=== PATIENT | male | born 1940 | race Caucasian/White ===

== ENCOUNTER 2023-08-21 13:00 | Outpatient (RCR) | payer MEDICARE, OTHER, SELFPAY ==
--- NOTE | 2023-08-07 14:07 | PT.OPEX ---
PT [facility] Outpatient Eval PT [facility] Outpatient Eval Start: 08/06/23 12:28 Freq: Status: Active Protocol: Document 08/07/23 11:32 MLS (Rec: 08/07/23 14:04 MLS [id number]) E-signed By Miryam Collins DPT Physical Therapy Outpatient Evaluation Insurance Information Recert Due Date 11/04/23 Insurance Name Medicare B,[employer] Medical Diagnosis M54.9 severe back pain Treating Diagnosis M54.50 LBP (right sided) Referring MD Luisito Wood MD Subjective Subjective Patient is a 82 year old male who presents to physical therapy with signs and symptoms of right sided low back pain that has been going on for 2-3 months. He states that he was doing yard work 2- 3 months ago and pulling weeds out and his back has been sore since. He states that he had this problem years ago from chopping wood, but it had improved. He reports that he has a hard time sleeping, so usually sleeps in his chair. He states that he has severe pain lying on either side and can't get comfortable in bed. Aggravating factors include: standing over a few minutes, lying flat in bed, mowing the lawn, lying on either side in bed, doing yard work, lifting and some of his ADLs. Alleviating factors include: Tylenol. Significant past medical history includes penial cancer, leukemia, pacemaker and left TKA. Patient would like to achieve living pain free through physical therapy sessions. Pain Comments Today: 5/10 on a 0-10 pain scale with 10 = extreme pain At its worst: 9/10 At its best: 2/10 Current Work Status Retired Preferred Name Sergey Jorge Precautions Weight Bearing Status Full Weight Bearing Objective Other/Pertinent Objective Posture Assessment: Foward flexed posture LUMBAR ROM Flexion: 100% repeated flexion: did not increase symptoms Extension: 25% repeated extension: did not increase symptoms Right Sidebend: 25% Left Sidebend: 25% with increased pain Right Rotation: 50% Left Rotation: 50% LE MMT Hip flexion: R 4-/5 L 4-/5 Hip Extension: R 4-/5 L 4-/5 Hip abduction: R 4-/5 L 4-/5 Knee extension: R 4-/5 L 4-/5 Knee Flexion: R 4/5 L 4/5 Dorsiflexion/heel walk: unable to do secondary to balance Plantarflexion/toe walk: unable to do secondary to balance Great Toe Extension: R 4/5 L 4 /5 JOINT MOBILITY/PALPATION Severe tenderness to palpation of right QL SPECIAL TESTS -Quadrant test: negative -Single leg stance: negative -Slump test: negative -Straight leg raise: negative TX: Instructed on performing exercises in recliner Access Code: [email or web address] URL: [email or web address] Date: 08/07/2023 Prepared by: Miryam Collins Exercises - Supine Posterior Pelvic Tilt - 1 x daily - 7 x weekly - 3 sets - 10 reps - Supine Posterior Pelvic Tilt with Knee Rocks - 1 x daily - 7 x weekly - 3 sets - 10 reps Functional Test Performed & Score 30/50 Modified Oswestry Low Back Pain Questionnaire Assessment Assessment/Impression Pt is a 82 year old male who presents with concerns of right sided low back pain. Patient has notable objective findings including tenderness to palpation, limited ROM, impaired balance, and decreased strength which are also likely contributing to the problem. Patient is a good candidate for skilled therapy to target deficits described above. Skilled PT intervention is necessary for use of therapeutic exercise manual therapy, neuromuscular re- education, gait training, and therapeutic activity. Functional impairments include difficulty with mowing the lawn, bending, lifting, sleeping, walking and standing for long periods of time. See appropriate sections of PT eval for complete list of goals and POC. D/C plan and criteria is for pt to achieve the goals as listed below or until max rehab potential is met. Pt was agreeable with plan of care and goals established. Primary Functional Limitations bending standing lifting walking sleeping Plan of Care Rehabilitation Potential Good Physical Therapy Goals ST.Pt will demonstrate independence in performance of home exercise program with the use of video and/or handouts in order to optimize functional mobility and reduce risk for re-injury. 2.Pt will demonstrate consistent HEP compliance to ensure progress in reaching established goals during course of care. 3.Patient will be able to stand for 10 minutes without pain. 4.Patient will report pain levels <2/10 with all activities in order to improve functional mobility at home, work and during functional leisure activities. LT.Patient is able to sleep without waking more than one time due to pain in a 6-8 hour time frame. 6.Patient will be able to walk up to 3 blocks without pain. 7.Patient will be able to bend and lift household items from the floor to shoulder height to perform ADLs without pain. 8.Pt will be able to mow his lawn pain free. 9.Pt will exhibit 5 pt improvement on the Modified Oswestry Low Back Pain Disability Questionnaire to demonstrate functional improvement and progress towards goals. Coordination/Communication With Referral Source Treatment Plan/Direct Interventions Manual Therapy,Therapeutic Activities,Therapeutic Exercises Patient Will Be Discharged From Therapy Independently Progressing Evaluation Billing Untimed Code Treatment Minutes 30 Complexity Low Certification Information Physician Comment/Change : Physician NPI Number #
== END 2023-11-18 15:11 | disposition home or self-care (01) ==
PROVIDERS: PCP Family Medicine; Visit Provider Family Medicine
DX: I89.0 Lymphedema, not elsewhere classified (principal); M54.50 Low back pain, unspecified; Z51.89 Encounter for other specified aftercare
CPT/HCPCS: 97110; 97140; 97161; 97166; 97530; 97535; X5282

== ENCOUNTER 2023-09-02 14:47 | Emergency (ER) | payer MEDICARE, OTHER, SELFPAY ==
[2023-09-02 14:56] VITALS: BP 137/45; PULSE 76; RESP 20; TEMP 36.8; BMI 31.8
--- NOTE | 2023-09-02 15:13 | CRLHL7_ITS ---
For Patients: As a result of the Century Cures Act, medical imaging exams and procedure reports are released immediately into your electronic medical record. You may view this report before your referring provider. If you have questions, please contact your health care provider. INDICATION: Injury. On blood thinners. COMPARISON: February 16, 2018 TECHNIQUE: CT examination of the head was performed as axial sections without intravenous contrast. Images were obtained from the vertex of the skull through the skull base. Please note that all CT scans at this facility use dose modulation, iterative reconstruction, and/or weight-based dosing when appropriate to reduce radiation dose to as low as reasonably achievable. FINDINGS: The brain shows no sign of mass lesion, mass effect, hemorrhage, or edema. There are involutional changes. There is moderate cortical atrophy and there is moderate white matter disease. There is no hydrocephalus. The visualized portions of the orbits are normal in appearance. The osseous structures are normal in appearance with no sign of abnormality in the skull base or calvarium. Subcutaneous hematoma in the right frontal area. IMPRESSION: Involutional changes. No acute intracranial posttraumatic finding. Right frontal region subcutaneous hematoma. No calvarial fracture Please note that all CT scans at this facility use dose modulation, iterative reconstruction, and/or weight-based dosing when appropriate to reduce radiation dose to as low as reasonably achievable. Dictated by Gurmeet Wade MD @ 09/02/2023 3:42:33 PM (Electronically Signed)
--- NOTE | 2023-09-02 15:15 | ED_ITS ---
HPI - General Adult General Chief complaint: Head Injury/Pain Stated complaint: Fall Time Seen by Provider: 09/02/23 15:00 History of Present Illness HPI narrative: was on his way to pay his bill at the hospital front entrance when he fell. he did not see the incline and fell face first . has abrasions with small lacerations on his right forehead, nose, right lower lip. has a contusion on his right hand -knuckle area. no loc. is on Eliquis. has a pacer. 82-year-old man presenting to the emergency department after a fall on his face. Sounds to have caught himself somewhat on his right hand on re-evaluation. I meet him initially in the CT scanner where he has been sent for head CT for quick assessment. Maintains that is not have any neck or back pain. Dentition feels to be intact. There was no loss of consciousness. This was a trip and fall event. He is anticoagulated with Eliquis and has a pacemaker. No shortness of breath. No chest pain. No leg injury. Shoulders normal. Related Data Allergies Allergy/AdvReac Type Severity Reaction Status Date / Time No Known Drug Allergies Allergy Verified 09/02/23 14:56 Review of Systems Status of ROS: Reports: 6 or more systems reviewed and unremarkable except as noted in History and below [facility] Social History Smoking Status: Former smoker Do you use any of these nicotine containing products: None Second hand tobacco smoke exposure: No How often do you have a drink containing alcohol: 2-4 times a month How many standard drinks containing alcohol do you have on a typical day: 1 or 2 How often do you have six or more drinks on one occasion: Never AUDIT-C Alcohol total score: 2 Non-prescribed substance use: denies use service: Yes Exam Narrative: Exam Narrative: Very pleasant man. NAD. GCS 15 Skin is warm and dry. There is a half-dollar sized swollen mostly abraded area on the right forehead. Extraocular movements are full intact. Pupils are equal and brisk reactive to light and accommodation. Removing bandages from the nose there is the cm so irregular ulceration/abrasion to the bridge of the nose. The bridge appears to mean maintained. There is no crepitus and not terribly tender to palpation. There is no septal hematoma. There is blood at the nares I think is coming from the external wound though. Dentition with dentures intact. No TMJ area pain. No fluid at external ear canals. Neck is supple and nontender. Back nontender. Abdomen is soft nontender no pain to palpation of the chest. Lower extremities with compression stockings on. Large symmetrically consistent with lymphedema diagnosis. The right hand is held as if uncomfortable. There is bruising and mild swelling over the dorsum of 3rd and 4th metacarpal joints as well as some on the palmar surface oppositional to that. Const: Vital Signs, click to edit/add: Vital Signs - 24 hr 09/02/23 14:56 Temperature 98.3 F Pulse Rate [Pulse Oximeter] 76 Respiratory Rate 20 Blood Pressure [Ri ght Upper Arm] 137/45 L Oxygen Delivery Me thod Room Air Documenting provider has reviewed patient's vital signs: yes Course Vital Signs Vital signs: Initial Vital Signs Temperature 98.3 F 09/02/23 14:56 Temperature Source Temporal Artery Scan 09/02/23 14:56 Pulse Rate 76 09/02/23 14:56 Pulse Rhythm Regular 09/02/23 14:56 Respiratory Rate 20 09/02/23 14:56 Blood Pressure 137/45 L 09/02/23 14:56 Blood Pressure Mean 75 09/02/23 14:56 Blood Pressure Position Sitting 09/02/23 14:56 Oxygen Delivery Method Room Air 09/02/23 14:56 Vital Signs Temperature 98.3 F 09/02/23 14:56 Pulse Rate 76 09/02/23 14:56 Respiratory Rate 20 09/02/23 14:56 Blood Pressure 137/45 L 09/02/23 14:56 Oxygen Delivery Method Room Air 09/02/23 14:56 Temperature 98.3 F 09/02/23 14:56 Pulse Rate 76 09/02/23 14:56 Respiratory Rate 20 09/02/23 14:56 Blood Pressure 137/45 L 09/02/23 14:56 Oxygen Delivery Method Room Air 09/02/23 14:56 Medical Decision Making MDM Narrative Medical decision making narrative: He is clear that he has no neck pain. Otherwise will be CT scanning head noncontrast. And treat abrasions. This appears to have been a trip and fall event. Will also image right hand. The palmar bruising a particular would have concerns over potential fracture here. Does not feel he needs anything for pain or nausea. Ice pack. CT head imaging has been accomplished at this time. Reviewed by me, I do not see any acute intracranial abnormality. There is soft tissue swelling/hematoma on the forehead consistent with physical exam. No acute bony abnormality appreciated here either. Return to examine as above. Two view right hand reviewed by me I do not appreciate any acute bony abnormality. There appears to be an accessory ossicle on the palmar surface. Radiology over-read on head and hand consistent. Cleaned and dressed facial abrasions. Bleeding controlled. Handed improved with icing. No further events and he would like to leave. Ambulated from the ER. See patient discharge plan Medical Records Medical records reviewed: Yes I reviewed the patient's medical records Discharge Plan Discharge Clinical Impression: Hematoma, Closed head injury, Contusion, Abrasion Patient Disposition: Home w/ Parent or Adult Condition: Stable Additional Instructions: Since you have not received anything here, I would take 1000 mg of acetaminophen when you get home. Change dressing daily with antibiotic ointment for about 6 days or so. This at least helps keep the wound moist. You appear to be clotting well on your nose. You might see whitish yellow tissue growing in on the wounds. As long as there is not surrounding redness or purulent drainage, do not scrape that off as that is new tissue growing in. for scar reduction/wound healing, if desired -- after scab falls, can apply daily vitamin e oil, emu oil or silicone-containing ointments or bandages.? in particular, protect from the sun for the first 9 - 12 months. Important to stay well hydrated and get quality and regular sleep. It is possible you have sustained a concussion although you seem quite clear here at this time. These symptoms can evolve later. Signs and symptoms of a concussion can be headache and nausea on exertion which would also be an indication to back off that level of activity and reassess in 1 week.? Other signs might be a smoldering headache or nausea for an extended period of time, mood lability, sleep disturbances, difficulty with concentration, persistent light sensitivity. If you are experiencing these symptoms and they continue over the course of more than a week I would follow up to be reassessed for further recommendations Return for severe headache, repeated vomiting, new and focal weakness, visual changes, discoordination, unusual somnolence. I imagine you will be extra sore over the next couple of days. Spend some time stretching neck and upper back. Ice areas that hurt a few times daily over the next few days. Follow Up/Referrals: Luisito Wood MD [Primary Care Provider] - Stand Alone Forms: [employer] Info Instructions
--- NOTE | 2023-09-02 15:50 | CRLHL7_ITS ---
For Patients: As a result of the Cures Act, medical imaging exams and procedure reports are released immediately into your electronic medical record. You may view this report before your referring provider. If you have questions, please contact your health care provider. Indication: Bruising after fall, 3rd and 4th metacarpophalangeal joint pain. Technique: Two views of the right hand, PA, lateral. Comparison: None Findings/Impression: No acute fracture or dislocation. No significant focal soft tissue abnormality identified. Dictated by Katie Gtz MD @ 09/02/2023 5:12:11 PM (Electronically Signed)
== END 2023-09-02 17:37 | disposition home or self-care (01) ==
PROVIDERS: Emergency Provider Family Medicine; PCP Family Medicine
DX: S00.93XA Contusion of unspecified part of head, initial encounter (principal); S60.221A Contusion of right hand, initial encounter; W01.0XXA Fall on same level from slipping, tripping and stumbling without subsequent striking against object, initial encounter
CPT/HCPCS: 70450; 73120; 99284

== ENCOUNTER 2024-04-28 17:07 | Inpatient (IN) | payer MEDICARE, OTHER, SELFPAY ==
[2024-04-28] VITALS (13 sets, daily range): BP systolic 93–134; BP diastolic 48–110; PULSE 73–95; RESP 14–22; TEMP 36.3–37.7; O2SAT 92–96; BMI 25.8; BMI 31.4
--- NOTE | 2024-04-28 17:16 | ED_ITS ---
HPI - Nausea/Vomiting/Diarrhea General Time Seen by Provider: 17:16 Date Seen: 04/28/24 Chief complaint: Diarrhea Stated complaint: diarrhea 4 days Time Seen by Provider: 04/28/24 17:16 Source: patient, RN notes reviewed and old records reviewed Mode of arrival: ambulatory Limitations: no limitations History of Present Illness HPI Narrative: 83-year-old male who presents today with diarrhea. Patient reports 4 days of diarrhea, says he had 2 watery stools yesterday and 1 watery stool today, no blood in the stool. Did have some lower abdominal pain a couple days ago but that has resolved. Denies urinary symptoms. Decreased appetite. Denies fevers or chills. Related Data Home Medications ?Medication ?Instructions ?Recorded ?Confirmed allopurinol 300 mg tablet 300 mg PO DAILY 04/28/24 04/28/24 amlodipine 5 mg tablet 5 mg PO DAILY 04/28/24 04/28/24 apixaban 5 mg tablet (Eliquis) 5 mg PO BID 04/28/24 04/28/24 atorvastatin 20 mg tablet 20 mg PO DAILY 04/28/24 04/28/24 imatinib 100 mg tablet 200 mg PO BID 04/28/24 04/28/24 lisinopril 20 mg tablet 20 mg PO DAILY 04/28/24 04/28/24 potassium chloride 20 mEq 20 meq PO DAILY 04/28/24 04/28/24 tablet,extended release(part/cryst) tamsulosin 0.4 mg capsule 0.4 mg PO DAILY 04/28/24 04/28/24 Allergies Allergy/AdvReac Type Severity Reaction Status Date / Time Iodinated Contrast Media Allergy Unknown Verified 04/28/24 17:18 [facility] Social History Smoking Status: Former smoker Do you use any of these nicotine containing products: None Second hand tobacco smoke exposure: No How often do you have a drink containing alcohol: 2-4 times a month How many standard drinks containing alcohol do you have on a typical day: 1 or 2 How often do you have six or more drinks on one occasion: Never AUDIT-C Alcohol total score: 2 Non-prescribed substance use: denies use service: Yes Exam Narrative: Exam Narrative: General: Well-developed and well-nourished, no acute distress Head: Atraumatic and normocephalic Eyes: Pupils are equal reactive, extraocular motions intact, conjunctiva clear ENT: External nose and ears are normal, posterior pharynx without erythema or exudate Neck: No midline cervical tenderness, full spontaneous range of motion the neck, trachea midline, no adenopathy Heart: Tachycardic but regular Lungs: Clear to auscultation bilaterally without wheezes or crackles Abdomen: Soft, nontender, nondistended with active bowel sounds Musculoskeletal: No tenderness, deformity, bilateral lower extremity pitting edema Neurologic: Awake, alert, and oriented x3, no gross focal neurologic deficits, cranial nerves intact as tested Psych: Mood and affect are appropriate Skin: No rashes Const: Vital Signs, click to edit/add: Vital Signs - 24 hr 04/28/24 17:09 04/28/24 18:25 04/28/24 18:33 Temperature 100 F H Pulse Rate 81 Pulse Rate [Pulse Oximeter] 76 Respiratory Rate 18 Blood Pressure 99/62 130/110 H Blood Pressure [Ri ght Upper Arm] 93/48 L Pulse Oximetry 93 93 Oxygen Delivery Me thod Room Air 04/28/24 18:57 04/28/24 19:00 04/28/24 19:02 Temperature Pulse Rate 86 91 85 Pulse Rate [Pulse Oximeter] Respiratory Rate 16 Blood Pressure 116/55 L Blood Pressure [Ri ght Upper Arm] Pulse Oximetry 95 95 93 Oxygen Delivery Me thod Room Air Course Course ED Course: Patient seen examined, reviewed most recent oncology visit from March 31 when patient was seen for 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 Patient is on Eliquis. Patient presents with 4 days of diarrhea, this presents as loose stools, 2 yesterday and just 1 today. Did have some lower abdominal pain initially as well. No fevers, chills, urinary symptoms. On exam here, patient's blood pressure is little bit low, no abdominal tenderness on exam. Bilateral pitting edema which is usual for the patient. Colitis versus diverticulitis, urinary tract infection also possible. Labs are ordered along with CT abdomen and pelvis. Reevaluation(s) Time of Reevaluation #1: 18:40 Reevaluation #1: Labs ordered in pill interpreted by me with elevated white blood cell count 18.3, hemoglobin 9.2, most recent hemoglobin in clinic February 2020 for was 9.8. Potassium 3.2 and creatinine 2.9, prior creatinine in February 1.27. Lactate 1.7. Time of Reevaluation #2: 18:55 Reevaluation #2: CT scan of the abdomen and pelvis independently interpreted by me with pericholecystic fluid although there is some ascites and anasarca which may be contributing, no evidence for obstruction, ventral hernia containing fat, no free air Time of Reevaluation #3: 20:04 Reevaluation #3: Reviewed radiology interpretation which agrees with my initial interpretation with gallbladder wall thickening and small amount of adjacent fluid but may be secondary to 3rd spacing of fluids and anasarca/ascites. Right upper quadrant ultrasound is ordered. Care was discussed with Dr. Balderrama in the emergency department. Blood pressure improved after fluid bolus. Vital Signs Vital signs: Initial Vital Signs Temperature 100 F H 04/28/24 17:09 Temperature Source Temporal Artery Scan 04/28/24 17:09 Pulse Rate 76 04/28/24 17:09 Pulse Rhythm Regular 04/28/24 17:09 Pulse Strength 3+ Normal 04/28/24 17:09 Respiratory Rate 18 04/28/24 17:09 Blood Pressure 93/48 L 04/28/24 17:09 Blood Pressure Mean 63 L 04/28/24 17:09 Blood Pressure Position Sitting 04/28/24 17:09 Pulse Oximetry 93 04/28/24 17:09 Oxygen Delivery Method Room Air 04/28/24 17:09 Vital Signs Temperature 100 F H 04/28/24 17:09 Pulse Rate 76 04/28/24 17:09 Respiratory Rate 18 04/28/24 17:09 Blood Pressure 93/48 L 04/28/24 17:09 Pulse Oximetry 93 04/28/24 17:09 Oxygen Delivery Method Room Air 04/28/24 17:09 Temperature 100 F H 04/28/24 17:09 Pulse Rate 85 04/28/24 19:02 Respiratory Rate 16 04/28/24 19:02 Blood Pressure 116/55 L 04/28/24 19:02 Pulse Oximetry 93 04/28/24 19:02 Oxygen Delivery Method Room Air 04/28/24 19:02 Medications Administered Medications: Discontinued Medications Generic Name Dose Route Start Last Admin Trade Name Freq PRN Reason Stop Dose Admin Sodium Chloride 1,000 mls @ 1,000 mls/hr 04/28/24 17:30 04/28/24 19:48 0.9 % Sodium Chloride 1000 Ml IV 04/28/24 18:29 Infused .Q1H TYREL Infusion MDM - Nausea/Vomiting/Diarrhea Lab Data Labs: Lab Results 04/28/24 04/28/24 Range/Units 18:10 19:10 WBC 18.30 H (4.50-11.00) K/uL RBC 3.07 L (4.30-5.90) m/uL Hgb 9.2 L (13.5-17.5) gm/dL Hct 27.8 L (37.0-53.0) % MCV 91 (80-100) fL MCH 30 (26-34) pg MCHC 33 (32-36) gm/dL RDW Coeff of Guillermo 16.6 H (11.5-15.5) % Plt Count 177 (140-440) K/uL Neut % (Auto) 93.6 H (42.0-72.0) % Lymph % (Auto) 1.5 L (20-44) % [place] % (Auto) 4.3 (0.0-11.0) % Eos % (Auto) 0.0 (0.0-7.0) % Baso % (Auto) 0.1 (0.0-3.0) % Neut # (Auto) 17.10 H (1.7-7.0) K/uL Lymph # (Auto) 0.30 L (0.90-2.90) K/uL [place] # (Auto) 0.80 (0.00-0.90) K/UL Eos # (Auto) 0.00 (0.00-0.50) K/uL Baso # (Auto) 0.00 (0.00-0.30) K/uL Abs Immat Gran (auto) 0.10 (0.00-0.30) K/uL Imm/Tot Granulo (auto) 0.5 % Sodium 135 (135-149) mmol/L Potassium 3.2 L (3.6-5.1) mmol/L Chloride 103 (96-114) mmol/L Carbon Dioxide 22 (20-32) mmol/L Anion Gap 10 (7-15) mEq/L BUN 70 H (7-30) mg/dL Creatinine 2.9 H (0.5-1.5) mg/dL Estimated Creat Clear 20.81 Estimated GFR 21 ml/min Glucose 137 H (60-115) mg/dL Lactate 1.7 (0.5-1.9) mmol/L Calcium 8.4 (8.4-10.6) mg/dL Magnesium 1.9 (1.5-2.6) mg/dL Urine Color Yellow (Yellow) Urine Appearance Cloudy A (Clear) Urine pH 5.0 (5.0-8.5) Ur Specific [place] >= 1.030 (1.000-1.030) Urine Protein 2+ A (Negative) Urine Glucose (UA) Negative (Negative) Urine Ketones Trace A (Negative) Urine Blood Trace-intact A (Negative) Urine Nitrite Negative (Negative) Urine Bilirubin 1+ A (Negative) Urine Urobilinogen 0.2 (0.2-1.0) Ur Leukocyte Esterase Negative (Negative) Urine RBC 0-2 (0-2) Urine WBC 2-5 (0-5) Ur Squamous Epith Cells Few (None-Few) Amorphous Sediment Few A (None) Urine Bacteria Few A (None) Fine Granular Casts Moderate A (None) Discharge Plan Discharge Clinical Impression: CML (chronic myelocytic leukemia), Acute kidney injury Patient Disposition: Admitted As Observation
--- NOTE | 2024-04-28 17:28 | CRLHL7_ITS ---
For Patients: As a result of the Century Cures Act, medical imaging exams and procedure reports are released immediately into your electronic medical record. You may view this report before your referring provider. If you have questions, please contact your health care provider. Indication: Diarrhea, hypotension Technique: Noncontrast CT through the abdomen and pelvis with multiplanar reformats. Comparison: None Findings: Lower chest: Partially visualized cardiac pacer leads. Cardiomegaly. Small pericardial effusion. Hepatobiliary: Marked gallbladder wall thickening and dilation with a small volume of adjacent fluid and adjacent stranding. Periportal edema. Spleen: Unremarkable. Pancreas: No acute abnormality appreciated. Adrenal glands: Nodular thickening of left adrenal gland. Kidneys: No significant parenchymal abnormality appreciated. No visualized calculi. No hydronephrosis. Bowel: No obstruction. No focal perienteric or pericolonic stranding is appreciated. Vascular: Calcified atherosclerosis. Lymph nodes: Shotty nodes. Peritoneum: Diffuse mesenteric stranding. Small volume ascites. : No acute abnormality appreciated. Soft tissues: Fat and ascites containing umbilical hernia. Mild anasarca. Bones: No acute fracture. No lytic or blastic lesion. Multilevel degenerative changes of the spine and pelvis. Impression: 1. Marked gallbladder wall thickening and dilation with a small amount of adjacent fluid and stranding. Findings can be correlated for acute cholecystitis but could be secondary to 3rd spacing of fluids and/or heart failure. 2. Cardiomegaly with trace pericardial fluid, small volume ascites, and anasarca. 3. No other acute abnormality appreciated. Please note that all CT scans at this facility use dose modulation, iterative reconstruction, and/or weight-based dosing when appropriate to reduce radiation dose to as low as reasonably achievable. Dictated by Abdulkadir Kay MD @ 04/28/2024 8:02:52 PM (Electronically Signed)
[2024-04-28 18:20] LABS: Lactate* 1.7 mmol/L (0.5-1.9)
[2024-04-28 18:22] LABS: Basophils Percent Auto 0.1 % (0.0-3.0); Hematocrit 27.8 % (37.0-53.0); Hemoglobin* 9.2 gm/dL (13.5-17.5); Immature Granulocytes Pct Auto 0.5 %; Lymphocytes Percent Auto 1.5 % (20-44); Mean Corpuscular HGB Conc 33 gm/dL (32-36); Mean Corpuscular Hemoglobin 30 pg (26-34); Mean Corpuscular Volume 91 fL (80-100); Monocytes Percent Auto 4.3 % (0.0-11.0); Neutrophils Percent Auto 93.6 % (42.0-72.0); Platelet Count* 177 K/uL (140-440); RDW Coefficient of Variation % 16.6 % (11.5-15.5); Red Blood Count 3.07 m/uL (4.30-5.90)
[2024-04-28] MEDS: 0.9 % SODIUM CHLORIDE 1000 ml 1,000 ML IV (18:22)
[2024-04-28 18:25] LABS: Slide Review Reflex No
[2024-04-28 18:31] LABS: Chloride* 103 mmol/L (96-114); Potassium* 3.2 mmol/L (3.6-5.1); Sodium* 135 mmol/L (135-149)
[2024-04-28 18:34] LABS: Anion Gap 10 mEq/L (7-15); Carbon Dioxide* 22 mmol/L (20-32); Creatinine* 2.9 mg/dL (0.5-1.5); Est. Creatinine Clearance* 20.81; Estimated Glomerular Filt Rate 21 ml/min
[2024-04-28 18:35] LABS: Blood Urea Nitrogen* 70 mg/dL (7-30); Calcium* 8.4 mg/dL (8.4-10.6); Glucose* 137 mg/dL (60-115); Magnesium* 1.9 mg/dL (1.5-2.6)
[2024-04-28 19:56] LABS: Appearance Urine Cloudy (Clear); Bilirubin Urine 1+ (Negative); Blood Urine Trace-intact (Negative); Color Urine Yellow (Yellow); Glucose Urine Negative (Negative); Ketones Urine Trace (Negative); Leukocyte Esterase Urine Negative (Negative); Nitrite Urine Negative (Negative); Protein Urine 2+ (Negative); Specific Gravity Urine >= 1.030 (1.000-1.030); Urobilinogen Urine 0.2 (0.2-1.0)
[2024-04-28 19:59] LABS: Amorphous Sediment Urine Few; Bacteria Urine Few; RBC Urine 0-2 (0-2); Squamous Epithelial Cell Urine Few (None-Few)
[2024-04-28 20:00] LABS: Fine Granular Casts Urine Moderate
--- NOTE | 2024-04-28 20:04 | CRLHL7_ITS ---
For Patients: As a result of the Century Cures Act, medical imaging exams and procedure reports are released immediately into your electronic medical record. You may view this report before your referring provider. If you have questions, please contact your health care provider. INDICATION: diarrhea, hypotension, abnormal CT. TECHNIQUE: Ultrasound abdomen limited. COMPARISON: None. FINDINGS: Gallbladder: Small echogenic structures in the fundus, likely small stones. Increased wall thickness measuring 6 mm with probable small adjacent pericholecystic fluid. Reported negative sonographic Macias`s sign. Common bile duct: 3 mm. IMPRESSION: Cholelithiasis with wall thickening and pericholecystic fluid suspicious for cholecystitis. Negative sonographic Macias`s sign. Dictated by Donal Duffy MD @ 04/28/2024 9:32:37 PM (Electronically Signed)
[2024-04-28 20:09] LABS: PCR FLU A Negative PCR FLU A (Negative); PCR FLU B Negative PCR FLU B (Negative); PCR RSV Negative PCR RSV (Negative); SARS PCR* Negative SARS-CoV-2 (Negative)
[2024-04-28 20:30] LABS: NT Pro B Type NatriureticPept* 1610 pg/mL
--- NOTE | 2024-04-28 21:59 | PM.IMHP1 ---
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 He is not aware of any fever. He may have had some low abdominal pain. No vomiting. Stools are brown. He is not having chest pain or shortness of breath. No upper respiratory illness symptoms. He reports that his has also developed diarrhea in the last day or 2. No recent exposures or travel besides his . No recent antibiotics. 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 He has been on this for about 5 years. He had a dose reduction in 2019 for nausea, abdominal pain, fatigue and poor appetite. It was then stopped for development a rash and then restarted. Dose was increased back to 400mg in 2021 due to rising tumor markers. Stopped again in 2022 due to pneumonia and failure to thrive. Restarted 1 year ago at 300 mg daily and in November this year increased to 400 mg daily again. He was seen by Oncology on March 31. At that time still noted to have some diarrhea which is a chronic problem for him. Blood counts were stabilized. He has had weight loss on our scale he is gone from 103.4 kg in August 2023 to 86.2 kg today. In the clinic his weight was 108 kg in March 2023 and 98 kg in December 2023. He reports ongoing poor appetite. Review of Systems Narrative: Patient has no concerns for me today other than his diarrhea, poor appetite and feeling weak. Specifically denies fever, chest pain, current abdominal pain, respiratory, I urinary symptoms. Still having prominent edema. [facility] Medical History (Updated 04/28/24 @ 22:37 by Hernandez Balderrama MD) Weight loss, non-intentional ?R63.4 - Abnormal weight loss (ICD-10) Sarcopenia ?M62.84 - Sarcopenia (ICD-10) Heart failure with reduced ejection fraction ?I50.20 - Unspecified systolic (congestive) heart failure (ICD-10) Esophageal dysmotility ?K22.4 - Dyskinesia of esophagus (ICD-10) BPH (benign prostatic hyperplasia) ?N40.0 - Benign prostatic hyperplasia without lower urinary tract symptoms (ICD-10) Chronic diarrhea ?K52.9 - Noninfective gastroenteritis and colitis, unspecified (ICD-10) Hypertension ?I10 - Essential (primary) hypertension (ICD-10) Obesity ?E66.9 - Obesity, unspecified (ICD-10) Gout ?M10.9 - Gout, unspecified (ICD-10) Paroxysmal atrial fibrillation ?I48.0 - Paroxysmal atrial fibrillation (ICD-10) Diabetes mellitus ?E11.9 - Type 2 diabetes mellitus without complications (ICD-10) Chronic acquired lymphedema ?I89.0 - Lymphedema, not elsewhere classified (ICD-10) Penile cancer ?C60.9 - Malignant neoplasm of penis, unspecified (ICD-10) Coronary artery disease ?I25.10 - Atherosclerotic heart disease of [place] coronary artery without angina pectoris (ICD-10) 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 - Chronic myeloid leukemia, BCR/ABL-positive, not having achieved remission (ICD-10) Surgical History (Updated 04/28/24 @ 22:23 by Hernandez Balderrama MD) History of penectomy ?Z90.79 - Acquired absence of other genital organ(s) (ICD-10) S/P placement of cardiac pacemaker ?Z95.0 - Presence of cardiac pacemaker (ICD-10) History of arthroplasty of left knee ?Z96.652 - Presence of left artificial knee joint (ICD-10) History of coronary artery stent placement ?Z95.5 - Presence of coronary angioplasty implant and graft (ICD-10) Social History Smoking Status: Former smoker Do you use any of these nicotine containing products: None Second hand tobacco smoke exposure: No How often do you have a drink containing alcohol: 2-4 times a month How many standard drinks containing alcohol do you have on a typical day: 1 or 2 How often do you have six or more drinks on one occasion: Never AUDIT-C Alcohol total score: 2 Non-prescribed substance use: denies use service: Yes Meds Home Medications and Allergies Home Medications ?Medication ?Instructions ?Recorded ?Confirmed ?Type allopurinol 300 mg tablet 300 mg PO DAILY 04/28/24 04/28/24 History amlodipine 5 mg tablet 5 mg PO DAILY 04/28/24 04/28/24 History apixaban 5 mg tablet (Eliquis) 5 mg PO BID 04/28/24 04/28/24 History atorvastatin 20 mg tablet 20 mg PO DAILY 04/28/24 04/28/24 History imatinib 100 mg tablet 200 mg PO BID 04/28/24 04/28/24 History lisinopril 20 mg tablet 20 mg PO DAILY 04/28/24 04/28/24 History potassium chloride 20 mEq 20 meq PO DAILY 04/28/24 04/28/24 History tablet,extended release(part/cryst) tamsulosin 0.4 mg capsule 0.4 mg PO DAILY 04/28/24 04/28/24 History Allergies Allergy/AdvReac Type Severity Reaction Status Date / Time Iodinated Contrast Media Allergy Unknown Verified 04/28/24 17:18 Exam Narrative: Exam Narrative: He is alert and appears in no distress. He is hard of hearing. Eyes normal status post cataract surgery. Extraocular movements are full. Visual chapa intact. No facial asymmetry. Oropharynx with dry mucous membranes. Neck is supple without mass or adenopathy. Somewhat prominent submandibular glands. Respirations are clear to auscultation. No wheezing. Good air exchange all lung chapa. Breathing is unlabored. Cardiovascular: S1, S2, relatively regular rhythm. Abdomen: Bowel sounds are present. Abdomen is soft without tenderness or mass. External genitalia status post partial penectomy. Extremities bilaterally with compression wraps and at least 2+ edema. Moves all 4 extremities well. Overall he appears to have poor muscle mass relative to body mass Const: Vital Signs, click to edit/add: Vital Signs - 24 hr 04/28/24 17:09 04/28/24 18:25 04/28/24 18:33 Temperature 100 F H Pulse Rate 81 Pulse Rate [Pulse Oximeter] 76 Respiratory Rate 18 Blood Pressure 99/62 130/110 H Blood Pressure [Ri ght Upper Arm] 93/48 L Pulse Oximetry 93 93 Oxygen Delivery Me thod Room Air 04/28/24 18:57 04/28/24 19:00 04/28/24 19:02 Temperature Pulse Rate 86 91 85 Pulse Rate [Pulse Oximeter] Respiratory Rate 16 Blood Pressure 116/55 L Blood Pressure [Ri ght Upper Arm] Pulse Oximetry 95 95 93 Oxygen Delivery Me thod Room Air 04/28/24 19:03 04/28/24 19:32 04/28/24 20:02 Temperature Pulse Rate 95 80 79 Pulse Rate [Pulse Oximeter] Respiratory Rate 16 14 Blood Pressure 120/62 111/52 L Blood Pressure [Ri ght Upper Arm] Pulse Oximetry 93 94 96 Oxygen Delivery Me thod Room Air Room Air 04/28/24 20:30 Temperature Pulse Rate 74 Pulse Rate [Pulse Oximeter] Respiratory Rate Blood Pressure Blood Pressure [Ri ght Upper Arm] Pulse Oximetry 96 Oxygen Delivery Me thod Documenting provider has reviewed patient's vital signs: yes Hospitalist - H&P: Result Labs Labs: Short CBC 04/28/24 Range/Units 18:10 WBC 18.30 H (4.50-11.00) K/uL Hgb 9.2 L (13.5-17.5) gm/dL Hct 27.8 L (37.0-53.0) % Plt Count 177 (140-440) K/uL BMP 04/28/24 18:10 Sodium 135 Potassium 3.2 L Chloride 103 Carbon Dioxide 22 BUN 70 H Creatinine 2.9 H Glucose 137 H Calcium 8.4 Urine 04/28/24 Range/Units 19:10 Urine Color Yellow (Yellow) Urine Appearance Cloudy A (Clear) Urine pH 5.0 (5.0-8.5) Ur Specific Essie >= 1.030 (1.000-1.030) Urine Protein 2+ A (Negative) Urine Glucose (UA) Negative (Negative) Imaging CT scan - abdomen: Radiologist's impression: Indication: Diarrhea, hypotension Technique: Noncontrast CT through the abdomen and pelvis with multiplanar reformats. Comparison: None Findings: Lower chest: Partially visualized cardiac pacer leads. Cardiomegaly. Small pericardial effusion. Hepatobiliary: Marked gallbladder wall thickening and dilation with a small volume of adjacent fluid and adjacent stranding. Periportal edema. Spleen: Unremarkable. Pancreas: No acute abnormality appreciated. Adrenal glands: Nodular thickening of left adrenal gland. Kidneys: No significant parenchymal abnormality appreciated. No visualized calculi. No hydronephrosis. Bowel: No obstruction. No focal perienteric or pericolonic stranding is appreciated. Vascular: Calcified atherosclerosis. Lymph nodes: Shotty nodes. Peritoneum: Diffuse mesenteric stranding. Small volume ascites. : No acute abnormality appreciated. Soft tissues: Fat and ascites containing umbilical hernia. Mild anasarca. Bones: No acute fracture. No lytic or blastic lesion. Multilevel degenerative changes of the spine and pelvis. Impression: 1. Marked gallbladder wall thickening and dilation with a small amount of adjacent fluid and stranding. Findings can be correlated for acute cholecystitis but could be secondary to 3rd spacing of fluids and/or heart failure. 2. Cardiomegaly with trace pericardial fluid, small volume ascites, and anasarca. 3. No other acute abnormality appreciated. US - abdomen: Radiologist's impression: INDICATION: diarrhea, hypotension, abnormal CT. TECHNIQUE: Ultrasound abdomen limited. COMPARISON: None. FINDINGS: Gallbladder: Small echogenic structures in the fundus, likely small stones. Increased wall thickness measuring 6 mm with probable small adjacent pericholecystic fluid. Reported negative sonographic Macias`s sign. Common bile duct: 3 mm. IMPRESSION: Cholelithiasis with wall thickening and pericholecystic fluid suspicious for cholecystitis. Negative sonographic Macias`s sign. Assessment and Plan Assessment and plan (1) Acute kidney injury: Problem comment: Appears to be intravascular volume depleted despite his edema. Diarrhea recently is much worse than chronic diarrhea. Poor oral intake is likely contributing. Side effect of Gleevec may be also contributing. Cautiously provide IV fluids and monitor renal function. Hold Gleevec for now. Status: Acute (2) CML (chronic myelocytic leukemia): Problem comment: On Gleevec. Hold for now pending phone consult with Oncology at [facility]. Status: Acute (3) Chronic acquired lymphedema: Status: Acute (4) Diabetes mellitus: Problem comment: Appears to be well controlled Status: Acute (5) Paroxysmal atrial fibrillation: Problem comment: On anticoagulation with apixaban. Hold anticoagulation pending surgical evaluation of abnormal gallbladder Status: Acute (6) Chronic diarrhea: Status: Acute (7) Heart failure with reduced ejection fraction: Status: Acute (8) Sarcopenia: Status: Acute (9) Weight loss, non-intentional: Problem comment: Appears to be losing lean body mass yet gaining edema with overall weight loss of at least 10 kg in the past year. Status: Acute (10) Anasarca: Problem comment: Generalized edema Status: Acute (11) Leukocytosis: Problem comment: Predominantly neutrophils. Uncertain if this is due to infection or CML or both. Status: Acute (12) Abnormal CT scan, gallbladder: Problem comment: Gallbladder wall thickening and gallstones present. May be cholecystitis though he is currently not tender there. Could be due to edema. Check LFTs. Surgical consult Status: Acute Plan 83-year-old male with multiple medical problems noted above now presents with acute on chronic diarrhea, acute on chronic kidney disease, progressive weakness. Admitted to the hospital for management of these problems. Total Time Spent Total Time Spent: Total time spent is 80 minutes in evaluation management
[2024-04-28 22:18] LABS: Albumin* 2.9 g/dL (3.3-5.0)
[2024-04-28 22:21] LABS: Alanine Aminotransferase* 29 U/L (4-50); Alkaline Phosphatase* 74 U/L (40-150); Aspartate Amino Transferase* 48 U/L (12-35); Bilirubin Direct* 0.3 mg/dL (0.0-0.5); Bilirubin Total* 0.9 mg/dL (0.1-1.5); Total Protein* 5.4 g/dL (6.0-8.3)
[2024-04-28] MEDS: POTASSIUM BICARB 25 MEQ EFFERVESCENT TAB 50 MEQ PO (22:34)
[2024-04-28] MEDS: LACTATED RINGERS 1000 ML 1,000 ML 125 ML IV (22:35)
[2024-04-28 22:36] LABS: Troponin I* 0.06 ng/mL (0.01-0.04)
[2024-04-29] VITALS (8 sets, daily range): BP systolic 105–138; BP diastolic 57–88; PULSE 68–87; RESP 16–18; TEMP 36.8–37.2; O2SAT 91–94
[2024-04-29 05:39] LABS: C.Difficile Negative (Negative); CDIFFEPI 027 PRESUMPTIVE NEGATIVE (Negative)
[2024-04-29] MEDS: LACTATED RINGERS 1000 ML 1,000 ML 125 ML IV ×2 (06:14→14:31)
[2024-04-29 06:57] LABS: Basophils Percent Auto 0.1 % (0.0-3.0); Eosinophils Percent Auto 0.1 % (0.0-7.0); Hematocrit 27.9 % (37.0-53.0); Hemoglobin* 9.6 gm/dL (13.5-17.5); Immature Granulocytes Pct Auto 0.7 %; Lymphocytes Percent Auto 2.5 % (20-44); Mean Corpuscular HGB Conc 34 gm/dL (32-36); Mean Corpuscular Hemoglobin 30 pg (26-34); Mean Corpuscular Volume 88 fL (80-100); Neutrophils Percent Auto 92.6 % (42.0-72.0); Platelet Count* 200 K/uL (140-440); RDW Coefficient of Variation % 16.7 % (11.5-15.5); Red Blood Count 3.16 m/uL (4.30-5.90); White Blood Count* 17.48 K/uL (4.50-11.00)
[2024-04-29 07:08] LABS: Slide Review Reflex No
[2024-04-29 07:26] LABS: Albumin* 3.1 g/dL (3.3-5.0); Chloride* 106 mmol/L (96-114); Sodium* 138 mmol/L (135-149)
--- NOTE | 2024-04-29 07:27 | P.IMPN_ITS ---
Progress Note: A&P Assessment and plan (1) Abnormal CT scan, gallbladder: Problem details: Gallbladder wall thickening and gallstones present. May be cholecystitis, RUQ pain today and AST increasing. Could be due to edema. Check LFTs again in am. NPO, IVF. Start Zosyn. Pain medicine. Surgical consult. Status: Acute (2) Leukocytosis: Problem details: Predominantly neutrophils. Uncertain if this is due to infection or CML or both. Status: Acute (3) Weight loss, non-intentional: Problem details: Appears to be losing lean body mass yet gaining edema with overall weight loss of at least 10 kg in the past year. Status: Acute (4) Heart failure with reduced ejection fraction: Problem details: proBNP 1600. Trop 0.06 ->0.07. Follow. Anasarca, but intravascularly depleted. Monitor I/Os. Obtain ECHO. Status: Acute (5) Chronic diarrhea: Status: Acute (6) Paroxysmal atrial fibrillation: Problem details: On anticoagulation with apixaban. Hold anticoagulation pending surgical evaluation of abnormal gallbladder Metoprolol TID for tachycardia Status: Acute (7) Diabetes mellitus: Problem details: Appears to be well controlled Status: Acute (8) Anasarca: Problem details: Generalized edema Status: Acute (9) Acute kidney injury: Problem details: Appears to be intravascular volume depleted despite his edema, BUN and Cr elevated. Diarrhea recently is much worse than chronic diarrhea. Poor oral intake is likely contributing. Side effect of Gleevec may be also contributing. Cautiously provide IV fluids and monitor renal function. Hold Gleevec for now. 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 Hold for now pending phone consult with Oncology at [facility]. Status: Acute (11) Hypokalemia: Problem details: Mg 2. Replace IV since he is NPO. Recheck in am. Status: Acute Time Spent With Patient Total time spent: Today I spent 50 minutes rounding on the patient. Greater than 50% included discussing care with the patient, family, willow machine operator, surgeon, team, reviewing data, updating and managing the care plan. Subjective Time Seen by Provider: 07:11 Date Seen: 04/29/24 Interval history: I received a call from the overnight doc while I was leaving for my shift to notify me that this patient had a 45s run of VT around 6:50 a.m.. He had had several beat runs of V-tach overnight. I spoke with the patient's nurses. He has been asymptomatic overnight with no palpitations, new or worsening lightheadedness or dizziness, chest pain, or shortness of breath. He denies h/o VT. I reviewed [facility] records and found his pacer device checks. They note brief runs of NSVT, at most 5-6 beats. MYOCARDIAL PERFUSION SCAN 03/13/2023 1. There is no evidence of significant myocardial ischemia or infarction. 2. Normal left ventricular ejection fraction of approximately 63 percent. 3. There is mild left ventricular enlargement. ECHO 05/15/23 Final Impressions: 1. Normal LV size, moderately increased wall thickness, normal global systolic function with an estimated EF of 55 - 60%. 2. Right ventricular cavity size is normal, global systolic RV function is normal. 3. Mildly enlarged left atrium. 4. The mitral valve is normal, mild to moderate mitral regurgitation. 5. Tricuspid regurgitation is mild regurgitation, the estimated right ventricular systolic pressure is 23 mmHg plus right atrial pressure. 6. The inferior vena cava is dilated, respiratory size variation greater than 50%. I spoke with Dr. Brown from [facility] this morning who recommended pacer interrogation. Froilan, from [facility], came and interrogated the pacer. He reports that there were a few PVCs and a few PACs enough to make it look irregularly irregular. He saw that there was a run of AFib a few weeks ago. Also there were several short episodes of a heart rate just under 130 beats per minute with one-to-one conduction from the atria into the ventricles. There was also an event this morning that lasted about 40 seconds with that same one-to-one conduction at 129 beats per minute. There was no ventricular tachycardia seen. I went back to the room and spoke with the patient's family several times this morning to give them updates. I noted that since he had no evidence of ventricular tachycardia, Dr. Horn had recommended that I start a beta- josh, which I did this morning, and that he could get an echocardiogram tomorrow and go through surgery if needed when the Eliquis had worn off enough to do so. I spoke with Dr. Alcaraz several times today as well. Exam Narrative: Exam Narrative: General: No acute distress. Is sleepy, arousable, oriented. Cardiovascular: Regular rate and rhythm. No murmurs, gallops, or rubs. Chest: No increased work of breathing. Clear to auscultation bilaterally. No crackles or wheezes. Abdomen: Bowel sounds present. Soft, nondistended, tender in all quadrants, but pressing anywhere there than the right upper quadrant makes it hurt in the right upper quadrant. Macias sign is positive. No hepatosplenomegaly or masses. Extremities: 2+ bilateral lower extremity edema, no cyanosis or clubbing. Skin: No jaundice, no pallor, no rashes. Const: Vital Signs, click to edit/add: Vital Signs - 24 hr 04/28/24 17:09 04/28/24 18:25 04/28/24 18:33 Temperature 100 F H Pulse Rate 81 Pulse Rate [Pulse Oximeter] 76 Respiratory Rate 18 Blood Pressure 99/62 130/110 H Blood Pressure [Le ft Arm] Blood Pressure [Ri ght Upper Arm] 93/48 L Pulse Oximetry 93 93 Oxygen Delivery Me thod Room Air 04/28/24 18:57 04/28/24 19:00 04/28/24 19:02 Temperature Pulse Rate 86 91 85 Pulse Rate [Pulse Oximeter] Respiratory Rate 16 Blood Pressure 116/55 L Blood Pressure [Le ft Arm] Blood Pressure [Ri ght Upper Arm] Pulse Oximetry 95 95 93 Oxygen Delivery Me thod Room Air 04/28/24 19:03 04/28/24 19:32 04/28/24 20:02 Temperature Pulse Rate 95 80 79 Pulse Rate [Pulse Oximeter] Respiratory Rate 16 14 Blood Pressure 120/62 111/52 L Blood Pressure [Le ft Arm] Blood Pressure [Ri ght Upper Arm] Pulse Oximetry 93 94 96 [facility] Room Air 04/28/24 20:30 04/28/24 22:08 04/28/24 23:00 Temperature 97.4 F L Pulse Rate 74 73 Pulse Rate [Pulse Oximeter] 88 Respiratory Rate 22 Blood Pressure Blood Pressure [Le ft Arm] 134/55 L Blood Pressure [Ri ght Upper Arm] Pulse Oximetry 96 95 Oxygen Delivery Fl thod Room Air 04/28/24 23:58 04/28/24 23:58 04/29/24 01:45 Temperature 98.1 F 98.9 F Pulse Rate Pulse Rate [Pulse Oximeter] 83 83 80 Respiratory Rate 18 18 Blood Pressure Blood Pressure [Le ft Arm] 127/69 132/71 Blood Pressure [Ri ght Upper Arm] Pulse Oximetry 92 94 Oxygen Delivery Me thod Room Air Room Air 04/29/24 06:07 Temperature 98.3 F Pulse Rate Pulse Rate [Pulse Oximeter] 76 Respiratory Rate 16 Blood Pressure Blood Pressure [Le ft Arm] 125/58 L Blood Pressure [Ri ght Upper Arm] Pulse Oximetry 92 Oxygen Delivery Me thod Room Air Labs Labs: Laboratory Results - last 24 hr 04/28/24 04/28/24 04/28/24 17:23 17:23 18:10 WBC 18.30 H RBC 3.07 L Hgb 9.2 L Hct 27.8 L MCV 91 MCH 30 MCHC 33 RDW Coeff of Guillermo 16.6 H Plt Count 177 Neut % (Auto) 93.6 H Lymph % (Auto) 1.[address] [place] % (Auto) 4.3 Eos % (Auto) 0.0 Baso % (Auto) 0.1 Neut # (Auto) 17.10 H Lymph # (Auto) 0.[address] [place] # (Auto) 0.80 Eos # (Auto) 0.00 Baso # (Auto) 0.00 Abs Immat Gran (auto) 0.10 Imm/Tot Granulo (auto) 0.5 Sodium 135 Potassium 3.2 L Chloride 103 Carbon Dioxide 22 Anion Gap 10 BUN 70 H Creatinine 2.9 H Estimated Creat Clear 20.81 Estimated GFR 21 Glucose 137 H Lactate 1.7 Calcium 8.4 Magnesium 1.9 Total Bilirubin 0.9 Direct Bilirubin 0.3 AST 48 H ALT 29 Alkaline Phosphatase 74 Troponin I 0.06 H* NT-Pro-B Natriuret Pep 1610 Total Protein 5.4 L Albumin 2.9 L Urine Color Urine Appearance Urine pH Ur Specific [place] Urine Protein Urine Glucose (UA) Urine Ketones Urine Blood Urine Nitrite Urine Bilirubin Urine Urobilinogen Ur Leukocyte Esterase Urine RBC Urine WBC Ur Squamous Epith Cells Amorphous Sediment Urine Bacteria Fine Granular Casts Stl C. diff Tox B Gene Stl C. diff 027-NAP1-BI SARS-CoV-2 (PCR) Influenza Type A (PCR) Influenza Type B (PCR) RSV (PCR) Lab Acknowledgement Test Added Test Added 04/28/24 04/29/24 04/29/24 19:10 04:25 06:20 WBC RBC Hgb Hct MCV MCH MCHC RDW Coeff of [place]ill[place] Plt Count Neut % (Auto) Lymph % (Auto) [place] % (Auto) Eos % (Auto) Baso % (Auto) Neut # (Auto) Lymph # (Auto) [place] # (Auto) Eos # (Auto) Baso # (Auto) Abs Immat Gran (auto) Imm/Tot Granulo (auto) Sodium Potassium Chloride Carbon Dioxide Anion Gap BUN Creatinine Estimated Creat Clear Estimated GFR Glucose Lactate Calcium Magnesium Total Bilirubin Direct Bilirubin AST ALT Alkaline Phosphatase Troponin I NT-Pro-B Natriuret Pep Total Protein Albumin Urine Color Yellow Urine Appearance Cloudy A Urine pH 5.0 Ur Specific [place] >= 1.030 Urine Protein 2+ A Urine Glucose (UA) Negative Urine Ketones Trace A Urine Blood Trace-intact A Urine Nitrite Negative Urine Bilirubin 1+ A Urine Urobilinogen 0.2 Ur Leukocyte Esterase Negative Urine RBC 0-2 Urine WBC 2-5 Ur Squamous Epith Cells Few Amorphous Sediment Few A Urine Bacteria Few A Fine Granular Casts Moderate A Stl C. diff Tox B Gene Negative Stl C. diff [id number]-NAP1-BI PRESUMPTIVE NEGATIVE SARS-CoV-2 (PCR) Negative SARS-CoV-2 Influenza Type A (PCR) Negative PCR FLU A Influenza Type B (PCR) Negative PCR FLU B RSV (PCR) Negative PCR RSV Lab Acknowledgement Test Added 04/29/24 06:34 WBC 17.48 H RBC 3.16 L Hgb 9.6 L Hct 27.9 L MCV 88 MCH 30 MCHC 34 RDW Coeff of Guillermo 16.7 H Plt Count 200 Neut % (Auto) 92.6 H Lymph % (Auto) 2.[address] [place] % (Auto) 4.0 Eos % (Auto) 0.1 Baso % (Auto) 0.1 Neut # (Auto) 16.20 H Lymph # (Auto) 0.[address] [place] # (Auto) 0.70 Eos # (Auto) 0.00 Baso # (Auto) 0.00 Abs Immat Gran (auto) 0.10 Imm/Tot Granulo (auto) 0.7 Sodium Potassium Chloride Carbon Dioxide Anion Gap BUN Creatinine Estimated Creat Clear Estimated GFR Glucose Lactate Calcium Magnesium Total Bilirubin Direct Bilirubin AST ALT Alkaline Phosphatase Troponin I NT-Pro-B Natriuret Pep Total Protein Albumin Urine Color Urine Appearance Urine pH Ur Specific [place] Urine Protein Urine Glucose (UA) Urine Ketones Urine Blood Urine Nitrite Urine Bilirubin Urine Urobilinogen Ur Leukocyte Esterase Urine RBC Urine WBC Ur Squamous Epith Cells Amorphous Sediment Urine Bacteria Fine Granular Casts Stl C. diff Tox B Gene Stl C. diff [id number]-NAP1-BI SARS-CoV-2 (PCR) Influenza Type A (PCR) Influenza Type B (PCR) RSV (PCR) Lab Acknowledgement Ordering Physician: Jeferson Concepcion M.D. Date of Service: 04/28/24 Procedure(s): CT abdomen pelvis wo con Accession Number(s): [id number] cc: Luisito Wood M.D.; Jeferson Concepcion M.D.~ For Patients: As a result of the Century Cures Act, medical imaging exams and procedure reports are released immediately into your electronic medical record. You may view this report before your referring provider. If you have questions, please contact your health care provider. Indication: Diarrhea, hypotension Technique: Noncontrast CT through the abdomen and pelvis with multiplanar reformats. Comparison: None Findings: Lower chest: Partially visualized cardiac pacer leads. Cardiomegaly. Small pericardial effusion. Hepatobiliary: Marked gallbladder wall thickening and dilation with a small volume of adjacent fluid and adjacent stranding. Periportal edema. Spleen: Unremarkable. Pancreas: No acute abnormality appreciated. Adrenal glands: Nodular thickening of left adrenal gland. Kidneys: No significant parenchymal abnormality appreciated. No visualized calculi. No hydronephrosis. Bowel: No obstruction. No focal perienteric or pericolonic stranding is appreciated. Vascular: Calcified atherosclerosis. Lymph nodes: Shotty nodes. Peritoneum: Diffuse mesenteric stranding. Small volume ascites. : No acute abnormality appreciated. Soft tissues: Fat and ascites containing umbilical hernia. Mild anasarca. Bones: No acute fracture. No lytic or blastic lesion. Multilevel degenerative changes of the spine and pelvis. Impression: 1. Marked gallbladder wall thickening and dilation with a small amount of adjacent fluid and stranding. Findings can be correlated for acute cholecystitis but could be secondary to 3rd spacing of fluids and/or heart failure. 2. Cardiomegaly with trace pericardial fluid, small volume ascites, and anasarca. 3. No other acute abnormality appreciated. Please note that all CT scans at this facility use dose modulation, iterative reconstruction, and/or weight-based dosing when appropriate to reduce radiation dose to as low as reasonably achievable. Dictated by Abdulkadir Kay MD @ 04/28/2024 8:02:52 PM (Electronically Signed) Ordering Physician: Jeferson Concepcion M.D. Date of Service: 04/28/24 Procedure(s): US abdomen limited Accession Number(s): [id number] cc: Luisito Wood M.D.; Jeferson Concepcion M.D.~ For Patients: As a result of the Cures Act, medical imaging exams and procedure reports are released immediately into your electronic medical record. You may view this report before your referring provider. If you have questions, please contact your health care provider. INDICATION: diarrhea, hypotension, abnormal CT. TECHNIQUE: Ultrasound abdomen limited. COMPARISON: None. FINDINGS: Gallbladder: Small echogenic structures in the fundus, likely small stones. Increased wall thickness measuring 6 mm with probable small adjacent pericholecystic fluid. Reported negative sonographic Macias`s sign. Common bile duct: 3 mm. IMPRESSION: Cholelithiasis with wall thickening and pericholecystic fluid suspicious for cholecystitis. Negative sonographic Macias`s sign. Dictated by Donal Duffy MD @ 04/28/2024 9:32:37 PM (Electronically Signed)
[2024-04-29 07:29] LABS: Alanine Aminotransferase* 47 U/L (4-50); Alkaline Phosphatase* 81 U/L (40-150); Anion Gap 9 mEq/L (7-15); Aspartate Amino Transferase* 84 U/L (12-35); Bilirubin Direct* 0.4 mg/dL (0.0-0.5); Bilirubin Total* 1.2 mg/dL (0.1-1.5); Blood Urea Nitrogen* 69 mg/dL (7-30); Calcium* 8.6 mg/dL (8.4-10.6); Carbon Dioxide* 23 mmol/L (20-32); Creatinine* 2.6 mg/dL (0.5-1.5); Est. Creatinine Clearance* 21.84; Estimated Glomerular Filt Rate 24 ml/min; Glucose* 112 mg/dL (60-115); Total Protein* 5.7 g/dL (6.0-8.3)
[2024-04-29 07:44] LABS: Troponin I* 0.07 ng/mL (0.01-0.04)
--- NOTE | 2024-04-29 07:48 | PC.NURSE ---
Addendum entered by Elizabeth Estrada 04/29/24 08:03: When taking EKG, vital sings were taken and stable, pt denied chest pain, lightheadedness, SOB, Dizziness, headache. Original Note: Pt is alert and oriented x3. Afebrile. Pt denies pain, chest pain, SOB, and N/V. Pt is tolerating an NPO diet since 0000 02/28/24. Pt was noted to have 3-8 second runs of SVT, EKG taken, cash office worker Dawn called updated MD Massey, ordered lab magnesium draw. Pt then had a 40 second run of SVT, mid level net developer updated MD Massey again and MD Massey updated MD Waldron (on coming MD), EKG was taken again and given to MD Waldron. Pt had 1 loose/watery brown BM overnight, sample sent to lab. Pt is up SBA with walker and gait belt. ??
[2024-04-29] MEDS: ATORVASTATIN 10 MG TABLET 20 MG PO (09:25)
[2024-04-29] MEDS: METOPROLOL TARTRATE 25 MG TABLET PO ×3 (09:25→21:05)
[2024-04-29] MEDS: allopurinoL 300 MG TABLET PO (09:25)
[2024-04-29] MEDS: POTASSIUM CHLORIDE 10 MEQ CAPSULE ER 20 MEQ PO (09:26)
[2024-04-29] MEDS: PIPERACILLIN/TAZOBACTAM 3.375 GM in 0.9 % SODIUM CHLORIDE Mini-bag 100 ML IVPB ×2 (09:26→17:31)
[2024-04-29] MEDS: SODIUM CHLORIDE 0.9 % (FLUSH) 10 ML SYRINGE 5 ML IVF (09:46)
[2024-04-29] MEDS: TAMSULOSIN HCL 0.4 MG CAPSULE PO (09:46)
--- NOTE | 2024-04-29 10:23 | REH.OT ---
OT: Orders received, chart reviewed, per MD OT/PT to hold today due to medical status. Will check status tomorrow.
--- NOTE | 2024-04-29 11:39 | PM.GSCN ---
History of Present Illness Consult details Date Seen: 04/29/24 Consult date: 04/29/24 Narrative: The patient is an 83-year-old male who presented to the emergency department yesterday with diarrhea. He had several days of diarrhea and abdominal pain. In the ER CT scan was obtained which showed gallbladder wall distention and thickening as well as pericholecystic fluid. He also had a pericardial effusion and some ascites and anasarca. Ultrasound was obtained which also showed gallbladder wall thickening concerning for cholecystitis. He was admitted to the hospital. Initially on admission he did not claim abdominal pain. Today the patient states that he does have some abdominal pain, mainly on his right side. Denies having this pain before. States that he has not had diarrhea degree since 2 days ago. Has not had fevers. In the ER he is also noted to be mildly hypokalemic, creatinine was 2.9. This is up from his baseline. Lactate was normal. 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 He is on anticoagulation for AFib. He does have a pacemaker. He was having PVCs today. There is a pacemaker was interrogated. These were found to be atrial -and insert is not ventricular tachycardia. He is on metoprolol for this. [facility] Medical History (Updated 04/29/24 @ 16:49 by Vilma Waldron MD) Weight loss, non-intentional ?R63.4 - Abnormal weight loss (ICD-10) Sarcopenia ?M62.84 - Sarcopenia (ICD-10) Heart failure with reduced ejection fraction ?I50.20 - Unspecified systolic (congestive) heart failure (ICD-10) Esophageal dysmotility ?K22.4 - Dyskinesia of esophagus (ICD-10) BPH (benign prostatic hyperplasia) ?N40.0 - Benign prostatic hyperplasia without lower urinary tract symptoms (ICD-10) Chronic diarrhea ?K52.9 - Noninfective gastroenteritis and colitis, unspecified (ICD-10) Hypertension ?I10 - Essential (primary) hypertension (ICD-10) Obesity ?E66.9 - Obesity, unspecified (ICD-10) Gout ?M10.9 - Gout, unspecified (ICD-10) Paroxysmal atrial fibrillation ?I48.0 - Paroxysmal atrial fibrillation (ICD-10) Diabetes mellitus ?E11.9 - Type 2 diabetes mellitus without complications (ICD-10) Chronic acquired lymphedema ?I89.0 - Lymphedema, not elsewhere classified (ICD-10) Penile cancer ?C60.9 - Malignant neoplasm of penis, unspecified (ICD-10) Coronary artery disease ?I25.10 - Atherosclerotic heart disease of redding coronary artery without angina pectoris (ICD-10) 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 - Chronic myeloid leukemia, BCR/ABL-positive, not having achieved remission (ICD-10) Surgical History (Updated 04/28/24 @ 22:23 by Hernandez Balderrama MD) History of penectomy ?Z90.79 - Acquired absence of other genital organ(s) (ICD-10) S/P placement of cardiac pacemaker ?Z95.0 - Presence of cardiac pacemaker (ICD-10) History of arthroplasty of left knee ?Z96.652 - Presence of left artificial knee joint (ICD-10) History of coronary artery stent placement ?Z95.5 - Presence of coronary angioplasty implant and graft (ICD-10) Social History What is your current living situation?: I presently have a place to live Problems where you live: no known problems Problems where you live details: n/a In the past 12 months, utilities in danger of being shut off: no In past 12 months, lack of transportation kept you from medical appts, meetings, work, or getting things needed for daily living: no In the past 12 mos, have been you worried that your food would run out before you had money to buy more?: never true In the past 12 mos, the food you bought just didn't last and you didn't have money to buy more?: never true Highest level of school completed/degree received: high school graduate Smoking Status: Former smoker Do you use any of these nicotine containing products: None Second hand tobacco smoke exposure: No How often do you have a drink containing alcohol: monthly or less How many standard drinks containing alcohol do you have on a typical day: 1 or 2 How often do you have six or more drinks on one occasion: Never AUDIT-C Alcohol total score: 1 Non-prescribed substance use: denies use Caffeine: Yes How often does anyone, including family, friends and others, physically hurt you: never How often does anyone, including family, friends and others, insult or talk down to you: never How often does anyone, including family, friends and others, threaten you with harm: never How often does anyone, including family, friends and others, scream or curse at you: never service: Yes Meds Home Medications and Allergies Home Medications ?Medication ?Instructions ?Recorded ?Confirmed ?Type allopurinol 300 mg tablet 300 mg PO DAILY 04/28/24 04/28/24 History amlodipine 5 mg tablet 5 mg PO DAILY 04/28/24 04/28/24 History apixaban 5 mg tablet (Eliquis) 5 mg PO BID 04/28/24 04/28/24 History atorvastatin 20 mg tablet 20 mg PO DAILY 04/28/24 04/28/24 History imatinib 100 mg tablet 200 mg PO BID 04/28/24 04/28/24 History lisinopril 20 mg tablet 20 mg PO DAILY 04/28/24 04/28/24 History potassium chloride 20 mEq 20 meq PO DAILY 04/28/24 04/28/24 History tablet,extended release(part/cryst) tamsulosin 0.4 mg capsule 0.4 mg PO DAILY 04/28/24 04/28/24 History Allergies Allergy/AdvReac Type Severity Reaction Status Date / Time Iodinated Contrast Media Allergy Unknown Verified 04/28/24 17:18 Exam Narrative: Exam Narrative: General appearance: Alert, cooperative, and in no distress Eyes: PERRLA, eye lids clear, and sclera white HENT Head: Normocephalic Pulmonary: Breathing nonlabored on room air Extremities: Markedly edematous. Gastrointestinal Abdominal: No scars noted on the abdomen. He is tender in the right upper quadrant to palpation. Not tender in the epigastric region or the left abdomen. Small soft reducible umbilical hernia. Skin: Normal skin color, texture, and turgor. Psychiatric: Alert, oriented, cooperative, normal affect. Const: Vital Signs, click to edit/add: Vital Signs - 24 hr 04/28/24 17:09 04/28/24 18:25 04/28/24 18:33 Temperature 100 F H Pulse Rate 81 Pulse Rate [Pulse Oximeter] 76 Respiratory Rate 18 Blood Pressure 99/62 130/110 H Blood Pressure [Le ft Arm] Blood Pressure [Ri ght Upper Arm] 93/48 L Pulse Oximetry 93 93 Oxygen Delivery Me thod Room Air 04/28/24 18:57 07/09/24 19:00 04/28/24 19:02 Temperature Pulse Rate 86 91 85 Pulse Rate [Pulse Oximeter] Respiratory Rate 16 Blood Pressure 116/55 L Blood Pressure [Le ft Arm] Blood Pressure [Ri ght Upper Arm] Pulse Oximetry 95 95 93 Oxygen Delivery Nv thod Room Air 04/28/24 19:03 04/28/24 19:32 04/28/24 20:02 Temperature Pulse Rate 95 80 79 Pulse Rate [Pulse Oximeter] Respiratory Rate 16 14 Blood Pressure 120/62 111/52 L Blood Pressure [Le ft Arm] Blood Pressure [Ri ght Upper Arm] Pulse Oximetry 93 94 96 [facility] 04/28/24 20:30 04/28/24 22:08 04/28/24 23:00 Temperature 97.4 F L Pulse Rate 74 73 Pulse Rate [Pulse Oximeter] 88 Respiratory Rate 22 Blood Pressure Blood Pressure [Le ft Arm] 134/55 L Blood Pressure [Ri ght Upper Arm] Pulse Oximetry 96 95 Oxygen Delivery Nv thod Room Air 04/28/24 23:58 04/28/24 23:58 04/29/24 01:45 Temperature 98.1 F 98.9 F Pulse Rate Pulse Rate [Pulse Oximeter] 83 83 80 Respiratory Rate 18 18 Blood Pressure Blood Pressure [Le ft Arm] 127/69 132/71 Blood Pressure [Ri ght Upper Arm] Pulse Oximetry 92 94 Oxygen Delivery Nv thod Room Air Room Air 04/29/24 06:07 04/29/24 07:00 04/29/24 07:00 Temperature 98.3 F Pulse Rate 87 Pulse Rate [Pulse Oximeter] 76 76 Respiratory Rate 16 16 Blood Pressure Blood Pressure [Le ft Arm] 125/58 L Blood Pressure [Ri ght Upper Arm] Pulse Oximetry 92 Oxygen Delivery Nv thod Room Air Results Labs Labs: White blood cell count on admission was 18. Hemoglobin was 9.2. This morning white blood cell count was 17. Hemoglobin 9.6. Creatinine is 2.6 from 2.9 Troponin mildly elevated at 0.07 Albumin is 3.1. LFTs are normal except for AST of 84 this is up from admission when it was 48. Urine culture is pending. Imaging Abdomen CT scan report/results: report reviewed and image reviewed Abdominal ultrasound report/results: report reviewed and image reviewed Additional studies: CT scan of the abdomen on 04/28/2024: Indication: Diarrhea, hypotension Technique: Noncontrast CT through the abdomen and pelvis with multiplanar reformats. Comparison: None Findings: Lower chest: Partially visualized cardiac pacer leads. Cardiomegaly. Small pericardial effusion. Hepatobiliary: Marked gallbladder wall thickening and dilation with a small volume of adjacent fluid and adjacent stranding. Periportal edema. Spleen: Unremarkable. Pancreas: No acute abnormality appreciated. Adrenal glands: Nodular thickening of left adrenal gland. Kidneys: No significant parenchymal abnormality appreciated. No visualized calculi. No hydronephrosis. Bowel: No obstruction. No focal perienteric or pericolonic stranding is appreciated. Vascular: Calcified atherosclerosis. Lymph nodes: Shotty nodes. Peritoneum: Diffuse mesenteric stranding. Small volume ascites. : No acute abnormality appreciated. Soft tissues: Fat and ascites containing umbilical hernia. Mild anasarca. Bones: No acute fracture. No lytic or blastic lesion. Multilevel degenerative changes of the spine and pelvis. Impression: 1. Marked gallbladder wall thickening and dilation with a small amount of adjacent fluid and stranding. Findings can be correlated for acute cholecystitis but could be secondary to 3rd spacing of fluids and/or heart failure. 2. Cardiomegaly with trace pericardial fluid, small volume ascites, and anasarca. 3. No other acute abnormality appreciated. Please note that all CT scans at this facility use dose modulation, iterative reconstruction, and/or weight-based dosing when appropriate to reduce radiation dose to as low as reasonably achievable. Dictated by Abdulkadir Kay MD @ 04/28/2024 8:02:52 PM Ultrasound of the abdomen, 04/28/2024: INDICATION: diarrhea, hypotension, abnormal CT. TECHNIQUE: Ultrasound abdomen limited. COMPARISON: None. FINDINGS: Gallbladder: Small echogenic structures in the fundus, likely small stones. Increased wall thickness measuring 6 mm with probable small adjacent pericholecystic fluid. Reported negative sonographic Macias`s sign. Common bile duct: 3 mm. IMPRESSION: Cholelithiasis with wall thickening and pericholecystic fluid suspicious for cholecystitis. Negative sonographic Macias`s sign. Dictated by Donal Duffy MD @ 04/28/2024 9:32:37 PM Progress Note:A&P Assessment and plan (1) Leukocytosis: Status: Acute (2) Abnormal CT scan, gallbladder: Status: Acute (3) Heart failure with reduced ejection fraction: Status: Acute (4) Chronic diarrhea: Status: Acute (5) Paroxysmal atrial fibrillation: Status: Acute (6) Diabetes mellitus: Status: Acute (7) CML (chronic myelocytic leukemia): Status: Acute (8) Acute kidney injury: Status: Acute (9) Anasarca: Status: Acute Plan The patient is an 83-year-old male who presents with diarrhea and is found to have dilated gallbladder with pericholecystic fluid on CT scan. Initially did not have abdominal pain, however this is reported today and is evident on exam. He has a significant cardiac history. He has had a mild troponin elevation, and is on Eliquis. -planning for echocardiogram nelida tomorrow to rule out right for heart failure as cause for symptoms. -will also obtain HIDA scan to rule evaluate for cholecystitis given confounding factors of anasarca. -recommend antibiotics for now. -given that patient is anticoagulated on Eliquis and also has acute on chronic kidney disease, would recommend waiting 72 hours prior to surgery. -If he worsens clinically, he may actually benefit from cholecystostomy tube rather than cholecystectomy. -will await results of studies tomorrow and will update family with updated plan for possible cholecystectomy later this week.
--- NOTE | 2024-04-29 12:04 | REH.PT ---
PT order received. PT on hold due to medical status per MD request.
[2024-04-29] MEDS: ACETAMINOPHEN 325 MG TABLET 650 MG PO (16:26)
[2024-04-29] MEDS: MORPHINE 2 MG/ML inj IVP (17:31)
[2024-04-29] MEDS: POTASSIUM CHLORIDE 10 MEQ/100 ML PIGGYBACK 100 MEQ IVPB ×2 (18:48→20:05)
[2024-04-30] VITALS (10 sets, daily range): BP systolic 114–130; BP diastolic 59–74; PULSE 66–95; RESP 16–20; TEMP 36.3–36.8; O2SAT 90–93
[2024-04-30] MEDS: LACTATED RINGERS 1000 ML 1,000 ML 125 ML IV ×3 (00:36→18:52)
[2024-04-30] MEDS: PIPERACILLIN/TAZOBACTAM 3.375 GM in 0.9 % SODIUM CHLORIDE Mini-bag 100 ML IVPB ×3 (00:45→17:11)
[2024-04-30] MEDS: MELATONIN 3 MG TABLET PO (01:24)
--- NOTE | 2024-04-30 05:46 | PC.NURSE ---
Shift note: Pt continue to have confusion and hallucination. He mentioned seeing monkeys on the wall at one time. Had difficulty falling asleep, Melatonin 3mg given which appeared effective. At 0230, pt woke up confuse and accidentally removed the IV line with blood spot in his shirt. New shirt given and IV line inserted to the right wrist. A1, walker and GB. Minimal pain of 2 reported and did not ask for pain medication.
[2024-04-30 07:18] LABS: Troponin I* 0.05 ng/mL (0.01-0.04)
[2024-04-30 07:23] LABS: Procalcitonin* 2.18 ng/mL (<0.50)
[2024-04-30 07:34] LABS: Basophils Percent Auto 0.1 % (0.0-3.0); Immature Granulocytes Pct Auto 0.8 %; Lymphocytes Percent Auto 1.6 % (20-44); Mean Corpuscular HGB Conc 35 gm/dL (32-36); Mean Corpuscular Hemoglobin 30 pg (26-34); Mean Corpuscular Volume 88 fL (80-100); Monocytes Percent Auto 3.2 % (0.0-11.0); Neutrophils Percent Auto 94.3 % (42.0-72.0); Platelet Count* 197 K/uL (140-440); RDW Coefficient of Variation % 17.1 % (11.5-15.5); Red Blood Count 3.29 m/uL (4.30-5.90); White Blood Count* 22.55 K/uL (4.50-11.00)
[2024-04-30 07:38] LABS: Chloride* 108 mmol/L (96-114); Potassium* 3.6 mmol/L (3.6-5.1); Sodium* 140 mmol/L (135-149)
[2024-04-30 07:40] LABS: Est. Creatinine Clearance* 28.39; Estimated Glomerular Filt Rate 32 ml/min
[2024-04-30 07:41] LABS: Alanine Aminotransferase* 52 U/L (4-50); Alkaline Phosphatase* 79 U/L (40-150); Anion Gap 12 mEq/L (7-15); Aspartate Amino Transferase* 69 U/L (12-35); Bilirubin Total* 1.9 mg/dL (0.1-1.5); Blood Urea Nitrogen* 74 mg/dL (7-30); Carbon Dioxide* 20 mmol/L (20-32); Glucose* 119 mg/dL (60-115); Total Protein* 5.5 g/dL (6.0-8.3)
[2024-04-30 07:42] LABS: Calcium* 8.7 mg/dL (8.4-10.6)
[2024-04-30 08:03] LABS: Slide Review Reflex Yes
[2024-04-30 08:05] LABS: Slide Review Acceptable Review (Acceptable)
[2024-04-30] MEDS: METOPROLOL TARTRATE 25 MG TABLET PO ×3 (09:24→20:40)
[2024-04-30] MEDS: ATORVASTATIN 10 MG TABLET 20 MG PO (10:04)
[2024-04-30] MEDS: TAMSULOSIN HCL 0.4 MG CAPSULE PO (10:05)
[2024-04-30] MEDS: allopurinoL 300 MG TABLET PO (10:05)
--- NOTE | 2024-04-30 10:18 | P.GSPN_ITS ---
Subjective Subjective Date Seen: 04/30/24 Interval history: Patient is doing better today but still with RUQ pain. HIDA scheduled for today. Echo completed without evidence of significant heart failure to cause the pericholecystic inflammation. Had a bowel movement yesterday but denies di arrhea. Exam Narrative: Exam Narrative: General: No acute distress CV: Rate is regular Respiratory: Breathing is nonlabored on room air Abdomen: Protuberant. remains tender in the right upper quadrant. Const: Vital Signs, click to edit/add: Vital Signs - 24 hr 04/29/24 11:00 04/29/24 15:00 04/29/24 15:00 Temperature 98.6 F Pulse Rate 83 Pulse Rate [Pulse Oximeter] 74 74 Respiratory Rate 16 16 Blood Pressure [Le ft Arm] 138/58 L Pulse Oximetry 91 Oxygen Delivery Me thod Room Air 04/29/24 15:00 04/29/24 19:00 04/29/24 22:33 Temperature 98.6 F 98.6 F Pulse Rate Pulse Rate [Pulse Oximeter] 74 74 68 Respiratory Rate 16 16 16 Blood Pressure [Le ft Arm] 105/88 124/57 L Pulse Oximetry 91 92 Oxygen Delivery Me thod Room Air Room Air 04/29/24 22:33 04/29/24 22:54 04/30/24 03:00 Temperature 98.2 F 98.2 F Pulse Rate 71 Pulse Rate [Pulse Oximeter] 68 76 Respiratory Rate 16 16 Blood Pressure [Le ft Arm] 114/64 125/60 Pulse Oximetry 91 92 Oxygen Delivery Me thod Room Air Room Air 04/30/24 07:00 04/30/24 08:14 Temperature 97.3 F L Pulse Rate Pulse Rate [Pulse Oximeter] 76 76 Respiratory Rate 18 18 Blood Pressure [Le ft Arm] 118/59 L Pulse Oximetry 90 Oxygen Delivery Me thod Room Air Labs/Imaging Labs Labs: White blood cell count is up today to 22 from 17. Hemoglobin is 10 from 9. BUN remains elevated. Creatinine is down to 2 from 2.6. LFTs are elevated today. Total bilirubin is 1.9. Progress Note:A&P Assessment and plan (1) Hypokalemia: Status: Acute (2) Leukocytosis: Status: Acute (3) Heart failure with reduced ejection fraction: Status: Acute (4) Paroxysmal atrial fibrillation: Status: Acute (5) Diabetes mellitus: Status: Acute (6) Anasarca: Status: Acute (7) Acute kidney injury: Status: Acute (8) CML (chronic myelocytic leukemia): Status: Acute (9) Cholecystitis: Status: Acute Plan The patient is an 83-year-old male with likely acute cholecystitis. Initially we had planned for HIDA scan because concern for possible heart failure contributing, however echo was reassuring. I think the HIDA scan can be canceled for today. I spoke with the patient and his and daughter about cholecystectomy including risks of bleeding, infection, need for an open operation, injury to intra-abdominal structures and recovery. We are planning on surgery tomorrow - will be 72 hours off of Elaquis. - Recommend continuing antibiotics - continue to hold Eliquis - Given the degree of inflammation that is likely present, he is at risk for blood loss. please order type and screen in the morning. - If the patient is deemed too ill for surgery, then he may need to transfer for cholecystostomy tube placement.
--- NOTE | 2024-04-30 11:09 | PM.IMPN1 ---
Progress Note: A&P Assessment and plan (1) Cholecystitis: Problem details: Ultrasound shows Cholelithiasis with wall thickening and pericholecystic fluid suspicious for cholecystitis. CT shows Marked gallbladder wall thickening and dilation with a small amount of adjacent fluid and stranding. Findings can be correlated for acute cholecystitis but could be secondary to 3rd spacing of fluids and/or heart failure Leukocytosis trending up (previously 4.6 in February), procalcitonin >2. Persisting pain. LFTs trending up Discussed with Dr. Alcaraz. Will forego HIDA scan today. Plan for cholecystectomy on 05/01/24. NPO after midnight. Continue to hold Eliquis. Type and screen in am given risk for blood loss (inflammation, last DOAC use just under 72 hours) Continue Zosyn Continue pain and nausea management as stated Monitor, if patient becomes more ill or unstable, consider transfer for cholecystostomy tube placement per Dr. Alcaraz Status: Acute (2) Leukocytosis: Problem details: Predominantly neutrophils. Previously 4.6 in February Trending up, suspected cholecystitis Continue Zosyn Status: Acute (3) Weight loss, non-intentional: Problem details: Appears to be losing lean body mass yet gaining edema with overall weight loss of at least 10 kg in the past year. Status: Acute (4) Heart failure with reduced ejection fraction: Problem details: proBNP 1600 Trop 0.06 ->0.07 -> 0.05 Anasarca, but intravascularly depleted. Monitor I/Os Echo 04/30/2024 shows moderately increased left ventricular size, normal wall thickness, normal global systolic function, EF 56%. Global systolic RV function is normal. Moderately enlarged left atrium. [id number] mitral regurg. Mild to moderate tricuspid regurg. Normal estimated pulmonary pressures. No significant change from 05/15/2023 Consider gentle diuresis following surgery Status: Acute (5) Chronic diarrhea: Problem details: Stool culture pending Status: Acute (6) Paroxysmal atrial fibrillation: Problem details: On anticoagulation with apixaban Eliquis has been held since admission, plan for OR on 05/01 Metoprolol TID for wide complex tachycardia noted on 04/29 SCDs for VTE PPX Status: Acute (7) Diabetes mellitus: Problem details: Appears to be well controlled Status: Acute (8) Anasarca: Problem details: Generalized edema with history of lymphedema Consider diuresis post operatively Status: Acute (9) Acute kidney injury: Problem details: Appears to be intravascular volume depleted despite his edema, BUN and Cr elevated. Diarrhea recently is much worse than chronic diarrhea. Poor oral intake is likely contributing. Side effect of Gleevec may be also contributing. Cautiously provide IV fluids and monitor renal function. Hold Gleevec for now. Creatinine trending down 2.0 from 2.9. Creatinine clearance 28.39, BUN 74 Status: Acute (10) CML (chronic myelocytic leukemia): Problem details: On Gleevec. Hold for now pending phone consult with Oncology at [facility]. Status: Acute (11) Hypokalemia: Problem details: Potassium improved to 3.6 following replacement. Increased supplement to b.i.d. Mg was 2 Status: Acute (12) Anemia: Problem details: Hemoglobin 10, previously 9.2 and 9.6, baseline <10.9, stable Thought to be related to Imatinib Monitor post operatively Status: Acute (13) Arrhythmia: Problem details: History of AVB status post dual chamber ppm Wide complex tachycardia noted 04/29, questionable PSVT, NSVT Discussed with [facility] Cardiology recommending starting Lopressor 25 mg t.i.d., device interrogation Troponin elevated, trending down Status: Acute Plan To OR on 05/01 for cholecystectomy Time Spent With Patient Total time spent: Total time spent caring for the patient today was 60 minutes. This includes time spent for the visit reviewing the chart, time spent during the visit, time spent after the visit and documentation and planning in coordination of care. Subjective Date Seen: 04/30/24 Interval history: Patient is seen sitting up in bed this morning. Feeling okay. Continues to have pain right side of abdomen. No nausea or vomiting. Remains afebrile. Discussed with Dr. Alcaraz. White count continues to trend up, previously WNL with CML. Positive procalcitonin. Echocardiogram without significant findings. Plan will be for surgical intervention tomorrow. NPO after midnight. Type and screen in the a.m.. Exam Narrative: Exam Narrative: PHYSICAL EXAM General: Pleasant, conversant, NAD Cardiovascular: IRRR Pulmonary: CTA bilaterally without rhonchi, rales, expiratory wheezes. No dyspnea on room air Abdominal: Soft, nondistended, RUQ tenderness appreciated without guarding Neurological: Alert, answering questions appropriately, cranial nerves intact, no focal findings Extremities: +3 pitting edema. AROMI. Neurovascularly intact Skin: Warm, dry. Const: Vital Signs, click to edit/add: Vital Signs - 24 hr 04/29/24 15:00 04/29/24 15:00 04/29/24 15:00 Temperature 98.6 F Pulse Rate 83 Pulse Rate [Pulse Oximeter] 74 74 Respiratory Rate 16 16 Blood Pressure [Le ft Arm] 105/88 Pulse Oximetry 91 [facility] 04/29/24 19:00 04/29/24 22:33 04/29/24 22:33 Temperature 98.6 F 98.2 F Pulse Rate Pulse Rate [Pulse Oximeter] 74 68 68 Respiratory Rate 16 16 16 Blood Pressure [Le ft Arm] 124/57 L 114/64 Pulse Oximetry 92 91 [facility] Room Air 04/29/24 22:54 04/30/24 03:00 04/30/24 07:00 Temperature 98.2 F Pulse Rate 71 Pulse Rate [Pulse Oximeter] 76 76 Respiratory Rate 16 18 Blood Pressure [Le ft Arm] 125/60 Pulse Oximetry 92 [facility] 04/30/24 08:14 Temperature 97.3 F L Pulse Rate Pulse Rate [Pulse Oximeter] 76 Respiratory Rate 18 Blood Pressure [Le ft Arm] 118/59 L Pulse Oximetry 90 [facility] Labs Labs: Laboratory Results - last 24 hr 04/30/24 06:09 WBC 22.55 H RBC 3.29 L Hgb 10.0 L Hct 29.0 L MCV 88 MCH 30 MCHC 35 RDW Coeff of Guillermo 17.1 H Plt Count 197 Neut % (Auto) 94.3 H Lymph % (Auto) 1.6 L Frederick % (Auto) 3.2 Eos % (Auto) 0.0 Baso % (Auto) 0.1 Neut # (Auto) 21.30 H Lymph # (Auto) 0.40 L Frederick # (Auto) 0.70 Eos # (Auto) 0.00 Baso # (Auto) 0.00 Abs Immat Gran (auto) 0.20 Imm/Tot Granulo (auto) 0.8 Diff Slide Review Acceptable Review Sodium 140 Potassium 3.6 Chloride 108 Carbon Dioxide 20 Anion Gap 12 BUN 74 H Creatinine 2.0 H Estimated Creat Clear 28.39 Estimated GFR 32 Glucose 119 H Calcium 8.7 Total Bilirubin 1.9 H AST 69 H ALT 52 H Alkaline Phosphatase 79 Troponin I 0.05 H Total Protein 5.5 L Albumin 3.0 L Procalcitonin 2.18 H
[2024-04-30] MEDS: POTASSIUM CHLORIDE 10 MEQ CAPSULE ER 20 MEQ PO (18:16)
--- NOTE | 2024-04-30 18:35 | PC.NURSE ---
End of Shift: Patient pleasant and cooperative. He has been confused througout the day, at one point reporting ants crawling all over the floor, and bugs are on the light. He refused to sit in the chair this shift. He reports pain in his abdomen this shift rating less than 5 out of 10, declined PRN medication. Assist of 1 with walker and gait belt to the bathroom. LR running at 125/hr.
[2024-04-30] MEDS: MORPHINE 2 MG/ML inj IVP (21:53)
[2024-05-01] VITALS (25 sets, daily range): BP systolic 93–134; BP diastolic 52–80; PULSE 57–85; RESP 16–22; TEMP 35.8–36.5; O2SAT 89–95
[2024-05-01] MEDS: PIPERACILLIN/TAZOBACTAM 3.375 GM in 0.9 % SODIUM CHLORIDE Mini-bag 100 ML IVPB ×3 (00:58→18:09)
[2024-05-01] MEDS: LACTATED RINGERS 1000 ML 1,000 ML 125 ML IV ×2 (01:39→10:03)
--- NOTE | 2024-05-01 06:27 | PC.NURSE ---
End of shift note [id number]: Pt alert & oriented x 4 and able to make needs known. PRN Morphine administered for c/o 6-7/10 RUQ abdominal pain last evening which was effective upon followup. Pt currently on telemetry with atrial flutter, occasional PVCs and BBB noted. He is transferring/ambulating with assist of 1 using gait belt and walker. IV to R wrist patent with LR running at 125 mL/hr per order. Pt continent of bladder. Pt NPO in preparation for cholecystectomy planned to be completed today. 3+ pitting edema present to?bilateral feet with home lymphedema wraps worn to BLEs which pt refused to have removed at HS. Kiln Loader has encouraged elevation of BLEs throughout the shift. No loose stool noted or reported this shift. Pt has had no hallucinations noted or reported this shift.
[2024-05-01 07:08] LABS: Hematocrit 31.3 % (37.0-53.0); Hemoglobin* 10.7 gm/dL (13.5-17.5); Mean Corpuscular HGB Conc 34 gm/dL (32-36); Mean Corpuscular Hemoglobin 30 pg (26-34); Mean Corpuscular Volume 88 fL (80-100); Platelet Count* 294 K/uL (140-440); Red Blood Count 3.55 m/uL (4.30-5.90)
[2024-05-01 07:12] LABS: Chloride* 107 mmol/L (96-114); Potassium* 3.3 mmol/L (3.6-5.1); Sodium* 142 mmol/L (135-149); White Blood Count* 30.48 K/uL (4.50-11.00)
[2024-05-01 07:13] LABS: Slide Review Reflex No
[2024-05-01 07:14] LABS: Creatinine* 1.9 mg/dL (0.5-1.5); Est. Creatinine Clearance* 29.88; Estimated Glomerular Filt Rate 34 ml/min
[2024-05-01 07:15] LABS: Anion Gap 14 mEq/L (7-15); Blood Urea Nitrogen* 69 mg/dL (7-30); Calcium* 9.2 mg/dL (8.4-10.6); Carbon Dioxide* 21 mmol/L (20-32); Glucose* 157 mg/dL (60-115)
[2024-05-01] MEDS: METOPROLOL TARTRATE 25 MG TABLET PO ×2 (07:42→21:36)
[2024-05-01] MEDS: TAMSULOSIN HCL 0.4 MG CAPSULE PO (07:42)
[2024-05-01] MEDS: POTASSIUM CHLORIDE 10 MEQ CAPSULE ER 20 MEQ PO (07:42)
[2024-05-01] MEDS: allopurinoL 300 MG TABLET PO (07:42)
[2024-05-01] MEDS: ATORVASTATIN 10 MG TABLET 20 MG PO (07:42)
--- NOTE | 2024-05-01 07:54 | P.IMPN_ITS ---
Progress Note: A&P Assessment and plan (1) Cholecystitis: Problem details: Ultrasound shows Cholelithiasis with wall thickening and pericholecystic fluid suspicious for cholecystitis. CT shows Marked gallbladder wall thickening and dilation with a small amount of adjacent fluid and stranding. Findings can be correlated for acute cholecystitis but could be secondary to 3rd spacing of fluids and/or heart failure Leukocytosis trending up (previously 4.6 in February), procalcitonin >2. Persisting pain. LFTs trending up Discussed with Dr. Alcaraz. Will forego HIDA scan today. Plan for cholecystectomy on 05/01/24. NPO after midnight. Continue to hold Eliquis. Type and screen in am given risk for blood loss (inflammation, last DOAC use just under 72 hours) Continue Zosyn Continue pain and nausea management as stated Monitor, if patient becomes more ill or unstable, consider transfer for cholec ystostomy tube placement per Dr. Alcaraz Status: Acute (2) Hypokalemia: Problem details: Potassium waxes and wanes, 3.3 today. Increased supplement to 40 mEq b.i.d. Mg was 2 Status: Acute (3) Leukocytosis: Problem details: Predominantly neutrophils. Previously 4.6 in February Trending up, suspected cholecystitis Urine culture is reported as no growth however I am told this is a lab error. Has been on Zosyn. Awaiting sensitivities. Status: Acute (4) Heart failure with reduced ejection fraction: Problem details: proBNP 1600 Trop 0.06 ->0.07 -> 0.05 Anasarca, but intravascularly depleted. Monitor I/Os Echo 04/30/2024 shows moderately increased left ventricular size, normal wall thickness, normal global systolic function, EF 56%. Global systolic RV function is normal. Moderately enlarged left atrium. [id number] mitral regurg. Mild to moderate tricuspid regurg. Normal estimated pulmonary pressures. No significant change from 05/15/2023 Consider gentle diuresis following surgery Status: Acute (5) Paroxysmal atrial fibrillation: Problem details: On anticoagulation with apixaban Eliquis has been held since admission, plan for OR on 05/01 Metoprolol TID for wide complex tachycardia noted on 04/29 SCDs for VTE PPX Status: Acute (6) Diabetes mellitus: Problem details: Appears to be well controlled Status: Acute (7) Anasarca: Problem details: Generalized edema with history of lymphedema Consider diuresis post operatively Status: Acute (8) Acute kidney injury: Problem details: Appears to be intravascular volume depleted despite his edema, BUN and Cr elevated. Diarrhea recently is much worse than chronic diarrhea. Poor oral intake is likely contributing. Side effect of Gleevec may be also contributing. Cautiously provide IV fluids and monitor renal function. Hold Gleevec for now. Creatinine continues to trend down, now 1.9 from 2.9. 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 Hold for now pending phone consult with Oncology at [facility]. Status: Acute (10) UTI (urinary tract infection): Problem details: UC shows no growth, per lab, this is an error. UA is cloudy with out LE or nitrites. Continue Zosyn for now Status: Acute Plan Patient to OR today for cholecystectomy. Discussed with Dr. Alcaraz this morning. Time Spent With Patient Total time spent: Total time spent caring for the patient today was 45 minutes. This includes time spent for the visit reviewing the chart, time spent during the visit, time spent after the visit and documentation and planning in coordination of care. Subjective Date Seen: 05/01/24 Interval history: Patient is seen with family at bedside. Reports abdominal pain is slightly improved. Remains afebrile. WBC continues to trend up. Is scheduled for cholecystectomy this morning. Exam Narrative: Exam Narrative: PHYSICAL EXAM General: Pleasant, conversant, NAD Cardiovascular: IRRR Pulmonary: CTA bilaterally without rhonchi, rales, expiratory wheezes. No dyspnea on room air Abdominal: Soft, nondistended, RUQ tenderness appreciated without guarding Neurological: Alert, answering questions appropriately, cranial nerves intact, no focal findings Extremities: +3 pitting edema. AROMI. Neurovascularly intact Skin: Warm, dry. Const: Vital Signs, click to edit/add: Vital Signs - 24 hr 04/30/24 08:14 04/30/24 11:52 04/30/24 15:00 Temperature 97.3 F L 97.7 F 98.2 F Pulse Rate Pulse Rate [Pulse Oximeter] 76 67 81 Respiratory Rate 18 18 18 Blood Pressure [Le ft Arm] 118/59 L 114/66 122/67 Pulse Oximetry 90 92 93 Oxygen Delivery Me thod Room Air Room Air Room Air 04/30/24 15:58 04/30/24 17:53 04/30/24 19:31 Temperature 97.8 F Pulse Rate 67 Pulse Rate [Pulse Oximeter] 81 66 Respiratory Rate 18 18 Blood Pressure [Le ft Arm] 120/74 Pulse Oximetry 92 Oxygen Delivery Or thod Room Air 04/30/24 22:52 04/30/24 23:00 04/30/24 23:00 Temperature 98.3 F Pulse Rate 95 Pulse Rate [Pulse Oximeter] 88 88 Respiratory Rate 20 20 Blood Pressure [Le ft Arm] 130/63 Pulse Oximetry 91 Oxygen Delivery Or thod Room Air 05/01/24 02:50 Temperature 97.7 F Pulse Rate Pulse Rate [Pulse Oximeter] 84 Respiratory Rate 20 Blood Pressure [Le ft Arm] 119/63 Pulse Oximetry 91 Oxygen Delivery Or thod Room Air Labs Labs: Laboratory Results - last 24 hr 04/30/24 05/01/24 06:09 06:12 WBC 22.55 H 30.48 H* RBC 3.29 L 3.55 L Hgb 10.0 L 10.7 L Hct 29.0 L 31.3 L MCV 88 88 MCH 30 30 MCHC 35 34 RDW Coeff of Guillermo 17.1 H Plt Count 197 294 Neut % (Auto) 94.3 H Lymph % (Auto) 1.6 L [place] % (Auto) 3.2 Eos % (Auto) 0.0 Baso % (Auto) 0.1 Neut # (Auto) 21.30 H Lymph # (Auto) 0.40 L [place] # (Auto) 0.70 Eos # (Auto) 0.00 Baso # (Auto) 0.00 Abs Immat Gran (auto) 0.20 Imm/Tot Granulo (auto) 0.8 Diff Slide Review Acceptable Review Sodium 142 Potassium 3.3 L Chloride 107 Carbon Dioxide 21 Anion Gap 14 BUN 69 H Creatinine 1.9 H Estimated Creat Clear 29.88 Estimated GFR 34 Glucose 157 H Calcium 9.2
--- NOTE | 2024-05-01 07:59 | W.ANESCHARGE ---
Anesthesia Charges Start Date/Time Anesthesia Start Date: 05/01/24 Anesthesia Start Time: 09:40 Stop Date/Time Anesthesia Stop Date: 05/01/24 Anesthesia Stop Time: 12:54 Summary Extremes of Age - Over 70 or under 1: MDA
--- NOTE | 2024-05-01 09:13 | PM.GSPN ---
Subjective Subjective Date Seen: 05/01/24 Interval history: Luisito is confused today. More so than prior. Denies diarrhea. No fevers. Continues with right-sided abdominal pain he states that it feels somewhat better. Exam Narrative: Exam Narrative: General: No acute distress Abdomen: distended tender in RUQ Const: Vital Signs, click to edit/add: Vital Signs - 24 hr 04/30/24 11:52 04/30/24 15:00 04/30/24 15:58 Temperature 97.7 F 98.2 F Pulse Rate Pulse Rate [Pulse Oximeter] 67 81 81 Respiratory Rate 18 18 18 Blood Pressure Blood Pressure [Le ft Arm] 114/66 122/67 Pulse Oximetry 92 93 Oxygen Delivery Me thod Room Air Room Air 04/30/24 17:53 04/30/24 19:31 04/30/24 22:52 Temperature 97.8 F 98.3 F Pulse Rate 67 Pulse Rate [Pulse Oximeter] 66 88 Respiratory Rate 18 20 Blood Pressure Blood Pressure [Le ft Arm] 120/74 130/63 Pulse Oximetry 92 91 Oxygen Delivery Me thod Room Air Room Air 04/30/24 23:00 04/30/24 23:00 05/01/24 02:50 Temperature 97.7 F Pulse Rate 95 Pulse Rate [Pulse Oximeter] 88 84 Respiratory Rate 20 20 Blood Pressure Blood Pressure [Le ft Arm] 119/63 Pulse Oximetry 91 Oxygen Delivery Me thod Room Air 05/01/24 07:00 05/01/24 07:52 05/01/24 07:52 Temperature 97.7 F Pulse Rate 77 Pulse Rate [Pulse Oximeter] 84 84 Respiratory Rate 20 20 Blood Pressure Blood Pressure [Le ft Arm] 119/63 Pulse Oximetry 91 Oxygen Delivery Me thod Room Air 05/01/24 07:55 05/01/24 07:55 Temperature 97.7 F 97.7 F Pulse Rate 82 Pulse Rate [Pulse Oximeter] 82 Respiratory Rate 22 22 Blood Pressure 134/70 Blood Pressure [Le ft Arm] 134/70 Pulse Oximetry 92 92 Oxygen Delivery Me thod Room Air Room Air Labs/Imaging Labs Labs: White blood cell count is up to 30 today. Creatinine is down slightly to 1.9. Progress Note:A&P Assessment and plan (1) UTI (urinary tract infection): Status: Acute (2) Cholecystitis: Status: Acute (3) Anemia: Status: Acute (4) Arrhythmia: Status: Acute (5) Hypokalemia: Status: Acute (6) CML (chronic myelocytic leukemia): Status: Acute (7) Diabetes mellitus: Status: Acute (8) Heart failure with reduced ejection fraction: Status: Acute Plan The patient is an 83-year-old male with likely acute cholecystitis. Unfortunately his white blood cell count continues to trend up despite antibiotics and the patient appearing better without signs of sepsis. Possible that is secondary to CML, however since he has had a normal white blood cell count in the past, it is difficult to tell. No diarrhea or signs of C diff. he does have a cough however he and his state that this is chronic for him. -yesterday I spent time with the patient, his and his daughter and discussed options. I recommended cholecystectomy. I am somewhat concerned about this patient's perioperative risk regarding pulmonary complications, volume status and delirium. -risks and benefits discussed and patient's signed informed consent will plan on cholecystectomy today.
[2024-05-01] MEDS: LACTATED RINGERS 1000 ML 1,000 ML 100 ML IV ×2 (09:48→12:03)
[2024-05-01] MEDS: BUPIVACAINE 0.25% 30 ML INJECTION (10:20)
--- NOTE | 2024-05-01 11:48 | SUR.OPER ---
FAMILY UPDATED VIA DAUGHTER PER DR. ALEXANDRA REQUEST AT 1140.
--- NOTE | 2024-05-01 12:43 | PM.GSPRC ---
Operative Note Date of procedure: 05/01/24 Pre-op diagnosis: Acute cholecystitis Post-op diagnosis: Gangrenous cholecystitis with possible perforation Type of Procedure: Laparoscopic cholecystectomy Indications: The patient is an 83-year-old male who presented to the emergency department 3 days prior with diarrhea. He was found to have abdominal pain on hospital day 1. Workup revealed a distended gallbladder with pericholecystic fluid, but also he was found to have a pericardial effusion as well as anasarca. There was concern for cholecystitis versus heart failure. Echocardiogram showed there was no significant heart disease and the patient had a persistently elevated white blood cell count. Therefore, cholecystectomy versus cholecystostomy tube if the patient became septic, was recommended. The patient remained stable and afebrile though his white blood cell count did continue to climb. it was unclear if this was related to his diagnosis of CML or an acute infection. After his Eliquis had been held for sufficient time, I recommended proceeding to the OR for cholecystectomy. Procedure Description: After discussing the risks and benefits of the procedure, the patient signed informed consent.? The operative site was marked and the patient was brought to the operating room and placed on the operating table in supine position.? Care was taken to pad the patient's pressure points.?? The patient was then intubated by anesthesia.? of note, the HYDROELECTRIC PLANT OPERATOR noted the patient had a protrusion from his hypopharynx. The mucosa overlying this appeared normal, however we did discuss this with ENT. We will plan to have him follow-up in clinic for formal exam.? The area was not excoriated or bleeding. The operative site was then prepped and draped in the usual sterile fashion.? A time-out was then performed. Entrance to the abdomen was gained via a 5 mm Visiport in the left upper quadrant. The abdomen was insufflated and briefly surveyed for signs of injury. There was none. the omentum was stuck up in the right upper quadrant covering the liver. There was bilious fluid in the right pericolic gutter. There was fibrinous exudate on the liver as well as the right upper abdomen. A 10 mm supra umbilical port was placed as well as 2 working ports along the right costal margin, all under direct vision. The patient was then placed in reverse Trendelenburg position with the right side up. I was able to carefully bluntly dissect the omentum away from the gallbladder. The fundus of the gallbladder was gangrenous. This was grasped and the gallbladder was gently retracted cephalad. The patient's colon was quite dilated and precluded adequate visualization of the gallbladder fundus. Therefore, an additional 5 mm port was placed in the left mid abdomen and through this a liver retractor was placed. This was used to retract the colon gently out of the way. I was then able to grasp the infundibulum and with a combination of hook cautery and blunt dissection with the suction metal storage worker, I identified the cystic artery 1st. This was clearly going into the gallbladder. This was clipped with 2 clips proximal and 1 clip distal and divided. I then continued my dissection, looking for the cystic duct. Because the tissue was very friable, I dissected farther up on the liver bed posterior to the gallbladder. The gallbladder came away easily from the liver bed. There was some purulent bile in the gallbladder which was cultured. Once I was around the gallbladder, I took my dissection inferiorly. The cystic duct was then able to be dissected out circumferentially. There were no other structures entering the gallbladder. 2 clips were placed proximally on the duct and 1 clip distal. The duct was then divided. The gallbladder was then taken off of the liver bed and removed from the abdomen using an Endo-Catch bag. Of note, the gallbladder was gangrenous and a small portion of the wall was left posteriorly. This was cauterized. Small bleeding vessels along the edge of the liver bed were clipped. This resulted in adequate hemostasis, however because of the overall ooze the procedure, secondary to the patient's likely mildly persistent anticoagulation and also significant inflammation, I did place a piece of Surgicel in the wound bed. Just prior to this however, I irrigated the abdomen with copious saline. I was able to evacuate the fibrinous material on the abdominal wall and in the pericolic gutter using suction. Any small stones that had escaped the gallbladder were removed from the abdomen. I then placed a 19 Portuguese channel drain through the port in the right lateral abdomen. This was then positioned along the right pericolic gutter and in the liver bed. This was sutured in place. The supraumbilical port was closed with 0 Vicryl using a Bony-Evon. The abdomen was then desufflated and the ports removed. The skin was then closed with absorbable subcuticular suture. Sterile dressings were applied. Instrument sponge and needle counts were correct at the end of the case. The patient was then woken and transferred to the PACU in stable condition. ? The patient was then woken and transported to the recovery area in stable condition. ? The patient tolerated the procedure well. Findings: 1. Gangrenous cholecystitis with possible perforation, bilious fluid noted in the right upper quadrant. 2. Posterior hypopharynx protrusion noted on laryngoscopy. Plan for follow-up with ENT. Anesthesia: GETA Surgeon: Natali Alcaraz MD Estimated blood loss (mL): 100 Specimen: Gallbladder Additional Specimen Information: 1. Gallbladder 2. Abdominal fluid for culture Condition: stable Disposition: PACU
[2024-05-01] MEDS: fentaNYL 100 MCG/2 ML inj 50 MCG IVP ×2 (13:00→13:10)
--- NOTE | 2024-05-01 13:05 | W.ANESCHARGE ---
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
[2024-05-01] MEDS: FUROSEMIDE 10 MG/ML inj 20 MG IVP (14:42)
[2024-05-01] MEDS: POTASSIUM CHLORIDE 10 MEQ CAPSULE ER 40 MEQ PO (18:08)
[2024-05-01] MEDS: MORPHINE 2 MG/ML inj IVP (18:15)
--- NOTE | 2024-05-01 18:39 | CRLHL7_ITS ---
For Patients: As a result of the Century Cures Act, medical imaging exams and procedure reports are released immediately into your electronic medical record. You may view this report before your referring provider. If you have questions, please contact your health care provider. INDICATION: hypoxia. TECHNIQUE: Chest 1 views. COMPARISON: None. FINDINGS: Cardiovascular and mediastinum: Cardiomediastinal silhouette is mildly enlarged. Left chest wall pacer with leads extending to the right atrium and ventricle. Lungs and pleural spaces: Low lung volumes. Basilar atelectasis. Possible retrocardiac airspace opacity. No definite pleural effusion. No pneumothorax. Bones and soft tissues: No significant findings. IMPRESSION: Low lung volumes and basilar atelectasis with possible retrocardiac airspace opacity. Dictated by Donal Duffy MD @ 05/01/2024 8:10:58 PM (Electronically Signed)
[2024-05-01] MEDS: POTASSIUM CHLORIDE 10 MEQ/100 ML PIGGYBACK 100 MEQ IVPB (21:36)
[2024-05-02] VITALS (10 sets, daily range): BP systolic 90–111; BP diastolic 52–61; PULSE 60–80; RESP 16–18; TEMP 36.4–36.6; O2SAT 90–93
[2024-05-02] MEDS: POTASSIUM CHLORIDE 10 MEQ/100 ML PIGGYBACK 100 MEQ IVPB (00:06)
[2024-05-02] MEDS: PIPERACILLIN/TAZOBACTAM 3.375 GM in 0.9 % SODIUM CHLORIDE Mini-bag 100 ML IVPB ×3 (01:20→18:28)
[2024-05-02] MEDS: LACTATED RINGERS 1000 ML 1,000 ML 100 ML IV ×2 (02:05→15:57)
[2024-05-02] MEDS: lidocaine HCL 2 % JELLY (TOP) STERILE 6 ML UR (05:33)
--- NOTE | 2024-05-02 07:52 | PC.NURSE ---
Pt alert and oriented x3. Pt denies pain, chest pain, headache, and N/V. Pt has 4 lap sites CDI. Pt had gotten up x3 times overnight to try and use restroom but had <50ml output, bladder scan was performed showing ranges between 400-432ml or urine, pt was straight catheterized for 275ml. Pt is up A1-2 with walker and gait belt to bathroom. Pt's tele was showing what looked like atrial flutter around 2029 took EKG, updated MD day, orders given to give IVPB potassium, pt now a-fib with normal ventricular rate. Pt slept intermittently throughout night.
[2024-05-02 08:33] LABS: Hematocrit 29.1 % (37.0-53.0); Hemoglobin* 9.9 gm/dL (13.5-17.5); Mean Corpuscular HGB Conc 34 gm/dL (32-36); Mean Corpuscular Hemoglobin 30 pg (26-34); Mean Corpuscular Volume 89 fL (80-100); Platelet Count* 317 K/uL (140-440); Red Blood Count 3.28 m/uL (4.30-5.90)
[2024-05-02 08:37] LABS: Slide Review Reflex No; White Blood Count* 34.13 K/uL (4.50-11.00)
[2024-05-02 08:51] LABS: Albumin* 2.8 g/dL (3.3-5.0)
[2024-05-02 08:52] LABS: Chloride* 110 mmol/L (96-114); Potassium* 3.8 mmol/L (3.6-5.1); Sodium* 142 mmol/L (135-149)
[2024-05-02 08:54] LABS: Anion Gap 9 mEq/L (7-15); Bilirubin Direct* 0.6 mg/dL (0.0-0.5); Bilirubin Total* 1.2 mg/dL (0.1-1.5); Carbon Dioxide* 23 mmol/L (20-32); Creatinine* 2.2 mg/dL (0.5-1.5); Est. Creatinine Clearance* 25.81; Estimated Glomerular Filt Rate 29 ml/min
[2024-05-02 08:55] LABS: Alanine Aminotransferase* 36 U/L (4-50); Alkaline Phosphatase* 91 U/L (40-150); Aspartate Amino Transferase* 40 U/L (12-35); Blood Urea Nitrogen* 75 mg/dL (7-30); Calcium* 8.9 mg/dL (8.4-10.6); Glucose* 173 mg/dL (60-115); Magnesium* 2.2 mg/dL (1.5-2.6); Total Protein* 5.1 g/dL (6.0-8.3)
[2024-05-02 09:11] LABS: C Reactive Protein* 20.3 mg/dL (0.5-1.0)
[2024-05-02] MEDS: TAMSULOSIN HCL 0.4 MG CAPSULE PO (09:56)
[2024-05-02] MEDS: ATORVASTATIN 10 MG TABLET 20 MG PO (09:56)
[2024-05-02] MEDS: METOPROLOL TARTRATE 25 MG TABLET PO (09:56)
[2024-05-02] MEDS: HYDROCODONE-ACETAMIN 5-325 MG 1 TAB PO (09:56)
[2024-05-02] MEDS: POTASSIUM CHLORIDE 10 MEQ CAPSULE ER 40 MEQ PO (09:56)
[2024-05-02] MEDS: allopurinoL 300 MG TABLET PO (09:56)
[2024-05-02] MEDS: SODIUM CHLORIDE 0.9 % (FLUSH) 10 ML SYRINGE 5 ML IVF (09:57)
--- NOTE | 2024-05-02 10:02 | PM.GSPN ---
Subjective Subjective Date Seen: 05/02/24 Interval history: Luisito is having a bit more pain today compared to yesterday. Denies any difficulty breathing. He has a wet cough. He got Lasix yesterday. However his urine output was charted as only 500. No nausea. Surgical drain has been not holding suction and fluid is leaking around the drain. Exam Narrative: Exam Narrative: General: Patient is alert. No distress. CV: Regular rate Respiratory: Rey E cough. Lungs with crackles bilaterally. Abdomen: Distended. Incisions are clean and dry. Surgical drain with serosanguineous fluid. Noted to be pulled back approximately an inch and a half. This was cleansed with copious chlorhexidine, the suture removed and sterilely was readvanced into the abdomen. This was re-sutured in place using nylon suture. Extremities: Hands are not edematous, however has bilateral lower extremity edema which is his baseline Const: Vital Signs, click to edit/add: Vital Signs - 24 hr 05/01/24 13:00 05/01/24 13:05 05/01/24 13:10 Temperature 97 F L Pulse Rate 85 82 80 Pulse Rate [Pulse Oximeter] Respiratory Rate 16 16 16 Blood Pressure 128/64 124/63 102/62 Blood Pressure [Le ft Arm] Pulse Oximetry 94 94 93 Oxygen Delivery Me thod Blow By Blow By Blow By Oxygen Flow Rate 10 10 10 05/01/24 13:15 05/01/24 13:20 05/01/24 13:25 Temperature Pulse Rate 84 81 79 Pulse Rate [Pulse Oximeter] Respiratory Rate 16 16 16 Blood Pressure 127/57 L 121/56 L 117/64 Blood Pressure [Le ft Arm] Pulse Oximetry 94 94 95 Oxygen Delivery Me thod Blow By Blow By Blow By Oxygen Flow Rate 10 10 10 05/01/24 13:30 05/01/24 13:40 05/01/24 14:00 Temperature 97 F L 96.6 F L 96.6 F L Pulse Rate 71 76 67 Pulse Rate [Pulse Oximeter] Respiratory Rate 16 20 22 Blood Pressure 93/61 103/80 121/67 Blood Pressure [Le ft Arm] Pulse Oximetry 92 89 91 Oxygen Delivery Me thod Blow By Room Air Nasal Cannula Oxygen Flow Rate 10 2 05/01/24 14:15 05/01/24 14:30 05/01/24 15:00 Temperature 96.4 F L Pulse Rate 70 72 68 Pulse Rate [Pulse Oximeter] Respiratory Rate 20 20 20 Blood Pressure 121/65 125/61 123/66 Blood Pressure [Le ft Arm] Pulse Oximetry 90 90 90 Oxygen Delivery Me thod Nasal Cannula Nasal Cannula Nasal Cannula Oxygen Flow Rate 2 2 2 05/01/24 16:00 05/01/24 16:00 05/01/24 16:30 Temperature 96.6 F L 96.6 F L Pulse Rate 68 72 Pulse Rate [Pulse Oximeter] Respiratory Rate 18 16 16 Blood Pressure 118/66 116/64 Blood Pressure [Le ft Arm] Pulse Oximetry 92 92 93 Oxygen Delivery Me thod Room Air Nasal Cannula Nasal Cannula Oxygen Flow Rate 2 2 2 05/01/24 17:00 05/01/24 17:30 05/01/24 18:00 Temperature 96.6 F L 96.8 F L 96.8 F L Pulse Rate 69 71 67 Pulse Rate [Pulse Oximeter] Respiratory Rate 18 18 18 Blood Pressure 106/60 105/60 115/58 L Blood Pressure [Le ft Arm] Pulse Oximetry 92 93 93 Oxygen Delivery Me thod Room Air Room Air Room Air Oxygen Flow Rate 05/01/24 18:30 05/01/24 19:30 05/01/24 20:30 Temperature 96.8 F L 97.6 F 97.5 F L Pulse Rate 57 L 72 76 Pulse Rate [Pulse Oximeter] Respiratory Rate 18 20 20 Blood Pressure 106/56 L 103/58 L 117/52 L Blood Pressure [Le ft Arm] Pulse Oximetry 90 90 90 Oxygen Delivery Me thod Room Air Room Air Oxygen Flow Rate 05/01/24 21:30 05/01/24 21:30 05/01/24 21:30 Temperature 97.5 F L Pulse Rate 76 Pulse Rate [Pulse Oximeter] 76 Respiratory Rate 20 18 Blood Pressure Blood Pressure [Le ft Arm] 115/61 Pulse Oximetry 91 92 Oxygen Delivery Me thod Room Air Room Air Oxygen Flow Rate 2 05/02/24 04:00 05/02/24 08:12 Temperature 97.5 F L 97.7 F Pulse Rate Pulse Rate [Pulse Oximeter] 61 67 Respiratory Rate 18 16 Blood Pressure Blood Pressure [Le ft Arm] 100/54 L 96/52 L Pulse Oximetry 93 91 Oxygen Delivery Me thod Room Air Room Air Oxygen Flow Rate Labs/Imaging Imaging Imaging: IMPRESSION: Low lung volumes and basilar atelectasis with possible retrocardiac airspace opacity. Dictated by Donal Duffy MD @ 05/01/2024 8:10:58 PM Progress Note:A&P Assessment and plan (1) Arrhythmia: Status: Acute (2) Anemia: Status: Acute (3) Cholecystitis: Status: Acute (4) Leukocytosis: Status: Acute (5) Heart failure with reduced ejection fraction: Status: Acute (6) Paroxysmal atrial fibrillation: Status: Acute (7) Diabetes mellitus: Status: Acute (8) Acute kidney injury: Status: Acute (9) Delirium: Status: Acute Plan The patient is an 83-year-old male who is postop day 1 status post laparoscopic cholecystectomy for gangrenous cholecystitis. -drain repositioned. Hopefully will hold suction. Strip, empty and record drain output every 4 hours -okay for patient to have a full liquid diet. Could consider nutrition consult - have requested ensure be added to his tray. -hemoglobin is stable. Hold Eliquis today. Could restart tomorrow if hemoglobin remains stable. -RT consult for possible pneumonia versus atelectasis versus is volume overload. I anchored discussed with the patient and his family that the goal should be to have him up in a chair and also up out of bed today as much as possible. This will help with his pulmonary status. -The patient has had delirium this hospital stay. I emphasized the importance of having the lights on and the shades open as well as avoid prolonged sleeping during the day which will help minimize postoperative delirium -consider adding vancomycin given possible hospital-acquired pneumonia seen on x-ray. -Strict I/0's - may require [place] placement
--- NOTE | 2024-05-02 10:50 | PM.IMPN1 ---
Progress Note: A&P Assessment and plan (1) Cholecystitis: Problem details: Ultrasound shows Cholelithiasis with wall thickening and pericholecystic fluid suspicious for cholecystitis. CT shows Marked gallbladder wall thickening and dilation with a small amount of adjacent fluid and stranding. Findings can be correlated for acute cholecystitis but could be secondary to 3rd spacing of fluids and/or heart failure Leukocytosis trending up (previously 4.6 in February), procalcitonin >2. Persisting pain. LFTs trending up Discussed with Dr. Alcaraz. Will forego HIDA scan today. Plan for cholecystectomy on 05/01/24. NPO after midnight. Continue to hold Eliquis. Type and screen in am given risk for blood loss (inflammation, last DOAC use just under 72 hours) Continue Zosyn Continue pain and nausea management as stated Monitor, if patient becomes more ill or unstable, consider transfer for cholecystostomy tube placement per Dr. Alcaraz 05/02: POD# 1 s/p laparoscopic cholecystectomy for gangrenous cholecystitis, drain is in place. Per Dr. Alcaraz, okay to advance to full liquid diet. Plan to resume Eliquis tomorrow if hemoglobin remains stable. Monitor pulmonary progress Status: Acute (2) Hypokalemia: Problem details: Potassium waxes and wanes, improved to 3.8. Continue supplement 40 mEq b.i.d., monitoring Status: Acute (3) Leukocytosis: Problem details: Predominantly neutrophils. Previously 4.6 in February Continues to trend up, now post operative, 34 Urine culture is reported as no growth however I am told this is a lab error. Has been on Zosyn. No sensitivities 05/02: Adding vancomycin, renally dosed, to cover for possible hospital-acquired pneumonia Status: Acute (4) Heart failure with reduced ejection fraction: Problem details: proBNP 1600 Trop 0.06 ->0.07 -> 0.05 Anasarca, but intravascularly depleted. Monitor I/Os Echo 04/30/2024 shows moderately increased left ventricular size, normal wall thickness, normal global systolic function, EF 56%. Global systolic RV function is normal. Moderately enlarged left atrium. [id number] mitral regurg. Mild to moderate tricuspid regurg. Normal estimated pulmonary pressures. No significant change from 05/15/202305/02: IV Lasix given postoperatively on 05/01. Weight is up 4 kg. Will need strict I&Os. Consider indwelling Munguia. Will initiate further diuresis when pressures stabilize Status: Acute (5) Paroxysmal atrial fibrillation: Problem details: On anticoagulation with apixaban Dual chamber pacemaker - per family, following a recent interrogation, pacer is not functioning adequately. Previous interrogation in February 2024 showed PSVT, NSVT, AF Eliquis has been held since admission, plan for OR on 05/01 Metoprolol TID for wide complex tachycardia noted on 04/29 as recommended by [facility] SCDs for VTE PPX 05/02: EKG last night shows atrial flutter 3:1. Add back Eliquis on 05/03 if hemoglobin remains stable Status: Acute (6) Diabetes mellitus: Problem details: Appears to be well controlled, A1c in February was 5.4 Status: Acute (7) Anasarca: Problem details: Generalized edema with history of lymphedema Will initiate diuresis postoperatively when pressures have stabilized Status: Acute (8) Acute kidney injury: Problem details: Creatinine 2.9 on admission Appears to be intravascular volume depleted despite his edema, BUN and Cr elevated. Diarrhea recently is much worse than chronic diarrhea. Poor oral intake is likely contributing. Side effect of Gleevec may be also contributing. Cautiously provide IV fluids and monitor renal function. Hold Gleevec for now. 05/02: Creatinine back up to 2.2 postoperatively. Renally dose antibiotics. Balancing fluids and diuresis. 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 Hold for now pending phone consult with Oncology at [facility]. Status: Acute (10) UTI (urinary tract infection): Problem details: UC shows no growth, per lab, this is an error. UA is cloudy with out LE or nitrites. Continue Zosyn for now, vancomycin added 05/02 Status: Acute (11) Pneumonia: Problem details: Sounds more wet perioperatively. However afebrile, no hypoxia, remains on room air Leukocytosis not responding to Zosyn alone CXR with possible retrocardiac airspace opacity Adding vancomycin, renally dosed, in addition to Zosyn RT for pulmonary hygiene, incentive spirometry, aerobika Will balance diuresis with postoperative hypotension, IVF Status: Acute Time Spent With Patient Total time spent: Total time spent caring for the patient today was 60 minutes. This includes time spent for the visit reviewing the chart, time spent during the visit, time spent after the visit and documentation and planning in coordination of care. Subjective Date Seen: 05/02/24 Interval history: Patient is POD# 1 s/p laparoscopic cholecystectomy for gangrenous cholecystitis. Appears to be mildly confused this morning. Easily redirectable. Reports pain is currently adequately controlled. No nausea. Has remained afebrile. Denies chest pain. Sounds more wet this morning with a cough. No hypoxia or tachypnea. Systolic pressures have been right around 100. Weight is up 4 kg. Exam Narrative: Exam Narrative: PHYSICAL EXAM General: Pleasant, NAD Cardiovascular: IRRR Pulmonary: Coarse breath sounds throughout. No wheezes. No dyspnea on room air Abdominal: Soft, distended, appropriate postoperative tenderness, drain in place Neurological: Alert, mild confusion this morning Extremities: +3 pitting edema. Neurovascularly intact Skin: Warm, dry. Const: Vital Signs, click to edit/add: Vital Signs - 24 hr 04/30/24 15:58 04/30/24 17:53 04/30/24 19:31 Temperature 97.8 F Pulse Rate 67 Pulse Rate [Pulse Oximeter] 81 66 Respiratory Rate 18 18 Blood Pressure Blood Pressure [Le ft Arm] 120/74 Pulse Oximetry 92 Oxygen Delivery Me thod Room Air Oxygen Flow Rate 04/30/24 22:52 04/30/24 23:00 04/30/24 23:00 Temperature 98.3 F Pulse Rate 95 Pulse Rate [Pulse Oximeter] 88 88 Respiratory Rate 20 20 Blood Pressure Blood Pressure [Le ft Arm] 130/63 Pulse Oximetry [facility] Flow Rate 05/01/24 02:50 05/01/24 07:00 05/01/24 07:52 Temperature 97.7 F Pulse Rate 77 Pulse Rate [Pulse Oximeter] 84 84 Respiratory Rate 20 20 Blood Pressure Blood Pressure [Le ft Arm] 119/63 Pulse Oximetry 91 [facility] Oxygen Flow Rate 05/01/24 07:52 05/01/24 07:55 05/01/24 07:55 Temperature 97.7 F 97.7 F 97.7 F Pulse Rate 82 Pulse Rate [Pulse Oximeter] 84 82 Respiratory Rate 20 22 22 Blood Pressure 134/70 Blood Pressure [Le ft Arm] 119/63 134/70 Pulse Oximetry 91 92 92 Oxygen Delivery Me thod Room Air Room Air Room Air Oxygen Flow Rate 05/01/24 13:00 05/01/24 13:05 05/01/24 13:10 Temperature 97 F L Pulse Rate 85 82 80 Pulse Rate [Pulse Oximeter] Respiratory Rate 16 16 16 Blood Pressure 128/64 124/63 102/62 Blood Pressure [Le ft Arm] Pulse Oximetry 94 94 93 Oxygen Delivery Me thod Blow By Blow By Blow By Oxygen Flow Rate 10 10 10 05/01/24 13:15 05/01/24 13:20 05/01/24 13:25 Temperature Pulse Rate 84 81 79 Pulse Rate [Pulse Oximeter] Respiratory Rate 16 16 16 Blood Pressure 127/57 L 121/56 L 117/64 Blood Pressure [Le ft Arm] Pulse Oximetry 94 94 95 Oxygen Delivery Me thod Blow By Blow By Blow By Oxygen Flow Rate 10 10 10 05/01/24 13:30 05/01/24 13:40 05/01/24 14:00 Temperature 97 F L 96.6 F L 96.6 F L Pulse Rate 71 76 67 Pulse Rate [Pulse Oximeter] Respiratory Rate 16 20 22 Blood Pressure 93/61 103/80 121/67 Blood Pressure [Le ft Arm] Pulse Oximetry 92 89 91 Oxygen Delivery Me thod Blow By Room Air Nasal Cannula Oxygen Flow Rate 10 2 Labs Labs: Laboratory Results - last 24 hr 05/01/24 06:12 WBC 30.48 H* RBC 3.55 L Hgb 10.7 L Hct 31.3 L MCV 88 MCH 30 MCHC 34 Plt Count 294 Sodium 142 Potassium 3.3 L Chloride 107 Carbon Dioxide 21 Anion Gap 14 BUN 69 H Creatinine 1.9 H Estimated Creat Clear 29.88 Estimated GFR 34 Glucose 157 H Calcium 9.2 Blood Type A Positive Antibody Screen NEGATIVE
[2024-05-02] MEDS: 0.9 % SODIUM CHLORIDE 250 ml 250 ML IV (18:24)
--- NOTE | 2024-05-02 18:46 | PC.NURSE ---
End of Shift:The patient is alert and orientated although forgetful. VSS on RA. BP is noted to be soft.. MD aware. held 1400 metoprolol per MD . The patient voided 1x this AM... bladder scanned for 210 @ 1600. This evening Dr Batista ordered a 250cc bolus. Just prior to administration the patient voided 150cc. Hypoactive BS, distended, tender and firm. Today Dr Alcaraz had to stitch the drain back into place, it had pulled out partially and the bulb was inflating after it was put to suction. Serosanguineous out of MANISH. The patient this AM reported moderate pain in his abdomen PRN norco given 1x. Bilateral compression wraps that are the patients are on. The patient forgets to use the call light appropriately when family is not present and instead calls out help. Call light within reach and bed alarm is on. IV abx and fluids continue, advanced to a full liquid diet today with no issues this shift. Lindy WHITTAKER BSN
[2024-05-03] VITALS (10 sets, daily range): BP systolic 113–135; BP diastolic 54–73; PULSE 62–76; RESP 16–20; TEMP 36.4–36.7; O2SAT 91–95
[2024-05-03] MEDS: PIPERACILLIN/TAZOBACTAM 3.375 GM in 0.9 % SODIUM CHLORIDE Mini-bag 100 ML IVPB ×3 (00:48→18:08)
[2024-05-03] MEDS: 0.9 % SODIUM CHLORIDE 250 ml IV (00:49)
[2024-05-03] MEDS: LACTATED RINGERS 1000 ML 1,000 ML 100 ML IV (03:00)
--- NOTE | 2024-05-03 07:09 | PC.NURSE ---
Pt alert and oriented x3 with some forgetfulness with time. Afebrile. Pt denies pain, chest pain, N/V. Pt?s 4 lap sites are CDI. Pt?s MANISH drain is patent and draining. Pt is up A1 with walker and gait belt, voiding, passing gas, and tolerating a full liquid diet. ?
[2024-05-03 08:25] LABS: Anion Gap 8 mEq/L (7-15); Blood Urea Nitrogen* 77 mg/dL (7-30); Calcium* 8.7 mg/dL (8.4-10.6); Carbon Dioxide* 23 mmol/L (20-32); Chloride* 112 mmol/L (96-114); Creatinine* 2.1 mg/dL (0.5-1.5); Est. Creatinine Clearance* 27.04; Estimated Glomerular Filt Rate 30 ml/min; Glucose* 149 mg/dL (60-115); Potassium* 3.9 mmol/L (3.6-5.1); Sodium* 143 mmol/L (135-149)
[2024-05-03 08:57] LABS: Hematocrit 25.8 % (37.0-53.0); Hemoglobin* 8.8 gm/dL (13.5-17.5); Mean Corpuscular HGB Conc 34 gm/dL (32-36); Mean Corpuscular Hemoglobin 30 pg (26-34); Mean Corpuscular Volume 87 fL (80-100); Platelet Count* 257 K/uL (140-440); Red Blood Count 2.96 m/uL (4.30-5.90)
[2024-05-03 09:03] LABS: Slide Review Reflex No; White Blood Count* 29.11 K/uL (4.50-11.00)
[2024-05-03 09:46] LABS: C Reactive Protein* 8.5 mg/dL (0.5-1.0)
[2024-05-03] MEDS: ACETAMINOPHEN 325 MG TABLET 650 MG PO ×2 (09:58→15:15)
[2024-05-03] MEDS: POTASSIUM CHLORIDE 10 MEQ CAPSULE ER 40 MEQ PO ×2 (09:58→18:08)
[2024-05-03] MEDS: allopurinoL 300 MG TABLET PO (09:58)
[2024-05-03] MEDS: METOPROLOL TARTRATE 25 MG TABLET PO ×2 (09:58→20:32)
[2024-05-03] MEDS: ATORVASTATIN 10 MG TABLET 20 MG PO (09:59)
[2024-05-03] MEDS: TAMSULOSIN HCL 0.4 MG CAPSULE PO (09:59)
[2024-05-03] MEDS: SODIUM CHLORIDE 0.9 % (FLUSH) 10 ML SYRINGE 5 ML IVF (09:59)
--- NOTE | 2024-05-03 11:27 | P.GSPN_ITS ---
Subjective Subjective Date Seen: 05/03/24 Interval history: Luisito feels better today. He states that he has not had as much pain as yesterday. He has no concerns about his breathing. He has not passed any gas from below. Urine output was 700 yesterday. He did not get Lasix. He was working with his aerobica and was up in a chair. Exam Narrative: Exam Narrative: General: No acute distress. Patient is alert Respiratory: Breathing comfortably. Patient is not coughing as he was yesterday. Breath sounds with slight expiratory rub bilaterally. Crackles from yesterday improved. Abdomen: Protuberant. Hypoactive bowel sounds. Incisions are clean and dry. Serosanguineous output in his drain. The output in the tubing is faintly pink. He has had 170 out since yesterday. There was still a small amount of drainage around the bulb at the skin site. Const: Vital Signs, click to edit/add: Vital Signs - 24 hr 05/02/24 12:07 05/02/24 16:00 05/02/24 16:00 Temperature 97.8 F Pulse Rate 80 Pulse Rate [Pulse Oximeter] 65 61 Respiratory Rate 18 16 Blood Pressure [Le ft Arm] 90/57 L Pulse Oximetry 93 Oxygen Delivery Me thod Room Air 05/02/24 16:00 05/02/24 16:06 05/02/24 20:45 Temperature 97.6 F 97.6 F Pulse Rate Pulse Rate [Pulse Oximeter] 63 63 Respiratory Rate 16 16 Blood Pressure [Le ft Arm] 93/56 L 111/61 Pulse Oximetry 92 93 90 Oxygen Delivery Me thod Room Air Room Air Room Air 05/02/24 23:00 05/02/24 23:00 05/02/24 23:00 Temperature Pulse Rate 66 Pulse Rate [Pulse Oximeter] 60 Respiratory Rate 18 Blood Pressure [Le ft Arm] Pulse Oximetry 91 Oxygen Delivery Me thod Room Air 05/02/24 23:03 05/03/24 02:00 05/03/24 08:00 Temperature 97.6 F 97.5 F L 98.0 F Pulse Rate Pulse Rate [Pulse Oximeter] 67 76 74 Respiratory Rate 18 18 16 Blood Pressure [Le ft Arm] 101/53 L 115/66 133/57 L Pulse Oximetry 92 91 91 Oxygen Delivery Me thod Room Air Room Air Room Air 05/03/24 09:00 Temperature Pulse Rate Pulse Rate [Pulse Oximeter] Respiratory Rate 16 Blood Pressure [Le ft Arm] Pulse Oximetry 93 Oxygen Delivery Me thod Room Air Labs/Imaging Labs Labs: White blood cell count is improved. Is 29 from 30/4. Hemoglobin is essentially stable at 8.8 from 9.9. He was 9.0 on admission. Creatinine is slightly improved at 2.1 from 2.2. BUN still remains elevated at 77. Electrolytes within normal limits. CRP today is down to 8.5 from 20. Progress Note:A&P Assessment and plan (1) Pneumonia: Status: Acute (2) Delirium: Status: Acute (3) UTI (urinary tract infection): Status: Acute (4) Arrhythmia: Status: Acute (5) Cholecystitis: Status: Acute (6) CML (chronic myelocytic leukemia): Status: Acute (7) Acute kidney injury: Status: Acute (8) Diabetes mellitus: Status: Acute (9) S/P laparoscopic cholecystectomy: Status: Acute Plan The patient is an 83 year male who is postop day 2 from laparoscopic cholecystectomy for gangrenous cholecystitis. I believe him to be markedly improved today as compared to yesterday. -I would continue with a full liquid diet. Would encourage Ensure in high- calorie foods. He will likely have an ileus and therefore would not push significant amount of p.o. until he is passing gas. -continue broad antibiotics for now for cholecystitis and possible pneumonia -continue right upper quadrant drain -patient with baseline anemia. Hemoglobin is stable today. OK to restart Eliquis -continue with aggressive pulmonary toilet with IS and aerobika -continue to follow eyes and nose closely - he will likely 3rd space fluid and retained until postop day 3 or 4 as he begins to lyse fluid. -continue to keep the patient awake for most of the day so that he can sleep at night which will help minimize delirium. -continue PT OT
--- NOTE | 2024-05-03 12:43 | P.IMPN_ITS ---
Progress Note: A&P Assessment and plan (1) Cholecystitis: Problem details: Ultrasound shows Cholelithiasis with wall thickening and pericholecystic fluid suspicious for cholecystitis. CT shows Marked gallbladder wall thickening and dilation with a small amount of adjacent fluid and stranding. Findings can be correlated for acute cholecystitis but could be secondary to 3rd spacing of fluids and/or heart failure Leukocytosis trending up (previously 4.6 in February), procalcitonin >2. Persisting pain. LFTs trending up Discussed with Dr. Alcaraz. Will forego HIDA scan today. Plan for cholecystectomy on 05/01/24. NPO after midnight. Continue to hold Eliquis. Type and screen in am given risk for blood loss (inflammation, last DOAC use just under 72 hours) Continue Zosyn Continue pain and nausea management as stated Monitor, if patient becomes more ill or unstable, consider transfer for cholec ystostomy tube placement per Dr. Alcaraz 05/02: POD# 1 s/p laparoscopic cholecystectomy for gangrenous cholecystitis, drain is in place. Per Dr. Alcaraz, okay to advance to full liquid diet. Plan to resume Eliquis tomorrow if hemoglobin remains stable. Monitor pulmonary progress 05/03: Hemoglobin stable, resuming Eliquis today as discussed with Dr. Alcaraz. Encourage patient to ambulate, use IS, Aerobika. Out of bed Status: Acute (2) Hypokalemia: Problem details: Potassium waxes and wanes, improved to 3.8. Continue supplement 40 mEq b.i.d., monitoring, adjust as necessary Status: Acute (3) Leukocytosis: Problem details: Predominantly neutrophils. Previously 4.6 in February Continues to trend up, now post operative, 34 Urine culture is reported as no growth however I am told this is a lab error. Has been on Zosyn. No sensitivities 05/02: Adding vancomycin, renally dosed, to cover for possible hospital-acquired pneumonia 05/03: Down trending, continue IV antibiotics, monitoring Status: Acute (4) Heart failure with reduced ejection fraction: Problem details: proBNP 1600 Trop 0.06 ->0.07 -> 0.05 Anasarca, but intravascularly depleted. Monitor I/Os Echo 04/30/2024 shows moderately increased left ventricular size, normal wall thickness, normal global systolic function, EF 56%. Global systolic RV function is normal. Moderately enlarged left atrium. [id number] mitral regurg. Mild to moderate tricuspid regurg. Normal estimated pulmonary pressures. No significant change from 05/15/202305/02: IV Lasix given postoperatively on 05/01. Weight is up 4 kg. Will need strict I&Os. Consider indwelling Munguia. Will initiate further diuresis when pressures stabilize 05/03: Cough slightly improved, still sounds wet, weight 2 remains up, chronic peripheral edema of feet. Improving urine output. Discussed with Dr. Alcaraz, wait on diuresis today, decrease IVF slightly, monitor if self corrects Status: Acute (5) Paroxysmal atrial fibrillation: Problem details: On anticoagulation with apixaban Dual chamber pacemaker - per family, following a recent interrogation, pacer is not functioning adequately. Previous interrogation in February 2024 showed PSVT, NSVT, AF Eliquis has been held since admission, plan for OR on 05/01 Metoprolol TID for wide complex tachycardia noted on 04/29 as recommended by [facility] SCDs for VTE PPX 05/02: EKG last night shows atrial flutter 3:1. Resume Eliquis on 05/03 Status: Acute (6) Diabetes mellitus: Problem details: Appears to be well controlled, A1c in February was 5.4 Status: Acute (7) Anasarca: Problem details: Generalized edema with history of lymphedema Monitoring, considering diuresis if necessary Status: Acute (8) Acute kidney injury: Problem details: Creatinine 2.9 on admission Appears to be intravascular volume depleted despite his edema, BUN and Cr elevated. Diarrhea recently is much worse than chronic diarrhea. Poor oral intake is likely contributing. Side effect of Gleevec may be also contributing. Cautiously provide IV fluids and monitor renal function. Hold Gleevec for now. 05/02: Creatinine back up to 2.2 postoperatively. Renally dose antibiotics. Balancing fluids and diuresis. Continue to monitor 05/03: Creatinine 2.1 Status: Acute (9) CML (chronic myelocytic leukemia): Problem details: On Gleevec. Hold for now pending phone consult with Oncology at [facility]. Status: Acute (10) UTI (urinary tract infection): Problem details: UC shows no growth, per lab, this is an error. UA is cloudy with out LE or nitrites. Continue Zosyn for now, vancomycin added 05/02 Status: Acute (11) Pneumonia: Problem details: Sounds more wet perioperatively. However afebrile, no hypoxia, remains on room air Leukocytosis not responding to Zosyn alone CXR with possible retrocardiac airspace opacity Adding vancomycin, renally dosed, in addition to Zosyn RT for pulmonary hygiene, incentive spirometry, aerobika Will balance diuresis with postoperative hypotension, IVF - holding on diuresis, decreasing IVF slightly as discussed with Dr. Alcaraz Status: Acute Time Spent With Patient Total time spent: Total time spent caring for the patient today was 45 minutes. This includes time spent for the visit reviewing the chart, time spent during the visit, time spent after the visit and documentation and planning in coordination of care. Subjective Date Seen: 05/03/24 Interval history: Patient is POD# 2 s/p laparoscopic cholecystectomy for gangrenous cholecystitis. No hypoxia or tachypnea. Systolic pressures improving, >100. Weight has increased. Patient reports pain continues to improve. Appears brighter this morning. Shira erating diet thus far without nausea vomiting. Has remained afebrile. Exam Narrative: Exam Narrative: PHYSICAL EXAM General: Pleasant, appears more well this morning, NAD Cardiovascular: IRRR Pulmonary: Coarse breath sounds throughout continues. No wheezes. No dyspnea on room air Abdominal: Soft, distended, appropriate postoperative tenderness, drain in place Neurological: Alert, answering questions appropriately Extremities: +3 pitting edema. Neurovascularly intact Skin: Warm, dry. Const: Vital Signs, click to edit/add: Vital Signs - 24 hr 05/01/24 13:00 05/01/24 13:05 05/01/24 13:10 Temperature 97 F L Pulse Rate 85 82 80 Pulse Rate [Pulse Oximeter] Respiratory Rate 16 16 16 Blood Pressure 128/64 124/63 102/62 Blood Pressure [Le ft Arm] Pulse Oximetry 94 94 93 Oxygen Delivery Me thod Blow By Blow By Blow By Oxygen Flow Rate 10 10 10 05/01/24 13:15 05/01/24 13:20 05/01/24 13:25 Temperature Pulse Rate 84 81 79 Pulse Rate [Pulse Oximeter] Respiratory Rate 16 16 16 Blood Pressure 127/57 L 121/56 L 117/64 Blood Pressure [Le ft Arm] Pulse Oximetry 94 94 95 Oxygen Delivery Me thod Blow By Blow By Blow By Oxygen Flow Rate 10 10 10 05/01/24 13:30 05/01/24 13:40 05/01/24 14:00 Temperature 97 F L 96.6 F L 96.6 F L Pulse Rate 71 76 67 Pulse Rate [Pulse Oximeter] Respiratory Rate 16 20 22 Blood Pressure 93/61 103/80 121/67 Blood Pressure [Le ft Arm] Pulse Oximetry 92 89 91 Oxygen Delivery Me thod Blow By Room Air Nasal Cannula Oxygen Flow Rate 10 2 05/01/24 14:15 05/01/24 14:30 05/01/24 15:00 Temperature 96.4 F L Pulse Rate 70 72 68 Pulse Rate [Pulse Oximeter] Respiratory Rate 20 20 20 Blood Pressure 121/65 125/61 123/66 Blood Pressure [Le ft Arm] Pulse Oximetry 90 90 90 Oxygen Delivery Me thod Nasal Cannula Nasal Cannula Nasal Cannula Oxygen Flow Rate 2 2 2 05/01/24 16:00 05/01/24 16:00 05/01/24 16:30 Temperature 96.6 F L 96.6 F L Pulse Rate 68 72 Pulse Rate [Pulse Oximeter] Respiratory Rate 18 16 16 Blood Pressure 118/66 116/64 Blood Pressure [Le ft Arm] Pulse Oximetry 92 92 93 Oxygen Delivery Me thod Room Air Nasal Cannula Nasal Cannula Oxygen Flow Rate 2 2 2 05/01/24 17:00 05/01/24 17:30 05/01/24 18:00 Temperature 96.6 F L 96.8 F L 96.8 F L Pulse Rate 69 71 67 Pulse Rate [Pulse Oximeter] Respiratory Rate 18 18 18 Blood Pressure 106/60 105/60 115/58 L Blood Pressure [Le ft Arm] Pulse Oximetry 92 93 93 Oxygen Delivery Me thod Room Air Room Air Room Air Oxygen Flow Rate 05/01/24 18:30 05/01/24 19:30 05/01/24 20:30 Temperature 96.8 F L 97.6 F 97.5 F L Pulse Rate 57 L 72 76 Pulse Rate [Pulse Oximeter] Respiratory Rate 18 20 20 Blood Pressure 106/56 L 103/58 L 117/52 L Blood Pressure [Le ft Arm] Pulse Oximetry 90 90 90 Oxygen Delivery Me thod Room Air Room Air Oxygen Flow Rate 05/01/24 21:30 05/01/24 21:30 07/12/24 21:30 Temperature 97.5 F L Pulse Rate 76 Pulse Rate [Pulse Oximeter] 76 Respiratory Rate 20 18 Blood Pressure Blood Pressure [Le ft Arm] 115/61 Pulse Oximetry 91 92 Oxygen Delivery Me thod Room Air Room Air Oxygen Flow Rate 2 05/02/24 04:00 05/02/24 08:12 05/02/24 09:00 Temperature 97.5 F L 97.7 F Pulse Rate Pulse Rate [Pulse Oximeter] 61 67 Respiratory Rate 18 16 18 Blood Pressure Blood Pressure [Le ft Arm] 100/54 L 96/52 L Pulse Oximetry 93 91 92 Oxygen Delivery Az thod Room Air Room Air Room Air Oxygen Flow Rate Labs Labs: Laboratory Results - last 24 hr 05/02/24 07:50 WBC 34.13 H* RBC 3.28 L Hgb 9.9 L Hct 29.1 L MCV 89 MCH 30 MCHC 34 Plt Count 317 Sodium 142 Potassium 3.8 Chloride 110 Carbon Dioxide 23 Anion Gap 9 BUN 75 H Creatinine 2.2 H Estimated Creat Clear 25.81 Estimated GFR 29 Glucose 173 H Calcium 8.9 Magnesium 2.2 Total Bilirubin 1.2 Direct Bilirubin 0.6 H AST 40 H ALT 36 Alkaline Phosphatase 91 C-Reactive Protein 20.3 H Total Protein 5.1 L Albumin 2.8 L
[2024-05-03] MEDS: FUROSEMIDE 10 MG/ML inj 20 MG IVP (15:16)
--- NOTE | 2024-05-03 19:30 | PC.NURSE ---
End of Shift: The patient remains pleasant... but was noted to be poorly motivated today. The patient did not want to ambulate and would have preferred to stay in bed. With lots of encouragement the patient walked 3x on the unit and was up to the BR multiple times this shift. Voding now with no issues. MANISH drainage is serosanguineous... seems to be clearing some. No lunch ordered, but did eat tomatoe soup and chocolate pudding for dinner. 2 BM this shift.. loose and partial incontinence. VSS on RA. Crackles upon auscultation. Call light within reach. Lindy WHITTAKER BSN
[2024-05-03] MEDS: APIXABAN 5 MG TABLET PO (20:32)
[2024-05-04] VITALS (10 sets, daily range): BP systolic 115–149; BP diastolic 65–87; PULSE 60–71; RESP 14–18; TEMP 36.3–36.7; O2SAT 93–94
[2024-05-04] MEDS: PIPERACILLIN/TAZOBACTAM 3.375 GM in 0.9 % SODIUM CHLORIDE Mini-bag 100 ML IVPB ×3 (01:06→18:13)
[2024-05-04] MEDS: 0.9 % SODIUM CHLORIDE 250 ml IV (01:07)
[2024-05-04] MEDS: LACTATED RINGERS 1000 ML 1,000 ML 75 ML IV (01:55)
[2024-05-04 06:50] LABS: Hematocrit 26.9 % (37.0-53.0); Hemoglobin* 8.9 gm/dL (13.5-17.5); Mean Corpuscular HGB Conc 33 gm/dL (32-36); Mean Corpuscular Hemoglobin 30 pg (26-34); Mean Corpuscular Volume 90 fL (80-100); Platelet Count* 291 K/uL (140-440); Red Blood Count 2.98 m/uL (4.30-5.90)
[2024-05-04 06:56] LABS: Slide Review Reflex No; White Blood Count* 26.32 K/uL (4.50-11.00)
[2024-05-04 07:04] LABS: Chloride* 115 mmol/L (96-114)
[2024-05-04 07:05] LABS: Potassium* 4.2 mmol/L (3.6-5.1); Sodium* 142 mmol/L (135-149)
[2024-05-04 07:07] LABS: Creatinine* 1.9 mg/dL (0.5-1.5); Est. Creatinine Clearance* 29.88; Estimated Glomerular Filt Rate 34 ml/min
[2024-05-04 07:08] LABS: Anion Gap 5 mEq/L (7-15); Blood Urea Nitrogen* 69 mg/dL (7-30); Calcium* 8.6 mg/dL (8.4-10.6); Carbon Dioxide* 22 mmol/L (20-32); Glucose* 152 mg/dL (60-115)
--- NOTE | 2024-05-04 07:54 | PC.NURSE ---
Pt alert and oriented x3 with some forgetfulness with time. Afebrile. Pt denies pain, chest pain, N/V. Pt?s MANISH drain is patent and draining. Pt?s 4 lap sites are CDI. Pt is up A1 with walker and gait belt, voiding, passing gas, and tolerating a full liquid diet. Pt was up multiple times to the bathroom throughout the night, pt had 4 small-large loose brown bm?s. Pt slept intermittently throughout night was up to chair for 2 hours (around [id number]) and went back to bed. ?
[2024-05-04] MEDS: POTASSIUM CHLORIDE 10 MEQ CAPSULE ER 40 MEQ PO (08:02)
[2024-05-04] MEDS: METOPROLOL TARTRATE 25 MG TABLET PO ×3 (09:07→21:24)
[2024-05-04] MEDS: APIXABAN 5 MG TABLET PO ×2 (09:07→21:24)
[2024-05-04] MEDS: TAMSULOSIN HCL 0.4 MG CAPSULE PO (09:07)
[2024-05-04] MEDS: allopurinoL 300 MG TABLET PO (09:07)
[2024-05-04] MEDS: ATORVASTATIN 10 MG TABLET 20 MG PO (09:07)
[2024-05-04] MEDS: FUROSEMIDE 10 MG/ML inj 20 MG IVP (09:08)
--- NOTE | 2024-05-04 10:41 | PM.IMPN1 ---
Progress Note: A&P Assessment and plan (1) Cholecystitis: Problem details: Ultrasound shows Cholelithiasis with wall thickening and pericholecystic fluid suspicious for cholecystitis. CT shows Marked gallbladder wall thickening and dilation with a small amount of adjacent fluid and stranding. Findings can be correlated for acute cholecystitis but could be secondary to 3rd spacing of fluids and/or heart failure Leukocytosis trending up (previously 4.6 in February), procalcitonin >2. Persisting pain. LFTs trending up Discussed with Dr. Alcaraz. Will forego HIDA scan today. Plan for cholecystectomy on 05/01/24. NPO after midnight. Continue to hold Eliquis. Type and screen in am given risk for blood loss (inflammation, last DOAC use just under 72 hours) Continue Zosyn Continue pain and nausea management as stated Monitor, if patient becomes more ill or unstable, consider transfer for cholecystostomy tube placement per Dr. Alcaraz 05/02: POD# 1 s/p laparoscopic cholecystectomy for gangrenous cholecystitis, drain is in place. Per Dr. Alcaraz, okay to advance to full liquid diet. Plan to resume Eliquis tomorrow if hemoglobin remains stable. Monitor pulmonary progress Hemoglobin stable, Eliquis resumed as discussed with Dr. Alcaraz. Encourage patient to ambulate, use IS, Aerobika. Out of bed. Slowly advance diet, softs first. Discontinue IVF when adequate oral intake Status: Acute (2) Hypokalemia: Problem details: Resolved with oral placement. Continue oral supplement bid with active diuresis Status: Resolved (3) Leukocytosis: Problem details: Predominantly neutrophils. Previously 4.6 in February Continues to trend up, now post operative, 34 Urine culture is reported as no growth however I am told this is a lab error. Has been on Zosyn. No sensitivities 05/02: Adding vancomycin, renally dosed, to cover for possible hospital-acquired pneumonia Down trending, continue IV antibiotics, monitoring, remains afebrile, slow clinical improvement Status: Acute (4) Heart failure with reduced ejection fraction: Problem details: proBNP 1600 Trop 0.06 ->0.07 -> 0.05 Anasarca, but intravascularly depleted. Monitor I/Os Echo 04/30/2024 shows moderately increased left ventricular size, normal wall thickness, normal global systolic function, EF 56%. Global systolic RV function is normal. Moderately enlarged left atrium. [id number] mitral regurg. Mild to moderate tricuspid regurg. Normal estimated pulmonary pressures. No significant change from 05/15/202305/02: IV Lasix given postoperatively on 05/01. Weight is up 4 kg. Will need strict I&Os. Consider indwelling Munguia. Will initiate further diuresis when pressures stabilize 05/03: Cough slightly improved, still sounds wet, weight 2 remains up, chronic peripheral edema of feet. Improving urine output. Discussed with Dr. Alcaraz, wait on diuresis today, decrease IVF slightly, monitor if self corrects IV lasix 20mg daily, strict I&Os, daily weights, continue oral potassium supplement, monitor Status: Acute (5) Paroxysmal atrial fibrillation: Problem details: On anticoagulation with apixaban Dual chamber pacemaker - per family, following a recent interrogation, pacer is not functioning adequately. Previous interrogation in February 2024 showed PSVT, NSVT, AF Eliquis has been held since admission, plan for OR on 05/01 - ELIQUIS RESUMED 05/03 Metoprolol TID for wide complex tachycardia noted on 04/29 as recommended by [facility] SCDs for VTE PPX 05/02: EKG last night shows atrial flutter 3:1 Status: Acute (6) Diabetes mellitus: Problem details: Appears to be well controlled, A1c in February was 5.4 Status: Acute (7) Anasarca: Problem details: Generalized edema with history of lymphedema IV lasix daily started 05/04, monitoring Use home lymphedema pumps twice daily Status: Acute (8) Acute kidney injury: Problem details: Creatinine 2.9 on admission Appears to be intravascular volume depleted despite his edema, BUN and Cr elevated. Diarrhea recently is much worse than chronic diarrhea. Poor oral intake is likely contributing. Side effect of Gleevec may be also contributing. Cautiously provide IV fluids and monitor renal function. Hold Gleevec for now. 05/02: Creatinine back up to 2.2 postoperatively. Renally dose antibiotics. Balancing fluids and diuresis. Continue to monitor 05/03: Creatinine 2.1 - trending down again, now 1.9. Continue diuresis, monitoring Status: Acute (9) CML (chronic myelocytic leukemia): Problem details: On Gleevec, held since admission 05/04 Discussed with Cindy Selly, TEXTILE SCIENCE TECHNICIAN Oncology at [facility], recommending to continue to hold it until discharge and follow up in the clinic. She will make sure he is seen soon after discharge from the hospital Status: Acute (10) UTI (urinary tract infection): Problem details: UC shows no growth, per lab, this is an error. UA is cloudy with out LE or nitrites. Continue Zosyn for now, vancomycin added 05/02 Status: Acute (11) Pneumonia: Problem details: Sounds more wet perioperatively. However afebrile, no hypoxia, remains on room air Leukocytosis not responding to Zosyn alone CXR with possible retrocardiac airspace opacity Adding vancomycin, renally dosed, in addition to Zosyn RT for pulmonary hygiene, incentive spirometry, aerobika Status: Acute (12) Diarrhea: Problem details: H/o same in past Collect stool for CDiff Status: Acute Plan 05/04: Continuing Vanc q 36 hours and Zosyn for now as discussed with pharmacy. Slow advance of diet. D/c IVF when able. Diurese. Encourage ambulation. Stool for CDiff Time Spent With Patient Total time spent: Total time spent caring for the patient today was 60 minutes. This includes time spent for the visit reviewing the chart, time spent during the visit, time spent after the visit and documentation and planning in coordination of care. Subjective Date Seen: 05/04/24 Interval history: Patient continues to improve. Reports feeling better this morning. Still has some abdominal pain postoperatively. Nursing staff reporting he is now having diarrhea. Has remained afebrile. No nausea or vomiting. Tolerating slow advancement in diet. Has been stubborn to ambulate often, needing much encouragement yesterday. Exam Narrative: Exam Narrative: PHYSICAL EXAM General: Pleasant, conversant, NAD Cardiovascular: IRRR Pulmonary: Coarse breath sounds throughout continues. No wheezes. No dyspnea on room air Abdominal: Soft, remains distended, appropriate postoperative tenderness, drain in place Neurological: Alert, answering questions appropriately Extremities: +3 pitting edema. Neurovascularly intact Skin: Warm, dry. Const: Vital Signs, click to edit/add: Vital Signs - 24 hr 05/03/24 12:00 05/03/24 15:00 05/03/24 15:00 Temperature 97.8 F Pulse Rate 62 Pulse Rate [Pulse Oximeter] 62 Respiratory Rate 16 18 Blood Pressure [Ri ght Arm] 113/54 L Pulse Oximetry 91 93 Oxygen Delivery Me thod Room Air Room Air 05/03/24 15:14 05/03/24 20:15 05/03/24 23:00 Temperature 97.9 F Pulse Rate 62 Pulse Rate [Pulse Oximeter] 62 67 Respiratory Rate 18 20 Blood Pressure [Ri ght Arm] 127/71 Pulse Oximetry 93 92 Oxygen Delivery Me thod Room Air Room Air 05/03/24 23:14 05/03/24 23:17 05/04/24 02:08 Temperature 97.8 F 98.0 F Pulse Rate Pulse Rate [Pulse Oximeter] 74 71 Respiratory Rate 18 18 18 Blood Pressure [Ri ght Arm] 135/73 115/65 Pulse Oximetry 95 95 94 Oxygen Delivery Me thod Room Air Room Air Room Air 05/04/24 07:00 05/04/24 08:08 Temperature 97.9 F Pulse Rate Pulse Rate [Pulse Oximeter] 61 Respiratory Rate 18 18 Blood Pressure [Ri ght Arm] 130/87 Pulse Oximetry 94 94 Oxygen Delivery Me thod Room Air Room Air Labs Labs: Laboratory Results - last 24 hr 05/04/24 06:04 WBC 26.32 H* RBC 2.98 L Hgb 8.9 L Hct 26.9 L MCV 90 MCH 30 MCHC 33 Plt Count 291 Sodium 142 Potassium 4.2 Chloride 115 H Carbon Dioxide 22 Anion Gap 5 L BUN 69 H Creatinine 1.9 H Estimated Creat Clear 29.88 Estimated GFR 34 Glucose 152 H Calcium 8.6
--- NOTE | 2024-05-04 13:13 | P.GSPN_ITS ---
Subjective Subjective Date Seen: 05/04/24 Interval history: Luisito is doing well. Seems more alert today. Tolerating liquids. Has been having diarrhea. No fevers. Continues to work on ambulation. Exam Narrative: Exam Narrative: General: No acute distress CV: Regular rate rhythm Respiratory: Breathing nonlabored on room air Abdomen: Distended. Drain with 125 mL of serosanguineous output. Const: Vital Signs, click to edit/add: Vital Signs - 24 hr 05/03/24 15:00 05/03/24 15:00 05/03/24 15:14 Temperature Pulse Rate 62 Pulse Rate [Pulse Oximeter] 62 Respiratory Rate 18 18 Blood Pressure [Ri ght Arm] Pulse Oximetry 93 93 Oxygen Delivery Me thod Room Air Room Air 05/03/24 20:15 05/03/24 23:00 05/03/24 23:14 Temperature 97.9 F 97.8 F Pulse Rate 62 Pulse Rate [Pulse Oximeter] 67 74 Respiratory Rate 20 18 Blood Pressure [Ri ght Arm] 127/71 135/73 Pulse Oximetry 92 95 Oxygen Delivery Me thod Room Air Room Air 05/03/24 23:17 05/04/24 02:08 05/04/24 07:00 Temperature 98.0 F Pulse Rate Pulse Rate [Pulse Oximeter] 71 Respiratory Rate 18 18 18 Blood Pressure [Ri ght Arm] 115/65 Pulse Oximetry 95 94 94 Oxygen Delivery Me thod Room Air Room Air Room Air 05/04/24 08:08 05/04/24 11:00 Temperature 97.9 F 97.3 F L Pulse Rate Pulse Rate [Pulse Oximeter] 61 63 Respiratory Rate 18 18 Blood Pressure [Ri ght Arm] 130/87 123/67 Pulse Oximetry 94 93 Oxygen Delivery Me thod Room Air Room Air Labs/Imaging Labs Labs: Creatinine down slightly to 1.9. White blood cell count down slightly to 24. Hemoglobin stable at 8.8. Progress Note:A&P Assessment and plan (1) S/P laparoscopic cholecystectomy: Status: Acute (2) Diarrhea: Status: Acute (3) Pneumonia: Status: Acute (4) Delirium: Status: Acute (5) Arrhythmia: Status: Acute (6) Anemia: Status: Acute (7) Cholecystitis: Status: Acute Plan The patient is an 83-year-old male who is postop day 3 from laparoscopic cho lecystectomy. He has had return of bowel function, however he is having diarrhea. Of note he did have diarrhea preop which is what brought him into the hospital, however he had been tested negative for C diff previously. -would recommend repeat C diff testing given elevated white blood cell count -continue IV antibiotics given high white count, concerns for UTI, pneumonia and gangrenous cholecystitis. -continue to encourage IS and aerobika -agree with gentle diuresis. -okay to advance patient to a soft diet -okay to continue Eliquis. -continue PT OT -continue to record drain output.
[2024-05-04 15:21] LABS: C.Difficile Negative (Negative); CDIFFEPI 027 PRESUMPTIVE NEGATIVE (Negative)
[2024-05-04] MEDS: LACTATED RINGERS 1000 ML 1,000 ML 50 ML IV (16:21)
[2024-05-04] MEDS: POTASSIUM CHLORIDE 10 MEQ CAPSULE ER 20 MEQ PO (18:13)
[2024-05-05] VITALS (7 sets, daily range): BP systolic 139–158; BP diastolic 66–85; PULSE 61–75; RESP 16–20; TEMP 36.4–36.6; O2SAT 92–95
[2024-05-05] MEDS: PIPERACILLIN/TAZOBACTAM 3.375 GM in 0.9 % SODIUM CHLORIDE Mini-bag 100 ML IVPB ×2 (01:16→09:43)
--- NOTE | 2024-05-05 05:51 | PC.NURSE ---
[id number]--Pt alert and oriented x3. Remained Afebrile throughout the shift. Pt denied nausea, headache, SOB, chest pain, and overall pain. Pts MANISH is patent and draining. Output: 40, 40, 50. Pt is an assist of 1 with GB and W. Gait is steady. Pt had a hard time making it to the bathroom before he passed a BM. Pt had multiple BMs throughout the shift. Upon inspection of Pts bottom, Hair follicles surrounding scrotum appeared to be oozing blood. Zinc oxide was applied to the scrotum. Pt slept intermittently throughout the night. ?
[2024-05-05 06:20] LABS: Eosinophils Percent Auto 0.1 % (0.0-7.0); Hematocrit 27.8 % (37.0-53.0); Hemoglobin* 9.1 gm/dL (13.5-17.5); Immature Granulocytes Pct Auto 17.2 %; Lymphocytes Percent Auto 2.4 % (20-44); Mean Corpuscular HGB Conc 33 gm/dL (32-36); Mean Corpuscular Hemoglobin 30 pg (26-34); Mean Corpuscular Volume 91 fL (80-100); Monocytes Percent Auto 3.7 % (0.0-11.0); Neutrophils Percent Auto 76.6 % (42.0-72.0); Platelet Count* 266 K/uL (140-440); RDW Coefficient of Variation % 17.6 % (11.5-15.5); Red Blood Count 3.04 m/uL (4.30-5.90)
[2024-05-05 06:25] LABS: Slide Review Reflex No
[2024-05-05 06:36] LABS: Chloride* 115 mmol/L (96-114); Sodium* 143 mmol/L (135-149)
[2024-05-05 06:39] LABS: Anion Gap 6 mEq/L (7-15); Blood Urea Nitrogen* 56 mg/dL (7-30); Carbon Dioxide* 22 mmol/L (20-32); Creatinine* 1.6 mg/dL (0.5-1.5); Est. Creatinine Clearance* 35.49; Estimated Glomerular Filt Rate 42 ml/min
[2024-05-05 06:40] LABS: Calcium* 8.5 mg/dL (8.4-10.6); Glucose* 148 mg/dL (60-115)
[2024-05-05] MEDS: POTASSIUM CHLORIDE 10 MEQ CAPSULE ER 20 MEQ PO ×2 (07:38→18:33)
--- NOTE | 2024-05-05 09:09 | CRLHL7_ITS ---
For Patients: As a result of the Century Cures Act, medical imaging exams and procedure reports are released immediately into your electronic medical record. You may view this report before your referring provider. If you have questions, please contact your health care provider. Indication: Worsening leukocytosis Technique: Chest 1 view Comparison: Chest x-ray 05/01/2024 Findings/Impression: Cardiovascular and mediastinum: Cardiomegaly with left-sided dual lead pacemaker. Atherosclerosis. Lungs and pleural space: Trace left pleural effusion with bibasilar patchy atelectasis. Mild pulmonary cephalization. Bones and soft tissues: Narrowing of the acromial humeral distance on the right consistent with rotator cuff disease. Right acromioclavicular osteoarthritis. Dictated by Eliu Aden MD @ 05/05/2024 10:00:15 AM (Electronically Signed)
[2024-05-05 09:31] LABS: Albumin* 2.4 g/dL (3.3-5.0)
[2024-05-05 09:34] LABS: Alanine Aminotransferase* 25 U/L (4-50); Alkaline Phosphatase* 89 U/L (40-150); Aspartate Amino Transferase* 21 U/L (12-35); Bilirubin Direct* 0.4 mg/dL (0.0-0.5); Bilirubin Total* 0.8 mg/dL (0.1-1.5); Total Protein* 4.7 g/dL (6.0-8.3)
[2024-05-05] MEDS: APIXABAN 5 MG TABLET PO ×2 (09:42→20:13)
[2024-05-05] MEDS: TAMSULOSIN HCL 0.4 MG CAPSULE PO (09:42)
[2024-05-05] MEDS: ATORVASTATIN 10 MG TABLET 20 MG PO (09:42)
[2024-05-05] MEDS: FUROSEMIDE 10 MG/ML inj 20 MG IVP (09:42)
[2024-05-05] MEDS: METOPROLOL TARTRATE 25 MG TABLET PO ×3 (09:42→20:13)
[2024-05-05] MEDS: allopurinoL 300 MG TABLET PO (09:42)
[2024-05-05] MEDS: SODIUM CHLORIDE 0.9 % (FLUSH) 10 ML SYRINGE 5 ML IVF ×2 (10:21→20:14)
--- NOTE | 2024-05-05 10:44 | P.IMPN_ITS ---
Progress Note: A&P Assessment and plan (1) Cholecystitis: Problem details: Ultrasound shows Cholelithiasis with wall thickening and pericholecystic fluid suspicious for cholecystitis. CT shows Marked gallbladder wall thickening and dilation with a small amount of adjacent fluid and stranding. Findings can be correlated for acute cholecystitis but could be secondary to 3rd spacing of fluids and/or heart failure Leukocytosis trending up (previously 4.6 in February), procalcitonin >2. Persisting pain. LFTs trending up Discussed with Dr. Alcaraz. Will forego HIDA scan today. Plan for cholecystectomy on 05/01/24. NPO after midnight. Continue to hold Eliquis. Type and screen in am given risk for blood loss (inflammation, last DOAC use just under 72 hours) Continue Zosyn Continue pain and nausea management as stated Monitor, if patient becomes more ill or unstable, consider transfer for cholec ystostomy tube placement per Dr. Alcaraz S/p laparoscopic cholecystectomy for gangrenous cholecystitis 05/01. Abdominal cultures growing EColi. Hemoglobin stable, Eliquis resumed 05/[address] Alcaraz. Encourage patient to ambulate, use IS, Aerobika. Out of bed. Slowly advance diet, ok for regular. IVF discontinued. 05/05: Start oral Cipro as sensitive (will forego Flagyl), d/c Zosyn and Vanc. Plan to discharge with drain in place to reduce risk for abscess. Continue to monitor, if progressing, possible d/c end of week. Will have group social worker involved for discharge planning/placement needs. Patient and family aware he made need SNF. Status: Acute (2) Hypokalemia: Problem details: Resolved with oral replacement. Continue oral supplement bid with active diuresis Status: Resolved (3) Leukocytosis: Problem details: Predominantly neutrophils. Previously 4.6 in February Continues to trend up, now post operative, 34 Urine culture is reported as no growth however I am told this is a lab error. Has been on Zosyn. No sensitivities 05/02: Adding vancomycin, renally dosed, to cover for possible hospital-acquired pneumonia Down trending, continue IV antibiotics, monitoring, remains afebrile, slow clinical improvement 05/05: [place] [address]. CRP improved to 4.9. Afebrile. No new abdominal sxs. Repeat UA rather unremarkable. Repeat CXR without new findings/concern for worsening pneumonia. BCx1 pending. Discussed with Dr. Alcaraz. Will reach out to Oncology as well to see if this is CML related. Status: Acute (4) Heart failure with reduced ejection fraction: Problem details: proBNP 1600 Trop 0.06 ->0.07 -> 0.05 Anasarca, but intravascularly depleted. Monitor I/Os Echo 04/30/2024 shows moderately increased left ventricular size, normal wall thickness, normal global systolic function, EF 56%. Global systolic RV function is normal. Moderately enlarged left atrium. [id number] mitral regurg. Mild to moderate tricuspid regurg. Normal estimated pulmonary pressures. No significant change from 05/15/202305/02: IV Lasix given postoperatively on 05/01. Weight is up 4 kg. Will need strict I&Os. Consider indwelling Munguia. Will initiate further diuresis when pressures stabilize 05/03: Cough slightly improved, still sounds wet, weight 2 remains up, chronic peripheral edema of feet. Improving urine output. Discussed with Dr. Alcaraz, wait on diuresis today, decrease IVF slightly, monitor if self corrects Lasix 20mg daily (switching to oral), strict I&Os, daily weights, continue oral potassium supplement, creatinine improving, cough improved to baseline, monitor Status: Acute (5) Paroxysmal atrial fibrillation: Problem details: On anticoagulation with apixaban Dual chamber pacemaker - per family, following a recent interrogation, pacer is not functioning adequately. Previous interrogation in February 2024 showed PSVT, NSVT, AF Eliquis has been held since admission, plan for OR on 05/01 - ELIQUIS RESUMED 05/03 Metoprolol TID for wide complex tachycardia noted on 04/29 as recommended by [facility]. Amlodipine has been held. Status: Acute (6) Diabetes mellitus: Problem details: Appears to be well controlled, A1c in February was 5.4 Status: Acute (7) Anasarca: Problem details: Generalized edema with history of lymphedema Continue lasix daily Use home lymphedema pumps twice daily Suspect scrotal swelling, which was worse last night following use of lymphedema pumps, r/t chronic edema and pumps. Elevate as needed, monitor. Status: Acute (8) Acute kidney injury: Problem details: Creatinine 2.9 on admission Appears to be intravascular volume depleted despite his edema, BUN and Cr elevated. Diarrhea recently is much worse than chronic diarrhea. Poor oral intake is likely contributing. Side effect of Gleevec may be also contributing. Cautiously provide IV fluids and monitor renal function. Hold Gleevec for now. Lisinopril has been held 05/02: Creatinine back up to 2.2 postoperatively. Renally dose antibiotics. Balancing fluids and diuresis. Continue to monitor 05/03: Creatinine 2.1 - trending down again, now 1.9. Continue diuresis, monito ring 05/05: trending down, 1.6 today Status: Acute (9) CML (chronic myelocytic leukemia): Problem details: On Gleevec, held since admission 05/04 Discussed with Cindy Brand, JOSE Oncology at [facility], recommending to continue to hold it until discharge and follow up in the clinic. She will make sure he is seen soon after discharge from the hospital. Discussed WBC, trending back up. Status: Acute (10) UTI (urinary tract infection): Problem details: UC shows no growth, per lab, this is an error. UA is cloudy with out LE or nitrites. Continue Zosyn for now, vancomycin added 05/02 -discontinued 05/05 Repeat UA 05/05 rather unremarkable Switching to oral Cipro Status: Acute (11) Pneumonia: Problem details: Sounds more wet perioperatively. However afebrile, no hypoxia, remains on room air Leukocytosis not responding to Zosyn alone CXR with possible retrocardiac airspace opacity - repeat CXR 05/05 without evidence of worsening Adding vancomycin, renally dosed, in addition to Zosyn - discontinued 05/05 RT for pulmonary hygiene, incentive spirometry, aerobika Status: Acute (12) Diarrhea: Problem details: H/o same in past CDiff neg. GI pathogens pending Cholestyramine and probiotics started. No imodium per Dr. Alcaraz Status: Acute Plan IV abx discontinued. Starting oral Cipro and Flagyl. Regular diet. Encouarge ambulation. Continue diuresis and lymphedema pumps. office services manager for discharge planning/placement needs. Time Spent With Patient Total time spent: Total time spent caring for the patient today was 45 minutes. This includes time spent for the visit reviewing the chart, time spent during the visit, time spent after the visit and documentation and planning in coordination of care. Subjective Date Seen: 05/05/24 Interval history: Patient is sitting up in a chair this morning, eating breakfast. Tells me he is feeling no worse. Abdominal pain seems to be getting better. Tolerating orals without nausea vomiting. Leukocytosis is trending up again. Remains afebrile. No new abdominal symptoms. E coli growing in abdominal cultures. Continues on vancomycin and Zosyn. Overnight, reported scrotal swelling with seepage. Had started lymphedema pumps last night. Trial of elevation. Exam Narrative: Exam Narrative: PHYSICAL EXAM General: Pleasant, conversant, NAD Cardiovascular: IRRR Pulmonary: Breath sounds finally improving. No longer course. No wheezing. No dyspnea on room air Abdominal: Soft, distended, appropriate postoperative tenderness, drain in place Urogenital: Scrotum with very mild swelling, no erythema, no bleeding/drainage Neurological: Alert, answering questions appropriately Extremities: +3 pitting edema. Neurovascularly intact Skin: Warm, dry. Const: Vital Signs, click to edit/add: Vital Signs - 24 hr 05/04/24 11:00 05/04/24 15:00 05/04/24 15:00 Temperature 97.3 F L Pulse Rate Pulse Rate [Pulse Oximeter] 63 63 Respiratory Rate 18 18 18 Blood Pressure [Le ft Arm] Blood Pressure [Ri ght Arm] 123/67 Pulse Oximetry 93 93 Oxygen Delivery Me thod Room Air Room Air 05/04/24 15:00 05/04/24 19:00 05/04/24 19:43 Temperature 97.9 F 97.8 F Pulse Rate 63 Pulse Rate [Pulse Oximeter] 63 69 Respiratory Rate 18 14 Blood Pressure [Le ft Arm] 149/75 H 136/85 Blood Pressure [Ri ght Arm] Pulse Oximetry 93 93 Oxygen Delivery Ny thod Room Air Room Air 05/04/24 20:50 05/04/24 21:25 05/04/24 23:00 Temperature Pulse Rate Pulse Rate [Pulse Oximeter] Respiratory Rate Blood Pressure [Le ft Arm] 145/72 H 147/75 H Blood Pressure [Ri ght Arm] Pulse Oximetry Oxygen Delivery Ny thod Room Air 05/04/24 23:00 05/04/24 23:00 05/05/24 03:00 Temperature 97.8 F 97.9 F Pulse Rate 60 Pulse Rate [Pulse Oximeter] 69 70 Respiratory Rate 16 16 Blood Pressure [Le ft Arm] 145/72 H 158/85 H Blood Pressure [Ri ght Arm] Pulse Oximetry 93 95 Oxygen Delivery Me thod Room Air Room Air 05/05/24 07:00 05/05/24 07:34 Temperature 97.7 F Pulse Rate Pulse Rate [Pulse Oximeter] 67 Respiratory Rate 20 20 Blood Pressure [Le ft Arm] Blood Pressure [Ri ght Arm] 157/77 H Pulse Oximetry 94 95 Oxygen Delivery Me thod Room Air Room Air Labs Labs: Laboratory Results - last 24 hr 05/04/24 05/05/24 05/05/24 14:29 05:49 09:11 WBC 32.40 H* RBC 3.04 L Hgb 9.1 L Hct 27.8 L MCV 91 MCH 30 MCHC 33 RDW Coeff of Guillermo 17.6 H Plt Count 266 Neut % (Auto) 76.6 H Lymph % (Auto) 2.4 L [place] % (Auto) 3.7 Eos % (Auto) 0.1 Baso % (Auto) 0.0 Neut # (Auto) 24.80 H Lymph # (Auto) 0.80 L [place] # (Auto) 1.20 H Eos # (Auto) 0.00 Baso # (Auto) 0.00 Abs Immat Gran (auto) 5.60 H Imm/Tot Granulo (auto) 17.2 Sodium 143 Potassium 4.0 Chloride 115 H Carbon Dioxide 22 Anion Gap 6 L BUN 56 H Creatinine 1.6 H Estimated Creat Clear 35.49 Estimated GFR 42 Glucose 148 H Calcium 8.5 Total Bilirubin 0.8 Direct Bilirubin 0.4 AST 21 ALT 25 Alkaline Phosphatase 89 Total Protein 4.7 L Albumin 2.4 L Urine Color Urine Appearance Urine pH Ur Specific [place] Urine Protein Urine Glucose (UA) Urine Ketones Urine Blood Urine Nitrite Urine Bilirubin Urine Urobilinogen Ur Leukocyte Esterase Urine RBC Urine WBC Ur Squamous Epith Cells Amorphous Sediment Urine Bacteria Urine Mucus Stl C. diff Tox B Gene Negative Stl C. diff [id number] PRESUMPTIVE NEGATIVE Lab Acknowledgement Test Added 05/05/24 05/05/24 09:15 09:30 WBC RBC Hgb Hct MCV MCH MCHC RDW Coeff of Guillermo Plt Count Neut % (Auto) Lymph % (Auto) [place] % (Auto) Eos % (Auto) Baso % (Auto) Neut # (Auto) Lymph # (Auto) [place] # (Auto) Eos # (Auto) Baso # (Auto) Abs Immat Gran (auto) Imm/Tot Granulo (auto) Sodium Potassium Chloride Carbon Dioxide Anion Gap BUN Creatinine Estimated Creat Clear Estimated GFR Glucose Calcium Total Bilirubin Direct Bilirubin AST ALT Alkaline Phosphatase Total Protein Albumin Urine Color Yellow Urine Appearance Slightly Cloudy A Urine pH 7.0 Ur Specific [place] 1.025 Urine Protein Trace A Urine Glucose (UA) Negative Urine Ketones 4+ A Urine Blood Negative Urine Nitrite Negative Urine Bilirubin 1+ A Urine Urobilinogen 1.0 Ur Leukocyte Esterase Negative Urine RBC 2-5 A Urine WBC 0-2 Ur Squamous Epith Cells Few Amorphous Sediment Many A Urine Bacteria None Urine Mucus Few A Stl C. diff Tox B Gene Stl C. diff [id number] Lab Acknowledgement Test Added
[2024-05-05 11:27] LABS: C Reactive Protein* 4.9 mg/dL (0.5-1.0)
--- NOTE | 2024-05-05 12:19 | P.GSPN_ITS ---
Subjective Subjective Date Seen: 05/05/24 Interval history: Luisito continues to improve. He has not wanted to ambulate a significant amount, however he does want to discharge home once he is able. He has had ongoing diarrhea. C diff was negative. Is tolerating a diet without difficul ty. Pain continues to improve. Has not had fevers. Exam Narrative: Exam Narrative: General: Patient resting comfortably in bed. No acute distress CV: Regular rate Respiratory: Breathing is nonlabored on room air Abdomen: Mildly protuberant however soft. Incisions are clean and dry. Drain output is becoming more serous. One hundred seventy-five out yesterday. Const: Vital Signs, click to edit/add: Vital Signs - 24 hr 05/04/24 15:00 05/04/24 15:00 05/04/24 15:00 Temperature 97.9 F Pulse Rate Pulse Rate [Pulse Oximeter] 63 63 Respiratory Rate 18 18 18 Blood Pressure [Le ft Arm] 149/75 H Blood Pressure [Ri ght Arm] Pulse Oximetry 93 93 Oxygen Delivery Me thod Room Air Room Air 05/04/24 19:00 05/04/24 19:43 05/04/24 20:50 Temperature 97.8 F Pulse Rate 63 Pulse Rate [Pulse Oximeter] 69 Respiratory Rate 14 Blood Pressure [Le ft Arm] 136/85 145/72 H Blood Pressure [Ri ght Arm] Pulse Oximetry 93 Oxygen Delivery Me thod Room Air 05/04/24 21:25 05/04/24 23:00 05/04/24 23:00 Temperature Pulse Rate 60 Pulse Rate [Pulse Oximeter] Respiratory Rate Blood Pressure [Le ft Arm] 147/75 H Blood Pressure [Ri ght Arm] Pulse Oximetry Oxygen Delivery Pr thod Room Air 05/04/24 23:00 05/05/24 03:00 05/05/24 07:00 Temperature 97.8 F 97.9 F Pulse Rate Pulse Rate [Pulse Oximeter] 69 70 Respiratory Rate 16 16 20 Blood Pressure [Le ft Arm] 145/72 H 158/85 H Blood Pressure [Ri ght Arm] Pulse Oximetry 93 95 94 Oxygen Delivery Me thod Room Air Room Air Room Air 05/05/24 07:34 Temperature 97.7 F Pulse Rate Pulse Rate [Pulse Oximeter] 67 Respiratory Rate 20 Blood Pressure [Le ft Arm] Blood Pressure [Ri ght Arm] 157/77 H Pulse Oximetry 95 Oxygen Delivery Me thod Room Air Labs/Imaging Labs Labs: White blood cell count is up today to 32. Hemoglobin is 9.1 from a 0.9. Creatinine is down to 1.6 from 1.9 CRP is down to 4.9, was previously 8.5 days ago C diff negative. Abdominal fluid culture from surgery growing E coli, pansensitive. Imaging Imaging: Chest x-ray done today looks much better Findings/Impression: Cardiovascular and mediastinum: Cardiomegaly with left-sided dual lead pacemaker. Atherosclerosis. Lungs and pleural space: Trace left pleural effusion with bibasilar patchy atelectasis. Mild pulmonary cephalization. Bones and soft tissues: Narrowing of the acromial humeral distance on the right consistent with rotator cuff disease. Right acromioclavicular osteoarthritis. Dictated by Eliu Aden MD @ 05/05/2024 10:00:15 AM Progress Note:A&P Assessment and plan (1) Diarrhea: Status: Acute (2) S/P laparoscopic cholecystectomy: Status: Acute (3) Delirium: Status: Acute (4) Arrhythmia: Status: Acute (5) Anemia: Status: Acute (6) Leukocytosis: Status: Acute (7) CML (chronic myelocytic leukemia): Status: Acute (8) Acute kidney injury: Status: Acute Plan The patient is an 83-year-old male who is postop day 4 status post laparoscopic cholecystectomy for gangrenous cholecystitis. He continues to improve though he has a rising white blood cell count. Okay to advance diet to regular. Consider nutrition consult. Okay to continue Eliquis. Patient has baseline anemia which has been stable postop. Diarrhea: -patient had diarrhea prior to admission. C diff has been negative. Stool culture sent, however suspect this is secondary to either chronic diarrhea, fluid 3rd spacing and antibiotics. Agree with adding probiotic. Pneumonia versus postop respiratory insufficiency: -this appears to have resolved. Chest x-ray is much better with diuresis. Sputum culture has been negative. OK discontinuing vancomycin. Recommend c ontinue IS, ambulation and aerobika Lymphedema: -agree with using lymphedema pumps. This may cause more scrotal swelling as fluid is pushed back to his core. This will also help with his acute on chronic renal injury Intra-abdominal infection with E coli from gangrenous cholecystitis: -okay narrowing antibiotics to Cipro today. This can be switched to p.o. concerned about rising white blood cell count, however CRP is improved, patient is afebrile, other sources for infection have been inconclusive, and drain output is clear. Hospitalist and communication with patient's oncologist. Could be related to CML, but will continue to have a high suspicion for ongoing infection if this is not improved. If patient would worsen clinically can always consider CT scan of the abdomen. Generally takes 5-7 days postop for abscess to appear. Continue PT OT
[2024-05-05] MEDS: CIPROFLOXACIN 500 MG TABLET PO ×2 (13:27→20:13)
[2024-05-05] MEDS: LACTOBACILLUS ACIDOPHILUS 1 TABLET 2 TAB PO ×2 (13:28→18:33)
--- NOTE | 2024-05-05 13:38 | PC.SOCIAL ---
Addendum entered by CHAITANYA Sandoval 05/05/24 16:46: Brianna García's contact number is [phone]. She has identified herself as being in charge of discharge planning because the and dtr are overwhelmed and ot has given permission for her to be included in discussions regarding his care. Secure emailed information to [facility] and [facility]. [facility] confirmed they will assess but need to check on the medication pt is receiving twice a day, Imatinib, as it may be a specialty medication that they can not get. Awaiting call back from [facility]. [facility] did not respond regarding referral sent. cement storage worker to follow up as needed. Original Note: Discharge planning: Pt's friend, Brianna García, who pt has indicated can have information shared with her, asked to talk to social work about discharge planning. Brianna shared that pt mentioned to her that he does not want to go to a SNF at discharge but Brianna is concerned that he will need this level of care because his can not assist him at home at discharge. Brianna requested social work look for placement at [facility] as first choice and [facility] as second choice. cement storage worker to follow up as needed.
[2024-05-05 14:27] LABS: Immature Reticulocyte Fraction 40.1 % (2.3-13.4); Reticulocyte Percent 1.2 % (0.5-2.0); Reticulocytes Absolute 0.04 # (0.03-0.08)
[2024-05-05 14:47] LABS: Appearance Urine Clear (Clear); Bilirubin Urine Negative (Negative); Blood Urine 1+ (Negative); Color Urine Yellow (Yellow); Glucose Urine Negative (Negative); Ketones Urine Negative (Negative); Leukocyte Esterase Urine Negative (Negative); Nitrite Urine Negative (Negative); Protein Urine Negative (Negative); Specific Gravity Urine 1.015 (1.000-1.030); Urobilinogen Urine 0.2 (0.2-1.0)
[2024-05-05 14:58] LABS: RBC Urine 0-2 (0-2); WBC Urine 0-2 (0-5)
--- NOTE | 2024-05-05 18:51 | PC.NURSE ---
shift note: vss stable. Angel drain site changed. lap sites x 4 intact. LS clr. pt ambulated x2 ; 200ft . Freq diarrhea. red coccyx. IV patent.
[2024-05-06] VITALS (12 sets, daily range): BP systolic 133–146; BP diastolic 58–89; PULSE 61–93; RESP 18–20; TEMP 36.3–36.5; O2SAT 94–97
--- NOTE | 2024-05-06 05:51 | PC.NURSE ---
End of shift [id number]: Pleasant and cooperative with cares. Denies any pain. Abdomen firm but palpable without discomfort. Steri strips intact, no drainage or redness noted. Bowel sounds active x 4 quadrants. No loose stools this shift. MANISH drain to right lower abdomen had 170cc of serosanguineous drainage, required emptying q3 hours due to amount of drainage. No blood clots noted in drain line. Increased scrotal edema overnight, patient had weeping from scrotum started around 0200. Patient up and ambulated in hallway x 1.
[2024-05-06 06:31] LABS: Chloride* 115 mmol/L (96-114); Potassium* 3.7 mmol/L (3.6-5.1); Sodium* 143 mmol/L (135-149)
[2024-05-06 06:34] LABS: Anion Gap 3 mEq/L (7-15); Blood Urea Nitrogen* 45 mg/dL (7-30); Carbon Dioxide* 25 mmol/L (20-32); Creatinine* 1.4 mg/dL (0.5-1.5); Est. Creatinine Clearance* 40.56; Estimated Glomerular Filt Rate 50 ml/min
[2024-05-06 06:35] LABS: Calcium* 8.4 mg/dL (8.4-10.6); Glucose* 146 mg/dL (60-115)
[2024-05-06 06:37] LABS: Eosinophils Percent Auto 0.2 % (0.0-7.0); Hematocrit 28.4 % (37.0-53.0); Hemoglobin* 9.2 gm/dL (13.5-17.5); Immature Granulocytes Pct Auto 19.6 %; Lymphocytes Percent Auto 2.5 % (20-44); Mean Corpuscular HGB Conc 32 gm/dL (32-36); Mean Corpuscular Hemoglobin 30 pg (26-34); Mean Corpuscular Volume 93 fL (80-100); Monocytes Percent Auto 3.9 % (0.0-11.0); Neutrophils Percent Auto 73.8 % (42.0-72.0); Platelet Count* 277 K/uL (140-440); RDW Coefficient of Variation % 17.2 % (11.5-15.5); Red Blood Count 3.06 m/uL (4.30-5.90)
[2024-05-06 07:10] LABS: Slide Review Reflex No; White Blood Count* 40.16 K/uL (4.50-11.00)
[2024-05-06] MEDS: POTASSIUM CHLORIDE 10 MEQ CAPSULE ER 20 MEQ PO ×2 (08:53→17:43)
[2024-05-06] MEDS: TAMSULOSIN HCL 0.4 MG CAPSULE PO (08:53)
[2024-05-06] MEDS: allopurinoL 300 MG TABLET PO (08:53)
[2024-05-06] MEDS: LACTOBACILLUS ACIDOPHILUS 1 TABLET 2 TAB PO ×3 (08:53→17:43)
[2024-05-06] MEDS: CIPROFLOXACIN 500 MG TABLET PO ×2 (08:54→21:23)
[2024-05-06] MEDS: ATORVASTATIN 10 MG TABLET 20 MG PO (08:54)
[2024-05-06] MEDS: APIXABAN 5 MG TABLET PO ×2 (08:54→21:23)
[2024-05-06] MEDS: METOPROLOL TARTRATE 25 MG TABLET PO ×3 (08:54→21:24)
[2024-05-06] MEDS: FUROSEMIDE 40 MG TABLET 20 MG PO (08:54)
[2024-05-06] MEDS: SODIUM CHLORIDE 0.9 % (FLUSH) 10 ML SYRINGE 5 ML IVF ×2 (09:03→21:25)
--- NOTE | 2024-05-06 10:29 | NUTR.NU ---
RDN with MD consult. Patient underwent cholecystectomy for cholecystitis 05/01/2024. Patient is pod #5. Current diet is regular. Meal intakes 50-% since 05/03/2024 with 3 refusals. Weight is235 lbs; height 5ft 10ib; BMI 33.7 kg/m2. No weight history to assess. RDN visited with patient's whom agreed to receive diet education. Patient was sleeping throughout visit. Patient agreed to receive diet education related to cholecystectomy. Patient was provided diet education on a low fat diet. Discussed foods to include and foods to avoid. Education also provided following a low fat diet (about 60 grams/day) long-term. Verbal and written information as well as a sample menu provided from [facility]. Patient's wfie verbalized understanding. RDN's contact information was provided and patient/family was encouraged to contact RDN with questions. ?Patient's declined verbal education for designated caregiver (Sherrie, daughter) and will pass along the handout and information provided. Contact information provided and designated caregiver can call RDN with any questions or concerns.
--- NOTE | 2024-05-06 10:45 | PM.IMPN1 ---
Progress Note: A&P Assessment and plan (1) Cholecystitis: Problem details: Ultrasound shows Cholelithiasis with wall thickening and pericholecystic fluid suspicious for cholecystitis. CT shows Marked gallbladder wall thickening and dilation with a small amount of adjacent fluid and stranding. Findings can be correlated for acute cholecystitis but could be secondary to 3rd spacing of fluids and/or heart failure Leukocytosis trending up (previously 4.6 in February), procalcitonin >2. Persisting pain. LFTs trending up Discussed with Dr. Alcaraz. Will forego HIDA scan today. Plan for cholecystectomy on 05/01/24. NPO after midnight. Continue to hold Eliquis. Type and screen in am given risk for blood loss (inflammation, last DOAC use just under 72 hours) Continue Zosyn Continue pain and nausea management as stated Monitor, if patient becomes more ill or unstable, consider transfer for cholecystostomy tube placement per Dr. Alcaraz S/p laparoscopic cholecystectomy for gangrenous cholecystitis 05/01. Abdominal cultures growing EColi. Hemoglobin stable, Eliquis resumed 05/[address] Alcaraz. Encourage patient to ambulate, use IS, Aerobika. Out of bed. Slowly advance diet, ok for regular. IVF discontinued. 05/05: Start oral Cipro as sensitive (will forego Flagyl), d/c Zosyn and Vanc. Plan to discharge with drain in place to reduce risk for abscess. Continue to monitor, if progressing, possible d/c end of week. Will have social work coordinator involved for discharge planning/placement needs. Patient and family aware he made need SNF. 05/06: WBC trending up, differential without significant change. Peripheral smear ordered. Creatinine back to baseline, BUN trending down. CRP trended down. Remains afebrile. Vitally stable. Clinically improving. Could be in setting of CML? Discussed with Dr. Alcaraz. Continue course of care with oral Cipro, monitoring. Awaiting discharge recommendations. Status: Acute (2) Hypokalemia: Problem details: Resolved with oral replacement. Continue oral supplement bid. Monitor Status: Resolved (3) Leukocytosis: Problem details: Predominantly neutrophils. Previously 4.6 in February Continues to trend up, now post operative, 34 Urine culture is reported as no growth however I am told this is a lab error. Has been on Zosyn. No sensitivities 05/02: Adding vancomycin, renally dosed, to cover for possible hospital-acquired pneumonia Down trending, continue IV antibiotics, monitoring, remains afebrile, slow clinical improvement 05/05: [place]BC [place] [id number]. CRP improved to 4.9. Afebrile. No new abdominal sxs. Repeat UA rather unremarkable. Repeat CXR without new findings/concern for worsening pneumonia. BCx1 pending. Discussed with Dr. Alcaraz. Will reach out to Oncology as well to see if this is CML related. 05/06: Continues to trend up, >40,000. Differential without significant change. Afebrile. Clinically improving. Discussed with Cindy Brand, Oncology. Possibly in setting of CML. Gleevec has been on hold. Agrees with transition to oral abx and close monitoring. Peripheral smear ordered and pending. Status: Acute (4) Heart failure with reduced ejection fraction: Problem details: proBNP 1600 Trop 0.06 ->0.07 -> 0.05 Anasarca, but intravascularly depleted. Monitor I/Os Echo 04/30/2024 shows moderately increased left ventricular size, normal wall thickness, normal global systolic function, EF 56%. Global systolic RV function is normal. Moderately enlarged left atrium. [id number] mitral regurg. Mild to moderate tricuspid regurg. Normal estimated pulmonary pressures. No significant change from 05/15/202305/02: IV Lasix given postoperatively on 05/01. Weight is up 4 kg. Will need strict I&Os. Consider indwelling Munguia. Will initiate further diuresis when pressures stabilize 05/03: Cough slightly improved, still sounds wet, weight 2 remains up, chronic peripheral edema of feet. Improving urine output. Discussed with Dr. Alcaraz, wait on diuresis today, decrease IVF slightly, monitor if self corrects Lasix 20mg daily (switched to oral), strict I&Os, daily weights-now coming down, continue oral potassium supplement, creatinine improving, cough improved to baseline, peripheral edema slightly improved, monitor. Discontinue when appropriate. Status: Acute (5) Paroxysmal atrial fibrillation: Problem details: On anticoagulation with apixaban Dual chamber pacemaker - per family, following a recent interrogation, pacer is not functioning adequately. Previous interrogation in February 2024 showed PSVT, NSVT, AF Eliquis has been held since admission, plan for OR on 05/01 - ELIQUIS RESUMED 05/03 Metoprolol TID for wide complex tachycardia noted on 04/29 as recommended by [facility]. Amlodipine has been held. Status: Acute (6) Diabetes mellitus: Problem details: Appears to be well controlled, A1c in February was 5.4 Status: Acute (7) Anasarca: Problem details: Generalized edema with history of lymphedema Continue lasix daily Use home lymphedema pumps twice daily Suspect scrotal swelling, which was worse Saturday night following use of lymphedema pumps, r/t chronic edema and pumps. Elevate as needed, monitor. As of 05/06 no further events reported. Status: Acute (8) Acute kidney injury: Problem details: Creatinine 2.9 on admission Appears to be intravascular volume depleted despite his edema, BUN and Cr elevated. Diarrhea recently is much worse than chronic diarrhea. Poor oral intake is likely contributing. Side effect of Gleevec may be also contributing. Cautiously provide IV fluids and monitor renal function. Hold Gleevec for now. Lisinopril has been held 05/02: Creatinine back up to 2.2 postoperatively. Renally dose antibiotics. Balancing fluids and diuresis. Continue to monitor 05/03: Creatinine 2.1 - trending down again, now 1.9. Continue diuresis, monitoring 05/05: trending down, 1.6 today Stabilized at 1.4, continue to monitor Status: Acute (9) CML (chronic myelocytic leukemia): Problem details: On Gleevec, held since admission 05/04 Discussed with Cindy Brand, [facility] Oncology at [facility], recommending to continue to hold it until discharge and follow up in the clinic. She will make sure he is seen soon after discharge from the hospital. 05/05 Discussed WBC, trending back up. Possibly in setting of CML, off of Gleevec. Peripheral smear ordered. Agrees with switch to oral abx and close monitoring. Status: Acute (10) UTI (urinary tract infection): Problem details: UC shows no growth, per lab, this is an error. UA is cloudy with out LE or nitrites. Continue Zosyn for now, vancomycin added 05/02 -discontinued 05/05, switched to oral Cipro as above Repeat UA 05/05 rather unremarkable, improved Status: Acute (11) Pneumonia: Problem details: Sounds more wet perioperatively. However afebrile, no hypoxia, remains on room air Leukocytosis not responding to Zosyn alone CXR with possible retrocardiac airspace opacity - repeat CXR 05/05 without evidence of worsening Adding vancomycin, renally dosed, in addition to Zosyn - discontinued 05/05 - now on oral Cipro RT for pulmonary hygiene, incentive spirometry, aerobika Status: Acute (12) Diarrhea: Problem details: H/o same in past CDiff neg. GI pathogens pending Cholestyramine and probiotics started. No imodium per Dr. Alcaraz Status: Acute Plan Continue oral Cipro. Following WBC. Peripheral smear ordered and pending. Regular diet. Encouarge ambulation. Continue diuresis and lymphedema pumps. director pharmacy services for discharge planning/placement needs, patient and aware he may need SNF. Awaiting discharge recommendations from General Surgery. Time Spent With Patient Total time spent: Total time spent caring for the patient today was 45 minutes. This includes time spent for the visit reviewing the chart, time spent during the visit, time spent after the visit and documentation and planning in coordination of care. Subjective Date Seen: 05/06/24 Interval history: Patient is sitting up in bed this morning, much brighter, offering that he is feeling much better. Pain significantly improved per his report this morning. Has been initiating getting up to ambulate. Good urine output following diuresis. Have initiated biotic and cholestyramine given recurrent loose stools. Remains afebrile, vital is stable. Exam Narrative: Exam Narrative: PHYSICAL EXAM General: Pleasant, conversant, NAD Cardiovascular: IRRR Pulmonary: CTA bilaterally. No longer coarse. No wheezing. No dyspnea on room air or with exertion Abdominal: Soft, distention improving, postoperative tenderness improving, drain in place Neurological: Alert, answering questions appropriately Extremities: + 2 pitting edema, improving. Neurovascularly intact Skin: Warm, dry. Const: Vital Signs, click to edit/add: Vital Signs - 24 hr 05/05/24 11:00 05/05/24 15:00 05/05/24 15:00 Temperature 97.6 F Pulse Rate Pulse Rate [Pulse Oximeter] 68 72 Respiratory Rate 18 18 18 Blood Pressure [Ri ght Arm] 150/70 H Pulse Oximetry 95 95 Oxygen Delivery Me thod Room Air Room Air 05/05/24 19:00 05/05/24 23:00 05/05/24 23:00 Temperature 97.6 F Pulse Rate 61 Pulse Rate [Pulse Oximeter] 72 75 Respiratory Rate 18 18 Blood Pressure [Ri ght Arm] 139/67 Pulse Oximetry 95 Oxygen Delivery Me thod Room Air 05/05/24 23:00 05/05/24 23:00 05/06/24 02:50 Temperature 97.7 F 97.4 F L Pulse Rate Pulse Rate [Pulse Oximeter] 75 80 Respiratory Rate 18 18 20 Blood Pressure [Ri ght Arm] 148/66 H 135/70 Pulse Oximetry 92 92 96 Oxygen Delivery Me thod Room Air Room Air Room Air 05/06/24 07:30 05/06/24 07:32 05/06/24 07:35 Temperature 97.6 F Pulse Rate 69 Pulse Rate [Pulse Oximeter] 64 Respiratory Rate 20 20 Blood Pressure [Mo ght Arm] 136/89 Pulse Oximetry 94 94 Oxygen Delivery Me thod Room Air Room Air Labs Labs: Laboratory Results - last 24 hr 05/05/24 05/05/24 05/05/24 05:49 09:30 11:09 WBC RBC Hgb Hct MCV MCH MCHC RDW Coeff of Guillermo Plt Count Neut % (Auto) Lymph % (Auto) [place] % (Auto) Eos % (Auto) Baso % (Auto) Neut # (Auto) Lymph # (Auto) Donley # (Auto) Eos # (Auto) Baso # (Auto) Abs Immat Gran (auto) Imm/Tot Granulo (auto) Absolute Retic 0.04 Percent Retic 1.2 Immature Retic Fraction 40.1 H Retic Hgb Equivalent 28.0 L Sodium Potassium Chloride Carbon Dioxide Anion Gap BUN Creatinine Estimated Creat Clear Estimated GFR Glucose Calcium C-Reactive Protein 4.9 H Urine Color Cancelled Urine Appearance Cancelled Urine pH Cancelled Ur Specific [place] Cancelled Urine Protein Cancelled Urine Glucose (UA) Cancelled Urine Ketones Cancelled Urine Blood Cancelled Urine Nitrite Cancelled Urine Bilirubin Cancelled Urine Urobilinogen Cancelled Ur Leukocyte Esterase Cancelled Urine RBC Cancelled Urine WBC Cancelled Urine WBC Clumps Cancelled Ur Squamous Epith Cells Cancelled [place] Biurate Crystals Cancelled Calcium Carbonate Cryst Cancelled Calcium Phosphate Cryst Cancelled Calcium Oxalate Crystal Cancelled Cystine Crystals Cancelled Uric Acid Crystals Cancelled Triple Phos Crystals Cancelled Sulfur Crystals Cancelled Cholesterol Crystals Cancelled Tyrosine Crystals Cancelled Hippuric Acid Crystals Cancelled Amorphous Sediment Cancelled Other Sediment Cancelled Urine Bacteria Cancelled Fatty Casts Cancelled Hyaline Casts Cancelled Fine Granular Casts Cancelled Coarse Granular Casts Cancelled Waxy Casts Cancelled RBC Casts Cancelled WBC Casts Cancelled Other Casts Cancelled Urine Starch Cancelled Urine Mucus Cancelled Urine Trichomonas Cancelled Urine Yeast Cancelled Lab Acknowledgement Test Added 05/05/24 05/05/24 05/06/24 12:21 14:39 05:33 WBC 40.16 H* RBC 3.06 L Hgb 9.2 L Hct 28.4 L MCV 93 MCH 30 MCHC 32 RDW Coeff of Guillermo 17.2 H Plt Count 277 Neut % (Auto) 73.8 H Lymph % (Auto) 2.5 L [place] % (Auto) 3.9 Eos % (Auto) 0.2 Baso % (Auto) 0.0 Neut # (Auto) 29.60 H Lymph # (Auto) 1.00 Donley # (Auto) 1.60 H Eos # (Auto) 0.10 Baso # (Auto) 0.00 Abs Immat Gran (auto) 7.90 H Imm/Tot Granulo (auto) 19.6 Absolute Retic Percent Retic Immature Retic Fraction Retic Hgb Equivalent Sodium 143 Potassium 3.7 Chloride 115 H Carbon Dioxide 25 Anion Gap 3 L BUN 45 H Creatinine 1.4 Estimated Creat Clear 40.56 Estimated GFR 50 Glucose 146 H Calcium 8.4 C-Reactive Protein Urine Color Yellow Urine Appearance Clear Urine pH 5.0 Ur Specific [place] 1.015 Urine Protein Negative Urine Glucose (UA) Negative Urine Ketones Negative Urine Blood 1+ A Urine Nitrite Negative Urine Bilirubin Negative Urine Urobilinogen 0.2 Ur Leukocyte Esterase Negative Urine RBC 0-2 Urine WBC 0-2 Urine WBC Clumps Ur Squamous Epith Cells None Uday Biurate Crystals Calcium Carbonate Cryst Calcium Phosphate Cryst Calcium Oxalate Crystal Cystine Crystals Uric Acid Crystals Triple Phos Crystals Sulfur Crystals Cholesterol Crystals Tyrosine Crystals Hippuric Acid Crystals Amorphous Sediment Other Sediment Urine Bacteria None Fatty Casts Hyaline Casts Fine Granular Casts Coarse Granular Casts Waxy Casts RBC Casts WBC Casts Other Casts Urine Starch Urine Mucus Urine Trichomonas Urine Yeast Lab Acknowledgement Test Added
--- NOTE | 2024-05-06 11:38 | PM.GSPN ---
Subjective Subjective Date Seen: 05/06/24 Interval history: Luisito is doing better today overall.Has been tolerating a diet. Continues to have bowel movements. Has been ambulating. No fevers. White blood cell count continues to rise. He is having a large amount of drain output. Exam Narrative: Exam Narrative: General: Patient is alert. No acute distress Respiratory: Breathing nonlabored on room air CV: Regular rate Abdomen: Soft. Minimally tender. Incisions are clean and dry. Drain with serous output. 500 mL out yesterday. Extremities: Bilateral lower extremities with lymphedema. Const: Vital Signs, click to edit/add: Vital Signs - 24 hr 05/05/24 15:00 05/05/24 15:00 05/05/24 19:00 Temperature 97.6 F Pulse Rate Pulse Rate [Pulse Oximeter] 72 72 Respiratory Rate 18 18 18 Blood Pressure [Ri ght Arm] 139/67 Pulse Oximetry 95 95 Oxygen Delivery Me thod Room Air Room Air 05/05/24 23:00 05/05/24 23:00 05/05/24 23:00 Temperature Pulse Rate 61 Pulse Rate [Pulse Oximeter] 75 Respiratory Rate 18 18 Blood Pressure [Ri ght Arm] Pulse Oximetry 92 Oxygen Delivery Me thod Room Air 05/05/24 23:00 05/06/24 02:50 05/06/24 07:30 Temperature 97.7 F 97.4 F L Pulse Rate Pulse Rate [Pulse Oximeter] 75 80 Respiratory Rate 18 20 20 Blood Pressure [Ri ght Arm] 148/66 H 135/70 Pulse Oximetry 92 96 94 Oxygen Delivery Me thod Room Air Room Air Room Air 05/06/24 07:32 05/06/24 07:35 Temperature 97.6 F Pulse Rate 69 Pulse Rate [Pulse Oximeter] 64 Respiratory Rate 20 Blood Pressure [Ri ght Arm] 136/89 Pulse Oximetry 94 Oxygen Delivery Me thod Room Air Labs/Imaging Labs Labs: White blood cell count is up today to 40. Hemoglobin is stable Cre is down to 1.4 UA from yesterday was normal. Progress Note:A&P Assessment and plan (1) Diarrhea: Status: Acute (2) S/P laparoscopic cholecystectomy: Status: Acute (3) Arrhythmia: Status: Acute (4) Anemia: Status: Acute (5) Delirium: Status: Acute (6) Paroxysmal atrial fibrillation: Status: Acute (7) Acute kidney injury: Status: Acute (8) CML (chronic myelocytic leukemia): Status: Acute Plan The patient is an 83-year-old male who is postop day 5 from laparoscopic cholecystectomy for gangrenous cholecystitis. He overall is doing well clinically. He is improving every day. His white blood cell count however continues to rise. It is unclear whether not this is related to CML and being off Gleevec. His oncologist has been consulted, however again it remains unclear. He does not have C diff, he does not have a UTI. He does not appear to have a pneumonia. He did have E coli growing from his abdominal fluid cultures, however his abdomen is benign and he is draining clear fluid from his drain. - recommend continuing regular diet -continue drain, output will likely be high is patient is there is pacing fluid and also likely has increased fluid returned to his trunk after using his lymphedema pumps -if white blood cell count remains elevated tomorrow would recommend CT scan of the chest and abdomen. This will be looking for undrained fluid collection that could be the source of his high white count. -continue PT OT and ambulation. -continue Xarelto -patient's updated today.
--- NOTE | 2024-05-06 15:49 | PC.SOCIAL ---
Addendum entered by CARLOS Nava 05/06/24 16:19: Discharge planning: bank worker sent updated progress notes to Shante at [facility] via secure email per her request. Social work to follow-up as needed. Original Note: Discharge planning: Spoke to Brianna García today #[phone], who is the contact for pt's discharge planning. Explained to Brianna that [facility] is reviewing the pt's referral for short-term rehabilitation and wanted to know if the pt had friends and/or family who can transport him to any follow-up appointments. Brianna shared that there are family and friends that will be able to transport the pt to outpatient appointments. bank worker updated Shante with this information. bank worker did hear back from [facility] who is declining the pt for admission. Social work to follow-up as needed.
--- NOTE | 2024-05-06 16:54 | PC.NURSE ---
Shift Summary: Patient pleasant and cooperative. Up with staff in [place] walking x2 today. Worked with PT/OT. Tolerating activity well. Teachings on MANISH care given to patient, patient able to participate in care. Throughout day has had an easier time getting in and out of bed, needing less assistance with legs. Patient using own compression on legs.
--- NOTE | 2024-05-06 22:54 | PC.NURSE ---
Pt doing well. VSS, MANISH putting out moderate amt of serosanguinous drainage. site looks well with minimal drainage on drain sponges. Pt up and ambulated in halls x1 this shift. Boots on x1. Up with SBA to bathroom and ambulating.
[2024-05-06 23:46] LABS: Adenovirus PCR Not Detected; Astrovirus PCR Not Detected; Campylobacter PCR Not Detected; Cryptosporidium PCR Not Detected; Cyclospora cayetanensis PCR Not Detected; Entamoeba histolytica PCR Not Detected; Enteroaggregative E coli PCR Not Detected; Enteropathogenic E coli PCR Not Detected; Enterotoxigenic E coli PCR Not Detected; Giardia lamblia PCR Not Detected; Norovirus Gi/GII PCR Not Detected; Plesiomonas shig PCR Not Detected; Rotavirus A PCR Not Detected; Salmonella PCR Not Detected; Sapovirus PCR Not Detected; Shiga toxin E coli PCR Not Detected; Shigella/Enteroinvasive E coli Not Detected; Vibrio PCR Not Detected; Vibrio cholerae PCR Not Detected; Yersinia enterocolitica PCR Not Detected
[2024-05-07] VITALS (9 sets, daily range): BP systolic 133–145; BP diastolic 65–75; PULSE 61–69; RESP 12–20; TEMP 36.3–36.7; O2SAT 94–97
--- NOTE | 2024-05-07 06:05 | PC.NURSE ---
[id number] Pt up to br q1.5 hrs, voiding 100ml each time. pt emptying nettie drain independently with nurse supervision, nurse only helping with unhooking bulb from gown and holding cup to allow pt to empty into, pt doing very well with this. nettie drain emptied every time pt up to use br. ambulated around nurses station x2 during the night, walker GB, SBA, SOB and some coughing noted with activity but tolerated well. when asked about pain stated he has some abd pain but declined needing any prn pain medication.
[2024-05-07 06:23] LABS: Eosinophils Percent Auto 0.3 % (0.0-7.0); Hematocrit 27.1 % (37.0-53.0); Hemoglobin* 8.7 gm/dL (13.5-17.5); Immature Granulocytes Pct Auto 21.9 %; Mean Corpuscular HGB Conc 32 gm/dL (32-36); Mean Corpuscular Hemoglobin 30 pg (26-34); Mean Corpuscular Volume 94 fL (80-100); Monocytes Percent Auto 4.5 % (0.0-11.0); Neutrophils Percent Auto 71.3 % (42.0-72.0); Platelet Count* 266 K/uL (140-440); RDW Coefficient of Variation % 17.4 % (11.5-15.5); Red Blood Count 2.89 m/uL (4.30-5.90)
[2024-05-07 06:47] LABS: Slide Review Reflex No; White Blood Count* 41.97 K/uL (4.50-11.00)
--- NOTE | 2024-05-07 07:08 | CRLHL7_ITS ---
For Patients: As a result of the Century Cures Act, medical imaging exams and procedure reports are released immediately into your electronic medical record. You may view this report before your referring provider. If you have questions, please contact your health care provider. INDICATION: Recent cholecystectomy. Increased white count. TECHNIQUE: CT chest, abdomen and pelvis acquired without contrast. COMPARISON: CT abdomen and pelvis without contrast 04/28/2024. FINDINGS: CHEST: Cardiovascular structures: Aortic atherosclerosis. Unenhanced thoracic aorta and main pulmonary arteries are normal in caliber. Coronary artery calcifications. Cardiomegaly and indwelling intracardiac device/pacemaker. Mediastinum and winsome: No pathologic lymphadenopathy. Lungs: No pneumothorax. Central airways are patent. Ill-defined bilateral upper lobe ground-glass opacities. Dense bibasilar atelectasis, right greater than left has increased. Pleura and pericardium: New small bilateral pleural effusions, right greater than left. No pericardial effusion. Chest wall and axilla: Body wall edema. ABDOMEN AND PELVIS: Liver: Unremarkable. Spleen: Unremarkable. Pancreas: Unremarkable. Gallbladder and bile ducts: Interval cholecystectomy with indwelling right upper quadrant drain. No discrete fluid collection adjacent to the indwelling drain. Kidneys: No hydronephrosis. Adrenal glands: Stable thickening. GI tract: Stomach is mildly distended with air and fluid. Mildly dilated fluid-filled small bowel throughout the abdomen. No discrete transition point. Colonic diverticulosis without evidence of acute diverticulitis. Normal appendix. Mild diffuse mesenteric heterogeneity. Small volume perihepatic ascites. Gas in the ascites is likely related to indwelling drain. Body wall edema. Lymph nodes: No pathologic lymphadenopathy. Vascular structures: Atherosclerotic disease. No abdominal aortic aneurysm. Pelvic Organs: Prostatomegaly. Bladder is unremarkable. Bones: No acute or suspicious osseous abnormality. Degenerative changes of the spine and pelvis. IMPRESSION: 1. Bilateral upper lobe ground-glass opacities are likely infectious or inflammatory. 2. New small bilateral pleural effusions with bibasilar atelectasis, right greater than left. 3. Interval cholecystectomy with indwelling right upper quadrant drain. Small amount of perihepatic ascites is present. No discrete fluid collection. Nuclear medicine hepatobiliary scan would be recommended if there is concern for bile leak. 4. Mildly dilated fluid-filled small bowel may reflect postoperative ileus. No high-grade small bowel obstruction evident. The stomach is also mildly distended with air and fluid. 5. Colonic diverticulosis without evidence of acute diverticulitis. 6. Anasarca. Dictated by Carlos Preston MD @ 05/07/2024 9:32:58 AM Please note that all CT scans at this facility use dose modulation, iterative reconstruction, and/or weight-based dosing when appropriate to reduce radiation dose to as low as reasonably achievable. Dictated by: Carlos Preston MD @ 05/07/2024 09:33:18 (Electronically Signed)
[2024-05-07 07:13] LABS: Chloride* 116 mmol/L (96-114); Potassium* 3.8 mmol/L (3.6-5.1); Sodium* 143 mmol/L (135-149)
[2024-05-07 07:16] LABS: Anion Gap 3 mEq/L (7-15); Carbon Dioxide* 24 mmol/L (20-32); Creatinine* 1.2 mg/dL (0.5-1.5); Est. Creatinine Clearance* 47.31; Estimated Glomerular Filt Rate 60 ml/min
[2024-05-07 07:17] LABS: Blood Urea Nitrogen* 33 mg/dL (7-30); Calcium* 8.2 mg/dL (8.4-10.6); Glucose* 145 mg/dL (60-115)
--- NOTE | 2024-05-07 08:59 | P.IMPN_ITS ---
Progress Note: A&P Assessment and plan (1) S/P laparoscopic cholecystectomy: Problem details: 05/01/2024. Dr. Alcaraz. Gangrenous cholecystitis. -postop day 6. Improving. Following leukocytosis. 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 She will make sure he is seen soon after discharge from the hospital. 05/05 Discussed WBC, trending back up. Possibly in setting of CML, off of Gleevec. Peripheral smear ordered. Agrees with switch to oral abx and close monitoring. Status: Acute (3) Leukocytosis: Problem details: Predominantly neutrophils. Previously 4.6 in February Continues to trend up; CRP down trending. Clinically, no obvious infection. previous IV Vanc, Zosyn, oral Cipro. Discussed with Cindy Brand, Oncology. Possibly in setting of CML. Gleevec has been on hold. pending peripheral smear. CT CAP - am of 05/07: no focal abscess. Status: Acute (4) Paroxysmal atrial fibrillation: Problem details: On anticoagulation with apixaban Dual chamber pacemaker - per family, following a recent interrogation, pacer is not functioning adequately. Previous interrogation in February 2024 showed PSVT, NSVT, AF Eliquis has been held since admission, plan for OR on 05/01 - ELIQUIS RESUMED 05/03 Metoprolol TID for wide complex tachycardia noted on 04/29 as recommended by [facility]. Amlodipine and lisinopril has been held. Status: Acute (5) Arrhythmia: Problem details: History of AVB status post dual chamber ppm Wide complex tachycardia noted 04/29, questionable PSVT, NSVT Discussed with [facility] Cardiology recommending starting Lopressor 25 mg t.i.d., device interrogation Troponin elevated, trending down Status: Acute (6) UTI (urinary tract infection): Problem details: EColi. Zosyn and cipro - treatment completed. Status: Acute (7) Anasarca: Problem details: Generalized edema with history of lymphedema Continue lasix daily Use home lymphedema pumps twice daily Suspect scrotal swelling, which was worse Saturday night following use of lymphedema pumps, r/t chronic edema and pumps. Elevate as needed, monitor. As of 05/06 no further events reported. Status: Acute (8) Anemia: Problem details: part med induced (gleevac), part ABLA from surgery, part dilutional. hgb Hemoglobin 8.7 on 05/07. baseline is 10.5-10.9. continue to monitor. Status: Acute (9) Diarrhea: Problem details: H/o same in past CDiff neg. GI pathogens PCR negative Cholestyramine and probiotics started. No imodium per Dr. Alcaraz Status: Acute (10) Heart failure with reduced ejection fraction: Problem details: proBNP 1600 Trop 0.06 ->0.07 -> 0.05 Anasarca, but intravascularly depleted. Monitor I/Os Echo 04/30/2024 shows moderately increased left ventricular size, normal wall thickness, normal global systolic function, EF 56%. Global systolic RV function is normal. Moderately enlarged left atrium. [id number] mitral regurg. Mild to moderate tricuspid regurg. Normal estimated pulmonary pressures. No significant change from 05/15/2023 Lasix 20 mg daily, strict I&Os, daily weights, continue oral potassium supplement, creatinine improving, cough improved to baseline, peripheral edema slightly improved, monitor. Discontinue when appropriate. Status: Acute (11) Diabetes mellitus: Problem details: Appears to be well controlled, A1c in February was 5.4 Status: Acute (12) Chronic acquired lymphedema: Problem details: uses home lymphedema pumps Status: Acute Subjective Date Seen: 05/07/24 Interval history: Daily Progress Note - Hospital Medicine Day #: 10 PostOP Day #6 Laparoscopic cholecystectomy (05/01/24) CC: Gangrenous cholecystitis with possible perforation; OVERNIGHT UPDATES FROM STAFF & MED, LAB, IMAGING UPDATES -feels good. passing gas. eating a regular diet. MANISH drain still putting out serosanginous output. -WBC is now 41.9K; no fever, hemodynamically stable. In discussion with gen surg - CAP NON CON CT ordered. IMPRESSION: 1. Bilateral upper lobe ground-glass opacities are likely infectious or inflammatory. 2. New small bilateral pleural effusions with bibasilar atelectasis, right greater than left. 3. Interval cholecystectomy with indwelling right upper quadrant drain. Small amount of perihepatic ascites is present. No discrete fluid collection. Nuclear medicine hepatobiliary scan would be recommended if there is concern for bile leak. 4. Mildly dilated fluid-filled small bowel may reflect postoperative ileus. No high-grade small bowel obstruction evident. The stomach is also mildly distended with air and fluid. 5. Colonic diverticulosis without evidence of acute diverticulitis. 6. Anasarca. -CBC reflects an up trending white blood cell count 41.9 this morning. Hemoglobin 8.7 which essentially is fluctuating and the same from previous jamar of 8.8 on postop day 2. Platelet count 266. Renal function continues to improve. Electrolytes are stable. CRP down trending. Objective: Alert. Insightful. Comfortable. Vitals: see above Lungs: Clear. Cardiac: S1S2. Abdomen: MANISH drain draining as described above. Drain site without erythema or leakage. Abdomen is soft. Good bowel sounds. Extremities: 3+ edema up to the scrotum still present. Disposition/Potential discharge - SNF versus home with home cares. Today I spent 50minutes seeing the patient, reviewing Expanse and EPIC notes/diagnostics, discussing the care plan with our care time that includes social work, PT/OT, pharmacy, RT, fpc and documenting my impressions and plan in the medical record. Exam Const: Vital Signs, click to edit/add: Vital Signs - 24 hr 05/06/24 11:00 05/06/24 15:16 05/06/24 15:18 Temperature 97.6 F 97.6 F Pulse Rate Pulse Rate [Pulse Oximeter] 93 61 Respiratory Rate 20 18 18 Blood Pressure [Ri ght Arm] 134/75 133/58 L Pulse Oximetry 96 97 97 Oxygen Delivery Me thod Room Air Room Air Room Air Oxygen Flow Rate 05/06/24 15:26 05/06/24 19:47 05/06/24 20:45 Temperature 97.6 F Pulse Rate 61 67 Pulse Rate [Pulse Oximeter] 74 Respiratory Rate 18 Blood Pressure [Ri ght Arm] 133/83 Pulse Oximetry 97 Oxygen Delivery Me thod Room Air Oxygen Flow Rate 05/06/24 20:46 05/06/24 23:00 05/06/24 23:00 Temperature 97.7 F Pulse Rate Pulse Rate [Pulse Oximeter] 67 74 Respiratory Rate 20 20 Blood Pressure [Ri ght Arm] 146/70 H Pulse Oximetry 97 97 Oxygen Delivery Me thod Room Air Room Air Oxygen Flow Rate 0 05/06/24 23:00 05/07/24 02:50 05/07/24 04:51 Temperature 98.1 F Pulse Rate 83 Pulse Rate [Pulse Oximeter] 68 68 Respiratory Rate 12 20 Blood Pressure [Ri ght Arm] 145/69 H Pulse Oximetry 96 Oxygen Delivery Me thod Room Air Oxygen Flow Rate 05/07/24 07:00 05/07/24 07:00 Temperature 97.9 F Pulse Rate Pulse Rate [Pulse Oximeter] 61 Respiratory Rate 18 18 Blood Pressure [Ri ght Arm] 139/66 Pulse Oximetry 94 95 Oxygen Delivery Me thod Room Air Room Air Oxygen Flow Rate Labs Labs: Laboratory Results - last 24 hr 05/04/24 05/05/24 05/07/24 14:29 12:36 05:58 WBC 41.97 H* RBC 2.89 L Hgb 8.7 L Hct 27.1 L MCV 94 MCH 30 MCHC 32 RDW Coeff of Guillermo 17.4 H Plt Count 266 Neut % (Auto) 71.3 Lymph % (Auto) 2.0 L [place] % (Auto) 4.5 Eos % (Auto) 0.3 Baso % (Auto) 0.0 Neut # (Auto) 29.90 H Lymph # (Auto) 0.80 L [place] # (Auto) 1.90 H Eos # (Auto) 0.10 Baso # (Auto) 0.00 Abs Immat Gran (auto) 9.20 H Imm/Tot Granulo (auto) 21.9 Peripher Smr Path Cons See Scanned Report Sodium 143 Potassium 3.8 Chloride 116 H Carbon Dioxide 24 Anion Gap 3 L BUN 33 H Creatinine 1.2 Estimated Creat Clear 47.31 Estimated GFR 60 Glucose 145 H Calcium 8.2 L C-Reactive Protein 3.0 H Stl C. cayetanensis PCR Not Detected Stool Rotavirus A PCR Not Detected Stool Adenovirus (PCR) Not Detected Stool Astrovirus (PCR) Not Detected Stool Campylobacter PCR Not Detected Stool Cryptosporidium PCR Not Detected Stl E.coli Shiga Tox PCR Not Detected Stool E coli O157 PCR N/A Stl Enterotoxigenic E PCR Not Detected Stool EPEC (PCR) Not Detected Stool EAEC (PCR) Not Detected Stl E. histolytica PCR Not Detected Stool Giardia Lamblia PCR Not Detected Stl P. shigelloides PCR Not Detected Stool Salmonella PCR Not Detected Stool Sapovirus (PCR) Not Detected Stl Shigella/EIEC PCR Not Detected St Y.enterocolitica PCR Not Detected Stool Vibrio (PCR) Not Detected Stl Vibrio cholerae PCR Not Detected Stl Norovirus GI/GII PCR Not Detected Lab Acknowledgement 05/07/24 06:58 WBC RBC Hgb Hct MCV MCH MCHC RDW Coeff of Guillermo Plt Count Neut % (Auto) Lymph % (Auto) [place] % (Auto) Eos % (Auto) Baso % (Auto) Neut # (Auto) Lymph # (Auto) [place] # (Auto) Eos # (Auto) Baso # (Auto) Abs Immat Gran (auto) Imm/Tot Granulo (auto) Peripher Smr Path Cons Sodium Potassium Chloride Carbon Dioxide Anion Gap BUN Creatinine Estimated Creat Clear Estimated GFR Glucose Calcium C-Reactive Protein Stl C. cayetanensis PCR Stool Rotavirus A PCR Stool Adenovirus (PCR) Stool Astrovirus (PCR) Stool Campylobacter PCR Stool Cryptosporidium PCR Stl E.coli Shiga Tox PCR Stool E coli O157 PCR Stl Enterotoxigenic E PCR Stool EPEC (PCR) Stool EAEC (PCR) Stl E. histolytica PCR Stool Giardia Lamblia PCR Stl P. shigelloides PCR Stool Salmonella PCR Stool Sapovirus (PCR) Stl Shigella/EIEC PCR St Y.enterocolitica PCR Stool Vibrio (PCR) Stl Vibrio cholerae PCR Stl Norovirus GI/GII PCR Lab Acknowledgement Test Added
[2024-05-07] MEDS: TAMSULOSIN HCL 0.4 MG CAPSULE PO (09:09)
[2024-05-07] MEDS: SODIUM CHLORIDE 0.9 % (FLUSH) 10 ML SYRINGE 5 ML IVF ×2 (09:09→20:31)
[2024-05-07] MEDS: POTASSIUM CHLORIDE 10 MEQ CAPSULE ER 20 MEQ PO ×2 (09:09→17:32)
[2024-05-07] MEDS: APIXABAN 5 MG TABLET PO ×2 (09:09→20:31)
[2024-05-07] MEDS: allopurinoL 300 MG TABLET PO (09:09)
[2024-05-07] MEDS: CIPROFLOXACIN 500 MG TABLET PO ×2 (09:09→20:32)
[2024-05-07] MEDS: METOPROLOL TARTRATE 25 MG TABLET PO ×3 (09:09→20:31)
[2024-05-07] MEDS: LACTOBACILLUS ACIDOPHILUS 1 TABLET 2 TAB PO ×3 (09:10→17:32)
[2024-05-07] MEDS: ATORVASTATIN 10 MG TABLET 20 MG PO (09:10)
[2024-05-07] MEDS: FUROSEMIDE 40 MG TABLET 20 MG PO (09:10)
--- NOTE | 2024-05-07 12:54 | PM.GSPN ---
Subjective Subjective Date Seen: 05/07/24 Interval history: Luisito is doing well. He really would like to discharge home from the hospital, however may not be able to keep up with ADLs. Has been wearing his bowels. Tolerating a diet. Remains afebrile. Exam Narrative: Exam Narrative: General: No acute distress CV: Regular rate Respiratory: Breathing nonlabored on room air Abdomen: Protuberant. Soft. Minimally tender. Drain in place with 375 serous output. Const: Vital Signs, click to edit/add: Vital Signs - 24 hr 05/06/24 15:16 05/06/24 15:18 05/06/24 15:26 Temperature 97.6 F Pulse Rate 61 Pulse Rate [Pulse Oximeter] 61 Respiratory Rate 18 18 Blood Pressure [Ri ght Arm] 133/58 L Pulse Oximetry 97 97 Oxygen Delivery Me thod Room Air Room Air Oxygen Flow Rate 05/06/24 19:47 05/06/24 20:45 05/06/24 20:46 Temperature 97.6 F Pulse Rate 67 Pulse Rate [Pulse Oximeter] 74 67 Respiratory Rate 18 Blood Pressure [Ri ght Arm] 133/83 Pulse Oximetry 97 Oxygen Delivery Me thod Room Air Oxygen Flow Rate 05/06/24 23:00 05/06/24 23:00 05/06/24 23:00 Temperature 97.7 F Pulse Rate 83 Pulse Rate [Pulse Oximeter] 74 Respiratory Rate 20 20 Blood Pressure [Ri ght Arm] 146/70 H Pulse Oximetry 97 97 Oxygen Delivery Me od Room Air Room Air Oxygen Flow Rate 0 05/07/24 02:50 05/07/24 04:51 05/07/24 07:00 Temperature 98.1 F Pulse Rate Pulse Rate [Pulse Oximeter] 68 68 Respiratory Rate 12 20 18 Blood Pressure [Ri ght Arm] 145/69 H Pulse Oximetry 96 94 Oxygen Delivery Me thod Room Air Room Air Oxygen Flow Rate 05/07/24 07:00 05/07/24 07:00 05/07/24 07:38 Temperature 97.9 F Pulse Rate 61 Pulse Rate [Pulse Oximeter] 61 67 Respiratory Rate 18 20 Blood Pressure [Ri ght Arm] 139/66 Pulse Oximetry 95 Oxygen Delivery Me thod Room Air Oxygen Flow Rate 05/07/24 11:00 Temperature 97.3 F L Pulse Rate Pulse Rate [Pulse Oximeter] 67 Respiratory Rate 20 Blood Pressure [Ri ght Arm] 143/71 H Pulse Oximetry 97 Oxygen Delivery Me thod Room Air Oxygen Flow Rate Labs/Imaging Labs Labs: White blood cell count remains elevated at 41 from 40 CRP is down to 3 from 4.9 Creatinine is improved as is BUN. Hemoglobin is stable. Progress Note:A&P Assessment and plan (1) S/P laparoscopic cholecystectomy: Status: Acute (2) CML (chronic myelocytic leukemia): Status: Acute (3) Acute kidney injury: Status: Acute (4) Diabetes mellitus: Status: Acute (5) Paroxysmal atrial fibrillation: Status: Acute Plan Luisito is an 83-year-old male who is postop day 6 from laparoscopic cholecystectomy for gangrenous cholecystitis. Overall he is doing well clinically. White blood cell count is markedly elevated. Workup has been unrevealing. There is small bilateral pleural effusions as well as a fluid collection in the right upper quadrant, however this does not quite explain white blood cell count that high. His [id number] mention that last year when he was treated for pneumonia and had to stop his Gleevec, he had a white count up to 150. Review of his records demonstrates that this is correct. Therefore I think because clinically he is doing well and his CRP is trending down there is low suspicion for ongoing infection. -continue drain since output is high, can possibly be removed prior to discharge or next week. -we continue Cipro for E coli intra-abdominal infection for 10 days -okay to continue Xarelto -regular diet -continue PT OT -encourage ongoing IS even as outpatient -patient is safe to discharge subacute nursing facility as soon as tomorrow or if he is able to discharge home is also a possibility. He should be taught drain cares prior to discharge however.
--- NOTE | 2024-05-07 13:52 | PC.SOCIAL ---
Discharge planning: [facility] is still reviewing pt's referral. loft worker apprentice updated pt's family when they were here visiting this morning. [facility] had concerns about the cost of pt's chemotherapy medication. Pt's family said that pt has not been on the medication in the hospital and will continue to hold it while he is in the skilled nursing for rehabilitation. [facility] also has concerns about pt's drains, inflamed/red jagdeep-area, etc. loft worker apprentice asked Shante at [facility] to please reconsider the referral, as the family would really like the pt to go to [facility] facility. Shante said she will have their nursing reconsider after this worker gave more clarification and will get back to this worker by tomorrow. Shante said if they will accept him they will not be able to take him until Saturday, as they do not do admissions on Fridays. Social work to follow-up as needed.
--- NOTE | 2024-05-07 17:50 | PC.NURSE ---
End of shift-- Pleasant and cooperative, alert and oriented, but drowsy patient. VSS and pt is afebrile. SPO2 maintained >94% on RA. He has denied any pain today. LS coarse, but CTA. Occasional moist, non-productive cough noted. Telemetry showed chronic a-fib with NVR and BBB and was dc'd per MD order. 4x lap sites [place] with steri strips in place on 3, with minimal, old, dry drainage. Bruising noted surrounding lowest lap site. MANISH is patent and drained approximately 120ml of serosanguineous drainage today. He denied nausea and tolerated a regular diet, but appetite is only fair with patient eating roughly 50% of each small meal. Moderate, soft BM this evening. Pt was up to chair and BR today and took 2 additional small walks, refusing to walk this afternoon. Pt showered with OT this morning and was markedly tired afterward. Various family members at bedside today that appear loving and supportive. Report to oncoming shift.
[2024-05-08] VITALS (7 sets, daily range): BP systolic 136–162; BP diastolic 64–78; PULSE 58–75; RESP 16–18; TEMP 36.2–36.9; O2SAT 95–97
[2024-05-08 06:20] LABS: Basophils Percent Auto 0.1 % (0.0-3.0); Eosinophils Percent Auto 0.4 % (0.0-7.0); Hematocrit 26.7 % (37.0-53.0); Hemoglobin* 8.5 gm/dL (13.5-17.5); Immature Granulocytes Pct Auto 21.9 %; Lymphocytes Percent Auto 2.5 % (20-44); Mean Corpuscular HGB Conc 32 gm/dL (32-36); Mean Corpuscular Hemoglobin 30 pg (26-34); Mean Corpuscular Volume 94 fL (80-100); Monocytes Percent Auto 4.6 % (0.0-11.0); Neutrophils Percent Auto 70.5 % (42.0-72.0); Platelet Count* 269 K/uL (140-440); RDW Coefficient of Variation % 17.5 % (11.5-15.5); Red Blood Count 2.84 m/uL (4.30-5.90)
[2024-05-08 06:24] LABS: Slide Review Reflex No
--- NOTE | 2024-05-08 06:24 | PC.NURSE ---
Pt up most of the night. To BR about irina hr to hour and a half. Has walked twice this shift. VSS Has had 3 sm soft formed stools.
[2024-05-08 06:40] LABS: Chloride* 115 mmol/L (96-114)
[2024-05-08 06:41] LABS: Potassium* 3.8 mmol/L (3.6-5.1); Sodium* 142 mmol/L (135-149)
[2024-05-08 06:43] LABS: Creatinine* 1.1 mg/dL (0.5-1.5); Est. Creatinine Clearance* 51.62; Estimated Glomerular Filt Rate 66 ml/min
[2024-05-08 06:44] LABS: Anion Gap 3 mEq/L (7-15); Blood Urea Nitrogen* 24 mg/dL (7-30); Carbon Dioxide* 24 mmol/L (20-32); Glucose* 127 mg/dL (60-115)
[2024-05-08 06:45] LABS: Calcium* 8.1 mg/dL (8.4-10.6)
[2024-05-08 06:47] LABS: C Reactive Protein* 2.6 mg/dL (0.5-1.0)
[2024-05-08] MEDS: SODIUM CHLORIDE 0.9 % (FLUSH) 10 ML SYRINGE 5 ML IVF ×2 (08:28→20:30)
[2024-05-08] MEDS: ATORVASTATIN 10 MG TABLET 20 MG PO (08:28)
[2024-05-08] MEDS: POTASSIUM CHLORIDE 10 MEQ CAPSULE ER 20 MEQ PO ×2 (08:28→18:04)
[2024-05-08] MEDS: LACTOBACILLUS ACIDOPHILUS 1 TABLET 2 TAB PO ×3 (08:28→18:03)
[2024-05-08] MEDS: FUROSEMIDE 40 MG TABLET 20 MG PO (08:29)
[2024-05-08] MEDS: APIXABAN 5 MG TABLET PO ×2 (08:29→20:29)
[2024-05-08] MEDS: TAMSULOSIN HCL 0.4 MG CAPSULE PO (08:29)
[2024-05-08] MEDS: CIPROFLOXACIN 500 MG TABLET PO ×2 (08:29→20:30)
[2024-05-08] MEDS: METOPROLOL TARTRATE 25 MG TABLET PO ×3 (08:29→20:30)
[2024-05-08] MEDS: ACETAMINOPHEN 325 MG TABLET 650 MG PO (08:29)
[2024-05-08] MEDS: allopurinoL 300 MG TABLET PO (08:29)
--- NOTE | 2024-05-08 10:04 | P.GSPN_ITS ---
Subjective Subjective Date Seen: 05/08/24 Interval history: Patient is doing well today. He tolerated regular diet yesterday. He is passing gas and had 3 small bowel movements yesterday. He is working with therapies. His MANISH drain put out over 300 mL yesterday and 130 mL today. Patien t denies abdominal pain. Exam Narrative: Exam Narrative: Abdomen is soft, not distended, minimally tender to palpation in the right upper quadrant, MANISH drain is in place on the right side of the abdomen with serosanguineous fluid in the bulb. There is periumbilical ecchymosis. Lap aroscopic incisions are covered with Steris. Const: Vital Signs, click to edit/add: Vital Signs - 24 hr 05/07/24 11:00 05/07/24 15:00 05/07/24 15:00 Temperature 97.3 F L 97.6 F Pulse Rate [Pulse Oximeter] 67 61 Respiratory Rate 20 18 18 Blood Pressure [Ri ght Arm] 143/71 H 133/67 Pulse Oximetry 97 95 96 Oxygen Delivery Me thod Room Air Room Air Room Air 05/07/24 15:00 05/07/24 19:26 05/07/24 22:51 Temperature 97.8 F 98 F Pulse Rate [Pulse Oximeter] 61 64 69 Respiratory Rate 18 18 18 Blood Pressure [Ri ght Arm] 140/65 H 144/75 H Pulse Oximetry 96 96 Oxygen Delivery Id thod Room Air Room Air 05/07/24 23:00 05/07/24 23:00 05/08/24 06:30 Temperature 97.2 F L Pulse Rate [Pulse Oximeter] 67 74 Respiratory Rate 18 Blood Pressure [Ri ght Arm] 162/78 H Pulse Oximetry 96 97 Oxygen Delivery Id thod Room Air Room Air 05/08/24 07:00 05/08/24 07:00 05/08/24 07:00 Temperature 98.4 F Pulse Rate [Pulse Oximeter] 59 L 59 L Respiratory Rate 18 18 18 Blood Pressure [Ri ght Arm] 143/64 H Pulse Oximetry 96 96 Oxygen Delivery Me thod Room Air Room Air Progress Note:A&P Assessment and plan (1) S/P laparoscopic cholecystectomy: Status: Acute Plan 83-year-old male s/p laparoscopic cholecystectomy. Patient is doing well. His WBC continues to be elevated at 40 due to his CML. He denies abdominal pain and his abdominal exam is benign. We will continue with the MANISH drain for now since he is diuresing and has large amounts of serosanguineous fluid coming out. If patient is discharging home or to rehab facility over the weekend, I would recommend seeing him in [facility] on Saturday for drain removal. Patient should continue ciprofloxacin for 10 day postoperative course.
--- NOTE | 2024-05-08 10:37 | PC.SOCIAL ---
Discharge planning: [facility] requested MD and nursing notes this morning for reassessment. submarine worker sent the notes to [facility] via secure email. Social work to follow-up as needed.
--- NOTE | 2024-05-08 10:54 | PM.IMPN1 ---
Progress Note: A&P Assessment and plan (1) S/P laparoscopic cholecystectomy: Problem details: 05/01/2024. Dr. Alcaraz. Gangrenous cholecystitis. -postop day 7. Improving. Following leukocytosis. -plan is for SNF placement vs home with home cares depending on progress. Status: Acute (2) CML (chronic myelocytic leukemia): Problem details: On Gleevec, held since admission 05/04 Discussed with Cindy Brand NP Oncology at [facility], recommending to continue to hold it until discharge and follow up in the clinic. She will make sure he is seen soon after discharge from the hospital. 05/05 Discussed WBC, trending back up. Possibly in setting of CML, off of Gleevec. Peripheral smear ordered. Agrees with switch to oral abx and close monitoring. 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 Previous interrogation in February 2024 showed PSVT, NSVT, AF Eliquis has been held since admission, plan for OR on 05/01 - ELIQUIS RESUMED 05/03 Metoprolol TID for wide complex tachycardia noted on 04/29 as recommended by [facility]. Amlodipine and lisinopril has been held. Status: Acute (8) Heart failure with reduced ejection fraction: Problem details: proBNP 1600 Trop 0.06 ->0.07 -> 0.05 Anasarca, but intravascularly depleted. Monitor I/Os Echo 04/30/2024 shows moderately increased left ventricular size, normal wall thickness, normal global systolic function, EF 56%. Global systolic RV function is normal. Moderately enlarged left atrium. [id number] mitral regurg. Mild to moderate tricuspid regurg. Normal estimated pulmonary pressures. No significant change from 05/15/2023 Lasix 20 mg daily, strict I&Os, daily weights, continue oral potassium supplement, creatinine improving, cough improved to baseline, peripheral edema slightly improved, monitor. Discontinue when appropriate. Status: Acute (9) Diarrhea: Problem details: H/o same in past CDiff neg. GI pathogens PCR negative Cholestyramine and probiotics started. No imodium per Dr. Alcaraz Status: Acute (10) UTI (urinary tract infection): Problem details: EColi. Zosyn and cipro - treatment completed but cipro continues b/c of ecoli contamination in gut during lap choly. Total duration of Cipro should be 10 days from surgical intervention, 05/11. Status: Acute (11) Arrhythmia: Problem details: History of AVB status post dual chamber ppm Wide complex tachycardia noted 04/29, questionable PSVT, NSVT Discussed with [facility] Cardiology recommending starting Lopressor 25 mg t.i.d., device interrogation Troponin elevated, trending down Status: Acute (12) Anemia: Problem details: part med induced (gleevac), part ABLA from surgery, part dilutional. hgb Hemoglobin 8.7 on 05/07. baseline is 10.5-10.9. continue to monitor. Status: Acute (13) Leukocytosis: Problem details: Predominantly neutrophils. Previously 4.6 in February Continues to trend up; CRP down trending. Clinically, no obvious infection. previous IV Vanc, Zosyn, oral Cipro. Discussed with Cindy Brand, Oncology. Possibly in setting of CML. Gleevec has been on hold. pending peripheral smear. CT CAP - am of 05/07: no focal abscess. Status: Acute Subjective Date Seen: 05/08/24 Interval history: Daily Progress Note - Hospital Medicine Day #: 11 PostOP Day #7 Laparoscopic cholecystectomy (/05/01/24) CC: Gangrenous cholecystitis with possible perforation; OVERNIGHT UPDATES FROM STAFF & MED, LAB, IMAGING UPDATES -feels good. passing gas. eating a regular diet. MANISH drain still putting out serosanginous output. -WBC has remained elevated; CT of CAP was reassuring for no abscess. Conclusion is elevated WBC is CML off of gleevac. no fever or other signs of infection. IMPRESSION: 1. Bilateral upper lobe ground-glass opacities are likely infectious or inflammatory. 2. New small bilateral pleural effusions with bibasilar atelectasis, right greater than left. 3. Interval cholecystectomy with indwelling right upper quadrant drain. Small amount of perihepatic ascites is present. No discrete fluid collection. Nuclear medicine hepatobiliary scan would be recommended if there is concern for bile leak. 4. Mildly dilated fluid-filled small bowel may reflect postoperative ileus. No high-grade small bowel obstruction evident. The stomach is also mildly distended with air and fluid. 5. Colonic diverticulosis without evidence of acute diverticulitis. 6. Anasarca. -CBC reflects an elevated but stable WBC Hemoglobin 8.5 which essentially is fluctuating and the same from previous jamar of 8.8 on postop day 2. Platelet count 266. Renal function continues to improve. Electrolytes are stable. CRP down trending. Objective: Alert. Insightful. Comfortable. Vitals: see above Lungs: Clear. Cardiac: S1S2. Abdomen: MANISH drain draining as described above. Drain site without erythema or leakage. Abdomen is soft. Good bowel sounds. Extremities: 3+ edema up to the scrotum still present. Disposition/Potential discharge - SNF versus home with home cares. Today I spent 50minutes seeing the patient, reviewing [facility] and EPIC notes/diagnostics, discussing the care plan with our care time that includes social work, PT/OT, pharmacy, RT, retirement and documenting my impressions and plan in the medical record. Exam Const: Vital Signs, click to edit/add: Vital Signs - 24 hr 05/07/24 11:00 05/07/24 15:00 05/07/24 15:00 Temperature 97.3 F L 97.6 F Pulse Rate [Pulse Oximeter] 67 61 Respiratory Rate 20 18 18 Blood Pressure [Ri ght Arm] 143/71 H 133/67 Pulse Oximetry 97 95 96 Oxygen Delivery Me thod Room Air Room Air Room Air 05/07/24 15:00 05/07/24 19:26 05/07/24 22:51 Temperature 97.8 F 98 F Pulse Rate [Pulse Oximeter] 61 64 69 Respiratory Rate 18 18 18 Blood Pressure [Ri ght Arm] 140/65 H 144/75 H Pulse Oximetry 96 96 Oxygen Delivery Me thod Room Air Room Air 05/07/24 23:00 05/07/24 23:00 05/08/24 06:30 Temperature 97.2 F L Pulse Rate [Pulse Oximeter] 67 74 Respiratory Rate 18 Blood Pressure [Ri ght Arm] 162/78 H Pulse Oximetry 96 97 Oxygen Delivery Me thod Room Air Room Air 05/08/24 07:00 05/08/24 07:00 05/08/24 07:00 Temperature 98.4 F Pulse Rate [Pulse Oximeter] 59 L 59 L Respiratory Rate 18 18 18 Blood Pressure [Ri ght Arm] 143/64 H Pulse Oximetry 96 96 Oxygen Delivery Me thod Room Air Room Air Labs Labs: Laboratory Results - last 24 hr 05/08/24 05:45 WBC 41.20 H* RBC 2.84 L Hgb 8.5 L Hct 26.7 L MCV 94 MCH 30 MCHC 32 RDW Coeff of Guillermo 17.5 H Plt Count 269 Neut % (Auto) 70.5 Lymph % (Auto) 2.5 L [place] % (Auto) 4.6 Eos % (Auto) 0.4 Baso % (Auto) 0.1 Neut # (Auto) 29.00 H Lymph # (Auto) 1.00 [place] # (Auto) 1.90 H Eos # (Auto) 0.20 Baso # (Auto) 0.00 Abs Immat Gran (auto) 9.00 H Imm/Tot Granulo (auto) 21.9 Sodium 142 Potassium 3.8 Chloride 115 H Carbon Dioxide 24 Anion Gap 3 L BUN 24 Creatinine 1.1 Estimated Creat Clear 51.62 Estimated GFR 66 Glucose 127 H Calcium 8.1 L C-Reactive Protein 2.6 H
--- NOTE | 2024-05-08 18:44 | PC.NURSE ---
End of shift [id number]: Pt has been A&O, afebrile and VSS. He is SBA with gait belt and 2ww for ambulation and transfers. He is continent of B&B with a moderate soft BM today. PIV in right wrist is SL and C/D/I. Pt is POD #7 from lap hi with x4 lap sites- x3 sites have steri strips intact and x1 site is LAST PUTTER AWAY. Minimal bruising noted around lower site. MANISH drain present on RLQ and pt has been emptying the drain himself with staff holding drainage cup. Total output from MANISH this shift: 100 mL serosanguineous. PO Cipro abx D/C'd. Pt took frequent walks through the halls with nursing staff. He is from home with his but SW is tending to D/C needs with possible TCU placement.
[2024-05-08] MEDS: MELATONIN 3 MG TABLET PO (20:30)
[2024-05-09] VITALS (7 sets, daily range): BP systolic 122–148; BP diastolic 66–76; PULSE 60–76; RESP 16–20; TEMP 36.2–36.6; O2SAT 95–97
--- NOTE | 2024-05-09 06:33 | PC.NURSE ---
End of shift note [id number]: Pt noted to be alert & oriented x 4 and able to make needs known. He has been denying pain throughout the shift. Pt has been afebrile throughout the shift. 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 No warmth, drainage, edema or redness observed. IV to R wrist patent and SL. MANISH drain remains in place to R side of abdomen. Pt able to empty bulb while staff hold collection cup. Pt transfers/ambulates with SBA using FWW and gait belt.
[2024-05-09 07:18] LABS: Basophils Percent Auto 0.2 % (0.0-3.0); Eosinophils Percent Auto 0.5 % (0.0-7.0); Hematocrit 27.1 % (37.0-53.0); Hemoglobin* 8.4 gm/dL (13.5-17.5); Immature Granulocytes Pct Auto 24.9 %; Lymphocytes Percent Auto 2.7 % (20-44); Mean Corpuscular HGB Conc 31 gm/dL (32-36); Mean Corpuscular Hemoglobin 30 pg (26-34); Mean Corpuscular Volume 95 fL (80-100); Neutrophils Percent Auto 66.7 % (42.0-72.0); Platelet Count* 268 K/uL (140-440); RDW Coefficient of Variation % 17.7 % (11.5-15.5); Red Blood Count 2.84 m/uL (4.30-5.90)
[2024-05-09 07:35] LABS: Slide Review Reflex Yes; White Blood Count* 37.18 K/uL (4.50-11.00)
[2024-05-09] MEDS: CIPROFLOXACIN 500 MG TABLET PO ×2 (08:14→22:17)
[2024-05-09] MEDS: POTASSIUM CHLORIDE 10 MEQ CAPSULE ER 20 MEQ PO ×2 (08:14→18:13)
[2024-05-09] MEDS: LACTOBACILLUS ACIDOPHILUS 1 TABLET 2 TAB PO ×3 (08:14→18:13)
[2024-05-09] MEDS: APIXABAN 5 MG TABLET PO ×2 (08:14→22:16)
[2024-05-09] MEDS: ACETAMINOPHEN 325 MG TABLET 650 MG PO (08:14)
[2024-05-09] MEDS: FUROSEMIDE 40 MG TABLET 20 MG PO (08:15)
[2024-05-09] MEDS: allopurinoL 300 MG TABLET PO (08:15)
[2024-05-09] MEDS: ATORVASTATIN 10 MG TABLET 20 MG PO (08:15)
[2024-05-09] MEDS: TAMSULOSIN HCL 0.4 MG CAPSULE PO (08:15)
[2024-05-09] MEDS: METOPROLOL TARTRATE 25 MG TABLET PO ×3 (08:15→22:17)
[2024-05-09] MEDS: SODIUM CHLORIDE 0.9 % (FLUSH) 10 ML SYRINGE 5 ML IVF ×2 (08:16→21:09)
[2024-05-09 08:20] LABS: Slide Review Acceptable Review (Acceptable)
--- NOTE | 2024-05-09 16:04 | P.IMPN_ITS ---
Progress Note: A&P Assessment and plan (1) S/P laparoscopic cholecystectomy: Problem details: 05/01/2024. Dr. Alcaraz. Gangrenous cholecystitis. -postop day 8. Improving. Following leukocytosis. -plan is for SNF placement vs home with home cares depending on progress. Status: Acute (2) CML (chronic myelocytic leukemia): Problem details: On Gleevec, held since admission 05/04 Discussed with Cindy Brand NP Oncology at [facility], recommending to continue to hold it until discharge and follow up in the clinic. She will make sure he is seen soon after discharge from the hospital. 05/05 Discussed WBC, trending back up. Possibly in setting of CML, off of Gleevec. Peripheral smear ordered. Agrees with switch to oral abx and close monitoring. 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 Previous interrogation in February 2024 showed PSVT, NSVT, AF Eliquis has been held since admission, plan for OR on 05/01 - ELIQUIS RESUMED 04/20 4 Metoprolol TID for wide complex tachycardia noted on 04/29 as recommended by [facility]. Amlodipine and lisinopril has been held. Status: Acute (8) Heart failure with reduced ejection fraction: Problem details: proBNP 1600 Trop 0.06 ->0.07 -> 0.05 Anasarca, but intravascularly depleted. Monitor I/Os Echo 04/30/2024 shows moderately increased left ventricular size, normal wall thickness, normal global systolic function, EF 56%. Global systolic RV function is normal. Moderately enlarged left atrium. [id number] mitral regurg. Mild to moderate tricuspid regurg. Normal estimated pulmonary pressures. No significant change from 05/15/2023 Lasix 20 mg daily, strict I&Os, daily weights, continue oral potassium supplement, creatinine improving, cough improved to baseline, peripheral edema slightly improved, monitor. Discontinue when appropriate. Status: Acute (9) Diarrhea: Problem details: H/o same in past CDiff neg. GI pathogens PCR negative Cholestyramine and probiotics started. No imodium per Dr. Alcaraz Status: Acute (10) UTI (urinary tract infection): Problem details: EColi. Zosyn and cipro - treatment completed but cipro continues b/c of ecoli contamination in gut during lap choly. Total duration of Cipro should be 10 days from surgical intervention, 05/11. Status: Acute (11) Arrhythmia: Problem details: History of AVB status post dual chamber ppm Wide complex tachycardia noted 04/29, questionable PSVT, NSVT Discussed with [facility] Cardiology recommending starting Lopressor 25 mg t.i.d., device interrogation Troponin elevated, trending down Status: Acute (12) Anemia: Problem details: part med induced (gleevac), part ABLA from surgery, part dilutional. hgb Hemoglobin 8.7 on 05/07. baseline is 10.5-10.9. continue to monitor. Status: Acute (13) Leukocytosis: Problem details: Predominantly neutrophils. Previously 4.6 in February Continues to trend up; CRP down trending. Clinically, no obvious infection. previous IV Vanc, Zosyn, oral Cipro. Discussed with Cindy Brand, Oncology. Possibly in setting of CML. Gleevec has been on hold. pending peripheral smear. CT CAP - am of 05/07: no focal abscess. Status: Acute Plan Continue in hospital for management of postoperative infection, therapy, safe plan of disposition. Time Spent With Patient Total time spent: Total time spent today is 45 minutes in evaluation and management Subjective Date Seen: 05/09/24 Interval history: 83-year-old male admitted to the hospital with suspected acute cholecystitis. Taken to the OR on May 01 for laparoscopic cholecystectomy. Findings include a gangrenous cholecystitis with perforation. He has had a slow recovery from surgery with presumed intra-abdominal infection due to gangrenous cholecystitis and perforation. Now switch from IV Zosyn to oral ciprofloxacin for pansensitive E coli. Clinically appears to be improving. Still profoundly weak. He reports no concerns today. Specifically denies trouble breathing. Reports his appetite is getting better knees been able to eat. Abdominal pain is much better. Exam Narrative: Exam Narrative: He is alert and appears in no distress. He is oriented to his circumstances. Respirations are clear to auscultation. Cardiovascular: S1, S2, regular rate and rhythm. Abdomen: Bowel sounds active. Incisions on his abdomen are healing without signs of infection. Some bruising around his mid abdomen laparoscopic site. Right upper quadrant MANISH drain is in place. Extremities with 3+ edema bilaterally. Pneumatic compression and Andre stockings. Const: Vital Signs, click to edit/add: Vital Signs - 24 hr 05/08/24 19:00 05/08/24 23:00 05/08/24 23:52 Temperature 97.7 F Pulse Rate [Pulse Oximeter] 58 L 75 Respiratory Rate 16 18 18 Blood Pressure [Le ft Arm] 146/71 H Blood Pressure [Ri ght Arm] Pulse Oximetry 95 96 Oxygen Delivery Wy thod Room Air Room Air 05/08/24 23:52 05/09/24 03:19 05/09/24 07:00 Temperature 97.3 F L 97.7 F Pulse Rate [Pulse Oximeter] 75 68 60 Respiratory Rate 18 18 18 Blood Pressure [Le ft Arm] Blood Pressure [Ri ght Arm] 153/77 H 148/72 H Pulse Oximetry 96 96 Oxygen Delivery Wy thod Room Air Room Air 05/09/24 07:00 05/09/24 07:00 05/09/24 11:00 Temperature 97.2 F L 97.7 F Pulse Rate [Pulse Oximeter] 60 76 Respiratory Rate 18 18 20 Blood Pressure [Le ft Arm] Blood Pressure [Ri ght Arm] 135/66 122/74 Pulse Oximetry 95 95 96 Oxygen Delivery Wy thod Room Air Room Air Room Air 05/09/24 15:00 05/09/24 15:00 05/09/24 15:00 Temperature 97.9 F Pulse Rate [Pulse Oximeter] 66 66 Respiratory Rate 18 18 18 Blood Pressure [Le ft Arm] Blood Pressure [Ri ght Arm] 139/76 Pulse Oximetry 97 97 [facility] Room Air Documenting provider has reviewed patient's vital signs: yes Labs Labs: Laboratory Results - last 24 hr 05/09/24 06:30 WBC 37.18 H* RBC 2.84 L Hgb 8.4 L Hct 27.1 L MCV 95 MCH 30 MCHC 31 L RDW Coeff of Guillermo 17.7 H Plt Count 268 Neut % (Auto) 66.7 Lymph % (Auto) 2.7 L [place] % (Auto) 5.0 Eos % (Auto) 0.5 Baso % (Auto) 0.2 Neut # (Auto) 24.80 H Lymph # (Auto) 1.00 [place] # (Auto) 1.90 H Eos # (Auto) 0.20 Baso # (Auto) 0.10 Abs Immat Gran (auto) 9.30 H Imm/Tot Granulo (auto) 24.9 Diff Slide Review Acceptable Review
--- NOTE | 2024-05-09 18:57 | PC.NURSE ---
End of shift [id number]: Pt has been A&O, afebrile and VSS. He is SBA with 2ww and gait belt for transfers and ambulation. Pt took x4 walks through the halls with nursing staff today. Denies pain, dizziness or N/V. 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 MANISH drain intact with sutures & dressing is C/D/I. Total output from MANISH: 145 mL of serosanguineous drainage with stringy clots. Pt requested PRN Tylenol once @ 0815 for a headache. Family has been visiting in/out throughout the day and attentive to patient?s needs. ?
[2024-05-10] VITALS (7 sets, daily range): BP systolic 100–157; BP diastolic 46–87; PULSE 61–84; RESP 18–20; TEMP 36.1–36.7; O2SAT 94–98
--- NOTE | 2024-05-10 06:43 | PC.NURSE ---
End of shift note [id number]: Pt alert & oriented x 4 and able to make needs known. 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 He reports, it's been that way ever since I got that cancer. Pt remains afebrile and lap sites to abdomen remain [place] with some steri strips in place. MANISH drain remains in place to RLQ. Drainage noted to be mostly yellow in color with occasional stringy clots noted.?Pt continues to transfer/ambulate with SBA using FWW and gait belt. He has been denying pain throughout the shift. IV to R FA patent and SL.
[2024-05-10 07:17] LABS: Basophils Percent Auto 0.3 % (0.0-3.0); Eosinophils Percent Auto 0.7 % (0.0-7.0); Hematocrit 26.8 % (37.0-53.0); Hemoglobin* 8.5 gm/dL (13.5-17.5); Immature Granulocytes Pct Auto 25.6 %; Lymphocytes Percent Auto 3.1 % (20-44); Mean Corpuscular HGB Conc 32 gm/dL (32-36); Mean Corpuscular Hemoglobin 30 pg (26-34); Mean Corpuscular Volume 95 fL (80-100); Monocytes Percent Auto 5.7 % (0.0-11.0); Neutrophils Percent Auto 64.6 % (42.0-72.0); Platelet Count* 287 K/uL (140-440); RDW Coefficient of Variation % 17.9 % (11.5-15.5); Red Blood Count 2.81 m/uL (4.30-5.90)
[2024-05-10 07:23] LABS: Slide Review Reflex Yes
[2024-05-10 08:24] LABS: Slide Review Acceptable Review (Acceptable)
[2024-05-10] MEDS: LACTOBACILLUS ACIDOPHILUS 1 TABLET 2 TAB PO ×3 (08:49→18:10)
[2024-05-10] MEDS: APIXABAN 5 MG TABLET PO ×2 (08:50→21:59)
[2024-05-10] MEDS: ATORVASTATIN 10 MG TABLET 20 MG PO (08:50)
[2024-05-10] MEDS: POTASSIUM CHLORIDE 10 MEQ CAPSULE ER 20 MEQ PO ×2 (08:50→18:10)
[2024-05-10] MEDS: TAMSULOSIN HCL 0.4 MG CAPSULE PO (08:50)
[2024-05-10] MEDS: allopurinoL 300 MG TABLET PO (08:50)
[2024-05-10] MEDS: CIPROFLOXACIN 500 MG TABLET PO ×2 (08:50→21:59)
[2024-05-10] MEDS: FUROSEMIDE 40 MG TABLET 20 MG PO (08:51)
[2024-05-10] MEDS: METOPROLOL TARTRATE 25 MG TABLET PO ×3 (08:51→21:59)
[2024-05-10] MEDS: SODIUM CHLORIDE 0.9 % (FLUSH) 10 ML SYRINGE 5 ML IVF ×2 (08:51→22:00)
--- NOTE | 2024-05-10 10:21 | P.IMPN_ITS ---
Progress Note: A&P Assessment and plan (1) S/P laparoscopic cholecystectomy: Problem details: 05/01/2024. Dr. Alcaraz. Gangrenous cholecystitis. -postop day 9. Improving. -plan is for SNF placement vs home with home cares depending on progress. Status: Acute (2) CML (chronic myelocytic leukemia): Problem details: On Gleevec, held since admission Leukocytosis is stable 05/04 Discussed with Cindy Brand, JOSE Oncology at [facility], recommending to continue to hold it until discharge and follow up in the clinic. She will make sure he is seen soon after discharge from the hospital. 05/05 Discussed WBC, trending back up. Possibly in setting of CML, off of Gleevec. Peripheral smear ordered. Agrees with switch to oral abx and close monitoring. 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 Previous interrogation in February 2024 showed PSVT, NSVT, AF Eliquis has been held since admission, plan for OR on 05/01 - ELIQUIS RESUMED 04/20 4 Metoprolol TID for wide complex tachycardia noted on 04/29 as recommended by [facility]. Amlodipine and lisinopril has been held. Status: Acute (8) Heart failure with reduced ejection fraction: Problem details: proBNP 1600 Trop 0.06 ->0.07 -> 0.05 Anasarca, but intravascularly depleted. Monitor I/Os Echo 04/30/2024 shows moderately increased left ventricular size, normal wall thickness, normal global systolic function, EF 56%. Global systolic RV function is normal. Moderately enlarged left atrium. [id number] mitral regurg. Mild to moderate tricuspid regurg. Normal estimated pulmonary pressures. No significant change from 05/15/2023 Lasix 20 mg daily, strict I&Os, daily weights, continue oral potassium supplement, creatinine improving, cough improved to baseline, peripheral edema slightly improved, monitor. Discontinue when appropriate. Status: Acute (9) Diarrhea: Problem details: No BM in the last few days. H/o same in past CDiff neg. GI pathogens PCR negative Cholestyramine and probiotics started. No imodium per Dr. Alcaraz Status: Acute (10) UTI (urinary tract infection): Problem details: EColi. Zosyn and cipro - treatment completed but cipro continues b/c of ecoli contamination in gut during lap choly. Total duration of Cipro should be 10 days from surgical intervention, 05/11. Status: Acute (11) Arrhythmia: Problem details: History of AVB status post dual chamber ppm Wide complex tachycardia noted 04/29, questionable PSVT, NSVT Discussed with [facility] Cardiology recommending starting Lopressor 25 mg t.i.d., device interrogation Troponin elevated, trending down Status: Acute (12) Anemia: Problem details: part med induced (gleevac), part ABLA from surgery, part dilutional. Hemoglobin has been stable Status: Acute Plan Continue in-hospital for monitoring of postop infection, anemia and for therapy. Possible discharge tomorrow depending on clinical course. Time Spent With Patient Total time spent: Total time spent today is 35 minutes in coordination of care Subjective Date Seen: 05/10/24 Interval history: 83-year-old male admitted to the hospital with suspected acute cholecystitis. Taken to the OR on May 01 for laparoscopic cholecystectomy. Findings include a gangrenous cholecystitis with perforation. He has had a slow recovery from surgery with presumed intra-abdominal infection due to gangrenous cholecystitis and perforation. Now switch from IV Zosyn to oral ciprofloxacin for pansensiti ve E coli. Clinically appears to be improving. Still profoundly weak. He reports no concerns today. Specifically denies trouble breathing. Reports his appetite is getting better knees been able to eat. Abdominal pain is much better. May 10: Patient reports doing well today. He has no significant concerns other than wanting to go home. Reports he is feeling stronger and is walking better. He reports a good appetite. Bowels are working. Exam Narrative: Exam Narrative: He is alert and appears in no distress. Mood and affect are bright. Speech is normal. He is oriented to his circumstances. Respirations are clear to auscultation. Cardiovascular: S1, S2, regular rate and rhythm. Abdomen: Bowel sounds active. Abdomen is soft without tenderness or mass. His small amount of bloody fluid in his MANISH drain. Abdominal incisions are clean and dry with bruising but no erythema. No abdominal mass. Extremities with stable edema. He moves all 4 extremities well. Const: Vital Signs, click to edit/add: Vital Signs - 24 hr 05/09/24 11:00 05/09/24 15:00 05/09/24 15:00 Temperature 97.7 F Pulse Rate [Pulse Oximeter] 76 66 Respiratory Rate 20 18 18 Blood Pressure [Le ft Arm] Blood Pressure [Ri ght Arm] 122/74 Pulse Oximetry 96 97 [facility] O[facility] Flow Rate 05/09/24 15:00 05/09/24 20:00 05/09/24 22:43 Temperature 97.9 F 97.6 F 97.5 F L Pulse Rate [Pulse Oximeter] 66 61 62 Respiratory Rate 18 16 18 Blood Pressure [Le ft Arm] 140/71 H Blood Pressure [Ri ght Arm] 139/76 137/76 Pulse Oximetry 97 96 95 [facility] Air Room Air Oxygen Flow Rate 05/09/24 22:43 05/09/24 23:00 05/10/24 02:40 Temperature 97.2 F L Pulse Rate [Pulse Oximeter] 62 70 Respiratory Rate 18 18 18 Blood Pressure [Le ft Arm] Blood Pressure [Ri ght Arm] 137/76 Pulse Oximetry 95 98 [facility] Room Air Oxygen Flow Rate 0 05/10/24 07:00 05/10/24 07:00 05/10/24 07:00 Temperature 98.0 F Pulse Rate [Pulse Oximeter] 72 72 Respiratory Rate 18 18 Blood Pressure [Le ft Arm] Blood Pressure [Ri ght Arm] 119/81 Pulse Oximetry 94 94 [facility] Room Air Oxygen Flow Rate Documenting provider has reviewed patient's vital signs: yes Labs Labs: Laboratory Results - last 24 hr 05/10/24 07:00 WBC 31.90 H* RBC 2.81 L Hgb 8.5 L Hct 26.8 L MCV 95 MCH 30 MCHC 32 RDW Coeff of Guillermo 17.9 H Plt Count 287 Neut % (Auto) 64.6 Lymph % (Auto) 3.1 L [place] % (Auto) 5.7 Eos % (Auto) 0.7 Baso % (Auto) 0.3 Neut # (Auto) 20.60 H Lymph # (Auto) 1.00 [place] # (Auto) 1.80 H Eos # (Auto) 0.20 Baso # (Auto) 0.10 Abs Immat Gran (auto) 8.20 H Imm/Tot Granulo (auto) 25.6 Diff Slide Review Acceptable Review
[2024-05-10] MEDS: polyethylene glycoL 3350 17 GM PACK PO (12:01)
--- NOTE | 2024-05-10 19:53 | PC.NURSE ---
End of Shift: Patient pleasant and cooperative. Afebrile. Denies pain. Up to bathroom, chair and for walks with SBA, walker and gait belt. Tolerating regular diet with no nausea. Lap sites to abdomen C/D/I. MANIHS drain patent.
[2024-05-11 03:00] VITALS: BP 142/72; PULSE 62; RESP 18; TEMP 36.4; O2SAT 93
--- NOTE | 2024-05-11 06:45 | PC.NURSE ---
End of shift note [id number]: Pt alert & oriented x 4 and able to make needs known. Pt has been afebrile throughout the shift. Pt has been denying pain throughout the shift. He transfers/ambulates with SBA using FWW and gait belt. He continues to toilet frequently on third shift lieutenant- approximately every 1.5 hours. Surgical incisions to abdomen remain [place] with some steri strips in place. No s/sx of infection observed upon inspection. Pt continues to have MANISH drain in place to RLQ with 35 mL of yellow drainage emptied throughout the shift. Pt mostly continent of bladder this shift though did have some urinary incontinence as well. IV to R wrist patent and SL. Pt continues to have productive cough at times with clear phlegm after performing IS and Aerobika exercises.
[2024-05-11 07:00] VITALS: BP 124/67; PULSE 60; RESP 18; TEMP 36.4; O2SAT 95
[2024-05-11] MEDS: POTASSIUM CHLORIDE 10 MEQ CAPSULE ER 20 MEQ PO (07:32)
[2024-05-11] MEDS: LACTOBACILLUS ACIDOPHILUS 1 TABLET 2 TAB PO ×2 (07:32→11:55)
[2024-05-11] MEDS: APIXABAN 5 MG TABLET PO (07:32)
[2024-05-11] MEDS: CIPROFLOXACIN 500 MG TABLET PO (07:32)
[2024-05-11] MEDS: ATORVASTATIN 10 MG TABLET 20 MG PO (07:34)
[2024-05-11] MEDS: SODIUM CHLORIDE 0.9 % (FLUSH) 10 ML SYRINGE 5 ML IVF (07:34)
[2024-05-11] MEDS: FUROSEMIDE 40 MG TABLET 20 MG PO (07:34)
[2024-05-11] MEDS: allopurinoL 300 MG TABLET PO (07:34)
[2024-05-11] MEDS: TAMSULOSIN HCL 0.4 MG CAPSULE PO (07:34)
[2024-05-11] MEDS: METOPROLOL TARTRATE 25 MG TABLET PO (07:34)
--- NOTE | 2024-05-11 10:06 | PM.DS1 ---
DS: Providers Provider Date Seen: 05/11/24 Date of admission: 04/28/24 21:51 Primary care physician: Luisito Wood MD Admitting Clinician: Hernandez Balderrama MD Attending Physician on discharge: Hernandez Balderrama MD Date of Discharge: 05/11/24 DS: Diagnosis Discharge Diagnosis (1) S/P laparoscopic cholecystectomy: Status: Acute Problem details: 05/01/2024. Dr. Alcaraz. Gangrenous cholecystitis. -postop day 10. Doing well. (2) CML (chronic myelocytic leukemia): Status: Acute Problem details: On Gleevec, held since admission Leukocytosis is stable 05/04 Discussed with Cindy Brand NP Oncology at [facility], recommending to continue to hold it until discharge and follow up in the clinic. She will make sure he is seen soon after discharge from the hospital. 05/05 Discussed WBC, trending back up. Possibly in setting of CML, off of Gleevec. Peripheral smear ordered. Agrees with switch to oral abx and close monitoring. (3) Anasarca: Status: Acute Problem details: Generalized edema with history of lymphedema (pelvic and inguinal lymph nodes removed years earlier with penile cancer treatment) Continue lasix daily Use home lymphedema pumps twice daily (4) Chronic acquired lymphedema: Status: Acute Problem details: uses home lymphedema pumps pelvic and inguinal lymph nodes removed years earlier with penile cancer treatment (5) Diabetes mellitus: Status: Acute Problem details: Appears to be well controlled, A1c in February was 5.4. Blood sugar well controlled during hospital stay (6) Paroxysmal atrial fibrillation: Status: Acute Problem details: On anticoagulation with apixaban Dual chamber pacemaker - per family, following a recent interrogation, pacer is not functioning adequately. Previous interrogation in February 2024 showed PSVT, NSVT, AF Eliquis has been held since admission, plan for OR on 05/01 - ELIQUIS RESUMED 05/03 Metoprolol started for white complex tachycardia. Amlodipine and lisinopril have been held. (7) Heart failure with reduced ejection fraction: Status: Acute Problem details: proBNP 1600 Trop 0.06 ->0.07 -> 0.05 Anasarca, but intravascularly depleted. Monitor I/Os Echo 04/30/2024 shows moderately increased left ventricular size, normal wall thickness, normal global systolic function, EF 56%. Global systolic RV function is normal. Moderately enlarged left atrium. [id number] mitral regurg. Mild to moderate tricuspid regurg. Normal estimated pulmonary pressures. No significant change from 05/15/2023 Cardiovascular status has stabilized off of amlodipine and lisinopril and off of diuretics for the last few days. Now on metoprolol. Outpatient follow-up to determine optimal management of heart disease, AFib, heart failure, edema (8) Diarrhea: Status: Acute Problem details: No BM in the last few days. H/o same in past CDiff neg. GI pathogens PCR negative Diarrhea resolved. Briefly on cholestyramine. Consider restarting cholestyramine if diarrhea remains a problem after cholecystectomy (9) UTI (urinary tract infection): Status: Acute Problem details: EColi. Zosyn and cipro - treatment completed but cipro continues b/c of ecoli contamination in gut during lap choly. Total duration of Cipro should be 10 days from surgical intervention, 05/11. (10) Anemia: Status: Acute Problem details: part med induced (gleevac), part ABLA from surgery, part dilutional. Hemoglobin has been stable DS: Summary Hospital Course Hospital Course: 83-year-old male admitted to the hospital with acute cholecystitis. Initially treated with antibiotics. Anticoagulation held pending surgery. Laparoscopic cholecystectomy performed by Dr. Alcaraz. He was found to have gangrenous cholecystitis and had spillage of purulent material into the abdomen. Had a difficult postoperative course with intra-abdominal infection and heart failure and AFib and CML but recovered well. Status at Discharge Functional status at discharge: uses cane/walker Time Spent with Patient Time attestation: Total time spent providing and/or coordinating discharge services: 40 minutes Time spent: Greater than 30 minutes Exam Narrative: Exam Narrative: He is alert and in no distress. He is observed to walk in his room. Walks were quite well with a walker. Breathing is unlabored. Abdomen is soft without tenderness. Bruising around his laparoscopic incision sites. No significant erythema. Drain is removed. Stable chronic lower extremity edema. Const: Vital Signs, click to edit/add: Vital Signs - 24 hr 05/10/24 11:00 05/10/24 15:00 05/10/24 15:00 Temperature 97.6 F 97.8 F Pulse Rate [Pulse Oximeter] 61 78 Respiratory Rate 18 18 Blood Pressure [Le ft Arm] 100/46 L Blood Pressure [Ri ght Arm] 137/74 Pulse Oximetry 95 96 96 Oxygen Delivery [facility] Room Air Room Air Room Air Oxygen Flow Rate 05/10/24 15:00 05/10/24 20:19 05/10/24 23:00 Temperature 97.7 F Pulse Rate [Pulse Oximeter] 78 63 63 Respiratory Rate 18 20 20 Blood Pressure [Le ft Arm] 120/51 L Blood Pressure [Ri ght Arm] Pulse Oximetry 97 Oxygen Delivery [facility] Room Air Oxygen Flow Rate 0 05/10/24 23:46 05/10/24 23:46 05/11/24 03:00 Temperature 97.0 F L 97.5 F L Pulse Rate [Pulse Oximeter] 84 62 Respiratory Rate 18 18 18 Blood Pressure [Le ft Arm] Blood Pressure [Ri ght Arm] 157/87 H 142/72 H Pulse Oximetry 97 97 93 Oxygen Delivery Me thod Room Air Room Air Room Air Oxygen Flow Rate 0 05/11/24 07:00 05/11/24 07:00 05/11/24 07:00 Temperature 97.6 F Pulse Rate [Pulse Oximeter] 60 60 Respiratory Rate 18 18 18 Blood Pressure [Le ft Arm] Blood Pressure [Ri ght Arm] 124/67 Pulse Oximetry 95 95 Oxygen Delivery Me thod Room Air Room Air Oxygen Flow Rate Documenting provider has reviewed patient's vital signs: yes Discharge Plan Discharge Disposition: Home, Self-Care Date of Admission: 04/28/24 21:51 Attending Provider on Discharge: Hernandez Balderrama Consulting Providers: Natali Alcaraz Primary Care Provider: Luisito Wood Condition: Improved Anticipated Discharge Date/Time: 05/11/24 09:52 Discharge Medications: New metoprolol succinate 50 mg capsule,sprinkle,ER 24hr 50 mg PO DAILY Qty: 30 0RF Continued atorvastatin 20 mg tablet 20 mg PO DAILY potassium chloride 20 mEq tablet,ER particles/crystals 20 meq PO DAILY tamsulosin 0.4 mg capsule 0.4 mg PO DAILY allopurinol 300 mg tablet 300 mg PO DAILY Eliquis 5 mg tablet 5 mg PO BID Held imatinib 100 mg tablet 200 mg PO BID Hold Instructions: Hold until appointment with Cindy Brand in [place] Discontinued lisinopril 20 mg tablet 20 mg PO DAILY amlodipine 5 mg tablet 5 mg PO DAILY Discharge Orders: Discharge Order (Routine); Ordered 05/11/24 Ordered By: Hernandez Balderrama Patient Education: General Anesthesia (DC), Post-Operative Instructions: Laparoscopic Cholecystectomy Additional Instructions: Out patient PT and OT to evaluate and treat Outpatient follow up with Oncology, Cindy Brand. Continue to hold Gleevec until appointment. Okay to shower tomorrow. Avoid swimming or baths tubs until drain site heals. After shower apply bacitracin or Neosporin to the drain site in the right abdomen. Cover with gauze and tape. Keep changing these dressings daily until the drain site stops draining fluid. 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 ) Cindy Brand, TOREY [Referring] - (follow up at next available appointment) Forms: [facility] Info Instructions
--- NOTE | 2024-05-11 10:53 | PM.GSPN ---
Subjective Subjective Date Seen: 05/11/24 Interval history: Patient is doing well. He is tolerating regular diet. His passing gas. He denies abdominal pain. His MANISH drain has been putting out serosanguineous fluid. Exam Narrative: Exam Narrative: Abdomen is soft, not distended, there is ecchymosis noted around the umbilical incision. MANISH drain with serosanguineous fluid. The drain was removed today. Const: Vital Signs, click to edit/add: Vital Signs - 24 hr 05/10/24 11:00 05/10/24 15:00 05/10/24 15:00 Temperature 97.6 F 97.8 F Pulse Rate [Pulse Oximeter] 61 78 Respiratory Rate 18 18 Blood Pressure [Le ft Arm] 100/46 L Blood Pressure [Ri ght Arm] 137/74 Pulse Oximetry 95 96 96 Oxygen Delivery Me thod Room Air Room Air Room Air Oxygen Flow Rate 05/10/24 15:00 05/10/24 20:19 05/10/24 23:00 Temperature 97.7 F Pulse Rate [Pulse Oximeter] 78 63 63 Respiratory Rate 18 20 20 Blood Pressure [Le ft Arm] 120/51 L Blood Pressure [Ri ght Arm] Pulse Oximetry 97 Oxygen Delivery Me thod Room Air Oxygen Flow Rate 0 05/10/24 23:46 05/10/24 23:46 05/11/24 03:00 Temperature 97.0 F L 97.5 F L Pulse Rate [Pulse Oximeter] 84 62 Respiratory Rate 18 18 18 Blood Pressure [Le ft Arm] Blood Pressure [Ri ght Arm] 157/87 H 142/72 H Pulse Oximetry 97 97 93 Oxygen Delivery Me thod Room Air Room Air Room Air Oxygen Flow Rate 0 05/11/24 07:00 05/11/24 07:00 05/11/24 07:00 Temperature 97.6 F Pulse Rate [Pulse Oximeter] 60 60 Respiratory Rate 18 18 18 Blood Pressure [Le ft Arm] Blood Pressure [Ri ght Arm] 124/67 Pulse Oximetry 95 95 Oxygen Delivery Me thod Room Air Room Air Oxygen Flow Rate Progress Note:A&P Assessment and plan (1) S/P laparoscopic cholecystectomy: Status: Acute Assessment and Plan: 83-year-old male s/p laparoscopic cholecystectomy for gangrenous cholecystitis. Patient completed a course of ciprofloxacin. The drain was removed today. Patient will be discharged home with family. I instructed the patient to apply bacitracin or Neosporin over the drain site and change those dressings daily. Patient will see Dr. Alcaraz in clinic in 2 weeks for follow-up.
[2024-05-11 11:00] VITALS: BP 123/65; PULSE 72; RESP 18; TEMP 36.7; O2SAT 97
--- NOTE | 2024-05-11 12:45 | PC.SOCIAL ---
Addendum entered by CARLOS Nava 05/11/24 16:59: Discharge planning: [facility]. will be opening the pt for home care services within the next 24-48 hours, per Griselda from [facility]. Social work to follow-up as needed. Addendum entered by CARLOS Nava 05/11/24 14:39: Discharge planning: dairy feed worker provided the pt and his family with a copy of The Important Message from Medicare form. They do not plan to appeal and are pleased with the discharge plan. Social work to follow-up as needed. Original Note: Discharge planning: Pt is no longer in need of a SNF and is able to go home with home care PT/OT/BIT SHARPENER OPERATOR/shelter in place. dairy feed worker met with the pt and family today to discuss home care agency options. Pt and his family were open to any agency that had openings. dairy feed worker checked with [facility]. and they have openings. dairy feed worker faxed the referral to Griselda at [facility] fax #[phone]. Social work to follow-up as needed.
--- NOTE | 2024-05-11 13:35 | PC.NURSE ---
Nursing discharge note: Pt has been A&O, afebrile and VSS on day of discharge. Pt is SBA with gait belt & 2ww for ambulation & transfers. Lap sites x3 steri-strips C/D/I and LL site is [employer]. Bruising still present on mid lower site. MANISH drain had no output this morning & was removed by . Dressing is C/D/I to RLQ drain site. Pt showered this afternoon with OT & tolerated activity well. PIV in right wrist discontinued, catheter intact. Pt had no c/o pain, nausea or dizziness. Family has been at bedside and attentive to patient?s needs. Questions have been answered appropriately and education on discharge given to family by multiple staff members. Pt was discharged home via W/C accompanied by his family at 1230 this afternoon.
== END 2024-05-11 12:30 | disposition home or self-care (01) | DRG 417 ==
LOC: ED 18:47 → MEDSURG 20:31
PROVIDERS: Family Medicine; Internal Medicine; Physician Assistant; Surgery; Admitting Provider Family Medicine; Emergency Provider Family Medicine; PCP Family Medicine; Visit Provider Family Medicine
PROC: 0FT44ZZ Resection of Gallbladder, Percutaneous Endoscopic Approach (ICD-10-PCS; CPT 47562; principal; 2024-05-01 09:00)
DX: K80.00 Calculus of gallbladder with acute cholecystitis without obstruction (principal); I50.21 Acute systolic (congestive) heart failure; C92.10 Chronic myeloid leukemia, BCR/ABL-positive, not having achieved remission; K82.A2 Perforation of gallbladder in cholecystitis; N17.9 Acute kidney failure, unspecified; R18.8 Other ascites; D62 Acute posthemorrhagic anemia; F05 Delirium due to known physiological condition; N39.0 Urinary tract infection, site not specified; J95.89 Other postprocedural complications and disorders of respiratory system, not elsewhere classified; K82.A1 Gangrene of gallbladder in cholecystitis; J39.2 Other diseases of pharynx; I48.0 Paroxysmal atrial fibrillation; Z79.01 Long term (current) use of anticoagulants; K52.9 Noninfective gastroenteritis and colitis, unspecified; M62.84 Sarcopenia; R63.4 Abnormal weight loss; Z68.33 Body mass index [BMI] 33.0-33.9, adult; I89.0 Lymphedema, not elsewhere classified; C60.9 Malignant neoplasm of penis, unspecified; E11.9 Type 2 diabetes mellitus without complications; E87.6 Hypokalemia; Z90.79 Acquired absence of other genital organ(s); R00.0 Tachycardia, unspecified; D64.9 Anemia, unspecified; B96.20 Unspecified Escherichia coli [E. coli] as the cause of diseases classified elsewhere; B96.29 Other Escherichia coli [E. coli] as the cause of diseases classified elsewhere; Z95.0 Presence of cardiac pacemaker; Z95.5 Presence of coronary angioplasty implant and graft; Z96.652 Presence of left artificial knee joint
CPT/HCPCS: 00790; 36415; 51702; 51798; 71045; 71250; 74176; 76705; 80048; 80053; 80076; 81001; 83605; 83735; 83880; 84145; 84484; 85025; 85027; 85045; 86140; 86850; 86900; 86901; 87040; 87045; 87046; 87070; 87075; 87086; 87186; 87205; 87427; 87493; 87505; 87631; 88304; 93005; 93306; 94664; 94761; 97110; 97112; 97116; 97162; 97165; 97530; 97535; 99100; 99285; A9270; J0330; J0665; J1940; J2270; J2371; J2543; J2704; J2710; J3010; J3370; J3480; J3490; J7030; J7050; J7120

== ENCOUNTER 2024-05-26 18:02 | Inpatient (IN) | payer MEDICARE, OTHER, SELFPAY ==
[2024-05-26 18:21] VITALS: BP 130/63; PULSE 84; RESP 18; TEMP 37.2; O2SAT 97; BMI 19.6
[2024-05-26 18:34] VITALS: RESP 16; O2SAT 97
[2024-05-26 19:20] VITALS: BP 115/51; PULSE 68; RESP 16; TEMP 37.1; O2SAT 95
--- NOTE | 2024-05-26 19:21 | PC.NURSE ---
End of Shift: Patient arrived to floor at 1810. Vitally stable, lungs course/Rhonchi, BS WNL, NO IV. Patient 1 assist to recliner, patient denies pain. Patient with pitting edema in bilateral LE +4. Admission and EKG completed.
[2024-05-26] MEDS: PIPERACILLIN/TAZOBACTAM 3.375 GM in 0.9 % SODIUM CHLORIDE Mini-bag 100 ML IVPB (19:34)
[2024-05-26] MEDS: POTASSIUM BICARB 25 MEQ EFFERVESCENT TAB PO (19:40)
[2024-05-26] MEDS: FUROSEMIDE 10 MG/ML inj 40 MG IVP (19:40)
[2024-05-26 19:44] LABS: PCR FLU A Negative PCR FLU A (Negative); PCR FLU B Negative PCR FLU B (Negative); SARS PCR* Negative SARS-CoV-2 (Negative)
[2024-05-26] MEDS: SODIUM CHLORIDE 0.9 % (FLUSH) 10 ML SYRINGE 5 ML IVF (21:37)
[2024-05-26] MEDS: APIXABAN 5 MG TABLET PO (21:37)
--- NOTE | 2024-05-26 21:57 | P.IMHP_ITS ---
Hospitalist- H&P: HPI History of Present Illness Date Seen: 05/26/24 Chief complaint: Medical Care Narrative: Luisito Valente is a 83 year old male with CML recently hospitalized for gangrenous cholecystitis and cholecystectomy is admitted from the clinic today for progressive weakness, diarrhea and dyspnea. Patient was hospitalized here from April 28 to May 11 with acute gangrenous cholecystitis. He underwent cholecystectomy by Dr. Alcaraz on May 01. He had a slow recovery from the surgery. He recovered enough from surgery to go home. At home he was observed to still be quite weak and have a poor appetite. He was initially supplementing with Ensure 3 or 4 times a day and is now down to once a day. He was having diarrhea. This was treated with cholestyramine which cause constipation. Saturday evening, 4 days prior to admission he had a coughing and choking episode. Since then he has had a decline in his status with progressive shortness of breath and weakness. He is not aware of a fever. He is now very poorly tolerant of any activity and too weak to do much activity. His appetite is also gotten worse again over the weekend. He is not having any abdominal pain and he is not aware of a fever. He is not have any chest pain. He was seen in clinic today where he had a CT of the chest abdomen pelvis. Findings included a trace amount of fluid in the gallbladder fossa without an obvious abscess or biliary obstruction. He had right lower lobe aspiration pn eumonitis with aspiration and mucus plugging and small bilateral pleural effusions right greater than left. He had sigmoid diverticulosis without diverticulitis and excess stool in the rectum consistent with fecal impaction. Laboratory tests from yesterday in clinic show a sodium 147, potassium of 4.1, chloride of 111 CO2 of 27, BUN of 32, creatinine of 1.25, white blood count of 59.0, with 40.7 neutrophils, 7.3 myelocytes, 2.5 lymphocytes and hemoglobin of 9.8 and platelet count of 635. Review of Systems Narrative: Patient's family notes that he has not fully recovered from surgery. He was getting better after surgery in the hospital and initially getting better at home but then has had acute worsening over the last few days. [facility] Medical History (Updated 05/26/24 @ 22:23 by Hernandez Balderrama MD) Aspiration pneumonia ?J69.0 - Pneumonitis due to inhalation of food and vomit (ICD-10) Anemia ?D64.9 - Anemia, unspecified (ICD-10) Weight loss, non-intentional ?R63.4 - Abnormal weight loss (ICD-10) Heart failure with reduced ejection fraction ?I50.20 - Unspecified systolic (congestive) heart failure (ICD-10) Esophageal dysmotility ?K22.4 - Dyskinesia of esophagus (ICD-10) BPH (benign prostatic hyperplasia) ?N40.0 - Benign prostatic hyperplasia without lower urinary tract symptoms (ICD-10) Chronic diarrhea ?K52.9 - Noninfective gastroenteritis and colitis, unspecified (ICD-10) Hypertension ?I10 - Essential (primary) hypertension (ICD-10) Obesity ?E66.9 - Obesity, unspecified (ICD-10) Gout ?M10.9 - Gout, unspecified (ICD-10) Paroxysmal atrial fibrillation ?I48.0 - Paroxysmal atrial fibrillation (ICD-10) Diabetes mellitus ?E11.9 - Type 2 diabetes mellitus without complications (ICD-10) Chronic acquired lymphedema ?I89.0 - Lymphedema, not elsewhere classified (ICD-10) Penile cancer ?C60.9 - Malignant neoplasm of penis, unspecified (ICD-10) Coronary artery disease ?I25.10 - Atherosclerotic heart disease of [place] coronary artery without angina pectoris (ICD-10) 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 - Chronic myeloid leukemia, BCR/ABL-positive, not having achieved remission (ICD-10) Surgical History (Updated 05/26/24 @ 22:17 by Hernandez Balderrama MD) Hx laparoscopic cholecystectomy ?Z90.49 - Acquired absence of other specified parts of digestive tract (ICD- 10) History of penectomy ?Z90.79 - Acquired absence of other genital organ(s) (ICD-10) S/P placement of cardiac pacemaker ?Z95.0 - Presence of cardiac pacemaker (ICD-10) History of arthroplasty of left knee ?Z96.652 - Presence of left artificial knee joint (ICD-10) History of coronary artery stent placement ?Z95.5 - Presence of coronary angioplasty implant and graft (ICD-10) Social History (Updated 05/26/24 @ 22:18 by Hernandez Balderrama MD) Narrative: He lives with his . Code status is full. Remote history of smoking. Rarely drinks alcohol. What is your current living situation?: I presently have a place to live Problems where you live: no known problems Problems where you live details: none In the past 12 months, utilities in danger of being shut off: no In past 12 months, lack of transportation kept you from medical appts, meetings, work, or getting things needed for daily living: no In the past 12 mos, have been you worried that your food would run out before you had money to buy more?: never true In the past 12 mos, the food you bought just didn't last and you didn't have money to buy more?: never true Highest level of school completed/degree received: high school graduate Smoking Status: Former smoker Do you use any of these nicotine containing products: None Second hand tobacco smoke exposure: No How often do you have a drink containing alcohol: monthly or less How many standard drinks containing alcohol do you have on a typical day: 1 or 2 How often do you have six or more drinks on one occasion: Never AUDIT-C Alcohol total score: 1 Non-prescribed substance use: denies use Caffeine: Yes How often does anyone, including family, friends and others, physically hurt you : never How often does anyone, including family, friends and others, insult or talk down to you: never How often does anyone, including family, friends and others, threaten you with harm: never How often does anyone, including family, friends and others, scream or curse at you: never service: Yes Meds Home Medications and Allergies Home Medications ?Medication ?Instructions ?Recorded ?Confirmed ?Type allopurinol 300 mg tablet 300 mg PO DAILY 04/28/24 04/28/24 History apixaban 5 mg tablet (Eliquis) 5 mg PO BID 04/28/24 04/28/24 History atorvastatin 20 mg tablet 20 mg PO DAILY 04/28/24 04/28/24 History imatinib 100 mg tablet 200 mg PO BID 04/28/24 04/28/24 History potassium chloride 20 mEq 20 meq PO DAILY 04/28/24 04/28/24 History tablet,extended release(part/cryst) tamsulosin 0.4 mg capsule 0.4 mg PO DAILY 04/28/24 04/28/24 History Allergies Allergy/AdvReac Type Severity Reaction Status Date / Time Iodinated Contrast Media Allergy Unknown Verified 04/28/24 17:18 Exam Narrative: Exam Narrative: He is alert and appears in no distress. He gives his own history though family has to give some additional details of recent events. Eyes normal. No facial asymmetry. Oropharynx is normal. Neck is supple without mass or adenopathy. Respirations with bibasilar crackles much more prominent on the right than the left. Diminished breath sounds at the right base. Cardiovascular: S1, S2, relatively regular rate and rhythm. Abdomen: Bowel sounds active. Laparoscopic surgical incisions are all very well healed with no erythema and no drainage or tenderness. Abdomen is soft without tenderness or mass. Extremities with 4+ edema bilaterally. Trace of erythema in the left leg. Intact pedal pulses. Const: Vital Signs, click to edit/add: Vital Signs - 24 hr 05/26/24 18:21 05/26/24 18:34 Temperature 98.9 F Pulse Rate [Pulse Oximeter] 84 Respiratory Rate 18 16 Blood Pressure [Ri ght Arm] 130/63 Pulse Oximetry 97 97 Oxygen Delivery Me thod Room Air Room Air Documenting provider has reviewed patient's vital signs: yes Assessment and Plan Assessment and plan (1) Aspiration pneumonia: Problem comment: Patient likely had aspiration pneumonia. Given recent hospitalizations be treated as a hospital-acquired pneumonia with piperacillin tazobactam. MRSA swab is pending. Will hold off on treating for MRSA pneumonia or atypical pneumonia pending clinical course. Status: Acute (2) S/P laparoscopic cholecystectomy: Problem comment: 05/01/2024. Dr. Alcraaz. Gangrenous cholecystitis. No obvious surgical complications identified on admission May 26. Status: Acute (3) CML (chronic myelocytic leukemia): Problem comment: On Gleevec, held during previous hospital stay. Restarted after discharge. Will hold again with pneumonia. Leukocytosis is stable Managed by Cindy Brand NP in Oncology Clinic in [place] Status: Acute (4) Anasarca: Problem comment: Generalized edema with history of lymphedema (pelvic and inguinal lymph nodes removed years earlier with penile cancer treatment). This has gotten much worse since discharge from the hospital. Previous hospitalization in did gotten much better. Aggressive management with compression and elevation. Continue lasix daily Use home lymphedema pumps twice daily Status: Acute (5) Chronic acquired lymphedema: Problem comment: uses home lymphedema pumps pelvic and inguinal lymph nodes removed years earlier with penile cancer treatment Status: Acute (6) Diabetes mellitus: Problem comment: Appears to be well controlled, A1c in February was 5.4. Blood sugar well controlled during hospital stay Status: Acute (7) Paroxysmal atrial fibrillation: Problem comment: On anticoagulation with apixaban Dual chamber pacemaker - per family, following a recent interrogation, pacer is not functioning adequately. Previous interrogation in February 2024 showed PSVT, NSVT, AF Metoprolol started at last hospitalization for rate control Status: Acute (8) Heart failure with reduced ejection fraction: Problem comment: proBNP 1600 Trop 0.06 ->0.07 -> 0.05 Anasarca, but intravascularly depleted. Monitor I/Os Echo 04/30/2024 shows moderately increased left ventricular size, normal wall thickness, normal global systolic function, EF 56%. Global systolic RV function is normal. Moderately enlarged left atrium. [id number] mitral regurg. Mild to moderate tricuspid regurg. Normal estimated pulmonary pressures. No significant change from 05/15/2023 Cardiovascular status has stabilized off of amlodipine and lisinopril and off of diuretics for the last few days. Now on metoprolol. Outpatient follow-up to determine optimal management of heart disease, AFib, heart failure, edema Status: Acute (9) Anemia: Problem comment: part med induced (gleevac), part ABLA from surgery, part dilutional. Hemoglobin has been stable Status: Acute Plan 83-year-old male admitted with what is clinically aspiration pneumonia. Likely the event that cause this was Saturday evening 4 days prior to admission. Given recent hospitalization will initially treat with piperacillin tazobactam. Continue to monitor and address other problems including heart failure, atrial fibrillation, anasarca/lymphedema, profound weakness, diarrhea and constipation, poor nutrition. Total Time Spent Total Time Spent: Total time spent today is 90 minutes in evaluation management
[2024-05-27] VITALS (7 sets, daily range): BP systolic 117–138; BP diastolic 54–80; PULSE 59–89; RESP 16–18; TEMP 36.6–36.7; O2SAT 95–98
[2024-05-27] MEDS: PIPERACILLIN/TAZOBACTAM 3.375 GM in 0.9 % SODIUM CHLORIDE Mini-bag 100 ML IVPB ×4 (01:35→20:14)
[2024-05-27 04:41] LABS: Appearance Urine Clear (Clear); Bilirubin Urine Negative (Negative); Blood Urine 1+ (Negative); Color Urine Yellow (Yellow); Glucose Urine Negative (Negative); Ketones Urine Negative (Negative); Leukocyte Esterase Urine Negative (Negative); Nitrite Urine Negative (Negative); Protein Urine Negative (Negative); Specific Gravity Urine 1.015 (1.000-1.030); Urobilinogen Urine 0.2 (0.2-1.0)
[2024-05-27 04:54] LABS: Bacteria Urine Few; Squamous Epithelial Cell Urine Few (None-Few); WBC Urine 0-2 (0-5)
--- NOTE | 2024-05-27 06:23 | PC.NURSE ---
END OF SHIFT NOTE: PT PLEASANT AND COOPERATIVE. A&OxX4. DENIES CP, SOB, N/V. AMBULATES WITH A1, GB, WALKER. VSS ON RA; AFEBRILE. INCONTINENT OF URINE. BED ALARM ON AND CALL LIGHT WITHIN PT?S REACH.?
[2024-05-27 06:32] LABS: Basophils Percent Auto 0.3 % (0.0-3.0); Eosinophils Percent Auto 0.8 % (0.0-7.0); Hematocrit 29.3 % (37.0-53.0); Hemoglobin* 9.2 gm/dL (13.5-17.5); Immature Granulocytes Pct Auto 24.3 %; Lymphocytes Percent Auto 3.9 % (20-44); Mean Corpuscular HGB Conc 31 gm/dL (32-36); Mean Corpuscular Hemoglobin 30 pg (26-34); Mean Corpuscular Volume 95 fL (80-100); Monocytes Percent Auto 4.3 % (0.0-11.0); Neutrophils Percent Auto 66.4 % (42.0-72.0); Platelet Count* 514 K/uL (140-440); Red Blood Count 3.09 m/uL (4.30-5.90)
[2024-05-27 06:34] LABS: Chloride* 107 mmol/L (96-114)
[2024-05-27 06:35] LABS: Albumin* 2.8 g/dL (3.3-5.0); Potassium* 3.8 mmol/L (3.6-5.1); Sodium* 141 mmol/L (135-149)
[2024-05-27 06:37] LABS: Creatinine* 1.2 mg/dL (0.5-1.5); Est. Creatinine Clearance* 47.31; Estimated Glomerular Filt Rate 60 ml/min
[2024-05-27 06:38] LABS: Alanine Aminotransferase* 18 U/L (4-50); Alkaline Phosphatase* 80 U/L (40-150); Anion Gap 2 mEq/L (7-15); Aspartate Amino Transferase* 19 U/L (12-35); Bilirubin Direct* 0.3 mg/dL (0.0-0.5); Bilirubin Total* 0.7 mg/dL (0.1-1.5); Blood Urea Nitrogen* 32 mg/dL (7-30); Calcium* 7.9 mg/dL (8.4-10.6); Carbon Dioxide* 32 mmol/L (20-32); Glucose* 117 mg/dL (60-115); Total Protein* 5.2 g/dL (6.0-8.3)
[2024-05-27 06:41] LABS: C Reactive Protein* 5.7 mg/dL (0.5-1.0)
[2024-05-27 06:44] LABS: Slide Review Reflex Yes; White Blood Count* 37.86 K/uL (4.50-11.00)
[2024-05-27 06:49] LABS: NT Pro B Type NatriureticPept* 2120 pg/mL
[2024-05-27 06:50] LABS: Troponin I* 0.02 ng/mL (0.01-0.04)
[2024-05-27 07:24] LABS: Slide Review Acceptable Review (Acceptable)
[2024-05-27] MEDS: ATORVASTATIN 10 MG TABLET 20 MG PO (08:53)
[2024-05-27] MEDS: POTASSIUM CHLORIDE 10 MEQ CAPSULE ER 20 MEQ PO (08:53)
[2024-05-27] MEDS: METOPROLOL SUCCINATE (XL) 50 MG TAB PO (08:53)
[2024-05-27] MEDS: APIXABAN 5 MG TABLET PO ×2 (08:53→20:53)
[2024-05-27] MEDS: allopurinoL 300 MG TABLET PO (08:53)
[2024-05-27] MEDS: TAMSULOSIN HCL 0.4 MG CAPSULE PO (08:53)
[2024-05-27] MEDS: SODIUM CHLORIDE 0.9 % (FLUSH) 10 ML SYRINGE 5 ML IVF ×2 (08:58→20:53)
--- NOTE | 2024-05-27 11:59 | NUTR.NU ---
Addendum entered and electronically signed by Lola Gatica RD 05/27/24 12:15: RDN encouraged patient to let staff know if he is interested in nutrition supplements as he can receive these at any time. Original Note: ALEXXN with MD consult for nutritional consult. Patient admitted for weakness and acute diarrhea for the past few weeks. He was hospitalized from April 28 to May 11 with acute gangrenous cholecystitis, underwent cholecystectomy May 01. He was discharged home and then experience a poor appetite and weakness at home since. He reports consuming up to 3 or 4 Ensure daily initially, but is now down to one per day. He reports his appetite is a little less than normal currently. He reports a usual weight of about 230-235 lbs. Current weight 230 lbs 6.4 oz; height 5ft 10 inches; BMI 33.1 kg/m2. Current diet is Regular. Patient reports eating a veggie omelet with cottage cheese, fruit cup, and milk for breakfast today. RDN offered to schedule Ensure Enlive or Boost daily, however patient declined at this time. With adequate oral intake and stable weight, no nutrition interventions at this time. RDN will continue to monitor and follow-up prn.
--- NOTE | 2024-05-27 14:46 | PC.SOCIAL ---
Addendum entered by CARLOS Nava 05/27/24 14:58: Discharge planning: railway track worker left a message with Griselda at [facility]. this afternoon requesting a call back to let this worker know what documentation they need for the pt to continue services at discharge from the hospital tomorrow. Social work to follow-up as needed. Original Note: Discharge planning: Met with pt and his this afternoon. Pt and his stated that they are receiving good care and services from [facility], [facility] which started after the pt's last hospital stay. railway track worker explained that this worker would follow-up with [facility] to find out what documentation they may need from the hospital when the pt discharges, so that services can resume for the pt again. Social work to follow-up as needed.
--- NOTE | 2024-05-27 15:22 | PM.IMPN1 ---
Progress Note: A&P Assessment and plan (1) Aspiration pneumonia: Problem details: - Patient likely has aspiration pneumonia. Given recent hospitalizations be treated as a hospital-acquired pneumonia, treat with piperacillin tazobactam. MRSA swab is pending. He is improving, afebrile, less SOB. Will hold off on treating for MRSA pneumonia or atypical pneumonia pending clinical course. - Leukocytosis is increasing, but patient has CML and Gleevec is on hold. Status: Acute (2) S/P laparoscopic cholecystectomy: Problem details: 05/01/2024. Dr. Alcaraz. Gangrenous cholecystitis. No obvious surgical complications identified on admission May 26. Status: Resolved (3) CML (chronic myelocytic leukemia): Problem details: On Gleevec, held during previous hospital stay. Restarted after discharge. Will hold again with pneumonia. Leukocytosis is increasing, monitor. 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 This has gotten much worse since discharge from the hospital. Previous hospitalization in did gotten much better. Aggressive management with compression and elevation. Family has brought in lymphedema pumps, use these twice a day. I have spoken with nursing staff about elevating legs and using compression/pumps for lymphedema. I have also discussed this with his family. They are going to work out a plan to help get the pumps on him several times a day and to encourage him to elevate his legs. 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 Previous interrogation in February 2024 showed PSVT, NSVT, AF Metoprolol started at last hospitalization for rate control Status: Acute (7) Diabetes mellitus: Problem details: Appears to be well controlled, A1c in February was 5.4. Blood sugar well controlled during previous hospital stay - blood glucoses within inpatient goal overnight, 110s to 170s. Status: Acute (8) Heart failure with reduced ejection fraction: Problem details: - chronic proBNP 1600 Trop 0.06 ->0.07 -> 0.05 Anasarca, but intravascularly depleted. Monitor I/Os Echo 04/30/2024 shows moderately increased left ventricular size, normal wall thickness, normal global systolic function, EF 56%. Global systolic RV function is normal. Moderately enlarged left atrium. [id number]-[id number] mitral regurg. Mild to moderate tricuspid regurg. Normal estimated pulmonary pressures. No significant change from 05/15/2023 Cardiovascular status has stabilized off of amlodipine and lisinopril and off of diuretics for the last few days. Now on metoprolol. Outpatient follow-up to determine optimal management of heart disease, AFib, heart failure, edema Status: Chronic (9) Anemia: Problem details: part med induced (gleevac), part ABLA from surgery, part dilutional. Hemoglobin remains stable Status: Acute Subjective Date Seen: 05/27/24 Interval history: Sergey feels better today. His family brought in his leg pumps for lymphedema. He tells me he has only been using these once a day. He told staff that he has been doing a lot of sitting in the chair at home, rather than elevating his legs. I spoke with Brianna over the phone (she is the point of contact for the family) and called for an update. She notes that Sergey doesn't want to have to put the pumps on more than once a day, but may do so if someone could help him get them on. His has a lot of health issues and is too weak to get them on him. Brianna is going to work with home health, who has been coming out to his house since his discharge from here a few weeks ago, to see if they and his extended family can work out a plan to get the pumps on him more frequently and to encourage him to elevate his legs at home. Exam Narrative: Exam Narrative: General: No acute distress. Awake, alert, oriented x3. No pallor. No jaundice. Hard of hearing. Oropharynx: Clear. Mucous membranes moist. Cardiovascular: Regular rate and rhythm. No murmurs, gallops, or rubs. Respiratory: Bibasilar crackles. Good air movement, no wheezes. Abdomen: Recent laparoscopic surgical incisions are well healed. Bowel sounds present. Soft, nondistended, nontender. Extremities: 4+ bilateral lower extremity edema. Mild erythema without excess warmth bilaterally on the shins, left more than right Const: Vital Signs, click to edit/add: Vital Signs - 24 hr 05/26/24 18:21 05/26/24 18:34 05/26/24 19:20 Temperature 98.9 F 98.7 F Pulse Rate [Pulse Oximeter] 84 68 Respiratory Rate 18 16 16 Blood Pressure [Le ft Arm] Blood Pressure [Ri ght Arm] 130/63 115/51 L Pulse Oximetry 97 97 95 Oxygen Delivery Me thod Room Air Room Air Room Air 05/27/24 01:00 05/27/24 01:00 05/27/24 01:00 Temperature 98.1 F Pulse Rate [Pulse Oximeter] 61 61 Respiratory Rate 18 18 18 Blood Pressure [Le ft Arm] 125/67 Blood Pressure [Ri ght Arm] Pulse Oximetry 98 98 [facility] 05/27/24 04:05 05/27/24 08:55 05/27/24 09:19 Temperature 97.9 F 98.1 F Pulse Rate [Pulse Oximeter] 79 70 Respiratory Rate 16 18 Blood Pressure [Le ft Arm] 138/80 Blood Pressure [Ri ght Arm] 117/59 L Pulse Oximetry 97 96 96 [facility] Room Air Room Air 05/27/24 11:00 Temperature 98.0 F Pulse Rate [Pulse Oximeter] 59 L Respiratory Rate 16 Blood Pressure [Le ft Arm] 125/56 L Blood Pressure [Ri ght Arm] Pulse Oximetry 96 [facility] Labs Labs: Laboratory Results - last 24 hr 05/26/24 05/27/24 05/27/24 18:51 04:00 06:11 WBC 37.86 H* RBC 3.09 L Hgb 9.2 L Hct 29.3 L MCV 95 MCH 30 MCHC 31 L RDW Coeff of [place]ill[place] 19.0 H Plt Count 514 H Neut % (Auto) 66.4 Lymph % (Auto) 3.9 L [place] % (Auto) 4.3 Eos % (Auto) 0.8 Baso % (Auto) 0.3 Neut # (Auto) 25.10 H Lymph # (Auto) 1.50 [place] # (Auto) 1.60 H Eos # (Auto) 0.30 Baso # (Auto) 0.10 Abs Immat Gran (auto) 9.20 H Imm/Tot Granulo (auto) 24.3 Diff Slide Review Acceptable Review Sodium 141 Potassium 3.8 Chloride 107 Carbon Dioxide 32 Anion Gap 2 L BUN 32 H Creatinine 1.2 Estimated Creat Clear 47.31 Estimated GFR 60 Glucose 117 H Calcium 7.9 L Total Bilirubin 0.7 Direct Bilirubin 0.3 AST 19 ALT 18 Alkaline Phosphatase 80 Troponin I 0.02 C-Reactive Protein 5.7 H NT-Pro-B Natriuret Pep 2120 Total Protein 5.2 L Albumin 2.8 L Urine Color Yellow Urine Appearance Clear Urine pH 5.0 Ur Specific [place] 1.015 Urine Protein Negative Urine Glucose (UA) Negative Urine Ketones Negative Urine Blood 1+ A Urine Nitrite Negative Urine Bilirubin Negative Urine Urobilinogen 0.2 Ur Leukocyte Esterase Negative Urine RBC 2-5 A Urine WBC 0-2 Ur Squamous Epith Cells Few Urine Bacteria Few A SARS-CoV-2 (PCR) Negative SARS-CoV-2 Influenza Type A (PCR) Negative PCR FLU A Influenza Type B (PCR) Negative PCR FLU B
--- NOTE | 2024-05-27 19:23 | PC.NURSE ---
: The patient is alert and orientated, VSS on RA... no reports of pain this shift. L leg 3+ pitting edema, R leg 2+ lymphedema. Lymphedema wraps and pumps were applied per order. Call light within reach. AX1 W/ GB and RW. Elevating legs above the heart while in bed. Educated on fiber to bulk up stools as well as a well balanced diet. Family likes to be given updates. GAIL WHITTAKER BSN
[2024-05-28 00:15] VITALS: PULSE 65; RESP 14; O2SAT 95
[2024-05-28 00:28] VITALS: BP 128/65; PULSE 65; RESP 14; TEMP 37; O2SAT 95
[2024-05-28] MEDS: PIPERACILLIN/TAZOBACTAM 3.375 GM in 0.9 % SODIUM CHLORIDE Mini-bag 100 ML IVPB ×2 (02:01→09:08)
[2024-05-28] MEDS: SODIUM CHLORIDE 0.9 % (FLUSH) 10 ML SYRINGE 5 ML IVF ×2 (02:04→09:07)
[2024-05-28 02:40] VITALS: BP 132/69; PULSE 63; RESP 20; TEMP 36.7; O2SAT 96
[2024-05-28 06:54] LABS: Basophils Percent Auto 0.6 % (0.0-3.0); Eosinophils Percent Auto 1.3 % (0.0-7.0); Hematocrit 28.8 % (37.0-53.0); Immature Granulocytes Pct Auto 25.1 %; Lymphocytes Percent Auto 4.4 % (20-44); Mean Corpuscular HGB Conc 31 gm/dL (32-36); Mean Corpuscular Hemoglobin 30 pg (26-34); Mean Corpuscular Volume 95 fL (80-100); Monocytes Percent Auto 4.6 % (0.0-11.0); Platelet Count* 451 K/uL (140-440); RDW Coefficient of Variation % 18.9 % (11.5-15.5); Red Blood Count 3.03 m/uL (4.30-5.90)
[2024-05-28 07:10] LABS: Chloride* 109 mmol/L (96-114); Potassium* 3.9 mmol/L (3.6-5.1); Sodium* 145 mmol/L (135-149)
--- NOTE | 2024-05-28 07:12 | PC.NURSE ---
END OF SHIFT NOTE: PT PLEASANT AND COOPERATIVE. A&O. AMBULATES A1,GB, WALKER. VOIDS FREQUENTLY. VSS ON RA; AFEBRILE. BED ALARM ON AND CALL LIGHT WITHIN PT?S REACH.?
[2024-05-28 07:13] LABS: Creatinine* 1.2 mg/dL (0.5-1.5); Est. Creatinine Clearance* 47.31; Estimated Glomerular Filt Rate 60 ml/min
[2024-05-28 07:14] LABS: Anion Gap 5 mEq/L (7-15); Blood Urea Nitrogen* 31 mg/dL (7-30); Calcium* 7.9 mg/dL (8.4-10.6); Carbon Dioxide* 31 mmol/L (20-32); Glucose* 111 mg/dL (60-115)
[2024-05-28 07:17] LABS: C Reactive Protein* 5.2 mg/dL (0.5-1.0)
[2024-05-28 07:51] LABS: Slide Review Reflex Yes; White Blood Count* 28.47 K/uL (4.50-11.00)
[2024-05-28 07:52] LABS: Slide Review Acceptable Review (Acceptable)
[2024-05-28 09:00] VITALS: RESP 18; O2SAT 98
[2024-05-28 09:01] VITALS: BP 153/77; PULSE 101; RESP 18; TEMP 36.8; O2SAT 97
[2024-05-28] MEDS: POTASSIUM CHLORIDE 10 MEQ CAPSULE ER 20 MEQ PO (09:06)
[2024-05-28] MEDS: allopurinoL 300 MG TABLET PO (09:06)
[2024-05-28] MEDS: METOPROLOL SUCCINATE (XL) 50 MG TAB PO (09:07)
[2024-05-28] MEDS: ATORVASTATIN 10 MG TABLET 20 MG PO (09:07)
[2024-05-28] MEDS: TAMSULOSIN HCL 0.4 MG CAPSULE PO (09:07)
[2024-05-28] MEDS: APIXABAN 5 MG TABLET PO (09:07)
--- NOTE | 2024-05-28 10:22 | P.DS_ITS ---
DS: Providers Provider Date Seen: 05/28/24 Date of admission: 05/26/24 18:31 Primary care physician: Luisito Wood MD Admitting Clinician: Hernandez Balderrama MD Consults: 05/26/24 18:30 Consult to Speech Therapy [CONS] Routine Comment: Reason(s) for Speech Consult:: Speech/Swallowing Eval 05/26/24 18:35 Consult to Nutrition [CONS] Routine Comment: Reason for consult:: Nutritional Consult Consult to Occupational Therapy [CONS] Routine Comment: Reason(s) for OT Consult:: Evaluate and Treat Any Restrictions?:: No Restrictions Consult to Physical Therapy [CONS] Routine Comment: Reason(s) for PT Consult:: Evaluate and Treat Any Restrictions?:: No Restrictions Consult to Doctor Of Nurse Anesthesia Practice [CONS] Routine Comment: Reason for Consult:: Discharge Planning Needs Attending Physician on discharge: Donald Morrow MD Date of Discharge: 05/28/24 DS: Diagnosis Discharge Diagnosis (1) Aspiration pneumonia: Status: Acute Problem details: - Patient likely has aspiration pneumonia. Given recent hospitalizations be treated as a hospital-acquired pneumonia, treat with piperacillin tazobactam. MRSA swab is pending. He is improving, afebrile, less SOB. Discharge on Augmentin 875 mg BID for 5 more days (2) S/P laparoscopic cholecystectomy: Status: Resolved Problem details: 05/01/2024. Dr. Alcaraz. Gangrenous cholecystitis. No obvious surgical complications identified on admission May 26. (3) CML (chronic myelocytic leukemia): Status: Chronic Problem details: On Gleevec, held during previous hospital stay. Restarted after discharge. 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 This has gotten much worse since discharge from the hospital. Previous hospitalization in did gotten much better. Aggressive management with compression and elevation. Family has brought in lymphedema pumps, use these twice a day. I have spoken with nursing staff about elevating legs and using compression/pumps for lymphedema. I have also discussed this with his family. They are going to work out a plan to help get the pumps on him several times a day and to encourage him to elevate his legs. 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 Blood sugar well controlled during previous hospital stay - blood glucoses within inpatient goal overnight, 110s to 170s. (7) Paroxysmal atrial fibrillation: Status: Acute Problem details: On anticoagulation with apixaban Dual chamber pacemaker - per family, following a recent interrogation, pacer is not functioning adequately. Previous interrogation in February 2024 showed PSVT, NSVT, AF Metoprolol started at last hospitalization for rate control (8) Heart failure with reduced ejection fraction: Status: Chronic Problem details: - chronic proBNP 1600 Trop 0.06 ->0.07 -> 0.05 Anasarca, but intravascularly depleted. Monitor I/Os Echo 04/30/2024 shows moderately increased left ventricular size, normal wall thickness, normal global systolic function, EF 56%. Global systolic RV function is normal. Moderately enlarged left atrium. [id number] mitral regurg. Mild to moderate tricuspid regurg. Normal estimated pulmonary pressures. No significant change from 05/15/2023 Outpatient follow-up to determine optimal management of heart disease, AFib, heart failure, edema (9) Anemia: Status: Acute Problem details: part med induced (gleevac), part ABLA from surgery, part dilutional. Hemoglobin remains stable DS: Summary Hospital Course Hospital Course: Chief complaint: Medical Care Narrative: Luisito Valente is a 83 year old male with CML recently hospitalized for gangrenous cholecystitis and cholecystectomy is admitted from the clinic today for progressive weakness, diarrhea and dyspnea. Patient was hospitalized here from April 28 to May 11 with acute gangrenous cholecystitis. He underwent cholecystectomy by Dr. Alcaraz on May 01. He had a slow recovery from the surgery. He recovered enough from surgery to go home. At home he was observed to still be quite weak and have a poor appetite. He was initially supplementing with Ensure 3 or 4 times a day and is now down to once a day. He was having diarrhea. This was treated with cholestyramine which cause constipation. Saturday evening, 4 days prior to admission he had a coughing and choking episode. Since then he has had a decline in his status with progressive shortness of breath and weakness. He is not aware of a fever. He is now very poorly tolerant of any activity and too weak to do much activity. His appetite is also gotten worse again over the weekend. He is not having any abdominal pain and he is not aware of a fever. He is not have any chest pain. He was seen in clinic today where he had a CT of the chest abdomen pelvis. Findings included a trace amount of fluid in the gallbladder fossa without an obvious abscess or biliary obstruction. He had right lower lobe aspiration pneumonitis with aspiration and mucus plugging and small bilateral pleural effusions right greater than left. He had sigmoid diverticulosis without diverticulitis and excess stool in the rectum consistent with fecal impaction. Laboratory tests from yesterday in clinic show a sodium 147, potassium of 4.1, chloride of 111 CO2 of 27, BUN of 32, creatinine of 1.25, white blood count of 59.0, with 40.7 neutrophils, 7.3 myelocytes, 2.5 lymphocytes and hemoglobin of 9.8 and platelet count of 635. HOSPITAL COURSE His clinical course for treatment of aspiration pneumonia improved with zosyn. He was discharged on augmentin. He will need close outpatient follow up with PCP. He was evaluated by WIRE DRAWING MACHINE OPERATOR with no concerns for aspiration. Discharge with home health care orders for RN, PT, OT, STEP DOWN SPECIALIST Time Spent with Patient Time attestation: Total time spent providing and/or coordinating discharge services: Exam Narrative: Exam Narrative: Gen: no acute distress HEENT: NCAT EOMI mmm CV: RRR normal s1 s2 Lungs: CTAB Abd: Soft,nt, nd Neuro: Alert, oriented, CN grossly intact; nonfocal screening?exam Psych: appropriate affect MSK: age appropriate muscle mass Const: Vital Signs, click to edit/add: Vital Signs - 24 hr 05/27/24 11:00 05/27/24 16:30 05/27/24 16:30 Temperature 98.0 F 97.9 F Pulse Rate [Pulse Oximeter] 59 L 89 Respiratory Rate 16 18 18 Blood Pressure [Le ft Arm] 125/56 L 136/54 L Blood Pressure [Ri ght Arm] Pulse Oximetry 96 96 96 Oxygen Delivery Me thod Room Air Room Air Room Air 05/27/24 19:00 05/28/24 00:15 05/28/24 00:15 Temperature 98.1 F Pulse Rate [Pulse Oximeter] 69 65 Respiratory Rate 18 14 14 Blood Pressure [Le ft Arm] 119/59 L Blood Pressure [Ri ght Arm] Pulse Oximetry 95 95 Oxygen Delivery Me thod Room Air Room Air 05/28/24 00:28 05/28/24 02:40 05/28/24 09:01 Temperature 98.6 F 98.1 F 98.2 F Pulse Rate [Pulse Oximeter] 65 63 101 H Respiratory Rate 14 20 18 Blood Pressure [Le ft Arm] 128/65 132/69 Blood Pressure [Ri ght Arm] 153/77 H Pulse Oximetry 95 96 97 Oxygen Delivery Me thod Room Air Room Air Room Air DS: Data Data Completed and Pending Completed studies during hospitalization: Procedures Resection of Gallbladder, Percutaneous Endoscopic Approach (04/28/24) Labs on day of discharge: Labs from last 24 hours 05/28/24 06:20 WBC 28.47 H* RBC 3.03 L Hgb 9.0 L Hct 28.8 L MCV 95 MCH 30 MCHC 31 L RDW Coeff of Guillermo 18.9 H Plt Count 451 H Neut % (Auto) 64.0 Lymph % (Auto) 4.4 L Becker % (Auto) 4.6 Eos % (Auto) 1.3 Baso % (Auto) 0.6 Neut # (Auto) 18.20 H Lymph # (Auto) 1.30 Becker # (Auto) 1.30 H Eos # (Auto) 0.40 Baso # (Auto) 0.20 Abs Immat Gran (auto) 7.10 H Imm/Tot Granulo (auto) 25.1 Diff Slide Review Acceptable Review Sodium 145 Potassium 3.9 Chloride 109 Carbon Dioxide 31 Anion Gap 5 L BUN 31 H Creatinine 1.2 Estimated Creat Clear 47.31 Estimated GFR 60 Glucose 111 Calcium 7.9 L C-Reactive Protein 5.2 H Preliminary micro results at discharge 05/27/24 04:00 Urine Culture - Preliminary Urine,Clean Catch NO GROWTH AFTER 24 HOURS Discharge Plan Discharge Disposition: Home, Self-Care Date of Admission: 05/26/24 18:31 Attending Provider on Discharge: Donald Morrow Primary Care Provider: Luisito Wood Condition: Improved Anticipated Discharge Date/Time: 05/28/24 10:09 Discharge Medications: New amoxicillin-pot clavulanate 875-125 mg tablet 1 tab PO 10 Qty: 10 0RF Continued amlodipine 5 mg tablet 5 mg PO DAILY atorvastatin 20 mg tablet 20 mg PO DAILY potassium chloride 20 mEq tablet,ER particles/crystals 20 meq PO DAILY tamsulosin 0.4 mg capsule 0.4 mg PO DAILY allopurinol 300 mg tablet 300 mg PO DAILY imatinib 100 mg tablet 200 mg PO BID Hold Instructions: Hold until appointment with Cindy Brand in [place] Eliquis 5 mg tablet 5 mg PO BID metoprolol succinate 50 mg capsule,sprinkle,ER 24hr 50 mg PO DAILY Qty: 30 0RF Discharge Orders: Discharge Order (Routine); Ordered 05/28/24 Ordered By: Donald Morrow Patient Education: Amoxicillin/Clavulanate Potassium (By mouth), High Fiber Diet (DC), Pneumonia (DC) Additional Instructions: RESUME INSTITUTIONAL NUTRITION CONSULTANT, PT, OT STEP DOWN SPECIALIST Activity Level: Activity as Tolerated Discharge Diet: Other Diet Detail: Return to previous home diet Follow Up Appointments: Luisito Wood MD [Primary Care Provider] - 06/03/24 1:40 pm ([facility] for post hospital follow up.) Forms: [employer] Info Instructions
--- NOTE | 2024-05-28 12:01 | PC.SOCIAL ---
Addendum entered by CARLOS Nava 05/28/24 15:34: Discharge planning: electrical line worker reached out to Griselda at [facility], [facility]. and she confirmed that she received all the needed documents to resume home care with the pt and that they would be reaching out to him shortly. Social work to follow-up as needed. Original Note: Discharge planning: Faxed discharge orders, H&P, and PT/OT notes to [facility] to resume home care services as requested by pt.
--- NOTE | 2024-05-28 12:12 | PC.NURSE ---
Discharge: The patient discharged home with his family... al discharge instructions were reviewed. Educated on high fiber diet for prevention of loose stools. Home care is to continue. No reports of pain. Small excoriation was noted in between buttock folds.. barrier cream was applied. Lindy WHITTAKER BSN
== END 2024-05-28 11:27 | disposition home or self-care (01) | DRG 178 ==
PROVIDERS: Admitting Provider Family Medicine; PCP Family Medicine; Visit Provider Family Medicine
DX: J69.0 Pneumonitis due to inhalation of food and vomit (principal); C92.10 Chronic myeloid leukemia, BCR/ABL-positive, not having achieved remission; I50.22 Chronic systolic (congestive) heart failure; D62 Acute posthemorrhagic anemia; Y95 Nosocomial condition; D64.81 Anemia due to antineoplastic chemotherapy; T45.1X5A Adverse effect of antineoplastic and immunosuppressive drugs, initial encounter; I11.0 Hypertensive heart disease with heart failure; E11.9 Type 2 diabetes mellitus without complications; Z90.49 Acquired absence of other specified parts of digestive tract; R60.1 Generalized edema; I48.0 Paroxysmal atrial fibrillation; Z79.01 Long term (current) use of anticoagulants; I89.0 Lymphedema, not elsewhere classified; E66.9 Obesity, unspecified; Z68.33 Body mass index [BMI] 33.0-33.9, adult; K22.4 Dyskinesia of esophagus; I25.10 Atherosclerotic heart disease of native coronary artery without angina pectoris; Z95.0 Presence of cardiac pacemaker; N40.0 Benign prostatic hyperplasia without lower urinary tract symptoms
CPT/HCPCS: 36415; 80048; 80076; 81001; 81003; 83880; 84484; 85025; 86140; 87081; 87086; 87631; 92610; 93005; 97110; 97116; 97162; 97166; 97530; 97535; A9270; J1940; J2543

== ENCOUNTER 2024-07-18 18:13 | Emergency (ER) | payer MEDICARE, OTHER, SELFPAY ==
[2024-07-18 18:18] VITALS: BP 112/52; PULSE 63; RESP 18; TEMP 36.9; O2SAT 95; BMI 33.0
--- NOTE | 2024-07-18 18:52 | CRLHL7_ITS ---
For Patients: As a result of the Century Cures Act, medical imaging exams and procedure reports are released immediately into your electronic medical record. You may view this report before your referring provider. If you have questions, please contact your health care provider. INDICATION: Shortness of breath. FINDINGS: The heart is enlarged. The is a pacemaker device upon the left side of the chest with right atrial and right ventricular leads in place. Mild interstitial edema is suspected. There are bilateral lower lobe infiltrates with a small amount pleural fluid on both sides. The bony thorax appears intact. Impression : Mild interstitial edema is suspected. There are bilateral lower lobe infiltrates with a small amount pleural fluid on both sides. Dictated by Luis Nicolas MD @ 07/18/2024 7:35:50 PM (Electronically Signed)
--- NOTE | 2024-07-18 19:29 | ED_ITS ---
HPI - General Adult General Chief complaint: Skin/Abscess/Foreign Body Stated complaint: SOB, breathing off Time Seen by Provider: 07/18/24 18:39 Source: patient and family Mode of arrival: ambulatory Limitations: no limitations History of Present Illness HPI narrative: Patient is an 83-year-old male presenting today with a couple of concerns. His biggest concern today is that he has bedsores that are really bothering him. He states that his but is painful he. He spends most of his day sitting in his recliner. He denies any fevers or chills. The other issue is that he does have chronic shortness of breath but in the last week or 2 that has gotten worse. He has to stop when going very short distances for example between rooms in his home and rest because he feels short of breath. Patient's 's sister states that she has noticed a significant change in his breathing and that he gets winded very quickly. Patient is supposed to be taking Lasix 20 mg p.o. b.i.d. but instead is taking 20 mg daily because he was difficult for him to get in and out of the chair to go to the bathroom so often. Unclear when he cut his dose in half. Patient does have a history of CML, anasarca with chronic lymphedema, paroxysmal atrial fibrillation, congestive heart failure, chronic anemia, diabetes. Related Data Home Medications ?Medication ?Instructions ?Recorded ?Confirmed allopurinol 300 mg tablet 300 mg PO DAILY 04/28/24 06/16/24 apixaban 5 mg tablet (Eliquis) 5 mg PO BID 04/28/24 06/16/24 atorvastatin 20 mg tablet 20 mg PO DAILY 04/28/24 06/16/24 imatinib 100 mg tablet 200 mg PO BID 04/28/24 06/16/24 potassium chloride 20 mEq 20 meq PO DAILY 04/28/24 06/16/24 tablet,extended release(part/cryst) tamsulosin 0.4 mg capsule 0.4 mg PO DAILY 04/28/24 06/16/24 amlodipine 5 mg tablet 5 mg PO DAILY 05/27/24 06/16/24 Previous Rx's ?Medication ?Instructions ?Recorded metoprolol succinate 50 mg capsule 50 mg PO DAILY #30 ea 05/11/24 sprlizetle, ext. release 24 hr amoxicillin 875 mg-potassium 1 tab PO 10 #10 tabs 05/28/24 clavulanate 125 mg tablet Allergies Allergy/AdvReac Type Severity Reaction Status Date / Time Iodinated Contrast Media Allergy Unknown Verified 06/16/24 09:39 Review of Systems Status of ROS: Reports: 10 or more systems reviewed and unremarkable except as noted in History and below [facility] Medical History Health care directive on file ?Z78.9 - Other specified health status (ICD-10) Aspiration pneumonia ?J69.0 - Pneumonitis due to inhalation of food and vomit (ICD-10) Anemia ?D64.9 - Anemia, unspecified (ICD-10) Weight loss, non-intentional ?R63.4 - Abnormal weight loss (ICD-10) Heart failure with reduced ejection fraction ?I50.20 - Unspecified systolic (congestive) heart failure (ICD-10) Esophageal dysmotility ?K22.4 - Dyskinesia of esophagus (ICD-10) BPH (benign prostatic hyperplasia) ?N40.0 - Benign prostatic hyperplasia without lower urinary tract symptoms (ICD-10) Chronic diarrhea ?K52.9 - Noninfective gastroenteritis and colitis, unspecified (ICD-10) Hypertension ?I10 - Essential (primary) hypertension (ICD-10) Obesity ?E66.9 - Obesity, unspecified (ICD-10) Gout ?M10.9 - Gout, unspecified (ICD-10) Paroxysmal atrial fibrillation ?I48.0 - Paroxysmal atrial fibrillation (ICD-10) Diabetes mellitus ?E11.9 - Type 2 diabetes mellitus without complications (ICD-10) Chronic acquired lymphedema ?I89.0 - Lymphedema, not elsewhere classified (ICD-10) Penile cancer ?C60.9 - Malignant neoplasm of penis, unspecified (ICD-10) Coronary artery disease ?I25.10 - Atherosclerotic heart disease of [place] coronary artery without angina pectoris (ICD-10) 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 - Chronic myeloid leukemia, BCR/ABL-positive, not having achieved remission (ICD-10) Surgical History Hx laparoscopic cholecystectomy ?Z90.49 - Acquired absence of other specified parts of digestive tract (ICD- 10) History of penectomy ?Z90.79 - Acquired absence of other genital organ(s) (ICD-10) S/P placement of cardiac pacemaker ?Z95.0 - Presence of cardiac pacemaker (ICD-10) History of arthroplasty of left knee ?Z96.652 - Presence of left artificial knee joint (ICD-10) History of coronary artery stent placement ?Z95.5 - Presence of coronary angioplasty implant and graft (ICD-10) Social History Narrative: He lives with his . Code status is full. Remote history of smoking. Rarely drinks alcohol. What is your current living situation?: I presently have a place to live Problems where you live: no known problems Problems where you live details: none In the past 12 months, utilities in danger of being shut off: no In past 12 months, lack of transportation kept you from medical appts, meetings, work, or getting things needed for daily living: no In the past 12 mos, have been you worried that your food would run out before you had money to buy more?: never true In the past 12 mos, the food you bought just didn't last and you didn't have money to buy more?: never true Highest level of school completed/degree received: high school graduate Smoking Status: Former smoker Do you use any of these nicotine containing products: None Second hand tobacco smoke exposure: No How often do you have a drink containing alcohol: monthly or less How many standard drinks containing alcohol do you have on a typical day: 1 or 2 How often do you have six or more drinks on one occasion: Never AUDIT-C Alcohol total score: 1 Non-prescribed substance use: denies use Caffeine: Yes How often does anyone, including family, friends and others, physically hurt you : never How often does anyone, including family, friends and others, insult or talk down to you: never How often does anyone, including family, friends and others, threaten you with harm: never How often does anyone, including family, friends and others, scream or curse at you: never service: Yes Exam Narrative: Exam Narrative: Well-nourished well-developed patient in no acute distress. Alert and oriented. Answers questions appropriately. Mood and affect are appropriate. Thoughts are goal oriented and rational. No tangential or magical thinking noted. Patient speaks in full sentences without needing to catch his breath. HEENT: Normocephalic atraumatic. Pupils are equally round reactive to light. Extraocular muscles are intact. Conjunctivae are moist without any icterus noted. Moist mucous membranes. Cardiovascular: Heart is regular rate and rhythm S1 and S2 are present without any murmurs. Lungs: Decreased breath sounds bilaterally with significantly decreased breath sounds on the right and end-expiratory crackles on the left base. Abdomen: Soft and nontender nondistended with normal bowel sounds. Extremities: Patient has 3+ pitting edema from the toes all the way down to the lower abdomen and back. He has scrotal swelling. Back: Patient has stage II ulcer of the intergluteal cleft. No evidence of infection. Const: Vital Signs, click to edit/add: Vital Signs - 24 hr 07/18/24 18:18 Temperature 98.4 F Pulse Rate [Pulse Oximeter] 63 Respiratory Rate 18 Blood Pressure [Ri ght Upper Arm] 112/52 L Pulse Oximetry 95 Oxygen Delivery Me thod Room Air Course Course ED Course: Decubitus ulcer was cleaned and a DuoDerm was applied. A chest x-ray, read by me, does show increased pleural effusion on the right as compared to a previous x-ray. Radiologic over-read states bilateral infiltrates but does not compared to a previous x-ray. His lab work is not compatible with acute infection, CRP is not significantly elevated, there is no WBC. And clinically the patient does not appear to have pneumonia as he does not have an increased cough, fever, weakness. His BNP is around his baseline at 1890. CBC shows chronic anemia that is unchanged. Total protein albumin levels are down, but around his baseline also. At this time discussed results with patient and family. I do think he did increase his Lasix back to 40 mg daily. I would like for him to have close follow-up with primary care team next week. And we will also get him information so that he can set up the wound clinic appointment for his decubitus ulcer. Vital Signs Vital signs: Initial Vital Signs Temperature 98.4 F 07/18/24 18:18 Temperature Source Temporal Artery Scan 07/18/24 18:18 Pulse Rate 63 07/18/24 18:18 Pulse Rhythm Regular 07/18/24 18:18 Respiratory Rate 18 07/18/24 18:18 Blood Pressure 112/52 L 07/18/24 18:18 Blood Pressure Mean 72 07/18/24 18:18 Blood Pressure Position Sitting 07/18/24 18:18 Pulse Oximetry 95 07/18/24 18:18 Oxygen Delivery Method Room Air 07/18/24 18:18 Vital Signs Temperature 98.4 F 07/18/24 18:18 Pulse Rate 63 07/18/24 18:18 Respiratory Rate 18 07/18/24 18:18 Blood Pressure 112/52 L 07/18/24 18:18 Pulse Oximetry 95 07/18/24 18:18 Oxygen Delivery Method Room Air 07/18/24 18:18 Temperature 98.4 F 07/18/24 18:18 Pulse Rate 63 07/18/24 18:18 Respiratory Rate 18 07/18/24 18:18 Blood Pressure 112/52 L 07/18/24 18:18 Pulse Oximetry 95 07/18/24 18:18 Oxygen Delivery Method Room Air 07/18/24 18:18 Medical Decision Making MDM Narrative Medical decision making narrative: 83-year-old male with anasarca and pleural effusion, decubitus ulcer. Plan per above. Lab Data Lab results reviewed: Yes I reviewed the patient's lab results Labs: Lab Results 07/18/24 Range/Units 19:35 WBC 9.25 (4.50-11.00) K/uL RBC 3.14 L (4.30-5.90) m/uL Hgb 9.2 L (13.5-17.5) gm/dL Hct 30.4 L (37.0-53.0) % MCV 97 (80-100) fL MCH 29 (26-34) pg MCHC 30 L (32-36) gm/dL RDW Coeff of Guillermo 18.6 H (11.5-15.5) % Plt Count 120 L (140-440) K/uL Neut % (Auto) 85.5 H (42.0-72.0) % Lymph % (Auto) 6.9 L (20-44) % [place] % (Auto) 6.3 (0.0-11.0) % Eos % (Auto) 1.0 (0.0-7.0) % Baso % (Auto) 0.1 (0.0-3.0) % Neut # (Auto) 7.90 H (1.7-7.0) K/uL Lymph # (Auto) 0.60 L (0.90-2.90) K/uL [place] # (Auto) 0.60 (0.00-0.90) K/UL Eos # (Auto) 0.09 (0.00-0.50) K/uL Baso # (Auto) 0.01 (0.00-0.30) K/uL Abs Immat Gran (auto) 0.02 (0.00-0.30) K/uL Imm/Tot Granulo (auto) 0.2 % Sodium 140 (135-149) mmol/L Potassium 4.4 (3.6-5.1) mmol/L Chloride 112 (96-114) mmol/L Carbon Dioxide 25 (20-32) mmol/L Anion Gap 3 L (7-15) mEq/L BUN 23 (7-30) mg/dL Creatinine 1.5 (0.5-1.5) mg/dL Estimated Creat Clear 37.85 Estimated GFR 46 ml/min Glucose 115 (60-115) mg/dL Calcium 8.1 L (8.4-10.6) mg/dL Total Bilirubin 0.9 (0.1-1.5) mg/dL Direct Bilirubin 0.3 (0.0-0.5) mg/dL AST 16 (12-35) U/L ALT 13 (4-50) U/L Alkaline Phosphatase 79 (40-150) U/L Troponin I < 0.01 L (0.01-0.04) ng/mL C-Reactive Protein 1.2 H (0.5-1.0) mg/dL NT-Pro-B Natriuret Pep 1890 pg/mL Total Protein 4.9 L (6.0-8.3) g/dL Albumin 2.7 L (3.3-5.0) g/dL Imaging Data Chest x-ray: Attestation: I have reviewed the pertinent imaging results. Radiologist's impression: INDICATION: Shortness of breath. FINDINGS: The heart is enlarged. The is a pacemaker device upon the left side of the chest with right atrial and right ventricular leads in place. Mild interstitial edema is suspected. There are bilateral lower lobe infiltrates with a small amount pleural fluid on both sides. The bony thorax appears intact. Impression : Mild interstitial edema is suspected. There are bilateral lower lobe infiltrates with a small amount pleural fluid on both sides. Discharge Plan Discharge Clinical Impression: Anasarca, Decubitus ulcer, Pleural effusion Patient Disposition: Home, Self-Care Condition: Stable Additional Instructions: Increased your Lasix to 40 mg daily. You should follow-up with your primary care provider early this coming week. You should have a re-evaluation of your breathing, and blood work since you will be increasing your Lasix to 40 mg daily. You should also call the Wound Clinic on Saturday morning to set up a follow-up appointment for your decubitus ulcer. Return to the emergency room if you develop worsening shortness of breath, weakness, vomiting or fever. Prescriptions: No Action amlodipine 5 mg tablet 5 mg PO DAILY amoxicillin-pot clavulanate 875-125 mg tablet 1 tab PO 10 Qty: 10 0RF atorvastatin 20 mg tablet 20 mg PO DAILY potassium chloride 20 mEq tablet,ER particles/crystals 20 meq PO DAILY tamsulosin 0.4 mg capsule 0.4 mg PO DAILY allopurinol 300 mg tablet 300 mg PO DAILY imatinib 100 mg tablet 200 mg PO BID Hold Instructions: Hold until appointment with Cindy Brand in [place] Eliquis 5 mg tablet 5 mg PO BID metoprolol succinate 50 mg capsule,sprinkle,ER 24hr 50 mg PO DAILY Qty: 30 0RF Follow Up/Referrals: Luisito Wood MD [Primary Care Provider] - Stand Alone Forms: [employer] Info Instructions
[2024-07-18 19:41] LABS: Basophils Absolute Auto 0.01 K/uL (0.00-0.30); Basophils Percent Auto 0.1 % (0.0-3.0); Eosinophils Absolute Auto 0.09 K/uL (0.00-0.50); Hematocrit 30.4 % (37.0-53.0); Hemoglobin* 9.2 gm/dL (13.5-17.5); Immature Granulocytes Abs Auto 0.02 K/uL (0.00-0.30); Immature Granulocytes Pct Auto 0.2 %; Lymphocytes Percent Auto 6.9 % (20-44); Mean Corpuscular HGB Conc 30 gm/dL (32-36); Mean Corpuscular Hemoglobin 29 pg (26-34); Mean Corpuscular Volume 97 fL (80-100); Monocytes Percent Auto 6.3 % (0.0-11.0); Neutrophils Percent Auto 85.5 % (42.0-72.0); Platelet Count* 120 K/uL (140-440); RDW Coefficient of Variation % 18.6 % (11.5-15.5); Red Blood Count 3.14 m/uL (4.30-5.90); White Blood Count* 9.25 K/uL (4.50-11.00)
[2024-07-18 19:43] LABS: Slide Review Reflex No
[2024-07-18 19:54] LABS: Albumin* 2.7 g/dL (3.3-5.0); Chloride* 112 mmol/L (96-114); Potassium* 4.4 mmol/L (3.6-5.1); Sodium* 140 mmol/L (135-149)
[2024-07-18 19:56] LABS: Aspartate Amino Transferase* 16 U/L (12-35); Bilirubin Direct* 0.3 mg/dL (0.0-0.5); Bilirubin Total* 0.9 mg/dL (0.1-1.5); Total Protein* 4.9 g/dL (6.0-8.3)
[2024-07-18 19:57] LABS: Alanine Aminotransferase* 13 U/L (4-50); Alkaline Phosphatase* 79 U/L (40-150); Creatinine* 1.5 mg/dL (0.5-1.5); Est. Creatinine Clearance* 37.85; Estimated Glomerular Filt Rate 46 ml/min
[2024-07-18 19:58] LABS: Anion Gap 3 mEq/L (7-15); Blood Urea Nitrogen* 23 mg/dL (7-30); Calcium* 8.1 mg/dL (8.4-10.6); Carbon Dioxide* 25 mmol/L (20-32); Glucose* 115 mg/dL (60-115)
[2024-07-18 20:01] LABS: C Reactive Protein* 1.2 mg/dL (0.5-1.0)
[2024-07-18 20:18] LABS: NT Pro B Type NatriureticPept* 1890 pg/mL; Troponin I* < 0.01 ng/mL (0.01-0.04)
== END 2024-07-18 20:50 | disposition home or self-care (01) ==
PROVIDERS: Emergency Provider Family Medicine; PCP Family Medicine
DX: R60.1 Generalized edema (principal); L89.152 Pressure ulcer of sacral region, stage 2; J90 Pleural effusion, not elsewhere classified
CPT/HCPCS: 36415; 71046; 80048; 80076; 83880; 84484; 85025; 86140; 99284

== ENCOUNTER 2024-09-27 16:29 | Emergency (ER) | payer MEDICARE, OTHER, SELFPAY ==
[2024-09-27 16:44] VITALS: BP 113/62; PULSE 69; RESP 20; TEMP 37.2; O2SAT 96; BMI 35.7
--- NOTE | 2024-09-27 17:11 | ED.GENADULT ---
HPI - General Adult General Chief complaint: Skin/Abscess/Foreign Body Stated complaint: Boil on Foot (R) Time Seen by Provider: 09/27/24 16:32 History of Present Illness HPI narrative: This 83-year-old male comes in with his and daughter because of blistering on his right foot from chronic lymphedema. 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 This required removal of lymph nodes and now he has chronic lymphedema in both lower extremities. He states that he does wear stockings and does have a air compressor mechanism that helps remove this fluid from his lower extremities. He uses that once a day apparently. He states that he sleeps in a recliner. He is ambulatory with the assistance of a cane. He has large bilateral pedal edema with some blistering due to fluid seeping out through the skin. He does not report any fevers. Related Data Home Medications ?Medication ?Instructions ?Recorded ?Confirmed allopurinol 300 mg tablet 300 mg PO DAILY 04/28/24 09/27/24 apixaban 5 mg tablet (Eliquis) 5 mg PO BID 04/28/24 09/27/24 atorvastatin 20 mg tablet 20 mg PO DAILY 04/28/24 09/27/24 imatinib 100 mg tablet 400 mg PO DAILY 04/28/24 09/27/24 potassium chloride 20 mEq 20 meq PO DAILY 04/28/24 09/27/24 tablet,extended release(part/cryst) tamsulosin 0.4 mg capsule 0.4 mg PO DAILY 04/28/24 09/27/24 amlodipine 5 mg tablet 5 mg PO DAILY 05/27/24 06/16/24 acetaminophen 500 mg tablet 1,000 mg PO Q6H PRN 09/27/24 09/27/24 (Acetaminophen Extra Strength) cetirizine 10 mg tablet (24Hour 10 mg PO DAILY 09/27/24 09/27/24 Allergy) cholecalciferol (vitamin D3) 50 50 mcg PO DAILY 09/27/24 09/27/24 mcg (2,000 unit) capsule fluconazole 150 mg tablet 150 mg PO QWEEK 09/27/24 09/27/24 latanoprost 0.005 % eye drops 1 drp ophthalmic (eye) HS 09/27/24 09/27/24 loperamide 2 mg capsule 2 mg PO PRN 09/27/24 Previous Rx's ?Medication ?Instructions ?Recorded metoprolol succinate 50 mg capsule 50 mg PO DAILY #30 ea 05/11/24 sprinkle, ext. release 24 hr amoxicillin 875 mg-potassium 1 tab PO 10 #10 tabs 05/28/24 clavulanate 125 mg tablet Allergies Allergy/AdvReac Type Severity Reaction Status Date / Time Iodinated Contrast Media Allergy Severe Verified 09/27/24 16:52 doxycycline AdvReac Intermediate Rash Verified 09/27/24 16:52 losartan AdvReac Mild Headache Verified 09/27/24 16:52 Review of Systems Status of ROS: Reports: 10 or more systems reviewed and unremarkable except as noted in History and below Narrative: Constitutional: No fevers, no weight gain or loss. Eyes: No discharge. No vision changes. HENT: No congestion, no sore throat, no ear pain. Cardiovascular: No chest pain, no palpitations. Respiratory: No shortness of breath, no wheezes, no cough. Gastrointestinal: No abdominal pain, no vomiting, no diarrhea. Genitourinary: No dysuria, no hematuria. Musculoskeletal: Chronic bilateral lower extremity lymphedema. Skin: No rashes, no pruritis. Neurological: No dizziness, weakness, sensory change, speech change. Endo/Heme/Allergies: No bruising or bleeding. No polydipsia. Pysch: no suicidality, no anxiety, no insomnia. All other systems reviewed and are negative. [facility] Medical History Health care directive on file ?Z78.9 - Other specified health status (ICD-10) Aspiration pneumonia ?J69.0 - Pneumonitis due to inhalation of food and vomit (ICD-10) Anemia ?D64.9 - Anemia, unspecified (ICD-10) Weight loss, non-intentional ?R63.4 - Abnormal weight loss (ICD-10) Heart failure with reduced ejection fraction ?I50.20 - Unspecified systolic (congestive) heart failure (ICD-10) Esophageal dysmotility ?K22.4 - Dyskinesia of esophagus (ICD-10) BPH (benign prostatic hyperplasia) ?N40.0 - Benign prostatic hyperplasia without lower urinary tract symptoms (ICD-10) Chronic diarrhea ?K52.9 - Noninfective gastroenteritis and colitis, unspecified (ICD-10) Hypertension ?I10 - Essential (primary) hypertension (ICD-10) Obesity ?E66.9 - Obesity, unspecified (ICD-10) Gout ?M10.9 - Gout, unspecified (ICD-10) Paroxysmal atrial fibrillation ?I48.0 - Paroxysmal atrial fibrillation (ICD-10) Diabetes mellitus ?E11.9 - Type 2 diabetes mellitus without complications (ICD-10) Chronic acquired lymphedema ?I89.0 - Lymphedema, not elsewhere classified (ICD-10) Penile cancer ?C60.9 - Malignant neoplasm of penis, unspecified (ICD-10) Coronary artery disease ?I25.10 - Atherosclerotic heart disease of [place] coronary artery without angina pectoris (ICD-10) 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 - Chronic myeloid leukemia, BCR/ABL-positive, not having achieved remission (ICD-10) Surgical History Hx laparoscopic cholecystectomy ?Z90.49 - Acquired absence of other specified parts of digestive tract (ICD-10) History of penectomy ?Z90.79 - Acquired absence of other genital organ(s) (ICD-10) S/P placement of cardiac pacemaker ?Z95.0 - Presence of cardiac pacemaker (ICD-10) History of arthroplasty of left knee ?Z96.652 - Presence of left artificial knee joint (ICD-10) History of coronary artery stent placement ?Z95.5 - Presence of coronary angioplasty implant and graft (ICD-10) Social History Narrative: He lives with his . Code status is full. Remote history of smoking. Rarely drinks alcohol. What is your current living situation?: I presently have a place to live Problems where you live: no known problems Problems where you live details: none In the past 12 months, utilities in danger of being shut off: no In the past 12 mos, have been you worried that your food would run out before you had money to buy more?: never true In the past 12 mos, the food you bought just didn't last and you didn't have money to buy more?: never true Highest level of school completed/degree received: high school graduate Smoking Status: Former smoker Do you use any of these nicotine containing products: None Second hand tobacco smoke exposure: No How often do you have a drink containing alcohol: monthly or less How many standard drinks containing alcohol do you have on a typical day: 1 or 2 How often do you have six or more drinks on one occasion: Never AUDIT-C Alcohol total score: 1 Non-prescribed substance use: denies use Caffeine: Yes How often does anyone, including family, friends and others, physically hurt you: never How often does anyone, including family, friends and others, insult or talk down to you: never How often does anyone, including family, friends and others, threaten you with harm: never How often does anyone, including family, friends and others, scream or curse at you: never service: Yes Exam Narrative: Exam Narrative: Constitutional: Well-developed, well-nourished, no acute distress. HEENT: Normocephalic, atraumatic. Neck: Normal range of motion. Nontender. Supple. Heart: Regular. No murmurs. Normal rate. Intact distal pulses. Lungs: Clear to auscultation. No chest discomfort. No wheezes, rhonchi, or rales. Abdomen: Normal bowel sounds. Nontender. No rebound tenderness. Genitalia: Deferred. Back: No midline tenderness. Normal range of motion. Extremities: Normal range of motion. Very large lower extremities bilaterally due to chronic lymphedema. Sensation is minimal in his feet due to diabetes and lymphedema. There are a couple blisters on the dorsal aspect of his right foot. No sign of purulence or erythema that would suggest infection. Skin: Intact. No rash. Warm. No erythema or pallor. Neurologic: No altered sensation. No weakness. Alert and oriented. Psychiatric: No suicidality. No anxiety or depression. No insomnia. Nursing notes and vitals signs are reviewed. Const: Vital Signs, click to edit/add: Vital Signs - 24 hr 09/27/24 16:44 Temperature 98.9 F Pulse Rate [Pulse Oximeter] 69 Respiratory Rate 20 Blood Pressure [Ri ght Upper Arm] 113/62 Pulse Oximetry 96 Oxygen Delivery Me thod Room Air Course Vital Signs Vital signs: Initial Vital Signs Temperature 98.9 F 09/27/24 16:44 Temperature Source Temporal Artery Scan 09/27/24 16:44 Pulse Rate 69 09/27/24 16:44 Respiratory Rate 20 09/27/24 16:44 Blood Pressure 113/62 09/27/24 16:44 Blood Pressure Mean 79 09/27/24 16:44 Blood Pressure Position Sitting 09/27/24 16:44 Pulse Oximetry 96 09/27/24 16:44 Oxygen Delivery Method Room Air 09/27/24 16:44 Vital Signs Temperature 98.9 F 09/27/24 16:44 Pulse Rate 69 09/27/24 16:44 Respiratory Rate 20 09/27/24 16:44 Blood Pressure 113/62 09/27/24 16:44 Pulse Oximetry 96 09/27/24 16:44 Oxygen Delivery Method Room Air 09/27/24 16:44 Temperature 98.9 F 09/27/24 16:44 Pulse Rate 69 09/27/24 16:44 Respiratory Rate 20 09/27/24 16:44 Blood Pressure 113/62 09/27/24 16:44 Pulse Oximetry 96 09/27/24 16:44 Oxygen Delivery Method Room Air 09/27/24 16:44 Medical Decision Making MDM Narrative Medical decision making narrative: This patient has a chronic condition causing lymphedema. His primary providers do not want him to be on diuretic as the lymphedema is related to lymph node removal from a surgery related to a testicular cancer many years ago. The patient is not showing any sign of infection or cellulitis. One of the blisters is draining a small amount of fluid. The patient's feet and lower legs were covered with gauze where there was blistering and then Manuelito wraps were applied. The patient has a follow-up blood draw and a clinic tomorrow and is instructed to follow-up with his primary physician for ongoing management. I did recommend that he keep his legs up above his heart as much as possible but encouraged activity to maintain his strength. I also describe signs and symptoms that would indicate infection or other complication. Discharge Plan Discharge Clinical Impression: Chronic acquired lymphedema Patient Disposition: Home w/ Parent or Adult Condition: Unchanged Additional Instructions: Keep legs elevated above the heart as much as possible. Follow up with MD as scheduled and needed. Return if worsening symptoms occur. Prescriptions: No Action amlodipine 5 mg tablet 5 mg PO DAILY amoxicillin-pot clavulanate 875-125 mg tablet 1 tab PO 10 Qty: 10 0RF atorvastatin 20 mg tablet 20 mg PO DAILY potassium chloride 20 mEq tablet,ER particles/crystals 20 meq PO DAILY tamsulosin 0.4 mg capsule 0.4 mg PO DAILY allopurinol 300 mg tablet 300 mg PO DAILY imatinib 100 mg tablet 400 mg PO DAILY Eliquis 5 mg tablet 5 mg PO BID metoprolol succinate 50 mg capsule,sprinkle,ER 24hr 50 mg PO DAILY Qty: 30 0RF loperamide 2 mg capsule 2 mg PO PRN acetaminophen [Acetaminophen Extra Strength] 500 mg tablet 1,000 mg PO Q6H PRN cetirizine [24Hour Allergy] 10 mg tablet 10 mg PO DAILY cholecalciferol (vitamin D3) 50 mcg (2,000 unit) capsule 50 mcg PO DAILY latanoprost 0.005 % drops 1 drp ophthalmic (eye) HS fluconazole 150 mg tablet 150 mg PO QWEEK Rx Instructions: x4 weeks Follow Up/Referrals: Luisito Wood MD [Primary Care Provider] - Stand Alone Forms: [facility] Info Instructions
[2024-09-27 17:45] VITALS: BP 119/72; PULSE 68; RESP 16; TEMP 37.2
== END 2024-09-27 17:51 | disposition home or self-care (01) ==
PROVIDERS: Emergency Provider Emergency Medicine Emergency Medical Services; PCP Family Medicine
DX: I89.0 Lymphedema, not elsewhere classified (principal)
CPT/HCPCS: 99282; 99283; 99284

== ENCOUNTER 2024-11-03 15:53 | Inpatient (IN) | payer MEDICARE, OTHER, SELFPAY ==
--- OUTSIDE RECORDS SUMMARY | 2024-11-03 15:56 | XMS_ITS | Clinical Summary ---
Author Organization [facility] Address [place], [place] [address] Care Team Providers Care Director Of Bands Name Role Phone Luisito Wood MD Primary Care Provider Leon Dodd Unavailable Jovanny Shine MD Unavailable Unavail able Kane John MD Unavailable Lenore Ortiz MD Unavailable [phone] Cindy Brand NP Unavailable [facility] Unavailable Allergies Active Allergy Reactions Criticality Noted Date Comments Doxycycline Hyclate Rash 12/28/2019 Diatrizoate Allergen *Unknown - Pt Doesn't Remember Unknown 01/22/2008 PT HAD HEART STUDY AT AGE 43-DOESN'T RECALL REACTION JUST THAT THE DR TOLD HIM HE HAD AN ALLERGY TO CONTRAST. PREMEDICATING PT/USING NONIONIC FOR SAFETY. Losartan Headache 03/28/2018 Medications latanoprost (XALATAN) 0.005 % ophthalmic solution Place 1 Drop into both eyes once daily in the evening. 2.5 mL 0 02/20/20 12 Active nitroglycerin (NITROSTAT) 0.4 mg sublingual tabletIndications :Atherosclerosis of coronary artery without angina pectoris, unspecified vessel or lesion type, unspecified whether venetie ira or transplanted heart Place 1 tablet under the tongue every 5 minutes if needed. 25 tablet 04/09/20 18 Active Cholecalciferol, Vitamin D3, (VITAMIN D-3) 2,000 unit tablet Take 2,000 Units by mouth once daily. Active acetaminophen (TYLENOL EXTRA STRENGTH) 500 mg tablet Take 1,000 mg by mouth every 6 hours if needed. Max acetaminophen dose: 4000mg in 24 hrs. Active durable medical equipment (DME)Indications: Lymphedema of both lower extremities Lymphedema Compression Device 1 Each 05/15/20 23 Active allopurinoL (ZYLOPRIM) 300 mg tabletIndications :CML (chronic myeloid leukemia) (HC) Take 1 Tablet (300 mg) by mouth once daily. 90 Tablet 3 01/20/20 24 Active Eliquis 5 mg tabletIndications :Paroxysmal A-fib (HC) TAKE ONE TABLET BY MOUTH TWICE A DAY 180 Tablet 3 01/28/20 24 Active cetirizine (Allergy Relief, cetirizine,) 10 mg tabletIndications :Rash Take 1 Tablet (10 mg) by mouth once daily. 30 Tablet 2 03/02/20 24 Active atorvastatin (LIPITOR) 20 mg tabletIndications :Hyperlipidemia, unspecified hyperlipidemia type Take 1 Tablet (20 mg) by mouth once daily. 90 Tablet 3 03/17/20 24 Active tamsulosin (FLOMAX) 0.4 mg capsuleIndication s:Benign prostatic hyperplasia, unspecified whether lower urinary tract symptoms present Take 1 Capsule (0.4 mg) by mouth once daily after a meal. 90 Capsule 3 03/17/20 24 Active metoprolol succinate (TOPROL XL) 50 mg sustained-release tabletIndications :Wide-complex tachycardia Take 1 Tablet (50 mg) by mouth once daily. 90 Tablet 3 05/19/20 24 Active loperamide (IMODIUM) 2 mg capsuleIndication s:CML (chronic myeloid leukemia) (HC),Renal insufficiency TAKE 2 CAPSULES (4 MG) BY MOUTH WITH FIRST LOOSE STOOL, THEN TAKE 1 CAPSULE (2 MG) WITH EACH SUBSEQUENT LOOSE STOOL (MAX OF 8 CAPSULES/16 MG IN 24 HOURS) 60 Capsule 5 09/14/20 24 Active furosemide (LASIX) 20 mg tabletIndications :HFrEF (heart failure with reduced ejection fraction) (HC) Take 2 Tablets (40 mg) by mouth once daily in the morning. 120 Tablet 5 10/05/20 24 Active potassium chloride (KLOR-CON M20) 20 mEq extended-release tablet (part/cryst)Indic ations:HFrEF (heart failure with reduced ejection fraction) (HC) Take 1 Tablet (20 mEq) by mouth once daily with a meal. 60 Tablet 5 10/05/20 24 Active ferrous sulfate, 65 mg elemental, 324 mg (65 mg iron) Delayed-Release tablet Take 324 mg by mouth once daily. Active prochlorperazine (COMPAZINE) 5 mg tabletIndications :CML (chronic myeloid leukemia) (HC) Take 1 Tablet (5 mg) by mouth every 8 hours if needed for Nausea/Vomiting. 30 Tablet 1 10/12/20 24 Active imatinib (GLEEVEC) 100 mg tabletIndications :CML (chronic myeloid leukemia) (HC) Take 4 tablets (400 mg) by mouth once daily. 120 Tablet 3 10/26/19 25 Active predniSONE (DELTASONE) 20 mg tabletIndications :History of gout 2 tablets p.o. daily for 5 days. 10 Tablet 1 10/29/19 25 Active predniSONE (DELTASONE) 5 mg tabletIndications :Acute gout of ankle, unspecified cause, unspecified laterality [The details of the medication are not available because there are pending changes by a home health clinician.] 10 Tablet 2 05/18/20 24 025 Discontin ued(*Sahra ent states no longer taking) imatinib (GLEEVEC) 100 mg tabletIndications :CML (chronic myeloid leukemia) (HC) [The details of the medication are not available because there are pending changes by a home health clinician.] 120 Tablet 3 06/29/20 24 025 Discontin ued(*Sahra ent states no longer taking) potassium chloride (KLOR-CON M20) 20 mEq extended-release tablet (part/cryst)Indic ations:Hypokalemi a Take 1 Tablet (20 mEq) by mouth once daily with a meal. 07/25/20 24 024 Discontin ued(Dupli renee therapy (E-cancel not sent)) fluconazole (DIFLUCAN) 150 mg tabletIndications :Intertrigo [The details of the medication are not available because there are pending changes by a home health clinician.] 1 Tablet 09/16/20 24 024 Discontin ued(*Med complete/ Regimen complete/ Level of care change) ondansetron (ZOFRAN) 4 mg tabletIndications :CML (chronic myeloid leukemia) (HC) Take 1 Tablet (4 mg) by mouth three times daily for 20 days. 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 Lenore Ortiz 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 Penile cancer 04/30/2016 Mixed hyperlipidemia 02/03/2016 Non morbid obesity due to excess calories 2015 Esophageal dysmotility 11/09/2015 BPH (benign prostatic hyperplasia) 04/29/2013 Type II or unspecified type diabetes mellitus without mention of complication, not stated as uncontrolled 01/22/2008 Coronary atherosclerosis of unspecified type of vessel, venetie ira or graft 12/05/2006 Unspecified glaucoma 12/05/2006 Unspecified essential hypertension 12/05/2006 Diverticulosis of colon (without mention of hemo rrhage) 12/05/2006 Allergy to intravenous contrast Resolved Problems Problem Noted Date Diagnosed Date Resolved Date Acute leukemia 08/22/2019 09/15/2019 DUNCAN (acute kidney injury) 08/22/2019 Transient complete heart block 04/09/2018 12/22/2019 Syncope 03/05/2018 08/30/2021 Ulcerative colitis, unspecified 12/05/2006 02/02/2015 Overview (12/05/2006): quiescent '05 Other and unspecified hyperlipidemia 12/05/2006 02/03/2016 Obesity, unspecified 12/05/2006 016 Other abnormal glucose 12/05/200602/02 Encounters Date Type Department Care Team Description 11/03/2024 9:00 AM MEDICAL SERVICES ASSISTANT Home Care Visit Count Includes [facility] [address] [place] [phone] Jonah Sanabria, PT PT - REASSESSMENT 11/03/2024 Nurse Triage [facility] [address] [place] [address] Luisito Wood MD Weight; Leg Swelling 11/03/2024 Telephone Count Includes [facility] [address] [place] [address] Alycia Gutierrez, OT Home Care (7+ pounds gain in 24 hrs.) 11/02/2024 11:45 AM MEDICAL SERVICES ASSISTANT Home Care Visit Count Includes [facility] [address] [place] [phone] Liliana Cisneros CONDUCTOR/BRAKEMAN - LONG VISIT 11/02/2024 11:30 AM MEDICAL SERVICES ASSISTANT Home Care Visit Count Includes [facility] [address] [place] [phone] Nancy Cason RN SN - HOME VISIT 11/02/2024 Orders Only [facility] [address] [place] [address] Luisito Wood MD <No scans attached> 11/02/2024 Orders Only [facility] [address] [place] [phone] Lenore Ortiz MD Lab 11/02/2024 Orders Only Count Includes [facility] [address] [place] [phone] Lenore Ortiz MD <No scans attached> 10/30/2024 10:30 AM MEDICAL SERVICES ASSISTANT Home Care Visit Count Includes [facility] [address] [place] [phone] Nancy Cason, PANFILO SN - HOME VISIT 10/29/2024 3:00 PM MEDICAL SERVICES ASSISTANT Home Care Visit Count Includes [facility] [address] [place] [phone] Jonah Dietrich RN SN - WOUND/OSTOMY CHART CONSULT 10/29/2024 11:45 AM MEDICAL SERVICES ASSISTANT Home Care Visit Count Includes [facility] [address] [place] [phone] Liliana Cisneros CONDUCTOR/BRAKEMAN - HOME VISIT 10/29/2024 Refill [facility] [address] [place] [address] Luisito Wood MD Refill Request (Prednisone) 10/29/2024 Telephone [facility] [address] [address] Cindy Brand, GAMMA RAY OPERATOR Appointment 10/28/2024 12:00 PM MEDICAL SERVICES ASSISTANT Home Care Visit Count Includes [facility] [address] [place] [phone] Alycia Gutierrez, JOANNA OT - HOME VISIT 10/28/2024 11:00 AM MEDICAL SERVICES ASSISTANT Home Care Visit Count Includes [facility] [address] [place] [phone] Sowmya Malcolm, CATERING ASSISTANT CATERING ASSISTANT - HOME VISIT 10/27/2024 9:00 AM MEDICAL SERVICES ASSISTANT Home Care Visit Count Includes [facility] [address] [place] [phone] Jonah Sanabria, PT PT - HOME VISIT 10/27/2024 Travel 10/26/2024 1:00 PM MEDICAL SERVICES ASSISTANT Home Care Visit Count Includes [facility] [address] [place] [phone] Liliana Cisneros CONDUCTOR/BRAKEMAN - HOME VISIT 10/26/2024 11:30 AM MEDICAL SERVICES ASSISTANT Home Care Visit Count Includes [facility] [address] [place] [phone] Nancy Cason RN SN - HOME VISIT 10/26/2024 Orders Only [facility] [address] [facility] [place] [address] Luisito Wood MD <No scans attached> 10/23/2024 11:00 AM MEDICAL SERVICES ASSISTANT Home Care Visit Count Includes [facility] [address] [place] [address], [place] [phone] Nancy Cason RN SN - HOME VISIT 10/23/2024 Home Care Visit Count Includes [facility] [address] [place] [phone] Alycia Gutierrez, OT CARE COORDINATION 10/22/2024 12:15 PM MEDICAL SERVICES ASSISTANT Home Care Visit Count Includes [facility] [address] [place] [phone] Liliana Cisneros CONDUCTOR/BRAKEMAN - HOME VISIT 10/22/2024 Orders Only [facility] [address] [place] [phone] Lenore Ortiz MD <No scans attached> 10/22/2024 Telephone [facility] [address] [place] [address] Cindy Brand, GAMMA RAY OPERATOR Appointment 10/21/2024 10:30 AM MEDICAL SERVICES ASSISTANT Home Care Visit Count Includes [facility] [address] [place] [address], [place] [phone] Sowmya Malcolm CATERING ASSISTANT CATERING ASSISTANT - HOME VISIT 10/20/2024 2:15 PM MEDICAL SERVICES ASSISTANT Home Care Visit Count Includes [facility] [address] [place] [phone] Alycia Gutierrez, OT OT - EDEMA/LYMPHEDEMA HOME VISIT 10/20/2024 9:00 AM MEDICAL SERVICES ASSISTANT Home Care Visit Count Includes [facility] [address] [place] [phone] Jonah Sanabria, PT PT - HOME VISIT 10/20/2024 7:00 AM MEDICAL SERVICES ASSISTANT Home Care Visit Count Includes [facility] [address] [place] [phone] Jonah Dietrich, RN SN - WOUND/OSTOMY CHART CONSULT 10/19/2024 10:45 AM MEDICAL SERVICES ASSISTANT Home Care Visit Count Includes [facility] [address] [facility] [place] [phone] Liliana Cisneros CONDUCTOR/BRAKEMAN - HOME VISIT 10/19/2024 10:30 AM MEDICAL SERVICES ASSISTANT Home Care Visit Count Includes [facility] [address] [place] [address], [place] [phone] Nancy Cason, PANFILO SN - HOME VISIT 10/19/2024 Home Care Visit Count Includes [facility] [address] [place] [address], [place] [phone] Nancy Cason, PANFILO SN - HH AIDE/CATERING ASSISTANT SUPERVISORY VISIT 10/16/2024 2:15 PM MEDICAL SERVICES ASSISTANT Home Care Visit Count Includes [facility] [address] [place] [address], [place] [phone] Liliana Cisneros CONDUCTOR/BRAKEMAN - HOME VISIT 10/15/2024 3:30 PM MEDICAL SERVICES ASSISTANT Home Care Visit Count Includes [facility] [address] [place] [phone] Nancy Cason, PANFILO SN - HOME VISIT 10/15/2024 Home Care Visit Count Includes [facility] [address] [place] [phone] Alycia Gutierrez, OT OT - EDEMA/LYMPHEDEMA HOME VISIT 10/15/2024 Orders Only [facility] [address] [place] [address] Luisito Wood MD <No scans attached> 10/13/2024 12:45 PM MEDICAL SERVICES ASSISTANT Home Care Visit Count Includes [facility] [address] [place] [phone] Jonah Sanabria, PT PT - HOME VISIT 10/12/2024 11:00 AM MEDICAL SERVICES ASSISTANT Office Visit [facility] [address] [place] [phone] Lenore Ortiz MD Follow Up (CML) 10/12/2024 Travel 10/09/2024 1:00 PM MEDICAL SERVICES ASSISTANT Home Care Visit Count Includes [facility] [address] [place] [phone] Nancy Cason, PANFILO SN - HOME VISIT 10/09/2024 11:30 AM MEDICAL SERVICES ASSISTANT Home Care Visit Count Includes [facility] [address] [place] [phone] Liliana Cisneros CONDUCTOR/BRAKEMAN - HOME VISIT 10/09/2024 Refill [facility] [address] [place] [phone] Cindy Brand, GAMMA RAY OPERATOR Refill Request (Imatinib) 10/08/2024 11:45 AM MEDICAL SERVICES ASSISTANT Home Care Visit Count Includes [facility] [address] [place] [phone] Alycia Gutierrez, OT OT - INITIAL ASSESSMENT 10/07/2024 1:30 PM MEDICAL SERVICES ASSISTANT Home Care Visit [address] [phone] Mariaa Newman, PT PT - INITIAL ASSESSMENT 10/07/2024 10:00 AM MEDICAL SERVICES ASSISTANT Home Care Visit [address] [phone] Sowmya Malcolm, CATERING ASSISTANT CATERING ASSISTANT - HOME VISIT 10/05/2024 12:00 PM MEDICAL SERVICES ASSISTANT Home Care Visit [address] [phone] Nancy Cason, PANFILO SN - HOME VISIT 10/05/2024 12:50 AM MEDICAL SERVICES ASSISTANT Home Care Visit [address] [phone] Jonah Dietrich, RN SN - WOUND/OSTOMY CHART CONSULT 10/05/2024 Orders Only [facility] [address] [place] [address] Luisito Wood MD <No scans attached> 10/05/2024 Telephone Count Includes [facility] [address] [place], [place] [phone] Jonah Dietrich, clother in 10/03/2024 12:00 PM MEDICAL SERVICES ASSISTANT Home Care Visit Count Includes [facility] [address] [facility] [place] [address] Nancy Cason, PANFILO SN - HOME VISIT 10/01/2024 10:00 AM MEDICAL SERVICES ASSISTANT Home Care Visit Count Includes [facility] [address] [facility] [place] [address] Yoon Goncalves RN SN - OASIS START OF CARE 10/01/2024 Plan of Care Documentation Count Includes [facility] [address] [facility] [place] [address] 09/30/2024 Home Care Visit Count Includes [facility] [address] [facility] [place] [address] Yoon Goncalves, PANFILO CARE COORDINATION 09/30/2024 Telephone [facility] [address] [place] [phone] Cindy Brand, JOSE Results; Follow Up (ER visit) 09/28/2024 1:34 PM MEDICAL SERVICES ASSISTANT - 09/28/2024 11:59 PM MEDICAL SERVICES ASSISTANT Hospital Encounter [facility] [address] [place] [address] 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 Telephone [facility] [address] [place] [address] Luisito Wood MD Referral (home health aide ) 09/28/2024 Travel 09/23/2024 Telephone [facility] [address] [place] [phone] Cindy Brand NP 09/21/2024 10:15 AM MEDICAL SERVICES ASSISTANT - 09/21/2024 11:59 PM MEDICAL SERVICES ASSISTANT Hospital Encounter [facility] [address] [place] [address] Anemia, unspecified type; CML (chronic myeloid leukemia) (HC) 09/21/2024 Travel 09/16/2024 1:15 PM MEDICAL SERVICES ASSISTANT Office Visit [facility] [address] [place] [address] Luisito Wood MD Follow Up (6 month from annual) 09/16/2024 Telephone [facility] [address] [place] [address] Cindy Brand, GAMMA RAY OPERATOR Appointment 09/16/2024 Telephone [facility] [address] [place] [address] Luisito Wood MD Medication Management (Questions) 09/16/2024 Travel 09/14/2024 1:00 PM MEDICAL SERVICES ASSISTANT Orders Only [facility] [address] [place] [address] Lab, [facility] 09/14/2024 Travel 09/14/2024 Refill [facility] [address] [place] [phone] Lenore Ortiz MD Refill Request (Loperamide) 09/11/2024 11:45 AM MEDICAL SERVICES ASSISTANT Office Visit [facility] [address] [place] [address] Cindy Brand, GAMMA RAY OPERATOR Follow Up 09/11/2024 Travel 08/28/2024 1:45 PM MEDICAL SERVICES ASSISTANT - 08/28/2024 11:59 PM MEDICAL SERVICES ASSISTANT Hospital Encounter [facility] [address] [place] [address] 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 Travel 08/28/2024 Medical Messaging [facility] [address] [place] [address] Luisito Wood MD Health Care Directive from Last 3 Months Immunizations Name Administration Dates Next Due AMB Influenza, IIV3 (Age >=3 years)(Flu Clinic Only) 08/16/2008 COVID-19 VACCINE SPIKEVAX (M ODERNA 50MCG/0.5ML) 12YO+ PFS 07/21/2024,03/17/2024,08/27/2023 COVID-19 vaccine (Politapoll-Bio NTech 30mcg/0.3mL) 12YO+ BIVALENT PF, MDV 03/07/2023 COVID-19 vaccine (Politapoll-Bio NTech 30mcg/0.3mL) 12YO+ MARITZA-SUCROSE PF, MDV 02/12/2022 COVID-19 vaccine (Politapoll-Bio NTech 30mcg/0.3mL) PF, MDV 01/18/2021,12/28/2020 Influenza, High-dose Inactivated 08/10/2016,08/22 Influenza, High-dose Quadriv alent Inactivated 07/23/2022 Influenza, IIV3 (Age >=3 years) 07/23/20 11,07/21/2010,08/11/2007,08/31,08/06/2005 Influenza, IIV4 07/22/2019 Influenza, Inactivated AIIV4 (Age 65+ Years) Preserv Free 08/27/2023,07/24/2021,07/25/2020 Influenza, Inactivated IIV3 (Age 65+ Years) Preserv Free 07/21/2024,07/23/2018,07/23/2017 Pneumococcal Conj 20-valent (Prevnar 20) 03/07/2023 Pneumococcal Poly,23-Valent (Pneumovax) 11/30/2004 Pneumococcal conj 13-Valent (Prevnar 13) 02/02/2015 RSV, Recombinant ADJ Reconst ituted (Arexvy 120MCG/0.5mL) 07/09/2024 Td (Age >=7 Years) 11/30/2004 Tdap 02/27/2022,04/03/2011 Zoster (Shingrix-RZV, recombinant) 10/28/2020, Zoster (Zostavax-ZVL, live) 10/11/2014 Family History Medical History Relation Name Comments Heart Disease Father in his late 70 's Brain cancer Mother brain cancer Anesthesia Problem Neg. Relation Name Status Comments Father Mother brain cancer Neg. Social History Tobacco Use Types Packs/Day Years Used Date Smoking Tobacco: Former Cigarettes 0.5 10 0 10/21/1974 - 10/21/1984 Smokeless Tobacco: Former Chew, Snuff Tobacco Cessation:Counseling Given: No Comments:patient quit chew 07/21/19 Alcohol Use Standard Drinks/Week Comments Yes 0 (1 standard drink = 0.6 oz pur e alcohol) occasional [facility] Utilities Answer Date Recorded Do you have trouble paying f or utilities (for example, heat, electricity, water, phone)? Yes 09/16/2024 PHQ-2 Answer Date Recorded PHQ-2 TOTAL SCORE 0 03/17/2024 Social Connections Answer Date Recorded Do you often feel lonely or isolated from those around you? 0 09/16/2024 Financial Resource Strain Answer Date R ecorded Difficulty of Paying Living Expenses 3 09/16/2024 Difficulty of Paying Living Expenses Not on file 09/16/2024 Food Insecurity Answer Date Recorded Do you worry your food will run out before you are able to buy more? 1 09/16/2024 Transportation Needs Answer Date Record ed Does lack of transportation keep you from medica l appointments? 1 09/16/2024 Does lack of transportation keep you from work, meetings or getting things that you need? 1 09/16/2024 Housing Stability Answer Date Recorded What is your housing situation today? 1 09/16/2024 Sex and Gender Information Value Date Recorded Sex Assigned at Not on file Legal Sex Male 6:26 AM MEDICAL SERVICES ASSISTANT Gender Identity Not on file Sexual Orientation Not on file Obstetrics History Last Filed Vital Signs Vital Sign Reading Time Taken Comments Blood Pressure 156/58 11/03/2024 9:25 AM MEDICAL SERVICES ASSISTANT Pulse 72 11/03/2024 9:25 AM MEDICAL SERVICES ASSISTANT Temperature 37.3 C (99.1 F) 11/03/2024 9:25 AM MEDICAL SERVICES ASSISTANT Respiratory Rate 18 11/03/2024 9:25 AM MEDICAL SERVICES ASSISTANT Oxygen Saturation 95% 11/03/2024 9:25 AM MEDICAL SERVICES ASSISTANT Inhaled Oxygen Concentration - - Weight 124.5 kg (274 lb 6.4 oz) 11/03/2024 9:25 AM MEDICAL SERVICES ASSISTANT Height 177.8 cm (5' 10) 10/01/2024 10: 36 AM MEDICAL SERVICES ASSISTANT Body Mass Index 39.37 10/01/2024 10:36 AM MEDICAL SERVICES ASSISTANT Plan of Treatment Upcoming Encounters Date Type Department Care Team (Late st Contact Info) Description 11/04/2024 4:00 AM MEDICAL SERVICES ASSISTANT Home Care Visit Count Includes [facility] [address] [place] [address] Sowmya Malcolm LPN 11/05/2024 12:00 PM MEDICAL SERVICES ASSISTANT Home Care Visit Count Includes [facility] [address] [facility] [place] [address] Olegario Cisnerosin L 11/05/2024 3:20 PM MEDICAL SERVICES ASSISTANT Telemedicine [facility] [address] [place] [address] Luisito Wood MD [address] [place] [address] 11/06/2024 11:15 AM MEDICAL SERVICES ASSISTANT Home Care Visit [place] [phone] [place] [address] Nancy Cason, PANFILO 11/09/2024 4:00 AM MEDICAL SERVICES ASSISTANT Home Care Visit [address] [phone] Nancy Cason, PANFILO 11/09/2024 12:00 PM MEDICAL SERVICES ASSISTANT Home Care Visit [address] [phone] Olegario Cisnerosin L 11/11/2024 4:00 AM MEDICAL SERVICES ASSISTANT Home Care Visit [facility] [phone] [place] [phone] Nancy Cason, PANFILO 11/12/2024 4:00 AM MEDICAL SERVICES ASSISTANT Home Care Visit [address] [phone] Liliana Cisneros L 11/13/2024 4:00 AM MEDICAL SERVICES ASSISTANT Home Care Visit [address] [phone] Nancy Cason, PANFILO 11/13/2024 11:45 AM MEDICAL SERVICES ASSISTANT Telemedicine [facility] [address] [place] [address] Cindy Brand, GAMMA RAY OPERATOR [address] [place] [address] 11/16/2024 4:00 AM MEDICAL SERVICES ASSISTANT Home Care Visit [address] [phone] Nancy Cason, RN 11/16/2024 5:00 AM MEDICAL SERVICES ASSISTANT Home Care Visit [facility] [address] [place] [address], [place] [address] Blayne, Krin L 11/18/2024 4:00 AM MEDICAL SERVICES ASSISTANT Home Care Visit [facility] [facility] [address] [place] [address], [place] [phone] Nancy Cason, RN 11/19/2024 4:00 AM MEDICAL SERVICES ASSISTANT Home Care Visit [facility] [address] [place] [phone] Blayne, Krin L 11/20/2024 4:00 AM MEDICAL SERVICES ASSISTANT Home Care Visit [facility] [address] [place] [address], [place] [phone] Nancy Cason, RN 11/23/2024 4:00 AM MEDICAL SERVICES ASSISTANT Home Care Visit [facility] [address] [place] [phone] Nancy Cason, RN 11/23/2024 5:00 AM MEDICAL SERVICES ASSISTANT Home Care Visit [facility] [address] [place] [phone] Blayne, Krin L 11/24/2024 4:00 AM MEDICAL SERVICES ASSISTANT Home Care Visit [facility] [address] [place] [phone] Jonah Dietrich, RN [address] [place], [place] [phone] 11/25/2024 4:00 AM MEDICAL SERVICES ASSISTANT Home Care Visit [facility] [address] [place] [phone] Sowmya Malcolm LPN 11/26/2024 4:00 AM MEDICAL SERVICES ASSISTANT Home Care Visit [facility] [address] [place] [phone] Danrichard, Krin L 11/27/2024 4:00 AM MEDICAL SERVICES ASSISTANT Home Care Visit [facility] [address] [place] [phone] Nancy Cason, PANFILO 01/28/2025 Cardiac Device Check [facility] [phone] Health Maintenance Due Date Last Done Comments COVID-19 vaccine series ( season) 2024 07/21/2024, 03/17/2024, 08/27/2023, Additional history exists BMI (ht and wt on same day) for age 18+ 03/17/2025 03/17/2024, 03/21/2023, 03/07/2023, Additional history exists Depression screening for age 12+ 03/17/2025 03/17/2024, 03/11/2023, 03/08/2023, Additional history exists Medicare Wellness for age 65+ 03/18/2025, 03/07/2023, 08/30/2021, Additional history exists Tetanus booster 02/28/2032 02/27/2022, 03/21, 11/30/2004 Zoster (shingles) series for age 50+ Completed 10/28/2020, 08/08/2020, 10/11/2014 Tdap Completed 02/27/2022, 04/03/2011 Pneumococcal series for age 50+ Completed 03/07/2023, 02/02/2015, 11/30/2004 RSV vaccine for adults or Completed 07/09/2024 Influenza for age 65+ Completed 07/21/2024 , 08/27/2023, 07/23/2022, Additional history exists Procedures Procedure Name Priority Date/Time Associated Diagnosis Comments CBC WITH AUTO DIFFERENTIAL Routine 11/02/2024 11:57 AM MEDICAL SERVICES ASSISTANT CML (chronic myeloid leukemia) (HC) COMP METABOLIC PANEL Routine 11/02/2024 11:57 AM MEDICAL SERVICES ASSISTANT CML (chronic myeloid leukemia) (HC) CBC WITH AUTO DIFFERENTIAL Routine 11/02/2024 11:57 AM MEDICAL SERVICES ASSISTANT CML (chronic myeloid leukemia) (HC) CBC WITH AUTO DIFFERENTIAL Timed 09/28/2024 1:40 PM MEDICAL SERVICES ASSISTANT CML (chronic myeloid leukemia) (HC) CBC WITH AUTO DIFFERENTIAL Today 09/28/2024 1:40 PM MEDICAL SERVICES ASSISTANT CML (chronic myeloid leukemia) (HC) CBC WITH AUTO DIFFERENTIAL Timed 09/21/2024 10:19 AM MEDICAL SERVICES ASSISTANT CML (chronic myeloid leukemia) (HC) BCR ABL1 CML/ALL PCR QUANT Today 09/21/2024 10:19 AM MEDICAL SERVICES ASSISTANT CML (chronic myeloid leukemia) (HC) COMP METABOLIC PANEL Today 09/21/2024 10:19 AM MEDICAL SERVICES ASSISTANT CML (chronic myeloid leukemia) (HC) CBC WITH AUTO DIFFERENTIAL Today 09/21/2024 10:19 AM MEDICAL SERVICES ASSISTANT CML (chronic myeloid leukemia) (HC) VITAMIN B12 Today 09/21/2024 10:19 AM MEDICAL SERVICES ASSISTANT Anemia, unspecified type BASIC METABOLIC PANEL Routine 09/14/2024 12:52 PM MEDICAL SERVICES ASSISTANT Diabetes mellitus without complication (HC) FERRITIN Routine 09/14/2024 12:52 PM MEDICAL SERVICES ASSISTANT Anemia, unspecified type IRON PLUS IRON BINDING CAP Routine 09/14/2024 12:52 PM MEDICAL SERVICES ASSISTANT Anemia, unspecified type HEMOGLOBIN A1C MONITORING (POCT) Routine 09/14/2024 12:50 PM MEDICAL SERVICES ASSISTANT Diabetes mellitus without complication (HC) CBC WITH AUTO DIFFERENTIAL Timed 08/28/2024 1:58 PM MEDICAL SERVICES ASSISTANT CML (chronic myeloid leukemia) (HC) BCR ABL1 CML/ALL PCR QUANT Today 08/28/2024 1:58 PM MEDICAL SERVICES ASSISTANT CML (chronic myeloid leukemia) (HC) COMP METABOLIC PANEL Today 08/28/2024 1:58 PM MEDICAL SERVICES ASSISTANT CML (chronic myeloid leukemia) (HC) CBC WITH AUTO DIFFERENTIAL Today 08/28/2024 1:58 PM MEDICAL SERVICES ASSISTANT CML (chronic myeloid leukemia) (HC) from Last 3 Months Results * (ABNORMAL) CBC WITH AUTO DIFFERENTIAL (11/02/2024 11:57 AM [facility]) Only the most recent of4 resultswithin the time period is included. WHITE BLOOD COUNT 6.0 4.5 - 11.0 thou/cu mm 11/02/2024 12:44 PM [facility] RED BLOOD COUNT 2.31(L) 4.30 - 5.90 mil/cu mm 11/02/2024 12:44 PM [facility] HEMOGLOBIN 7.4(L) 13.5 - 17.5 g/dL 11/02/2024 12:44 PM [facility] HEMATOCRIT 23.2(L) 37.0 - 53.0 % 11/02/2024 12:44 PM [facility] MCV 100 80 - 100 fL 11/02/2024 12:44 PM [facility] MCH 32.0 26.0 - 34.0 pg 11/02/2024 12:44 PM [facility] MCHC 31.9(L) 32.0 - 36.0 g/dL 11/02/2024 12:44 PM [facility] RDW 19.5(H) 11.5 - 15.5 % 11/02/2024 12:44 PM [facility] PLATELET COUNT 142 140 - 440 thou/cu mm 11/02/2024 12:44 PM [facility] MPV 10.6 6.5 - 11.0 fL 11/02/2024 12:44 PM [facility] % NEUT 86.7 % 11/02/2024 12:44 PM [facility] % LYMPH 5.3 % 11/02/2024 12:44 PM [facility] % MONO 8.0 % 11/02/2024 12:44 PM [facility] % EOS 0.0 % 11/02/2024 12:44 PM [facility] % BASO 0.0 % 11/02/2024 12:44 PM [facility] ABSOLUTE NEUTROPHILS 5.2 1.7 - 7.0 thou/cu mm 11/02/2024 12:44 PM [facility] ABSOLUTE LYMPHOCYTES 0.3(L) 0.9 - 2.9 thou/cu mm 11/02/2024 12:44 PM [facility] ABSOLUTE MONOCYTES 0.5 <0.9 thou/cu mm 11/02/2024 12:44 PM [facility] ABSOLUTE EOSINOPHILS 0.0 <0.5 thou/cu mm 11/02/2024 12:44 PM [facility] ABSOLUTE BASOPHILS 0.0 <0.3 thou/cu mm 11/02/2024 12:44 PM [facility] Blood BLOOD SPECIMEN / Unknown Non-Lab Butterfly / Unknown 11/02/2024 11:57 AM MEDICAL SERVICES ASSISTANT 11/02/2024 12:[address] [facility] - 11/02/2024 12:44 PM MEDICAL SERVICES ASSISTANT This procedure was originally ordered at Count Includes [facility]. Lenore Ortiz MD HEMATOLOGY Final Resu lt [facility] [address] [place], [place] [id number] * (ABNORMAL) COMP METABOLIC PANEL (11/02/2024 11:57 AM [facility]) Only the most recent of3 resultswithin the time period is included. SODIUM 147(H) 136 - 145 mmol/L 11/02/2024 12:59 PM [facility] POTASSIUM 3.9 3.5 - 5.1 mmol/L 11/02/2024 12:59 PM [facility] CHLORIDE 108(H) 98 - 107 mmol/L 11/02/2024 12:59 PM [facility] CO2,TOTAL 28 22 - 29 mmol/L 11/02/2024 12:59 PM [facility] ANION GAP 11 5 - 18 11/02/2024 12:59 PM [facility] GLUCOSE 144(H) 70 - 99 mg/dL 11/02/2024 12:59 PM [facility] CALCIUM 8.5(L) 8.8 - 10.4 mg/dL 11/02/2024 12:59 PM [facility] Comment: Reference ranges for this test were updated on 08/25/2024 to reflect our healthy population more accurately. Reference range changes are not retroactively applied to results, but previous results using the same methodology can be interpreted in the context of the new reference range. BUN 43(H) 8 - 23 mg/dL 11/02/2024 12:59 PM [facility] CREATININE 1.50(H) 0.70 - 1.20 mg/dL 11/02/2024 12:59 PM [facility] BUN/CREAT RATIO 29(H) 10 - 20 12:59 PM [facility] eGFR 46(L) >90 mL/min/1. 73m2 11/02/2024 12:59 PM [facility] Comment:As of 2022, eG FR is calculated by the CKD-EPI creatinine equation without race adjustment. eGFR can be influenced by muscle mass, exercise, and diet. The reported eGFR is an estimation only and is only applicable if the renal function is stable. ALBUMIN 3.3(L) 4.0 - 4.9 g/dL 11/02/2024 12:59 PM [facility] PROTEIN,TOTAL 5.2(L) 6.0 - 8.0 g/dL 11/02/2024 12:59 PM [facility] BILIRUBIN,TOTAL 0.8 0.0 - 1.2 mg/dL 11/02/2024 12:59 PM [facility] ALK PHOSPHATASE 72 40 - 129 IU/L 11/02/2024 12:59 PM [facility] ALT (SGPT) 14 10 - 50 IU/L 11/02/2024 12:59 PM [facility] AST (SGOT) 18 10 - 50 IU/L 11/02/2024 12:59 PM [facility] Blood BLOOD SPECIMEN / Unknown Non-Lab Butterfly / Unknown 11/02/2024 11:57 AM [facility] 11/02/2024 12:39 PM MEDICAL SERVICES ASSISTANT us Lenore Ortiz MD CHEMISTRY Final Resu lt [facility] [address] [place] [address] * (ABNORMAL) BCR ABL1 CML/ALL PCR QUANT (09/21/2024 10:19 AM MEDICAL SERVICES ASSISTANT) Only the most recent of2 resultswithin the time period is included. [facility] BCR-ABL1, CML/ALL, PCR, Quant Note(A) 09/27/2024 3:06 PM MEDICAL SERVICES ASSISTANT [facility] Comment: TESTS RESULT FLAG UNITS REF RANGE LAB e13a2 (b2a2) schulz... 8.9909 [A] % 01 e14a2 (b3a2) schulz... 9.8806 % 01 e1a2 transcript Note % 01 <0.0032 % Interpretation: Positive [A] 01 POSITIVE for the BCR-ABL1 e13a2 (b2a2, p210) and e14a2 (b3a2, p210) fusion transcripts. Director Review Note 01 Technical Component performed at [facility] Professional Component performed by: [employer] Jhoana Salmeron, PhD, [facility] Director, Molecular Oncology [address] [place] [address] Background 01 This assay can detect three different types of BCR-ABL1 fusion transcripts associated with CML, ALL, and AML: e13a2 (previously b2a2) and e14a2 (previously b3a2) (major breakpoint, p210), as well as e1a2 (minor breakpoint, p190). The e13a2 and e14a2 transcript values are titrated to the current International Scale (IS). The standardized baseline is 100% BCR-ABL1 (IS) and major molecular response (MMR) is equivalent to 0.1% BCR-ABL1 (IS) corresponding to a 3-log reduction. Results should be correlated with appropriate clinical and laboratory information as indicated. Methodology 02 Total RNA is isolated from the sample and subject to a real-time, reverse transcriptase polymerase chain reaction (RT-PCR). The PCR primers and probes are specific for BCR-ABL1 e13a2, e14a2 and e1a2 fusion transcripts. The ABL1 transcript is amplified as the control for cDNA quantity and quality. Serial dilutions of a validated positive control RNA with known t(9;22) BCR-ABL1 are used as reference for quantification of BCR-ABL1 relative to ABL1. The numeric BCR-ABL1 level is reported as % BCR-ABL1/ABL1 and the detection sensitivity is 4.5 log below the standard baseline (<0.0032%). This test was developed and its performance characteristics determined by [employer]. It has not been cleared or approved by the Food and Drug Administration. PDF 02 FLAG LEGEND: L-Low Normal,H-High Normal,LL-Alert Low,HH-Alert High <-Panic Low,>-Panic High,A-Abnormal,AA-Critical Abnormal Performed at: 01 [facility] [address], [place], [place] [id number] Gurdeep Figueroa [facility], 02 [facility] [address], [place], [place] [id number] Gurdeep Figueroa [facility], Other BLOOD SPECIMEN / Unknown Venipuncture / Unknown 09/21/2024 10:19 AM MEDICAL SERVICES ASSISTANT 09/21/2024 10:20 AM MEDICAL SERVICES ASSISTANT Narrative [facility] - 09/27/2024 3:06 PM MEDICAL SERVICES ASSISTANT Performed at: [facility] [address], [place]Junior, [place] [id number] Human Service Worker: Gurdeep Figueroa [facility], Phone: [phone] us Cindy Brand NP SEND OUTS Final Result [facility] ([facility]) [address] [place] [address], [place] * VITAMIN B12 (09/21/2024 10:19 AM MEDICAL SERVICES ASSISTANT) Pathologist [facility] VITAMIN B12 530 232 - 1,245 pg/mL 09/21/2024 11:06 PM MEDICAL SERVICES ASSISTANT [facility] Blood BLOOD SPECIMEN / Unknown Venipuncture / Unknown 09/21/2024 10:19 AM MEDICAL SERVICES ASSISTANT 09/21/2024 10:20 AM MEDICAL SERVICES ASSISTANT Narrative [facility] - 09/21/2024 11:06 PM MEDICAL SERVICES ASSISTANT Biotin supplements may cause clinically significant interference for this test assay. If interference is suspected, it is strongly recommended that biotin is discontinued for at least one week prior to retesting. Cindy Brand NP CHEMISTRY Final Result Performing Organization Address City/[facility]/ZIP Co de Phone Number [facility] [address] [place] [address], [place] * (ABNORMAL) IRON PLUS IRON BINDING CAP (09/14/2024 12:52 PM MEDICAL SERVICES ASSISTANT) Pathologist [facility] IRON, TOTAL 38(L) 50 - 180 mcg/dL [facility] IRON BINDING CAPACITY 192(L) 250 - 425 mcg/dL (calc) [facility] % SATURATION 20 20 - 48 % (calc) [facility] Blood BLOOD SPECIMEN / Unknown 09/14/2024 12:52 PM MEDICAL SERVICES ASSISTANT 09/14/2024 12:52 PM MEDICAL SERVICES ASSISTANT us Cindy Brand NP CHEMISTRY Final Result [facility] [address] [place] [address], [place] [phone] [facility] [address] [facility] [place] [address] * FERRITIN (09/14/2024 12:52 PM MEDICAL SERVICES ASSISTANT) FERRITIN 221 24 - 380 ng/mL [facility] Blood BLOOD SPECIMEN / Unknown 09/14/2024 12:52 PM MEDICAL SERVICES ASSISTANT 09/14/2024 12:52 PM MEDICAL SERVICES ASSISTANT us Cindy Brand NP CHEMISTRY Final Result [facility] [address] [place] [address], [facility] [address] [place] [address] * (ABNORMAL) BASIC METABOLIC PANEL (09/14/2024 12:52 PM MEDICAL SERVICES ASSISTANT) GLUCOSE 118(H) 65 - 99 mg/dL [facility] Comment: Fasting reference interval For someone without known diabetes, a glucose value between 100 and 125 mg/dL is consistent with prediabetes and should be confirmed with a follow-up test. UREA NITROGEN (BUN) 18 7 - 25 mg/dL [facility] CREATININE 1.39(H) 0.70 - 1.22 mg/dL [facility] EGFR 50(L) > OR = 60 mL/min/1.7 3m2 [facility] BUN/CREATININE RATIO 13 6 - 22 (calc) [facility] SODIUM 145 135 - 146 mmol/L [facility] POTASSIUM 4.2 3.5 - 5.3 mmol/L [facility] CHLORIDE 111(H) 98 - 110 mmol/L [facility] CARBON DIOXIDE 27 20 - 32 mmol/L [facility] ELECTROLYTE BALANCE 7 7 - 17 mmol/L (calc) [facility] CALCIUM 8.0(L) 8.6 - 10.3 mg/dL [facility] Blood BLOOD SPECIMEN / Unknown 09/14/2024 12:52 PM MEDICAL SERVICES ASSISTANT 09/14/2024 12:52 PM MEDICAL SERVICES ASSISTANT Luisito Wood MD CHEMISTRY Final Result [facility] [address] [place] [address], [place] [phone] [facility] [address] [place] [address] * HEMOGLOBIN A1C MONITORING (POCT) (09/14/2024 12:50 PM MEDICAL SERVICES ASSISTANT) POC HEMOGLOBIN A1C 5.8 <6.0 % OF TOTAL HGB [facility] Comment: Any point of care results exhibiting inconsistency with the patient's clinical status should be repeated using a different testing method. Blood BLOOD SPECIMEN / Unknown 09/14/2024 12:50 PM MEDICAL SERVICES ASSISTANT 09/14/2024 12:50 PM MEDICAL SERVICES ASSISTANT us Luisito Wood MD CHEMISTRY Final Result Performing Organization Address City/[facility]/ZIP Co de Phone Number [facility] [address] [place] [address], [place] [phone] [facility] [address] [place] [address] from Last 3 Months Insurance [employer] HB MEDICARE PART B HB ONLY MEDICARE PART A HB ONLY [employer] PB ONLY [employer] HB MEDICARE PPS Advance Directives Documents on File Type Date Recorded Patient Director [facility] Healthcare Directive 05/19/2024 3:10 PM Healthcare Directive 06/20/2015 10:06 AM Misael FULTON, 06/13/2015 * Full Code (Latest Code Status on File) Date Activated Date Inactivated Comments 08/22/2019 6:12 PM 08/26/2019 7:37 PM * Full Code Date Activated Date Inactivated Comments 04/16/2018 12:29 PM 04/17/2018 1:42 PM * Full Code Date Activated Date Inactivated Comments 04/09/2018 9:11 AM 04/09/2018 5:09 PM Care Teams Director Of Bands Relationship Specialty Start Date End Date Luisito Wood MD [address] [place] [address] PCP - General 08/31/06 Leon Dodd [address] [place] [address] Ophthalmology Surgery 04/03/11 Jovanny Shine MD [address] [place] [address] Surgery - Orthopedics 04/03/11 Kane John MD [address] [place] [address] Gastroenterology 04/04/12 Lenore Ortiz MD [address] [place] [address] Oncology Hematology and Oncology 05/04/20 Cindy Brand, GAMMA RAY OPERATOR [address] [place] [address] Oncology Nurse Practitioner - Family 05/04/[address] [address] 09/30/24
[2024-11-03 16:18] VITALS: BP 149/86; PULSE 88; RESP 16; TEMP 36.9; O2SAT 96
--- NOTE | 2024-11-03 16:37 | ED.GENADULT ---
HPI - General Adult General Time Seen by Provider: 16:37 Date Seen: 11/03/24 Chief complaint: Lower Extremity Swelling Stated complaint: 8 LB weight gain last 24hrs, has Lymphadema Time Seen by Provider: 11/03/24 16:21 Source: patient, RN notes reviewed and old records reviewed Mode of arrival: ambulatory Limitations: no limitations History of Present Illness HPI narrative: This 83-year-old male is coming in with concern of some bloody seepage from his left lower leg today. He has known lymphedema. He has taken Lasix today, sounds as if he is still on 40 mg daily. He is not short of breath. He has had an 8 lb weight gain since yesterday. His legs are more swollen. He has compression wraps on but not true compression stockings. For the last 3 months he has to sleep in a recliner. He has noted no fevers. He is on Eliquis 5 mg twice a day for underlying history of paroxysmal atrial fibrillation. His left heel is sore, has a heel cup on it to help with ambulation. He is not doing Manuelito wraps at night, has historically done something like this but they state he cannot get him on on his own. He does have a home health nurse. They are not aware necessarily that he is had ultrasounds done of his venous system, not aware of any lymphedema clinic visit. He has reportedly went to wound clinic in the past for sores. Related Data Home Medications ?Medication ?Instructions ?Recorded ?Confirmed allopurinol 300 mg tablet 300 mg PO DAILY 04/28/24 09/27/24 apixaban 5 mg tablet (Eliquis) 5 mg PO BID 04/28/24 09/27/24 atorvastatin 20 mg tablet 20 mg PO DAILY 04/28/24 09/27/24 imatinib 100 mg tablet 400 mg PO DAILY 04/28/24 09/27/24 potassium chloride 20 mEq 20 meq PO DAILY 04/28/24 09/27/24 tablet,extended release(part/cryst) tamsulosin 0.4 mg capsule 0.4 mg PO DAILY 04/28/24 09/27/24 amlodipine 5 mg tablet 5 mg PO DAILY 05/27/24 06/16/24 acetaminophen 500 mg tablet 1,000 mg PO Q6H PRN 09/27/24 09/27/24 (Acetaminophen Extra Strength) cetirizine 10 mg tablet (24Hour 10 mg PO DAILY 09/27/24 09/27/24 Allergy) cholecalciferol (vitamin D3) 50 50 mcg PO DAILY 09/27/24 09/27/24 mcg (2,000 unit) capsule fluconazole 150 mg tablet 150 mg PO QWEEK 09/27/24 09/27/24 latanoprost 0.005 % eye drops 1 drp ophthalmic (eye) HS 09/27/24 09/27/24 loperamide 2 mg capsule 2 mg PO PRN 09/27/24 furosemide 20 mg tablet 20 mg PO BID 11/03/24 11/03/24 prednisone 20 mg tablet 20 mg PO BID 11/03/24 11/03/24 Previous Rx's ?Medication ?Instructions ?Recorded metoprolol succinate 50 mg capsule 50 mg PO DAILY #30 ea 05/11/24 sprinkle, ext. release 24 hr amoxicillin 875 mg-potassium 1 tab PO 10 #10 tabs 05/28/24 clavulanate 125 mg tablet Allergies Allergy/AdvReac Type Severity Reaction Status Date / Time Iodinated Contrast Media Allergy Severe Verified 09/27/24 16:52 doxycycline AdvReac Intermediate Rash Verified 09/27/24 16:52 losartan AdvReac Mild Headache Verified 09/27/24 16:52 Review of Systems Status of ROS: Reports: 6 or more systems reviewed and unremarkable except as noted in History and below [facility] Medical History Health care directive on file ?Z78.9 - Other specified health status (ICD-10) Aspiration pneumonia ?J69.0 - Pneumonitis due to inhalation of food and vomit (ICD-10) Anemia ?D64.9 - Anemia, unspecified (ICD-10) Weight loss, non-intentional ?R63.4 - Abnormal weight loss (ICD-10) Heart failure with reduced ejection fraction ?I50.20 - Unspecified systolic (congestive) heart failure (ICD-10) Esophageal dysmotility ?K22.4 - Dyskinesia of esophagus (ICD-10) BPH (benign prostatic hyperplasia) ?N40.0 - Benign prostatic hyperplasia without lower urinary tract symptoms (ICD-10) Chronic diarrhea ?K52.9 - Noninfective gastroenteritis and colitis, unspecified (ICD-10) Hypertension ?I10 - Essential (primary) hypertension (ICD-10) Obesity ?E66.9 - Obesity, unspecified (ICD-10) Gout ?M10.9 - Gout, unspecified (ICD-10) Paroxysmal atrial fibrillation ?I48.0 - Paroxysmal atrial fibrillation (ICD-10) Diabetes mellitus ?E11.9 - Type 2 diabetes mellitus without complications (ICD-10) Chronic acquired lymphedema ?I89.0 - Lymphedema, not elsewhere classified (ICD-10) Penile cancer ?C60.9 - Malignant neoplasm of penis, unspecified (ICD-10) Coronary artery disease ?I25.10 - Atherosclerotic heart disease of [place] coronary artery without angina pectoris (ICD-10) 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 - Chronic myeloid leukemia, BCR/ABL-positive, not having achieved remission (ICD-10) Surgical History Hx laparoscopic cholecystectomy ?Z90.49 - Acquired absence of other specified parts of digestive tract (ICD-10) History of penectomy ?Z90.79 - Acquired absence of other genital organ(s) (ICD-10) S/P placement of cardiac pacemaker ?Z95.0 - Presence of cardiac pacemaker (ICD-10) History of arthroplasty of left knee ?Z96.652 - Presence of left artificial knee joint (ICD-10) History of coronary artery stent placement ?Z95.5 - Presence of coronary angioplasty implant and graft (ICD-10) Social History Narrative: He lives with his . Code status is full. Remote history of smoking. Rarely drinks alcohol. What is your current living situation?: I presently have a place to live Problems where you live: no known problems Problems where you live details: none In the past 12 months, utilities in danger of being shut off: no In past 12 months, lack of transportation kept you from medical appts, meetings, work, or getting things needed for daily living: no In the past 12 mos, have been you worried that your food would run out before you had money to buy more?: never true In the past 12 mos, the food you bought just didn't last and you didn't have money to buy more?: never true Highest level of school completed/degree received: high school graduate Smoking Status: Former smoker Do you use any of these nicotine containing products: None Second hand tobacco smoke exposure: No How often do you have a drink containing alcohol: monthly or less How many standard drinks containing alcohol do you have on a typical day: 1 or 2 How often do you have six or more drinks on one occasion: Never AUDIT-C Alcohol total score: 1 Non-prescribed substance use: denies use Caffeine: Yes How often does anyone, including family, friends and others, physically hurt you: never How often does anyone, including family, friends and others, insult or talk down to you: never How often does anyone, including family, friends and others, threaten you with harm: never How often does anyone, including family, friends and others, scream or curse at you: never service: Yes Exam Const: Vital Signs, click to edit/add: Vital Signs - 24 hr 11/03/24 16:18 11/03/24 17:15 Temperature 98.4 F Pulse Rate [Pulse Oximeter] 88 Respiratory Rate 16 Blood Pressure [Ri ght Upper Arm] 149/86 H Pulse Oximetry 96 96 Oxygen Delivery Me thod Room Air This 83-year-old male is seen coming back from the bathroom ambulating slowly but able to do so. He is alert, interactive, no apparent distress. He prefers to sit up on the edge of the bed. He is able to speak in complete sentences. He overall looks pale but no rash or jaundice. Sclera clear, extraocular muscles intact. Neck supple, sitting straight up at this time and do not appreciate any jugular venous distension. Lungs are clear, good air entry, no wheezing or crackles. CV sounds mostly regular, do not hear any significant murmur, normal S1-S2. He has florid bilateral lower extremity edema, it is all the way up the thighs. He has a neoprene type wrap below the knee and his left leg, this was removed, then a stocking. There is some wetness to his stocking over the foot and the toes. It is non erythematous. The underlying skin is pinkish of his left lower extremity but not hot. Note no open wounds. States his heel is sore but do not visualize any skin breakdown. They did have gauze capturing some of his weeping which is yellowish in serous at this time. He has a little bandage over the base of his left great toe that does show blistering. Other toes have some gauze and some wrapping on them. The foot is grossly edematous. He did have a little heel cup in. Documenting provider has reviewed patient's vital signs: yes Course Course ED Course: Patient does not seem to be in any overt respiratory distress with pulmonary findings of congestive heart failure. If he does definitely have lymphedema, this will worsen without adequate interventions such as wrapping and full compression stockings. It does sound like there may be difficulties for this patient to manage this on his own. He is on Eliquis, doubt that there is any issue with DVT given he is on this. Some seepage with blood from the leg could have happened from capillary damage and weeping with this. Will look at full complement of labs, get a portable chest x-ray. Did review that he had an echo on 04/30/2024 showing moderately increased LV size, normal wall thickness, normal global systolic function with an EF of 56%. Global systolic RV function normal. Moderately enlarged left atrium. Mild to moderate mitral regurgitation. [id number] tricuspid regurgitation. Normal estimated pulmonary pressure. No significant change from 05/15/2023. Reevaluation(s) Time of Reevaluation #1: 18:17 Reevaluation #1: Have reviewed with patient and his family that he has the underlying chronic problem of lymphedema. He is not wearing his compression stockings right now, it sounds like they are only below the knee. We discussed that lymphedema is a chronic issue and requires compressive treatment. He is seeing an occupational therapist whom is the 1 who requested he come in today. This OT specializes in lymphedema. He also has some evidence of some congestive heart failure on top of his lymphedema. I do think that diuretic therapy would benefit him but they need understand that diuretics are not a chronic treatment of lymphedema. He has some congestive heart failure on top of his lymphedema. I have stressed the chronic nature of lymphedema and the need for the compressive treatments. He states he threw away all of his white compression stockings. He is not wearing his compression stockings right now and they are reportedly just below the knee. From the lymphedema that I am seen, he needs thigh-high Jobst but will need some work on diminishing the fluid in his legs 1st. He needs compression therapy at night. Consultations Consultation #1: Have spoken with our hospitalist Hiral Mijares whom accepts this patient. Time: 18:26 Vital Signs Vital signs: Initial Vital Signs Temperature 98.4 F 11/03/24 16:18 Temperature Source Temporal Artery Scan 11/03/24 16:18 Pulse Rate 88 11/03/24 16:18 Respiratory Rate 16 11/03/24 16:18 Blood Pressure 149/86 H 11/03/24 16:18 Blood Pressure Mean 107 H 11/03/24 16:18 Blood Pressure Position Sitting 11/03/24 16:18 Pulse Oximetry 96 11/03/24 16:18 Oxygen Delivery Method Room Air 11/03/24 16:18 Vital Signs Temperature 98.4 F 11/03/24 16:18 Pulse Rate 88 11/03/24 16:18 Respiratory Rate 16 11/03/24 16:18 Blood Pressure 149/86 H 11/03/24 16:18 Pulse Oximetry 96 11/03/24 16:18 Oxygen Delivery Method Room Air 11/03/24 16:18 Temperature 98.4 F 11/03/24 16:18 Pulse Rate 88 11/03/24 16:18 Respiratory Rate 16 11/03/24 16:18 Blood Pressure 149/86 H 11/03/24 16:18 Pulse Oximetry 96 11/03/24 17:15 Oxygen Delivery Method Room Air 11/03/24 16:18 Medical Decision Making Lab Data Lab results reviewed: Yes I reviewed the patient's lab results Lab results narrative: Hemoglobin seems to be in baseline range of 8-9, his white blood count from his CML is significantly improved. No evidence of infection based on his labs, supports my clinical evaluation as well. Labs: Lab Results 11/03/24 Range/Units 17:12 WBC 10.92 (4.50-11.00) K/uL RBC 2.53 L (4.30-5.90) m/uL Hgb 8.3 L (13.5-17.5) gm/dL Hct 25.8 L (37.0-53.0) % MCV 102 H (80-100) fL MCH 33 (26-34) pg MCHC 32 (32-36) gm/dL RDW Coeff of Guillermo 20.8 H (11.5-15.5) % Plt Count 160 (140-440) K/uL Neut % (Auto) 92.7 H (42.0-72.0) % Lymph % (Auto) 2.6 L (20-44) % [place] % (Auto) 4.5 (0.0-11.0) % Eos % (Auto) 0.0 (0.0-7.0) % Baso % (Auto) 0.0 (0.0-3.0) % Neut # (Auto) 10.10 H (1.7-7.0) K/uL Lymph # (Auto) 0.30 L (0.90-2.90) K/uL [place] # (Auto) 0.50 (0.00-0.90) K/UL Eos # (Auto) 0.00 (0.00-0.50) K/uL Baso # (Auto) 0.00 (0.00-0.30) K/uL Abs Immat Gran (auto) 0.02 (0.00-0.30) K/uL Imm/Tot Granulo (auto) 0.2 % Sodium 143 (135-149) mmol/L Potassium 4.4 (3.6-5.1) mmol/L Chloride 108 (96-114) mmol/L Carbon Dioxide 29 (20-32) mmol/L Anion Gap 6 L (7-15) mEq/L BUN 49 H (7-30) mg/dL Creatinine 1.2 (0.5-1.5) mg/dL Estimated GFR 60 ml/min Glucose 119 H (60-115) mg/dL Calcium 8.3 L (8.4-10.6) mg/dL Magnesium 1.8 (1.5-2.6) mg/dL Total Bilirubin 1.1 (0.1-1.5) mg/dL AST 25 (12-35) U/L ALT 19 (4-50) U/L Alkaline Phosphatase 51 (40-150) U/L C-Reactive Protein 0.9 (0.5-1.0) mg/dL NT-Pro-B Natriuret Pep 4150 pg/mL Total Protein 5.3 L (6.0-8.3) g/dL Albumin 3.0 L (3.3-5.0) g/dL Procalcitonin 0.05 (<0.50) ng/mL Imaging Data Chest x-ray: Attestation: I have reviewed the pertinent imaging results. Radiologist's impression: Patient: JANNA HAAGN Facility:?[facility] Patient ID:?[id number] Site Patient ID:?[id number]. Site :?[id number] Study:?XRay-Chest 1V PORTABLE-11/03/2024 5:15:53 PM Ordering Physician:?Enrique Jorgensen Final Report: Indication: EDEMA. HX LEUKEMIA Technique: AP view of the chest. Comparison: 07/18/2024. Findings: Low lung volumes. Left chest pacemaker with right atrial and right ventricular leads. Mildly enlarged cardiomediastinal silhouette with calcified aortic knob. Moderate interstitial prominence. Small bilateral pleural effusions. No visualized pneumothorax. Impression: Mild pulmonary edema with small bilateral pleural effusions. Dictated by Kp Hernandez MD @ 11/03/2024 5:51:27 PM (Electronic Signature) Discharge Plan Discharge Prescriptions: No Action amlodipine 5 mg tablet 5 mg PO DAILY amoxicillin-pot clavulanate 875-125 mg tablet 1 tab PO 10 Qty: 10 0RF atorvastatin 20 mg tablet 20 mg PO DAILY potassium chloride 20 mEq tablet,ER particles/crystals 20 meq PO DAILY tamsulosin 0.4 mg capsule 0.4 mg PO DAILY allopurinol 300 mg tablet 300 mg PO DAILY imatinib 100 mg tablet 400 mg PO DAILY Eliquis 5 mg tablet 5 mg PO BID metoprolol succinate 50 mg capsule,sprinkle,ER 24hr 50 mg PO DAILY Qty: 30 0RF loperamide 2 mg capsule 2 mg PO PRN acetaminophen [Acetaminophen Extra Strength] 500 mg tablet 1,000 mg PO Q6H PRN cetirizine [24Hour Allergy] 10 mg tablet 10 mg PO DAILY cholecalciferol (vitamin D3) 50 mcg (2,000 unit) capsule 50 mcg PO DAILY latanoprost 0.005 % drops 1 drp ophthalmic (eye) HS fluconazole 150 mg tablet 150 mg PO QWEEK Rx Instructions: x4 weeks prednisone 20 mg tablet 20 mg PO BID furosemide 20 mg tablet 20 mg PO BID Follow Up/Referrals: Janna Wood MD [Primary Care Provider] -
--- NOTE | 2024-11-03 16:50 | CRLHL7_ITS ---
For Patients: As a result of the Century Cures Act, medical imaging exams and procedure reports are released immediately into your electronic medical record. You may view this report before your referring provider. If you have questions, please contact your health care provider. Indication: EDEMA. HX LEUKEMIA Technique: AP view of the chest. Comparison: 07/18/2024. Findings: Low lung volumes. Left chest pacemaker with right atrial and right ventricular leads. Mildly enlarged cardiomediastinal silhouette with calcified aortic knob. Moderate interstitial prominence. Small bilateral pleural effusions. No visualized pneumothorax. Impression: Mild pulmonary edema with small bilateral pleural effusions. Dictated by Kp Hernandez MD @ 11/03/2024 5:51:27 PM (Electronically Signed)
--- OUTSIDE RECORDS SUMMARY | 2024-11-03 16:57 | XMS_ITS | Clinical Summary ---
Author Organization [facility] Address [place], [place] [address] Care Team Providers Care Exterminator Helper Termite Name Role Phone Luisito Wood MD Primary Care Provider Leon Dodd Unavailable Jovanny Shine MD Unavailable Unavail able Kane John MD Unavailable Lenore Ortiz MD Unavailable Cindy Brand NP Unavailable [facility] Unavailable Allergies Active Allergy Reactions Criticality Noted [...] unspecified vessel or lesion type, unspecified whether [place] or transplanted heart Place 1 tablet under [...] Medical Oncologist: Dr. Lenore Ortiz [facility] 08/22/2019 S/P dual [...] Coronary atherosclerosis of unspecified type of vessel, [place] or graft 12/05/2006 Unspecified glaucoma 12/05/2006 Unspecified [...] Department Care Team Description 11/03/2024 9:00 AM FORMULATOR Home Care Visit [facility] [address] [place] [phone] Jonah Sanabria, PT PT - REASSESSMENT 11/03/2024 Nurse Triage [facility] [address] [place] [address] Luisito Wood MD Weight; Leg Swelling 11/03/2024 Telephone [facility] [address] [place] [address] Alycia Gutierrez, OT Home Care (7+ pounds gain in 24 hrs.) 11/02/2024 11:45 AM FORMULATOR Home Care Visit [facility] [address] [place] [phone] Liliana Cisneros MARKET RISK MANAGER - LONG VISIT 11/02/2024 11:30 AM FORMULATOR Home Care Visit [facility] [address] [place] [phone] Nancy Cason RN SN - HOME VISIT 11/02/2024 Orders Only [facility] [address] [place] [address] Luisito Wood MD <No scans attached> 11/02/2024 Orders Only [facility] [address] [place] [phone] Lenore Ortiz MD Lab 11/02/2024 Orders Only [facility] [address] [place] [phone] Lenore Ortiz MD <No scans attached> 10/30/2024 10:30 AM FORMULATOR Home Care Visit [facility] [address] [place] [phone] Nancy Cason, PANFILO SN - HOME VISIT 10/29/2024 3:00 PM FORMULATOR Home Care Visit [facility] [address] [place] [phone] Jonah Dietrich RN SN - WOUND/OSTOMY CHART CONSULT 10/29/2024 11:45 AM FORMULATOR Home Care Visit [facility] [address] [place] [phone] Liliana Cisneros MARKET RISK MANAGER - HOME VISIT 10/29/2024 Refill [facility] [address] [place] [address] Luisito Wood MD Refill Request (Prednisone) 10/29/2024 Telephone [facility] [place] [address] [address] Cindy Brand, BROADCAST MAINTENANCE TECHNICIAN Appointment 10/28/2024 12:00 PM FORMULATOR Home Care Visit [facility] [address] [place] [phone] Alycia Gutierrez, JOANNA OT - HOME VISIT 10/28/2024 11:00 AM FORMULATOR Home Care Visit [facility] [address] [place] [phone] Sowmya Malcolm, STAFF GENETIC COUNSELOR STAFF GENETIC COUNSELOR - HOME VISIT 10/27/2024 9:00 AM FORMULATOR Home Care Visit [facility] [address] [place] [phone] Jonah Sanabria, PT PT - HOME VISIT 10/27/2024 Travel 10/26/2024 1:00 PM FORMULATOR Home Care Visit [facility] [address] [place] [phone] Liliana Cisneros MARKET RISK MANAGER - HOME VISIT 10/26/2024 11:30 AM FORMULATOR Home Care Visit [facility] [address] [place] [phone] Nancy Cason RN SN - HOME VISIT 10/26/2024 Orders Only [facility] [address] [place] [address] Luisito Wood MD <No scans attached> 10/23/2024 11:00 AM FORMULATOR Home Care Visit [facility] [address] [place] [address], [place] [phone] Nancy Cason RN SN - HOME VISIT 10/23/2024 Home Care Visit [facility] [address] [place] [phone] Alycia Gutierrez, OT CARE COORDINATION 10/22/2024 12:15 PM FORMULATOR Home Care Visit [facility] [address] [place] [phone] Liliana Cisneros MARKET RISK MANAGER - HOME VISIT 10/22/2024 Orders Only [facility] [address] [place] [address] Lenore Ortiz MD <No scans attached> 10/22/2024 Telephone [facility] [address] [place] [address] Cindy Brand, BROADCAST MAINTENANCE TECHNICIAN Appointment 10/21/2024 10:30 AM FORMULATOR Home Care Visit [facility] [address] [place] [address], [place] [phone] Sowmya Malcolm STAFF GENETIC COUNSELOR STAFF GENETIC COUNSELOR - HOME VISIT 10/20/2024 2:15 PM FORMULATOR Home Care Visit [facility] [address] [place] [phone] Alycia Gutierrez, OT OT - EDEMA/LYMPHEDEMA HOME VISIT 10/20/2024 9:00 AM FORMULATOR Home Care Visit [facility] [address] [place] [phone] Jonah Sanabria, PT PT - HOME VISIT 10/20/2024 7:00 AM FORMULATOR Home Care Visit [facility] [address] [place] [phone] Jonah Dietrich, RN SN - WOUND/OSTOMY CHART CONSULT 10/19/2024 10:45 AM FORMULATOR Home Care Visit [facility] [address] [place] [phone] Liliana Cisneros MARKET RISK MANAGER - HOME VISIT 10/19/2024 10:30 AM FORMULATOR Home Care Visit [facility] [address] [place] [address], [place] [phone] Nancy Cason, PANFILO SN - HOME VISIT 10/19/2024 Home Care Visit [facility] [address] [place] [address], [place] [phone] Nancy Cason, PANFILO SN - HH AIDE/STAFF GENETIC COUNSELOR SUPERVISORY VISIT 10/16/2024 2:15 PM FORMULATOR Home Care Visit [facility] [address] [place] [address], [place] [phone] Liliana Cisneros MARKET RISK MANAGER - HOME VISIT 10/15/2024 3:30 PM FORMULATOR Home Care Visit [facility] [address] [place] [phone] Nancy Cason, PANFILO SN - HOME VISIT 10/15/2024 Home Care Visit [facility] [address] [place] [phone] Alycia Gutierrez, OT OT - EDEMA/LYMPHEDEMA HOME VISIT 10/15/2024 Orders Only [facility] [address] [place] [address] Luisito Wood MD <No scans attached> 10/13/2024 12:45 PM FORMULATOR Home Care Visit [facility] [address] [place] [phone] Jonah Sanabria, PT PT - HOME VISIT 10/12/2024 11:00 AM FORMULATOR Office Visit [facility] [place] [facility] [address] [place] [phone] Lenore Ortiz MD Follow Up (CML) 10/12/2024 Travel 10/09/2024 1:00 PM FORMULATOR Home Care Visit [facility] [address] [place] [phone] Nancy Cason, PANFILO SN - HOME VISIT 10/09/2024 11:30 AM FORMULATOR Home Care Visit [facility] [address] [place] [phone] Liliana Cisneros MARKET RISK MANAGER - HOME VISIT 10/09/2024 Refill [facility] [place] [facility] [place] [address] [place] [phone] Cindy Brand, BROADCAST MAINTENANCE TECHNICIAN Refill Request (Imatinib) 10/08/2024 11:45 AM FORMULATOR Home Care Visit [facility] [address] [place] [phone] Alycia Gutierrez, OT OT - INITIAL ASSESSMENT 10/07/2024 1:30 PM FORMULATOR Home Care Visit [address] [phone] Mariaa Newman, PT PT - INITIAL ASSESSMENT 10/07/2024 10:00 AM FORMULATOR Home Care Visit [address] [phone] Sowmya Malcolm, STAFF GENETIC COUNSELOR STAFF GENETIC COUNSELOR - HOME VISIT 10/05/2024 12:00 PM FORMULATOR Home Care Visit [address] [phone] Nancy Cason, PANFILO SN - HOME VISIT 10/05/2024 12:50 AM FORMULATOR Home Care Visit [address] [phone] Jonah Dietrich, RN SN - WOUND/OSTOMY CHART CONSULT 10/05/2024 Orders Only [facility] [address] [place] [address] Luisito Wood MD <No scans attached> 10/05/2024 Telephone [facility] [address] [place], [place] [phone] Jonah Dietrich, metal room dental technician 10/03/2024 12:00 PM FORMULATOR Home Care Visit [facility] [address] [place] [phone] Nancy Cason, PANFILO SN - HOME VISIT 10/01/2024 10:00 AM FORMULATOR Home Care Visit [facility] [address] [place] [phone] Yoon Goncalves RN SN - OASIS START OF CARE 10/01/2024 Plan of Care Documentation [facility] [address] [place] [phone] 09/30/2024 Home Care Visit [facility] [address] [place] [phone] Yoon Goncalves, PANFILO CARE COORDINATION 09/30/2024 Telephone [facility] [address] [place] [phone] Cindy Brand, JOSE Results; Follow Up (ER visit) 09/28/2024 1:34 PM FORMULATOR - 09/28/2024 11:59 PM FORMULATOR Hospital Encounter [facility] [address] [place] [address] 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 Telephone [facility] [address] [place] [address] Luisito Wood MD Referral (home health aide ) 09/28/2024 Travel 09/23/2024 Telephone [facility] [address] [place] [phone] Cindy Brand NP 09/21/2024 10:15 AM FORMULATOR - 09/21/2024 11:59 PM FORMULATOR Hospital Encounter [facility] [address] [place] [address] Anemia, unspecified type; CML (chronic myeloid leukemia) (HC) 09/21/2024 Travel 09/16/2024 1:15 PM FORMULATOR Office Visit [facility] [address] [place] [address] Luisito Wood MD Follow Up (6 month from annual) 09/16/2024 Telephone [facility] [address] [place] [phone] Cindy Brand, BROADCAST MAINTENANCE TECHNICIAN Appointment 09/16/2024 Telephone [facility] [address] [place] [address] Luisito Wood MD Medication Management (Questions) 09/16/2024 Travel 09/14/2024 1:00 PM FORMULATOR Orders Only [facility] [address] [place] [address] Lab, [facility] 09/14/2024 Travel 09/14/2024 Refill [facility] [address] [place] [address] Lenore Ortiz MD Refill Request (Loperamide) 09/11/2024 11:45 AM FORMULATOR Office Visit [facility] [address] [place] [address] Cindy Brand, BROADCAST MAINTENANCE TECHNICIAN Follow Up 09/11/2024 Travel 08/28/2024 1:45 PM FORMULATOR - 08/28/2024 11:59 PM FORMULATOR Hospital Encounter [facility] [address] [place] [address] 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 Travel 08/28/2024 Medical Messaging [facility] [address] [place] [address] Luisito Wood MD Health Care Directive from Last 3 Months Immunizations Name Administration Dates Next Due AMB Influenza, IIV3 (Age >=3 years)(Flu Clinic Only) 08/16/2008 COVID-19 VACCINE SPIKEVAX (M ODERNA 50MCG/0.5ML) 12YO+ PFS 07/21/2024,03/17/2024,08/27/2023 COVID-19 vaccine ([employer] NT[employer] 30mcg/0.3mL) 12YO+ BIVALENT PF, MDV 03/07/2023 COVID-19 vaccine ([employer] 30mcg/0.3mL) 12YO+ MARITZA-SUCROSE PF, MDV 02/12/2022 COVID-19 vaccine ([employer] 30mcg/0.3mL) PF, MDV 01/18/2021,12/28/2020 Influenza, High-dose [...] = 0.6 oz pur e alcohol) occasional PHQ-2 Answer Date Recorded PHQ-2 TOTAL SCORE [...] is your housing situation today? 1 09/16/2024 Utilities Answer Date Recorded Do you have trouble paying f or utilities (for example, heat, electricity, water, phone)? 1 09/16/2024 Sex and Gender Information Value Date Recorded Sex Assigned at Not on file Legal Sex Male 6:26 AM FORMULATOR Gender Identity Not on file Sexual Orientation Not on file Obstetrics History Last Filed Vital Signs Vital Sign Reading Time Taken Comments Blood Pressure 156/58 11/03/2024 9:25 AM FORMULATOR Pulse 72 11/03/2024 9:25 AM FORMULATOR Temperature 37.3 C (99.1 F) 11/03/2024 9:25 AM FORMULATOR Respiratory Rate 18 11/03/2024 9:25 AM FORMULATOR Oxygen Saturation 95% 11/03/2024 9:25 AM FORMULATOR Inhaled Oxygen Concentration - - Weight 124.5 kg (274 lb 6.4 oz) 11/03/2024 9:25 AM FORMULATOR Height 177.8 cm (5' 10) 10/01/2024 10: 36 AM FORMULATOR Body Mass Index 39.37 10/01/2024 10:36 AM FORMULATOR Plan of Treatment Upcoming Encounters Date Type Department Care Team (Late st Contact Info) Description 11/04/2024 4:00 AM FORMULATOR Home Care Visit [facility] [address] [place] [phone] Sowmya Malcolm LPN 11/05/2024 12:00 PM FORMULATOR Home Care Visit [facility] [address] [place] [phone] Blayne, Krin L 11/05/2024 3:20 PM FORMULATOR Telemedicine [facility] [address] [place] [address] Luisito Wood MD [address] [place] [address] 11/06/2024 11:15 AM FORMULATOR Home Care Visit [facility] [address] [place] [phone] Nancy Cason, PANFILO 11/09/2024 4:00 AM FORMULATOR Home Care Visit [address] [phone] Nancy Cason, PANFILO 11/09/2024 12:00 PM FORMULATOR Home Care Visit [address] [phone] Olegario Cisnerosin L 11/11/2024 4:00 AM FORMULATOR Home Care Visit [place] [phone] [place] [phone] Nancy Cason, PANFILO 11/12/2024 4:00 AM FORMULATOR Home Care Visit [place] [phone] [place] [phone] Liliana Cisneros L 11/13/2024 4:00 AM FORMULATOR Home Care Visit [address] [phone] Nancy Cason, PANFILO 11/13/2024 11:45 AM FORMULATOR Telemedicine [facility] [address] [place] [address] Cindy Brand, BROADCAST MAINTENANCE TECHNICIAN [address] [place] [address] 11/16/2024 4:00 AM FORMULATOR Home Care Visit [address] [phone] Nancy Cason, RN 11/16/2024 5:00 AM FORMULATOR Home Care Visit [facility] [address] [place] [address] Blayne, Krin L 11/18/2024 4:00 AM FORMULATOR Home Care Visit [facility] [address] [place] [address], [place] [phone] Nancy Cason, RN 11/19/2024 4:00 AM FORMULATOR Home Care Visit [facility] [address] [place] [address], [place] [phone] Blayne, Krin L 11/20/2024 4:00 AM FORMULATOR Home Care Visit [facility] [address] [place] [address], [place] [phone] Nancy Cason, RN 11/23/2024 4:00 AM FORMULATOR Home Care Visit [facility] [address] [place] [phone] Nancy Cason, RN 11/23/2024 5:00 AM FORMULATOR Home Care Visit [facility] [address] [place] [phone] Blayne, Krin L 11/24/2024 4:00 AM FORMULATOR Home Care Visit [facility] [address] [place] [phone] Jonah Dietrich, RN [address] [place], [place] [phone] 11/25/2024 4:00 AM FORMULATOR Home Care Visit [facility] [address] [place] [phone] Sowmya Malcolm LPN 11/26/2024 4:00 AM FORMULATOR Home Care Visit [facility] [address] [place] [phone] Danberry, Krin L 11/27/2024 4:00 AM FORMULATOR Home Care Visit [facility] [address] [place] [phone] Nancy Cason, PANFILO 01/28/2025 Cardiac Device Check [facility] [phone] Health Maintenance Due Date Last Done Comments [...] WITH AUTO DIFFERENTIAL Routine 11/02/2024 11:57 AM FORMULATOR CML (chronic myeloid leukemia) (HC) COMP METABOLIC PANEL Routine 11/02/2024 11:57 AM FORMULATOR CML (chronic myeloid leukemia) (HC) CBC WITH AUTO DIFFERENTIAL Routine 11/02/2024 11:57 AM FORMULATOR CML (chronic myeloid leukemia) (HC) CBC WITH AUTO DIFFERENTIAL Timed 09/28/2024 1:40 PM FORMULATOR CML (chronic myeloid leukemia) (HC) CBC WITH AUTO DIFFERENTIAL Today 09/28/2024 1:40 PM FORMULATOR CML (chronic myeloid leukemia) (HC) CBC WITH AUTO DIFFERENTIAL Timed 09/21/2024 10:19 AM FORMULATOR CML (chronic myeloid leukemia) (HC) BCR ABL1 CML/ALL PCR QUANT Today 09/21/2024 10:19 AM FORMULATOR CML (chronic myeloid leukemia) (HC) COMP METABOLIC PANEL Today 09/21/2024 10:19 AM FORMULATOR CML (chronic myeloid leukemia) (HC) CBC WITH AUTO DIFFERENTIAL Today 09/21/2024 10:19 AM FORMULATOR CML (chronic myeloid leukemia) (HC) VITAMIN B12 Today 09/21/2024 10:19 AM FORMULATOR Anemia, unspecified type BASIC METABOLIC PANEL Routine 09/14/2024 12:52 PM FORMULATOR Diabetes mellitus without complication (HC) FERRITIN Routine 09/14/2024 12:52 PM FORMULATOR Anemia, unspecified type IRON PLUS IRON BINDING CAP Routine 09/14/2024 12:52 PM FORMULATOR Anemia, unspecified type HEMOGLOBIN A1C MONITORING (POCT) Routine 09/14/2024 12:50 PM FORMULATOR Diabetes mellitus without complication (HC) CBC WITH AUTO DIFFERENTIAL Timed 08/28/2024 1:58 PM FORMULATOR CML (chronic myeloid leukemia) (HC) BCR ABL1 CML/ALL PCR QUANT Today 08/28/2024 1:58 PM FORMULATOR CML (chronic myeloid leukemia) (HC) COMP METABOLIC PANEL Today 08/28/2024 1:58 PM FORMULATOR CML (chronic myeloid leukemia) (HC) CBC WITH AUTO DIFFERENTIAL Today 08/28/2024 1:58 PM FORMULATOR CML (chronic myeloid leukemia) (HC) from Last 3 Months Results * (ABNORMAL) CBC WITH AUTO DIFFERENTIAL (11/02/2024 11:57 AM [facility]) Only the most recent of4 resultswithin the time period is included. WHITE BLOOD COUNT 6.0 4.5 - 11.0 thou/cu mm 11/02/2024 12:44 PM [facility] RED BLOOD COUNT 2.31(L) 4.30 - 5.90 mil/cu mm 11/02/2024 12:44 PM [facility] HEMOGLOBIN 7.4(L) 13.5 - 17.5 g/dL 11/02/2024 12:44 PM [facility] HEMATOCRIT 23.2(L) 37.0 - 53.0 % 11/02/2024 12:44 PM [facility] MCV 100 80 - 100 fL 11/02/2024 12:44 PM [facility] MCH 32.0 26.0 - 34.0 pg 11/02/2024 12:44 PM [facility] MCHC 31.9(L) 32.0 - 36.0 g/dL 11/02/2024 12:44 PM [facility] RDW 19.5(H) 11.5 - 15.5 % 11/02/2024 12:44 PM [facility] PLATELET COUNT 142 140 - 440 thou/cu mm 11/02/2024 12:44 PM [facility] MPV 10.6 6.5 - 11.0 fL 11/02/2024 12:44 PM [facility] % NEUT 86.7 % 11/02/2024 12:44 PM [facility] % LYMPH 5.3 % 11/02/2024 12:44 PM [facility] % MONO 8.0 % 11/02/2024 12:44 PM [facility] % EOS 0.0 % 11/02/2024 12:44 PM [facility] % BASO 0.0 % 11/02/2024 12:44 PM [facility] ABSOLUTE NEUTROPHILS 5.2 1.7 - 7.0 thou/cu mm 11/02/2024 12:44 PM [facility] ABSOLUTE LYMPHOCYTES 0.3(L) 0.9 - 2.9 thou/cu mm 11/02/2024 12:44 PM [facility] ABSOLUTE MONOCYTES 0.5 <0.9 thou/cu mm 11/02/2024 12:44 PM [facility] ABSOLUTE EOSINOPHILS 0.0 <0.5 thou/cu mm 11/02/2024 12:44 PM [facility] ABSOLUTE BASOPHILS 0.0 <0.3 thou/cu mm 11/02/2024 12:44 PM [facility] Blood BLOOD SPECIMEN / Unknown Non-Lab Butterfly / Unknown 11/02/2024 11:57 AM FORMULATOR 11/02/2024 12:39 PM [facility] - 11/02/2024 12:44 PM FORMULATOR This procedure was originally ordered at [facility]. Lenore Ortiz MD HEMATOLOGY Final Resu lt [facility] [address] [place] [address] * (ABNORMAL) COMP METABOLIC PANEL (11/02/2024 11:57 AM [facility]) Only the most recent of3 resultswithin the time period is included. SODIUM 147(H) 136 - 145 mmol/L 11/02/2024 12:59 PM [facility] POTASSIUM 3.9 3.5 - 5.1 mmol/L 11/02/2024 12:59 PM [facility] CHLORIDE 108(H) 98 - 107 mmol/L 11/02/2024 12:59 PM [facility] CO2,TOTAL 28 22 - 29 mmol/L 11/02/2024 12:59 PM [facility] ANION GAP 11 5 - 18 11/02/2024 12:59 PM [facility] GLUCOSE 144(H) 70 - 99 mg/dL 11/02/2024 12:59 PM [facility] CALCIUM 8.5(L) 8.8 - 10.4 mg/dL 11/02/2024 12:59 PM [facility] Comment: Reference ranges for this test were updated on 08/25/2024 to reflect our healthy population more accurately. Reference range changes are not retroactively applied to results, but previous results using the same methodology can be interpreted in the context of the new reference range. BUN 43(H) 8 - 23 mg/dL 11/02/2024 12:59 PM [facility] CREATININE 1.50(H) 0.70 - 1.20 mg/dL 11/02/2024 12:59 PM [facility] BUN/CREAT RATIO 29(H) 10 - 20 12:59 PM [facility] eGFR 46(L) >90 mL/min/1. 73m2 11/02/2024 12:59 PM [facility] Comment:As of 2022, eG FR is calculated by the CKD-EPI creatinine equation without race adjustment. eGFR can be influenced by muscle mass, exercise, and diet. The reported eGFR is an estimation only and is only applicable if the renal function is stable. ALBUMIN 3.3(L) 4.0 - 4.9 g/dL 11/02/2024 12:59 PM [facility] PROTEIN,TOTAL 5.2(L) 6.0 - 8.0 g/dL 11/02/2024 12:59 PM [facility] BILIRUBIN,TOTAL 0.8 0.0 - 1.2 mg/dL 11/02/2024 12:59 PM [facility] ALK PHOSPHATASE 72 40 - 129 IU/L 11/02/2024 12:59 PM [facility] ALT (SGPT) 14 10 - 50 IU/L 11/02/2024 12:59 PM [facility] AST (SGOT) 18 10 - 50 IU/L 11/02/2024 12:59 PM [facility] Blood BLOOD SPECIMEN / Unknown Non-Lab Butterfly / Unknown 11/02/2024 11:57 AM FORMULATOR 11/02/2024 12:39 PM FORMULATOR us Lenore Ortiz MD CHEMISTRY Final Resu lt [facility] [address] [place] [address] * (ABNORMAL) BCR ABL1 CML/ALL PCR QUANT (09/21/2024 10:19 AM FORMULATOR) Only the most recent of2 resultswithin the time period is included. [facility] BCR-ABL1, CML/ALL, PCR, Quant Note(A) 09/27/2024 3:06 PM [facility] Comment: TESTS RESULT FLAG UNITS REF RANGE LAB e13a2 (b2a2) schulz... 8.9909 [A] % 01 e14a2 (b3a2) schulz... 9.8806 % 01 e1a2 transcript Note % 01 <0.0032 % Interpretation: Positive [A] 01 POSITIVE for the BCR-ABL1 e13a2 (b2a2, p210) and e14a2 (b3a2, p210) fusion transcripts. Director Review Note 01 Technical Component performed at [facility] [place] Professional Component performed by: [employer] Jhoana Salmeron, PhD, [facility] Director, Molecular Oncology [address] [place] [address] Background 01 This assay can detect three [...] developed and its performance characteristics determined by [employer]. It has not been cleared or approved by the Food and Drug Administration. PDF 02 FLAG LEGEND: L-Low Normal,H-High Normal,LL-Alert Low,HH-Alert High <-Panic Low,>-Panic High,A-Abnormal,AA-Critical Abnormal Performed at: [facility] [place] [address] [place] [address] Gurdeep Figueroa [facility], [address] [facility] [place] [address], [place], [place] [address] Gurdeep Figueroa [facility], Other BLOOD SPECIMEN / Unknown Venipuncture / Unknown 09/21/2024 10:19 AM FORMULATOR 09/21/2024 10:20 AM FORMULATOR Narrative [facility] [facility] - 09/27/2024 3:06 PM FORMULATOR Performed at: [facility] [address], [place], [place] [id number] Electrical And Instrumentation Manager: Gurdeep LUNAhD, Phone: [phone] Cindy Brand NP SEND OUTS Final Result [facility] ([facility]) [address] [place] [id number], [place] * VITAMIN B12 (09/21/2024 10:19 AM FORMULATOR) [facility] VITAMIN B12 530 232 - 1,245 pg/mL 09/21/2024 11:06 PM FORMULATOR [facility] Blood BLOOD SPECIMEN / Unknown Venipuncture / Unknown 09/21/2024 10:19 AM FORMULATOR 09/21/2024 10:20 AM FORMULATOR Narrative [facility] - 09/21/2024 11:06 PM FORMULATOR Biotin supplements may cause clinically significant interference for this test assay. If interference is suspected, it is strongly recommended that biotin is discontinued for at least one week prior to retesting. Cindy Brand NP CHEMISTRY Final Result Performing Organization Address City/[facility] [address]/ZIP Co de Phone Number [facility] [address] [place] [address], [place] * (ABNORMAL) IRON PLUS IRON BINDING CAP (09/14/2024 12:52 PM FORMULATOR) [facility] IRON, TOTAL 38(L) 50 - 180 mcg/dL [facility] IRON BINDING CAPACITY 192(L) 250 - 425 mcg/dL (calc) [facility] % SATURATION 20 20 - 48 % (calc) [facility] Blood BLOOD SPECIMEN / Unknown 09/14/2024 12:52 PM FORMULATOR 09/14/2024 12:52 PM FORMULATOR us Cindy Brand NP CHEMISTRY Final Result [facility] [address] [place] [address], [place] [phone] [facility] [address] [place] [address] * FERRITIN (09/14/2024 12:52 PM FORMULATOR) FERRITIN 221 24 - 380 ng/mL [facility] Blood BLOOD SPECIMEN / Unknown 09/14/2024 12:52 PM FORMULATOR 09/14/2024 12:52 PM FORMULATOR us Cindy Brand NP CHEMISTRY Final Result [facility] [address] [place] [address], [facility] [address] [place] [address] * (ABNORMAL) BASIC METABOLIC PANEL (09/14/2024 12:52 PM FORMULATOR) GLUCOSE 118(H) 65 - 99 mg/dL [facility] [...] BLOOD SPECIMEN / Unknown 09/14/2024 12:52 PM FORMULATOR 09/14/2024 12:52 PM FORMULATOR us Luisito Wood MD CHEMISTRY Final Result [facility] [address] [place] [address], [place] [phone] [facility] [address] [place] [address] * HEMOGLOBIN A1C MONITORING (POCT) (09/14/2024 12:50 PM FORMULATOR) POC HEMOGLOBIN A1C 5.8 <6.0 % OF TOTAL HGB [facility] Comment: Any point of care results exhibiting inconsistency with the patient's clinical status should be repeated using a different testing method. 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 Healthcare Directive 05/19/2024 3:10 PM Healthcare Directive 06/20/2015 10:06 AM Misael FULTON, 06/13/2015 * Full Code (Latest Code Status on File) Date Activated Date Inactivated Comments 08/22/2019 6:12 PM 08/26/2019 7:37 PM * Full Code Date Activated Date Inactivated Comments 04/16/2018 12:29 PM 04/17/2018 1:42 PM * Full Code Date Activated Date Inactivated Comments 04/09/2018 9:11 AM 04/09/2018 5:09 PM Care Teams Exterminator Helper Termite Relationship Specialty Start Date End Date Luisito Wood MD [address] [place] [address] PCP - General 08/31/06 Leon Dodd [address] [place] [address] Ophthalmology Surgery 04/03/11 Jovanny Shine MD [address] [place] [address] Surgery - Orthopedics 04/03/11 Kane John MD [address] [place] [address] Gastroenterology 04/04/12 Lenore Ortiz MD [address] [place] [address] Oncology Hematology and Oncology 05/04/20 Cindy Brand, BROADCAST MAINTENANCE TECHNICIAN [address] [place] [address] Oncology Nurse Practitioner - Family 05/04/[address] [address] 09/30/24
[2024-11-03 17:15] VITALS: O2SAT 96
[2024-11-03 17:19] LABS: Hematocrit 25.8 % (37.0-53.0); Hemoglobin* 8.3 gm/dL (13.5-17.5); Immature Granulocytes Abs Auto 0.02 K/uL (0.00-0.30); Immature Granulocytes Pct Auto 0.2 %; Lymphocytes Percent Auto 2.6 % (20-44); Mean Corpuscular HGB Conc 32 gm/dL (32-36); Mean Corpuscular Hemoglobin 33 pg (26-34); Mean Corpuscular Volume 102 fL (80-100); Monocytes Percent Auto 4.5 % (0.0-11.0); Neutrophils Percent Auto 92.7 % (42.0-72.0); Platelet Count* 160 K/uL (140-440); RDW Coefficient of Variation % 20.8 % (11.5-15.5); Red Blood Count 2.53 m/uL (4.30-5.90); White Blood Count* 10.92 K/uL (4.50-11.00)
[2024-11-03 17:33] LABS: Slide Review Reflex No
[2024-11-03 17:38] LABS: Chloride* 108 mmol/L (96-114)
[2024-11-03 17:39] LABS: Potassium* 4.4 mmol/L (3.6-5.1); Sodium* 143 mmol/L (135-149)
[2024-11-03 17:41] LABS: Bilirubin Total* 1.1 mg/dL (0.1-1.5); Creatinine* 1.2 mg/dL (0.5-1.5); Estimated Glomerular Filt Rate 60 ml/min
[2024-11-03 17:42] LABS: Alanine Aminotransferase* 19 U/L (4-50); Alkaline Phosphatase* 51 U/L (40-150); Anion Gap 6 mEq/L (7-15); Aspartate Amino Transferase* 25 U/L (12-35); Blood Urea Nitrogen* 49 mg/dL (7-30); Calcium* 8.3 mg/dL (8.4-10.6); Carbon Dioxide* 29 mmol/L (20-32); Glucose* 119 mg/dL (60-115); Magnesium* 1.8 mg/dL (1.5-2.6); Total Protein* 5.3 g/dL (6.0-8.3)
[2024-11-03 17:45] LABS: C Reactive Protein* 0.9 mg/dL (0.5-1.0)
[2024-11-03 17:58] LABS: Procalcitonin* 0.05 ng/mL (<0.50)
[2024-11-03 18:04] LABS: NT Pro B Type NatriureticPept* 4150 pg/mL
[2024-11-03] MEDS: FUROSEMIDE 10 MG/ML inj 40 MG IVP (18:31)
[2024-11-03 18:36] VITALS: BP 137/73; PULSE 61; RESP 16; O2SAT 98
[2024-11-03 19:02] VITALS: BP 144/74; PULSE 61; RESP 20; TEMP 36.6; O2SAT 97; BMI 41.2
--- NOTE | 2024-11-03 20:11 | P.IMHP_ITS ---
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 Patient is seen with and daughters at bedside. Reports an 8 lb weight gain over the last 24 hours. Bilateral lower extremities with weeping, reported bloody seepage from his left lower leg earlier today. Reports blisters to his legs. Has known lymphedema. Lower extremities have been more swollen. Has not been to a lymphedema clinic in 2 years. Admits he no longer uses compression stockings or medical grade wraps. He has been using a neoprene type wrap to his right leg which has not been beneficial. He has been sleeping in a recliner for the past 3 months. More recently, using a walker when moving around the house. Previously walking independently or using a cane. Has noted increased swelling into his abdomen. Denies shortness of breath at rest but has noticed increasing dyspnea with exertion. Has home health cares weekly including PT/OT. They were at the home today and were concerned with the worsening of his legs per report. Has not been seen in the wound clinic for some time but has been assessed by home health. He has a lymphedema pump which he tells me he uses 1 hour daily. Was in the ED on 09/27/2024 for concerns of draining blisters and discharged with outpatient follow-up. Review of Systems Narrative: REVIEW OF SYSTEMS: Complete review of systems performed and negative unless otherwise stated in HPI or below. [facility] Medical History Health care directive on file ?Z78.9 - Other specified health status (ICD-10) Aspiration pneumonia ?J69.0 - Pneumonitis due to inhalation of food and vomit (ICD-10) Anemia ?D64.9 - Anemia, unspecified (ICD-10) Weight loss, non-intentional ?R63.4 - Abnormal weight loss (ICD-10) Heart failure with reduced ejection fraction ?I50.20 - Unspecified systolic (congestive) heart failure (ICD-10) Esophageal dysmotility ?K22.4 - Dyskinesia of esophagus (ICD-10) BPH (benign prostatic hyperplasia) ?N40.0 - Benign prostatic hyperplasia without lower urinary tract symptoms (ICD-10) Chronic diarrhea ?K52.9 - Noninfective gastroenteritis and colitis, unspecified (ICD-10) Hypertension ?I10 - Essential (primary) hypertension (ICD-10) Obesity ?E66.9 - Obesity, unspecified (ICD-10) Gout ?M10.9 - Gout, unspecified (ICD-10) Paroxysmal atrial fibrillation ?I48.0 - Paroxysmal atrial fibrillation (ICD-10) Diabetes mellitus ?E11.9 - Type 2 diabetes mellitus without complications (ICD-10) Chronic acquired lymphedema ?I89.0 - Lymphedema, not elsewhere classified (ICD-10) Penile cancer ?C60.9 - Malignant neoplasm of penis, unspecified (ICD-10) Coronary artery disease ?I25.10 - Atherosclerotic heart disease of [place] coronary artery without angina pectoris (ICD-10) 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 - Chronic myeloid leukemia, BCR/ABL-positive, not having achieved remission (ICD-10) Surgical History Hx laparoscopic cholecystectomy ?Z90.49 - Acquired absence of other specified parts of digestive tract (ICD- 10) History of penectomy ?Z90.79 - Acquired absence of other genital organ(s) (ICD-10) S/P placement of cardiac pacemaker ?Z95.0 - Presence of cardiac pacemaker (ICD-10) History of arthroplasty of left knee ?Z96.652 - Presence of left artificial knee joint (ICD-10) History of coronary artery stent placement ?Z95.5 - Presence of coronary angioplasty implant and graft (ICD-10) Social History Narrative: He lives with his . Code status is full. Remote history of smoking. Rarely drinks alcohol. What is your current living situation?: I presently have a place to live Problems where you live: no known problems Problems where you live details: none In the past 12 months, utilities in danger of being shut off: no In past 12 months, lack of transportation kept you from medical appts, meetings, work, or getting things needed for daily living: no In the past 12 mos, have been you worried that your food would run out before you had money to buy more?: never true In the past 12 mos, the food you bought just didn't last and you didn't have money to buy more?: never true Highest level of school completed/degree received: high school graduate Smoking Status: Former smoker Do you use any of these nicotine containing products: None Second hand tobacco smoke exposure: No How often do you have a drink containing alcohol: monthly or less How many standard drinks containing alcohol do you have on a typical day: 1 or 2 How often do you have six or more drinks on one occasion: Never AUDIT-C Alcohol total score: 1 Non-prescribed substance use: denies use Caffeine: Yes How often does anyone, including family, friends and others, physically hurt you : never How often does anyone, including family, friends and others, insult or talk down to you: never How often does anyone, including family, friends and others, threaten you with harm: never How often does anyone, including family, friends and others, scream or curse at you: never service: Yes Meds Home Medications and Allergies Home Medications ?Medication ?Instructions ?Recorded ?Confirmed ?Type allopurinol 300 mg tablet 300 mg PO DAILY 04/28/24 09/27/24 History apixaban 5 mg tablet (Eliquis) 5 mg PO BID 04/28/24 09/27/24 History atorvastatin 20 mg tablet 20 mg PO DAILY 04/28/24 09/27/24 History imatinib 100 mg tablet 400 mg PO DAILY 04/28/24 09/27/24 History potassium chloride 20 mEq 20 meq PO DAILY 04/28/24 09/27/24 History tablet,extended release(part/cryst) tamsulosin 0.4 mg capsule 0.4 mg PO DAILY 04/28/24 09/27/24 History amlodipine 5 mg tablet 5 mg PO DAILY 05/27/24 06/16/24 History acetaminophen 500 mg tablet 1,000 mg PO Q6H PRN 09/27/24 09/27/24 History (Acetaminophen Extra Strength) cetirizine 10 mg tablet (24Hour 10 mg PO DAILY 09/27/24 09/27/24 History Allergy) cholecalciferol (vitamin D3) 50 50 mcg PO DAILY 09/27/24 09/27/24 History mcg (2,000 unit) capsule fluconazole 150 mg tablet 150 mg PO QWEEK 09/27/24 09/27/24 History latanoprost 0.005 % eye drops 1 drp ophthalmic (eye) HS 09/27/24 09/27/24 History loperamide 2 mg capsule 2 mg PO PRN 09/27/24 History furosemide 20 mg tablet 20 mg PO BID 11/03/24 11/03/24 History prednisone 20 mg tablet 20 mg PO BID 11/03/24 11/03/24 History Allergies Allergy/AdvReac Type Severity Reaction Status Date / Time Iodinated Contrast Media Allergy Severe Verified 09/27/24 16:52 doxycycline AdvReac Intermediate Rash Verified 09/27/24 16:52 losartan AdvReac Mild Headache Verified 09/27/24 16:52 Exam Narrative: Exam Narrative: PHYSICAL EXAM General: Pleasant, conversant, NAD HEENT: Normocephalic, atraumatic, sclera white, EOMI, oral mucosa moist Cardiovascular: IRRR. Significant diffuse pitting edema to the abdomen Pulmonary: Mildly diminished. No dyspnea on room air Abdominal: Edematous Neurological: Alert, answering questions appropriately, cranial nerves intact, no focal findings Extremities: Lymphedema. AROMI. Neurovascularly intact Skin: Lower extremities with several intact blisters, some serous draining blisters. Weeping. At least 2 hemorrhagic blisters intact noted. No obvious ulcerations of the heels. No erythema or streaking. Mildly malodorous. No evidence of acute infectious process. Const: Vital Signs, click to edit/add: Vital Signs - 24 hr 11/03/24 16:18 11/03/24 17:15 11/03/24 18:36 Temperature 98.4 F Pulse Rate [Pulse Oximeter] 88 61 Respiratory Rate 16 16 Blood Pressure [Ri ght Upper Arm] 149/86 H 137/73 Pulse Oximetry 96 96 98 Oxygen Delivery Me thod Room Air Room Air Hospitalist - H&P: Result Labs Labs: Short CBC 11/03/24 Range/Units 17:12 WBC 10.92 (4.50-11.00) K/uL Hgb 8.3 L (13.5-17.5) gm/dL Hct 25.8 L (37.0-53.0) % Plt Count 160 (140-440) K/uL BMP 11/03/24 17:12 Sodium 143 Potassium 4.4 Chloride 108 Carbon Dioxide 29 BUN 49 H Creatinine 1.2 Glucose 119 H Calcium 8.3 L Liver Function 11/03/24 Range/Units 17:12 Total Bilirubin 1.1 (0.1-1.5) mg/dL AST 25 (12-35) U/L ALT 19 (4-50) U/L Alkaline Phosphatase 51 (40-150) U/L Albumin 3.0 L (3.3-5.0) g/dL Imaging Chest x-ray: Attestation: I have reviewed the pertinent imaging results. Radiologist's impression: Low lung volumes. Left chest pacemaker with right atrial and right ventricular leads. Mildly enlarged cardiomediastinal silhouette with calcified aortic knob. Moderate interstitial prominence. Small bilateral pleural effusions. No visualized pneumothorax. Impression: Mild pulmonary edema with small bilateral pleural effusions. Assessment and Plan Assessment and plan (1) Chronic acquired lymphedema: Problem comment: -chronic, pelvic and inguinal lymph nodes removed years earlier with penile cancer treatment -poorly managed, noncompliant with necessary chronic cares -acute on chronic recurring edema, weeping, blisters, wounds, heel pain -compression wraps bilateral lower extremities toes to thighs, changing q.6 hours with skin checks -elevation -bring in lymphedema pump from home - use b.i.d. -PT/OT consults -Wound clinic consult -will need outpatient lymphedema consult. Discussed importance of compliance with ongoing lymphedema cares Status: Acute (2) Anasarca: Problem comment: -acute on chronic, recurrent generalized edema with history of lymphedema (pelvic and inguinal lymph nodes removed years earlier with penile cancer treatment) -management as above -hold home Lasix, continue IV diuresis with Lasix 40 mg b.i.d., strict I&Os, daily weights, monitor kidney functions Status: Acute (3) CML (chronic myelocytic leukemia): Problem comment: -continue imatinib Managed by Cindy Brand NP in Oncology Clinic in [place] Status: Chronic (4) Anemia: Problem comment: -part med induced (gleevac), part ABLA from surgery, part dilutional. Monitor stability Status: Acute (5) Diabetes mellitus: Problem comment: -most recent A1c 5.8. Blood sugar well controlled during previous hospital stay. Monitor with daily glucose for now Status: Acute (6) Paroxysmal atrial fibrillation: Problem comment: -On anticoagulation with apixaban -continue metoprolol -Dual chamber pacemaker, last interrogation 09/29/2024, normal function Status: Acute (7) Heart failure with reduced ejection fraction: Problem comment: -chronic -BNP 4150, previously 1890 -Echo 04/30/2024 shows moderately increased left ventricular size, normal wall thickness, normal global systolic function, EF 56%. Global systolic RV function is normal. Moderately enlarged left atrium. [id number] mitral regurg. Mild to moderate tricuspid regurg. Normal estimated pulmonary pressures. No significant change from 05/15/2023 -Outpatient follow-up to determine optimal management of heart disease, AFib, heart failure, edema. Cardiology has told him Joan is not the answer Status: Chronic (8) Pulmonary edema: Problem comment: -CXR shows mild pulmonary edema with small bilateral pleural effusions -IV diuresis as above, daily weight, strict I&Os Status: Acute (9) Hypertension: Problem comment: -continue home medications, monitor in setting of IV diuresis Status: Acute Total Time Spent Total Time Spent: Total time spent caring for the patient today was 75 minutes. This includes time spent for the visit reviewing the chart, time spent during the visit, time spent after the visit and documentation and planning in coordination of care.
[2024-11-03] MEDS: APIXABAN 5 MG TABLET PO (20:41)
[2024-11-03] MEDS: SODIUM CHLORIDE 0.9 % (FLUSH) 10 ML SYRINGE 5 ML IVF (20:41)
[2024-11-03 21:31] VITALS: RESP 18; O2SAT 97
[2024-11-03 23:00] VITALS: BP 135/78; PULSE 59; RESP 16; RESP 18; O2SAT 94
[2024-11-04] VITALS (7 sets, daily range): BP systolic 112–161; BP diastolic 62–82; PULSE 62–78; RESP 18; TEMP 36.4–37.1; O2SAT 93–98; BMI 40.0
--- NOTE | 2024-11-04 06:45 | PC.NURSE ---
Pt is alert and oriented x3. Afebrile. Pt denies pain, SOB, chest pain, and N/V. Pt is up SBA with walker and gait belt voiding, and tolerating a therapeutic diet. Pt soaked bed gown and linens changed. Pt?s legs were wrapped with MADY wraps and Tubi surgery aide. Meplex's to feet were changed and CDI.
[2024-11-04 06:53] LABS: Hematocrit 23.9 % (37.0-53.0); Mean Corpuscular HGB Conc 33 gm/dL (32-36); Mean Corpuscular Hemoglobin 33 pg (26-34); Mean Corpuscular Volume 102 fL (80-100); Platelet Count* 139 K/uL (140-440); Red Blood Count 2.34 m/uL (4.30-5.90); White Blood Count* 5.26 K/uL (4.50-11.00)
[2024-11-04 06:56] LABS: Hemoglobin* 7.8 gm/dL (13.5-17.5); Slide Review Reflex No
[2024-11-04 07:12] LABS: Chloride* 108 mmol/L (96-114); Sodium* 144 mmol/L (135-149)
[2024-11-04 07:13] LABS: Potassium* 3.4 mmol/L (3.6-5.1)
[2024-11-04 07:15] LABS: Creatinine* 1.2 mg/dL (0.5-1.5); Est. Creatinine Clearance* 44.33; Estimated Glomerular Filt Rate 60 ml/min
[2024-11-04 07:16] LABS: Anion Gap 5 mEq/L (7-15); Blood Urea Nitrogen* 46 mg/dL (7-30); Calcium* 8.1 mg/dL (8.4-10.6); Carbon Dioxide* 31 mmol/L (20-32); Glucose* 103 mg/dL (60-115)
--- NOTE | 2024-11-04 07:45 | P.IMPN_ITS ---
Progress Note: A&P Assessment and plan (1) Chronic acquired lymphedema: Problem details: -chronic, pelvic and inguinal lymph nodes removed years earlier with penile cancer treatment -poorly managed, noncompliant with necessary chronic cares -acute on chronic recurring edema, weeping, blisters, wounds, heel pain -compression wraps bilateral lower extremities toes to thighs, changing q.6 hours with skin checks -elevation -bring in lymphedema pump from home - use b.i.d. -appreciate wound care and lymphedema consults. -discussed importance of compliance with ongoing lymphedema cares Status: Acute (2) Anasarca: Problem details: -acute on chronic, recurrent generalized edema with history of lymphedema (pelvic and inguinal lymph nodes removed years earlier with penile cancer treatment) -management as above -hold home Lasix, continue IV diuresis with Lasix 40 mg b.i.d., strict I&Os, daily weights, monitor kidney functions - adding potassium 11/04/24 Status: Acute (3) CML (chronic myelocytic leukemia): Problem details: -continue imatinib Managed by Cindy Brand NP in Oncology Clinic in [place] Status: Chronic (4) Anemia: Problem details: -chronic disease (meds/CML). Monitor stability Status: Acute (5) Diabetes mellitus: Problem details: -most recent A1c 5.8. Blood sugar well controlled during previous hospital stay. Monitor with daily glucose for now Status: Acute (6) Paroxysmal atrial fibrillation: Problem details: -On anticoagulation with apixaban -continue metoprolol -Dual chamber pacemaker, last interrogation 09/29/2024, normal function Status: Acute (7) Heart failure with reduced ejection fraction: Problem details: -chronic -BNP 4150, previously 1890 -Echo 04/30/2024 shows moderately increased left ventricular size, normal wall thickness, normal global systolic function, EF 56%. Global systolic RV function is normal. Moderately enlarged left atrium. [id number] mitral regurg. Mild to moderate tricuspid regurg. Normal estimated pulmonary pressures. No significant change from 05/15/2023 -Outpatient follow-up to determine optimal management of heart disease, AFib, heart failure, edema. Cardiology has told him Lasix is not the answer Status: Chronic (8) Pulmonary edema: Problem details: -CXR shows mild pulmonary edema with small bilateral pleural effusions -IV diuresis as above, daily weight, strict I&Os Status: Acute (9) Hypertension: Problem details: -continue home medications, monitor in setting of IV diuresis Status: Acute Subjective Date Seen: 11/04/24 Interval history: Daily Progress Note - Hospital Medicine #: 2 CC: acute on chronic lymphedema with mild CHF excerbation. 24 HOUR UPDATE: more comfortable this morning. down 7 lbs. RN: Pt is alert and oriented x3. Afebrile. Pt denies pain, SOB, chest pain, and N/V. Pt is up SBA with walker and gait belt voiding, and tolerating a therapeutic diet. Pt soaked bed gown and linens changed. Pt?s legs were wrapped with MADY wraps and Tubi ocean transportation intermediary. Meplex's to feet were changed and CDI. Notable Labs, Micro, Rads, Interventions: normal WBC; anemic (chronic disease/CML) 7.8 potassium 3.4; replaced on IV lasix weight down 7 lbs BNP - baseline [id number]; at admission 4150 Objective: mildly disshelved. Vitals: see above Lungs: Clear. Cardiac: S1S2. legs: bilateral lower ext edema; 3+; soft; not reddened. Disposition/Potential discharge - Likely return home with his ; home health; improved compliance with chronic lymphedema care Today I spent 50minutes seeing the patient, reviewing Expanse and EPIC notes/diagnostics, discussing the care plan with our care time that includes social work, PT/OT, pharmacy, RT, detention and documenting my impressions and plan in the medical record. Exam Const: Vital Signs, click to edit/add: Vital Signs - 24 hr 11/03/24 16:18 11/03/24 17:15 11/03/24 18:36 Temperature 98.4 F Pulse Rate [Pulse Oximeter] 88 61 Respiratory Rate 16 16 Blood Pressure [Ri ght Arm] Blood Pressure [Ri ght Upper Arm] 149/86 H 137/73 Pulse Oximetry 96 96 98 Oxygen Delivery Me thod Room Air Room Air 11/03/24 19:02 11/03/24 21:31 11/03/24 23:00 Temperature 98 F Pulse Rate [Pulse Oximeter] 61 59 L Respiratory Rate 20 18 18 Blood Pressure [Ri ght Arm] 144/74 H 135/78 Blood Pressure [Ri ght Upper Arm] Pulse Oximetry 97 97 94 Oxygen Delivery Me thod Room Air Room Air Room Air 11/03/24 23:00 11/04/24 04:35 Temperature 97.6 F Pulse Rate [Pulse Oximeter] 59 L 63 Respiratory Rate 16 18 Blood Pressure [Ri ght Arm] 132/65 Blood Pressure [Ri ght Upper Arm] Pulse Oximetry 93 Oxygen Delivery Me thod Room Air Labs Labs: Laboratory Results - last 24 hr 11/03/24 11/04/24 17:12 06:03 WBC 10.92 5.26 RBC 2.53 L 2.34 L Hgb 8.3 L 7.8 L* Hct 25.8 L 23.9 L MCV 102 H 102 H MCH 33 33 MCHC 32 33 RDW Coeff of Gu[place]om 20.8 H Plt Count 160 139 L Neut % (Auto) 92.7 H Lymph % (Auto) 2.6 L [place] % (Auto) 4.5 Eos % (Auto) 0.0 Baso % (Auto) 0.0 Neut # (Auto) 10.10 H Lymph # (Auto) 0.30 L [place] # (Auto) 0.50 Eos # (Auto) 0.00 Baso # (Auto) 0.00 Abs Immat Gran (auto) 0.02 Imm/Tot Granulo (auto) 0.2 Sodium 143 144 Potassium 4.4 3.4 L Chloride 108 108 Carbon Dioxide 29 31 Anion Gap 6 L 5 L BUN 49 H 46 H Creatinine 1.2 1.2 Estimated Creat Clear 44.33 Estimated GFR 60 60 Glucose 119 H 103 Calcium 8.3 L 8.1 L Magnesium 1.8 Total Bilirubin 1.1 AST 25 ALT 19 Alkaline Phosphatase 51 C-Reactive Protein 0.9 NT-Pro-B Natriuret Pep 4150 Total Protein 5.3 L Albumin 3.0 L Procalcitonin 0.05
[2024-11-04] MEDS: POTASSIUM BICARB 25 MEQ EFFERVESCENT TAB PO ×4 (07:57→13:59)
[2024-11-04] MEDS: POTASSIUM CHLORIDE 10 MEQ CAPSULE ER 20 MEQ PO (07:58)
[2024-11-04] MEDS: TAMSULOSIN HCL 0.4 MG CAPSULE PO (09:14)
[2024-11-04] MEDS: ATORVASTATIN 10 MG TABLET 20 MG PO (09:14)
[2024-11-04] MEDS: APIXABAN 5 MG TABLET PO ×2 (09:15→19:56)
[2024-11-04] MEDS: METOPROLOL SUCCINATE (XL) 50 MG TAB PO (09:15)
[2024-11-04] MEDS: CETIRIZINE HCL 10 MG TABLET PO (09:15)
[2024-11-04] MEDS: FUROSEMIDE 10 MG/ML inj 40 MG IVP ×2 (09:16→13:54)
[2024-11-04] MEDS: SODIUM CHLORIDE 0.9 % (FLUSH) 10 ML SYRINGE 5 ML IVF ×3 (09:16→19:57)
[2024-11-04] MEDS: allopurinoL 300 MG TABLET PO (09:16)
--- NOTE | 2024-11-04 11:20 | PM.WSCN ---
Date of Consult Consult date: 11/04/24 Requesting Physician: Hospitalist Primary Care Provider: Luisito Wood MD Consult Narrative Narrative: Luisito Valente is a 83 year old male admitted to the hospital floor on 11/03/2024 from the emergency room for further management worsening lymphedema. 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 Patient does have lymphedema pumps in which she utilize is at home. Does state that he utilize is them once per day for approximately 60 minutes. Is asking today if he can utilize them for a longer duration of time in this single episode. Today bilateral lower extremities have multiple areas of serous filled blisters. Patient does report these appear on and off quite frequently. He does report that he will frequently have more blood filled blisters to his toes. Has known lymphedema. Lower extremities have been more swollen of late. Currently has lower extremities are covered with Manuelito wraps from knees to thigh/ Tubigrip from toes to knees. Has not been to a lymphedema clinic in 2 years. Admits he does have Velcro wraps, they should be with him here in the hospital, though has not been utilizing these at home. They will only go up to his knees. He has been using a neoprene type wrap to his right leg which has not been beneficial. He has been sleeping in a recliner for the past 3 months. Review of Systems Status of ROS: Reports: 6 or more systems reviewed and unremarkable except as noted in History and below [facility] Medical History Health care directive on file ?Z78.9 - Other specified health status (ICD-10) Aspiration pneumonia ?J69.0 - Pneumonitis due to inhalation of food and vomit (ICD-10) Anemia ?D64.9 - Anemia, unspecified (ICD-10) Weight loss, non-intentional ?R63.4 - Abnormal weight loss (ICD-10) Heart failure with reduced ejection fraction ?I50.20 - Unspecified systolic (congestive) heart failure (ICD-10) Esophageal dysmotility ?K22.4 - Dyskinesia of esophagus (ICD-10) BPH (benign prostatic hyperplasia) ?N40.0 - Benign prostatic hyperplasia without lower urinary tract symptoms (ICD-10) Chronic diarrhea ?K52.9 - Noninfective gastroenteritis and colitis, unspecified (ICD-10) Hypertension ?I10 - Essential (primary) hypertension (ICD-10) Obesity ?E66.9 - Obesity, unspecified (ICD-10) Gout ?M10.9 - Gout, unspecified (ICD-10) Paroxysmal atrial fibrillation ?I48.0 - Paroxysmal atrial fibrillation (ICD-10) Diabetes mellitus ?E11.9 - Type 2 diabetes mellitus without complications (ICD-10) Chronic acquired lymphedema ?I89.0 - Lymphedema, not elsewhere classified (ICD-10) Penile cancer ?C60.9 - Malignant neoplasm of penis, unspecified (ICD-10) Coronary artery disease ?I25.10 - Atherosclerotic heart disease of [place] coronary artery without angina pectoris (ICD-10) 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 - Chronic myeloid leukemia, BCR/ABL-positive, not having achieved remission (ICD-10) Surgical History Hx laparoscopic cholecystectomy ?Z90.49 - Acquired absence of other specified parts of digestive tract (ICD-10) History of penectomy ?Z90.79 - Acquired absence of other genital organ(s) (ICD-10) S/P placement of cardiac pacemaker ?Z95.0 - Presence of cardiac pacemaker (ICD-10) History of arthroplasty of left knee ?Z96.652 - Presence of left artificial knee joint (ICD-10) History of coronary artery stent placement ?Z95.5 - Presence of coronary angioplasty implant and graft (ICD-10) Social History Narrative: He lives with his . Code status is full. Remote history of smoking. Rarely drinks alcohol. What is your current living situation?: I presently have a place to live Problems where you live: no known problems Problems where you live details: na In the past 12 months, utilities in danger of being shut off: no In past 12 months, lack of transportation kept you from medical appts, meetings, work, or getting things needed for daily living: no In the past 12 mos, have been you worried that your food would run out before you had money to buy more?: never true In the past 12 mos, the food you bought just didn't last and you didn't have money to buy more?: never true Highest level of school completed/degree received: high school graduate Smoking Status: Former smoker Do you use any of these nicotine containing products: None Second hand tobacco smoke exposure: No How often do you have a drink containing alcohol: monthly or less How many standard drinks containing alcohol do you have on a typical day: 1 or 2 How often do you have six or more drinks on one occasion: Never AUDIT-C Alcohol total score: 1 Non-prescribed substance use: denies use Caffeine: Yes How often does anyone, including family, friends and others, physically hurt you: never How often does anyone, including family, friends and others, insult or talk down to you: never How often does anyone, including family, friends and others, threaten you with harm: never How often does anyone, including family, friends and others, scream or curse at you: never service: Yes Meds Home Medications and Allergies Home Medications ?Medication ?Instructions ?Recorded ?Confirmed ?Type allopurinol 300 mg tablet 300 mg PO DAILY 04/28/24 11/04/24 History apixaban 5 mg tablet (Eliquis) 5 mg PO BID 04/28/24 11/04/24 History atorvastatin 20 mg tablet 20 mg PO DAILY 04/28/24 11/04/24 History imatinib 100 mg tablet 400 mg PO DAILY 04/28/24 11/04/24 History potassium chloride 20 mEq 20 meq PO DAILY 04/28/24 11/04/24 History tablet,extended release(part/cryst) tamsulosin 0.4 mg capsule 0.4 mg PO DAILY 04/28/24 11/04/24 History acetaminophen 500 mg tablet 1,000 mg PO Q6H PRN 09/27/24 11/04/24 History (Acetaminophen Extra Strength) cetirizine 10 mg tablet (24Hour 10 mg PO DAILY 09/27/24 11/04/24 History Allergy) cholecalciferol (vitamin D3) 50 50 mcg PO DAILY 09/27/24 11/04/24 History mcg (2,000 unit) capsule latanoprost 0.005 % eye drops 1 drp ophthalmic (eye) HS 09/27/24 11/04/24 History loperamide 2 mg capsule 2 mg PO QID PRN 09/27/24 11/04/24 History furosemide 20 mg tablet 40 mg PO DAILY 11/03/24 11/04/24 History prednisone 20 mg tablet 20 mg PO BID 11/03/24 11/03/24 History nitroglycerin 0.4 mg sublingual 0.4 mg sublingual Q5M PRN 11/04/24 11/04/24 History tablet Allergies Allergy/AdvReac Type Severity Reaction Status Date / Time Iodinated Contrast Media Allergy Severe Verified 09/27/24 16:52 doxycycline AdvReac Intermediate Rash Verified 09/27/24 16:52 losartan AdvReac Mild Headache Verified 09/27/24 16:52 Exam Narrative: Exam Narrative: PHYSICAL EXAM General: Pleasant, conversant, No Acute Distress HEENT: Normocephalic, oral mucosa moist Cardiovascular: Significant 4+ pitting edema to bilateral lower extremities, bilateral hyperpigmentation, lymphorrhea, lipodermatosclerosis Neurological: Alert, answering questions appropriately Extremities: Lymphedema, Neurovascularly intact Skin: Lower extremities + digits with small intact serous filled blisters, areas of weeping. Sanguinous filled blister to left great toe, partial thickness open area at lateral aspect of blister. Right 2nd toe with partial thickness 1x1cm open area draining serous fluid. Multiple digits of the lower extremities were covered with hydrocolloid dressings. They are macerated today in nature. Hydrocolloid dressings were removed and will not be replaced. Const: Vital Signs, click to edit/add: Vital Signs - 24 hr 11/03/24 16:18 11/03/24 17:15 11/03/24 18:36 Temperature 98.4 F Pulse Rate [Pulse Oximeter] 88 61 Respiratory Rate 16 16 Blood Pressure [Ri ght Arm] Blood Pressure [Ri ght Upper Arm] 149/86 H 137/73 Pulse Oximetry 96 96 98 Oxygen Delivery Me thod Room Air Room Air 11/03/24 19:02 11/03/24 21:31 11/03/24 23:00 Temperature 98 F Pulse Rate [Pulse Oximeter] 61 59 L Respiratory Rate 20 18 18 Blood Pressure [Ri ght Arm] 144/74 H 135/78 Blood Pressure [Ri ght Upper Arm] Pulse Oximetry 97 97 94 Oxygen Delivery Me thod Room Air Room Air Room Air 11/03/24 23:00 11/04/24 04:35 11/04/24 08:08 Temperature 97.6 F 97.8 F Pulse Rate [Pulse Oximeter] 59 L 63 78 Respiratory Rate 16 18 18 Blood Pressure [Ri ght Arm] 132/65 135/62 Blood Pressure [Ri ght Upper Arm] Pulse Oximetry 93 98 Oxygen Delivery Me thod Room Air Room Air Labs Labs: Short CBC 11/03/24 11/04/24 Range/Units 17:12 06:03 WBC 10.92 5.26 (4.50-11.00) K/uL Hgb 8.3 L 7.8 L* (13.5-17.5) gm/dL Hct 25.8 L 23.9 L (37.0-53.0) % Plt Count 160 139 L (140-440) K/uL BMP 11/03/24 11/04/24 17:12 06:03 Sodium 143 144 Potassium 4.4 3.4 L Chloride 108 108 Carbon Dioxide 29 31 BUN 49 H 46 H Creatinine 1.2 1.2 Glucose 119 H 103 Calcium 8.3 L 8.1 L Liver Function 11/03/24 Range/Units 17:12 Total Bilirubin 1.1 (0.1-1.5) mg/dL AST 25 (12-35) U/L ALT 19 (4-50) U/L Alkaline Phosphatase 51 (40-150) U/L Albumin 3.0 L (3.3-5.0) g/dL Assessment and Plan Assessment and plan (1) Chronic acquired lymphedema: Problem comment: -chronic, pelvic and inguinal lymph nodes removed years earlier with penile cancer treatment -poorly managed, noncompliant with necessary chronic cares -acute on chronic recurring edema, weeping, blisters, wounds, heel pain -compression wraps bilateral lower extremities toes to thighs, changing q.6 hours with skin checks -elevation -bring in lymphedema pump from home - use b.i.d. -PT/OT consults -Wound clinic consult -will need outpatient lymphedema consult. Discussed importance of compliance with ongoing lymphedema cares Status: Acute Assessment and Plan: Bilateral lower extremities are not effectively being managed prior to hospitalization. Patient is free of infection currently. Wound care orders: Bilateral Lower extremity serous filled blisters: Keep covered and protected- Mepilex silicone foam border dressing. Assess areas and change 3x per week. If areas open are start to drain or weeping in large amounts of drainage add Melgisorb over areas of weeping. Open areas/blisters to toes on bilateral feet: [place] areas with betadine daily, allow to dry. Weave interdry between toes. Leave in place. Do not apply hydrocolloid/Duoderm dressing to weeping areas or blisters on toes. This does not have enough absorption and is causing maceration. Compression: Utilize lymphedema pumps 2 times per day for 60 minutes at a time. Do not apply Manuelito bandages. Utilize Comprilan short stretch wraps to lower extremities or patient's own Lymhedema Velcro wraps. Compression should be applied in the am, removed at bedtime. Please contact the wound center if you need any further assistance with this patient. Wound care BULB INSPECTOR will not need to follow any longer. With the above orders his lower extremities should be able to be managed effectively while he is hospitalized. He will need assistance with his lymphedema on an outpatient basis.
--- NOTE | 2024-11-04 13:47 | REH.OT ---
OT: Patient seen by OT for initial session today and obtained recliner lift chair with capability to elevate LEs and trendelenburg to aid in positioning for edema management. Lymphedema OT will be in to see patient 11/05/24 between 8:30-9am and patient, family, nsg and MD informed of this. He reports he did order a lift chair with capability to put into trendelenburg position for use at home. Anticipating the patient will return home with family support, resuming Nsg, OT/PT, JAVA LEAD ENGINEER for bathing. Eval note to follow.
--- NOTE | 2024-11-04 19:51 | PC.NURSE ---
shift note: vss stable. external catherter placed @ 1500. Pt had 750cc UO [id number]. bilat toes swabbed with betadine swabs and intra dry laced throughout toes. pt had lymph pumps on 1 hr. lymph wraps applied and pt placed in bed @ 1600. Pt had 4 saturated diapers during the day. LS clr this afternoon. pt denies sob. bilat l/e 4+ pitting edema. Edema pitting up to hips. IV patent
[2024-11-04] MEDS: LATANOPROST 0.005% OPHTH 1 DROP EYE-BOTH (19:56)
[2024-11-05] VITALS (8 sets, daily range): BP systolic 102–152; BP diastolic 49–70; PULSE 62–63; RESP 16–18; TEMP 36.7–37.3; O2SAT 91–94
[2024-11-05 06:47] LABS: Hematocrit 24.8 % (37.0-53.0); Hemoglobin* 8.2 gm/dL (13.5-17.5); Mean Corpuscular HGB Conc 33 gm/dL (32-36); Mean Corpuscular Hemoglobin 34 pg (26-34); Mean Corpuscular Volume 102 fL (80-100); Platelet Count* 162 K/uL (140-440); Red Blood Count 2.44 m/uL (4.30-5.90); White Blood Count* 6.01 K/uL (4.50-11.00)
[2024-11-05 06:48] LABS: Slide Review Reflex No
[2024-11-05 07:03] LABS: Chloride* 106 mmol/L (96-114); Potassium* 3.7 mmol/L (3.6-5.1); Sodium* 143 mmol/L (135-149)
[2024-11-05 07:06] LABS: Anion Gap 4 mEq/L (7-15); Blood Urea Nitrogen* 44 mg/dL (7-30); Carbon Dioxide* 33 mmol/L (20-32); Creatinine* 1.1 mg/dL (0.5-1.5); Est. Creatinine Clearance* 48.36; Estimated Glomerular Filt Rate 66 ml/min; Glucose* 115 mg/dL (60-115)
[2024-11-05 07:07] LABS: Calcium* 8.1 mg/dL (8.4-10.6)
--- NOTE | 2024-11-05 07:33 | PC.NURSE ---
Pt is alert and oriented x3. Afebrile. Room air. Pt denies pain, SOB, chest pain, and N/V. Pt is up SBA/A1 with walker and gait belt voiding, and tolerating a therapeutic diet. Pt has external catheter that was changed and is patent and draining, x2 moderate urine in brief. Pt slept in recliner most of night w/ bear hugger on.
[2024-11-05] MEDS: POTASSIUM CHLORIDE 10 MEQ CAPSULE ER 20 MEQ PO (08:56)
[2024-11-05] MEDS: ATORVASTATIN 10 MG TABLET 20 MG PO (08:57)
[2024-11-05] MEDS: TAMSULOSIN HCL 0.4 MG CAPSULE PO (08:57)
[2024-11-05] MEDS: APIXABAN 5 MG TABLET PO ×2 (08:57→20:41)
[2024-11-05] MEDS: METOPROLOL SUCCINATE (XL) 50 MG TAB PO (08:57)
[2024-11-05] MEDS: allopurinoL 300 MG TABLET PO (08:57)
[2024-11-05] MEDS: CETIRIZINE HCL 10 MG TABLET PO (08:57)
[2024-11-05] MEDS: FUROSEMIDE 10 MG/ML inj 40 MG IVP (08:58)
[2024-11-05] MEDS: SODIUM CHLORIDE 0.9 % (FLUSH) 10 ML SYRINGE 5 ML IVF ×2 (08:58→20:41)
--- NOTE | 2024-11-05 14:13 | PC.SOCIAL ---
Addendum entered by CARLOS Nava 11/05/24 15:34: Discharge planning: [facility] in [place] does not have any openings for early next week. molding utility worker will focus on [place] and [facility], as pt's second and third choice. Social work to follow-up as needed. Addendum entered by CARLOS Nava 11/05/24 14:29: Discharge planning: molding utility worker met with pt, his and [id number], Brianna García #[phone] today to discuss discharge planning. Brianna will be the main contact for the pt during discharge planning. Pt is willing to go to a group home facility at discharge and was provided with the list of Area Long Term Facilities. Pt and family's choice for placement is as follows; [facility] in [place] for their first choice, [facility] for their second choice and [facility] in [place] as their third choice. molding utility worker spoke to the provider on duty about this plan and that pt would not have insurance coverage through Medicare for a short-term rehab stay until after Saturday night, as he just became inpatient on 11/04/24 and got his first inpatient night last night. molding utility worker will work on finding SNF placement for the pt for Saturday, unless there is a facility that accepts him and can possibly take him over the weekend. Social work to follow-up as needed. Original Note: Discharge planning: molding utility worker received a call from Social Emily King with [facility], #[phone], stating that she wanted to share with this worker specific concerns that the home care Occupational Therapist had shared with her about the pt. The home care Occupational Therapist shared that he thought the pt needed to go into a group home facitlity for short-term rehab and eventually LTC and that it was not safe for the pt to return home, as he has extensive lymphedema care that is needed and pt's is not able to assist with cares for this. OT staff that saw pt in the hospital here for his lymphedema also shared that they felt the pt needed to go to a short-term care facility where he would get the proper help that he needs for his lymphedema wraps. Christine shared that if the pt does discharge home after the hospital they are still able to resume services with him, but do recommend he go to a TCU facility after the hospital. Social work to follow-up as needed.
--- NOTE | 2024-11-05 16:42 | PM.IMPN1 ---
Progress Note: A&P Assessment and plan (1) Chronic acquired lymphedema: Problem details: -chronic, pelvic and inguinal lymph nodes removed years earlier with penile cancer treatment -changing IV lasix to oral 40mg qam. replacing potassium. -poorly managed chronically, noncompliant with necessary chronic cares -acute on chronic recurring edema, weeping, blisters, wounds, heel pain -compression wraps bilateral lower extremities toes to thighs, changing q.6 hours with skin checks -elevation -bring in lymphedema pump from home - use b.i.d. -appreciate wound care and lymphedema consults. -discussed importance of compliance with ongoing lymphedema cares -likely will need TCU (if patient agrees) before returning home. Status: Acute (2) Anasarca: Problem details: -acute on chronic, recurrent generalized edema with history of lymphedema (pelvic and inguinal lymph nodes removed years earlier with penile cancer treatment) -management as above -hold home Lasix, continue IV diuresis with Lasix 40 mg b.i.d., strict I&Os, daily weights, monitor kidney functions - adding potassium 11/04/24 Status: Acute (3) CML (chronic myelocytic leukemia): Problem details: -continue imatinib Managed by Cindy Brand NP in [facility] in [place] Status: Chronic (4) Anemia: Problem details: -chronic disease (meds/CML). Monitor stability Status: Acute (5) Diabetes mellitus: Problem details: -most recent A1c 5.8. Blood sugar well controlled during previous hospital stay. Monitor with daily glucose for now Status: Acute (6) Paroxysmal atrial fibrillation: Problem details: -On anticoagulation with apixaban -continue metoprolol -Dual chamber pacemaker, last interrogation 09/29/2024, normal function Status: Acute (7) Heart failure with reduced ejection fraction: Problem details: -chronic -BNP 4150, previously 1890 -Echo 04/30/2024 shows moderately increased left ventricular size, normal wall thickness, normal global systolic function, EF 56%. Global systolic RV function is normal. Moderately enlarged left atrium. [id number] mitral regurg. Mild to moderate tricuspid regurg. Normal estimated pulmonary pressures. No significant change from 05/15/2023 -Outpatient follow-up to determine optimal management of heart disease, AFib, heart failure, edema. Cardiology has told him Lasix is not the answer Status: Chronic (8) Pulmonary edema: Problem details: -CXR shows mild pulmonary edema with small bilateral pleural effusions -IV diuresis as above, daily weight, strict I&Os Status: Acute (9) Hypertension: Problem details: -continue home medications, monitor in setting of IV diuresis Status: Acute Subjective Date Seen: 11/05/24 Interval history: Daily Progress Note - Hospital Medicine Day #: 3 CC: acute on chronic lymphedema with mild CHF exacerbation. 24 HOUR UPDATE: continues to improve, down 8.5lbs. Notable Labs, Micro, Rads, Interventions: normal WBC; anemic (chronic disease/CML) 7.8 --> 8.2 potassium replaced; normal this morning BNP - baseline 2184-8200; at admission 4150 Objective: mildly disshelved. Vitals: see above Lungs: Clear. Cardiac: S1S2. legs: bilateral lower ext edema; 3+; soft; not reddened. Disposition/Potential discharge - Likely return home with his ; home health; improved compliance with chronic lymphedema care Today I spent 50minutes seeing the patient, reviewing Expanse and EPIC notes/diagnostics, discussing the care plan with our care time that includes social work, PT/OT, pharmacy, RT, shelter and documenting my impressions and plan in the medical record. Exam Const: Vital Signs, click to edit/add: Vital Signs - 24 hr 11/04/24 19:00 11/04/24 23:28 11/04/24 23:28 Temperature 97.7 F 98.8 F Pulse Rate [Pulse Oximeter] 62 76 76 Respiratory Rate 18 18 Blood Pressure [Ri ght Arm] 129/64 119/62 Pulse Oximetry 93 94 Oxygen Delivery Me thod Room Air Room Air 11/05/24 04:32 11/05/24 07:57 11/05/24 11:35 Temperature 98.3 F 98.4 F 98.2 F Pulse Rate [Pulse Oximeter] 62 62 62 Respiratory Rate 18 16 16 Blood Pressure [Ri ght Arm] 132/57 L 114/55 L 132/53 L Pulse Oximetry 94 91 94 Oxygen Delivery Me thod Room Air Room Air Room Air 11/05/24 15:44 Temperature 99.2 F Pulse Rate [Pulse Oximeter] 63 Respiratory Rate 16 Blood Pressure [Ri ght Arm] 106/49 L Pulse Oximetry 93 Oxygen Delivery Me thod Room Air Labs Labs: Laboratory Results - last 24 hr 11/05/24 05:51 WBC 6.01 RBC 2.44 L Hgb 8.2 L Hct 24.8 L MCV 102 H MCH 34 MCHC 33 Plt Count 162 Sodium 143 Potassium 3.7 Chloride 106 Carbon Dioxide 33 H Anion Gap 4 L BUN 44 H Creatinine 1.1 Estimated Creat Clear 48.36 Estimated GFR 66 Glucose 115 Calcium 8.1 L
[2024-11-05] MEDS: ACETAMINOPHEN 325 MG TABLET 650 MG PO (17:14)
[2024-11-05] MEDS: LATANOPROST 0.005% OPHTH 1 DROP EYE-BOTH (20:41)
[2024-11-06] VITALS (7 sets, daily range): BP systolic 121–164; BP diastolic 59–90; PULSE 64–89; RESP 16–20; TEMP 36.7–36.9; O2SAT 92–96
--- NOTE | 2024-11-06 03:43 | PC.NURSE ---
Pt refused leg wraps this night. Stated they hurt him very bad. He did use his compression boots from home. Pt up A1 with walker. Large BM this evening. Voiding with ext catheter. States feels better and not having pain.
[2024-11-06 06:45] LABS: Hematocrit 24.4 % (37.0-53.0); Mean Corpuscular HGB Conc 32 gm/dL (32-36); Mean Corpuscular Hemoglobin 33 pg (26-34); Mean Corpuscular Volume 103 fL (80-100); Platelet Count* 136 K/uL (140-440); Red Blood Count 2.38 m/uL (4.30-5.90); White Blood Count* 4.28 K/uL (4.50-11.00)
[2024-11-06 06:53] LABS: Hemoglobin* 7.9 gm/dL (13.5-17.5); Slide Review Reflex No
[2024-11-06 06:59] LABS: Chloride* 106 mmol/L (96-114); Sodium* 142 mmol/L (135-149)
[2024-11-06 07:00] LABS: Potassium* 3.5 mmol/L (3.6-5.1)
[2024-11-06 07:02] LABS: Anion Gap 2 mEq/L (7-15); Blood Urea Nitrogen* 41 mg/dL (7-30); Carbon Dioxide* 34 mmol/L (20-32); Creatinine* 1.2 mg/dL (0.5-1.5); Est. Creatinine Clearance* 44.33; Estimated Glomerular Filt Rate 60 ml/min
[2024-11-06 07:03] LABS: Calcium* 7.7 mg/dL (8.4-10.6); Glucose* 116 mg/dL (60-115)
[2024-11-06] MEDS: CETIRIZINE HCL 10 MG TABLET PO (08:08)
[2024-11-06] MEDS: TAMSULOSIN HCL 0.4 MG CAPSULE PO (08:08)
[2024-11-06] MEDS: allopurinoL 300 MG TABLET PO (08:08)
[2024-11-06] MEDS: FUROSEMIDE 40 MG TABLET PO (08:08)
[2024-11-06] MEDS: POTASSIUM CHLORIDE 10 MEQ CAPSULE ER 20 MEQ PO (08:08)
[2024-11-06] MEDS: METOPROLOL SUCCINATE (XL) 50 MG TAB PO (08:08)
[2024-11-06] MEDS: ATORVASTATIN 10 MG TABLET 20 MG PO (08:08)
[2024-11-06] MEDS: APIXABAN 5 MG TABLET PO ×2 (08:08→21:25)
[2024-11-06] MEDS: SODIUM CHLORIDE 0.9 % (FLUSH) 10 ML SYRINGE 5 ML IVF ×2 (08:09→21:27)
--- NOTE | 2024-11-06 11:42 | PC.SOCIAL ---
Addendum entered by CHAITANYA Sandoval 11/06/24 15:49: Discharge planning: Spoke with Mckenzie, admissions for [facility] and [facility]. Confirmed with Mckenzie [facility], [address] [place] [address], [place] [address], has a private room available for pt for admit on Saturday if he agrees to not take his oral chemo medication while at that facility. There are currently no available beds at [facility]. top and trim worker to visit with pt and family on Saturday on whether pt will be discharged to short term rehab at [facility] on Saturday or if family is going to assist in coordinating home care chaplain care and family care at home to enable pt to return home with home care resumed. top and trim worker to follow up as needed. Addendum entered by CARLOS Nava 11/06/24 14:51: Discharge planning: Spoke to pt's daughter and [id number] this afternoon after talking to the provider on duty and shared that the provider planned to talk with the family around 3:30pm about next steps and pt's medications, etc. top and trim worker also notified the family that this worker was leaving early today and would be off on Saturday, so this worker's tool and die supervisor would be taking over the case. top and trim worker also notified Mckenzie at [facility] that this worker's tool and die supervisor would be taking over the case and to reach out to her with questions about the referral. Mckenzie has this worker's tool and die supervisor's contact information. top and trim worker did let Mckenzie know that the provider on duty would be talking to the pt and his family this afternoon about plans for the chemo medication/TCU stay. Social work to follow-up as needed. Addendum entered by CARLOS Nava 11/06/24 13:41: Discharge planning: Pt had shared with hospital staff and family, this morning, that he wanted to go home and did not want to go to a TCU anymore. The provider on duty requested a new MOCA assessment be done today. All hospital staff are recommending he go to TCU. Early conversations were started with the family about the possibility of emergency guardianship with the pt's granddaughter being appointed the guardian, but the family was still talking more about this. top and trim worker did hear from Mckenzie at [facility] that it would cost $2,555.00 for fourteen days worth of pt's chemo medication and that they were denying the pt at [facility] because of that. Mckenzie said that Medicare would not allow the pt to bring in his own supply of the medication to the long term, that would only be allowed if the pt were to private pay for the long term cost. Mckenzie did say that they could accept the pt at [facility] if the chemo medication were held while the pt was in the long term for short-term rehab. top and trim worker updated the provider on duty with this information and she will talk to the pt and family about holding the chemo medication while the pt goes to short-term rehab, because this will end up being the case for any long term that reviews the pt's referral. Social work to follow-up as needed. Addendum entered by CARLOS Nava 11/06/24 13:03: Discharge planning: top and trim worker spoke to pt and his family about [facility] not having openings and [facility] and [facility] now reviewing the pt for placement. Social work to follow-up as needed. Original Note: Discharge planning: top and trim worker heard back from [facility] that [facility] does not currently have any male openings. top and trim worker spoke with Mckenzie from [facility] who is having pt's referral assessed for [facility]. This worker asked Mckenzie to also have the referral assessed for [facility], as the pt and family said that it was okay for [facility] to review the referral when this worker spoke to them late in the day yesterday. top and trim worker also informed Mckenzie that the pt is on a once a day Chemo medication. Social work to follow-up as needed.
--- NOTE | 2024-11-06 17:02 | P.IMPN_ITS ---
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 replacing potassium. -poorly managed chronically, noncompliant with necessary chronic cares -acute on chronic recurring edema, weeping, blisters, wounds, heel pain -compression wraps bilateral lower extremities toes to thighs, changing q.6 hours with skin checks -elevation -bring in lymphedema pump from home - use b.i.d. -appreciate wound care and lymphedema consults. -discussed importance of compliance with ongoing lymphedema cares -likely will need TCU before returning home. Status: Acute (2) Cognitive decline: Problem details: summer, during current admission OT observed him pouring soup on a wrapped sandwich PT observes poor conditioning and inability to ambulate in a household Lymphedema recommends daily cares and therapies for severe lymphedema and inability to stay on top of the wraps, pumps and cares previously -pt is angry and refusing most reasonable conversation - He tells me I should pay for it; He says he can walk and hail a cab - He is too weak and disabled to walk and care for himself. I laid out options for his family: 1. discharge home but will need 16-18 hours of care a day - WOOD AND HARDWARE OUTFITTER needed. Even if he chose hospice (and discussed what this means) he would still need WOOD AND HARDWARE OUTFITTER care. 2. TCU/SNF care short-term with the possibility of need for LTC; but would not have oral chemotherapy covered unless they were private pay. Neither were accepted. Granddaughter is listed in the advance directive after the patient's and daughter who will defer to the granddaughter. Hopefully they achieve consensus for his care. bottom line - he can't take care of himself despite what he thinks he can do and will need significant assistance. 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 Global systolic RV function is normal. Moderately enlarged left atrium. [id number] mitral regurg. Mild to moderate tricuspid regurg. Normal estimated pulmonary pressures. No significant change from 05/15/2023 -Outpatient follow-up to determine optimal management of heart disease, AFib, heart failure, edema. Cardiology has told him Lasix is not the answer Status: Chronic (5) CML (chronic myelocytic leukemia): Problem details: -continue imatinib Managed by Cindy Brand NP in Oncology Clinic in [place] Status: Chronic (6) Anemia: Problem details: -chronic disease (meds/CML). Monitor stability Status: Acute (7) Diabetes mellitus: Problem details: -most recent A1c 5.8. Blood sugar well controlled during previous hospital stay. Monitor with daily glucose for now Status: Acute (8) Paroxysmal atrial fibrillation: Problem details: -On anticoagulation with apixaban -continue metoprolol -Dual chamber pacemaker, last interrogation 09/29/2024, normal function Status: Acute (9) Pulmonary edema: Problem details: -CXR shows mild pulmonary edema with small bilateral pleural effusions -IV diuresis as above, daily weight, strict I&Os 11/06 improved nicely. off oxygen. Status: Acute (10) Hypertension: Problem details: -continue home medications, monitor in setting of IV diuresis Status: Acute Subjective Date Seen: 11/06/24 Interval history: Daily Progress Note - Hospital Medicine Day #: 4 CC: acute on chronic lymphedema with mild CHF exacerbation. 24 HOUR UPDATE: continues to improve, down 13 lbs. Notable Labs, Micro, Rads, Interventions: normal WBC; anemic (chronic disease/CML) 7.8 --> 8.2 -->7.9 potassium is 3.5; following with replacement BNP - baseline [id number]; at admission 4150 Objective: mildly disshelved. Vitals: see above Lungs: Clear. Cardiac: S1S2. legs: bilateral lower ext edema; 3+; soft; not reddened. Disposition/Potential discharge - TCU stay, [facility] accepted for Friday 11/10 Today I spent 50minutes seeing the patient, reviewing Expanse and EPIC notes/diagnostics, discussing the care plan with our care time that includes social work, PT/OT, pharmacy, RT, alf and documenting my impressions and plan in the medical record. Exam Const: Vital Signs, click to edit/add: Vital Signs - 24 hr 11/05/24 19:35 11/05/24 20:34 11/05/24 22:17 Temperature 99 F 99 F 98.0 F Pulse Rate [Pulse Oximeter] 63 62 Respiratory Rate 16 16 Blood Pressure [Ri ght Arm] 152/70 H 102/49 L Pulse Oximetry 93 94 Oxygen Delivery Me thod Room Air Room Air 11/05/24 22:41 11/06/24 01:08 11/06/24 08:06 Temperature 98.2 F 98.1 F Pulse Rate [Pulse Oximeter] 62 70 68 Respiratory Rate 16 16 18 Blood Pressure [Ri ght Arm] 143/61 H 144/69 H Pulse Oximetry 94 96 Oxygen Delivery Me thod Room Air Room Air 11/06/24 14:02 Temperature 98.1 F Pulse Rate [Pulse Oximeter] 65 Respiratory Rate 20 Blood Pressure [Ri ght Arm] 128/61 Pulse Oximetry 95 Oxygen Delivery Me thod Room Air Labs Labs: Laboratory Results - last 24 hr 11/06/24 05:57 WBC 4.28 L RBC 2.38 L Hgb 7.9 L* Hct 24.4 L MCV 103 H MCH 33 MCHC 32 Plt Count 136 L Sodium 142 Potassium 3.5 L Chloride 106 Carbon Dioxide 34 H Anion Gap 2 L BUN 41 H Creatinine 1.2 Estimated Creat Clear 44.33 Estimated GFR 60 Glucose 116 H Calcium 7.7 L
[2024-11-06] MEDS: POTASSIUM BICARB 25 MEQ EFFERVESCENT TAB PO ×2 (18:36→21:25)
--- NOTE | 2024-11-06 19:38 | PC.NURSE ---
End of Shift: VSS, afebrile. spO2 maintained above 90% on RA. Patient denies pain this shift. Tolerating regular diet. SBA with walker and gait belt, chair alarm on. Call light within reach.
[2024-11-06] MEDS: LATANOPROST 0.005% OPHTH 1 DROP EYE-BOTH (21:26)
[2024-11-07 02:21] VITALS: BP 116/53; PULSE 66; RESP 18; TEMP 36.8; O2SAT 95
--- NOTE | 2024-11-07 05:32 | PC.NURSE ---
Shift note: Patient is alert and oriented. Lower extremities continuous to be swelling. He appeared to have gained >4lb. Ambulate with A1, walker and GB. vitally stable.
[2024-11-07 06:29] LABS: Basophils Percent Auto 0.2 % (0.0-3.0); Hematocrit 23.4 % (37.0-53.0); Immature Granulocytes Pct Auto 0.2 %; Mean Corpuscular HGB Conc 32 gm/dL (32-36); Mean Corpuscular Hemoglobin 33 pg (26-34); Mean Corpuscular Volume 103 fL (80-100); Monocytes Percent Auto 10.7 % (0.0-11.0); Neutrophils Percent Auto 69.9 % (42.0-72.0); Platelet Count* 140 K/uL (140-440); RDW Coefficient of Variation % 19.9 % (11.5-15.5); Red Blood Count 2.28 m/uL (4.30-5.90)
[2024-11-07 06:57] LABS: Chloride* 106 mmol/L (96-114); Potassium* 3.5 mmol/L (3.6-5.1); Sodium* 142 mmol/L (135-149)
[2024-11-07 06:59] LABS: Hemoglobin* 7.5 gm/dL (13.5-17.5)
[2024-11-07 07:00] LABS: Anion Gap 2 mEq/L (7-15); Blood Urea Nitrogen* 37 mg/dL (7-30); Carbon Dioxide* 34 mmol/L (20-32); Creatinine* 1.1 mg/dL (0.5-1.5); Est. Creatinine Clearance* 48.36; Estimated Glomerular Filt Rate 66 ml/min; Slide Review Reflex No
[2024-11-07 07:01] LABS: Calcium* 7.5 mg/dL (8.4-10.6); Glucose* 115 mg/dL (60-115)
[2024-11-07] MEDS: FUROSEMIDE 40 MG TABLET PO (07:49)
[2024-11-07] MEDS: POTASSIUM CHLORIDE 10 MEQ CAPSULE ER 20 MEQ PO ×2 (07:49→21:49)
[2024-11-07 08:00] VITALS: BP 143/61; PULSE 70; RESP 18; TEMP 36.8; O2SAT 97
[2024-11-07] MEDS: allopurinoL 300 MG TABLET PO (08:58)
[2024-11-07] MEDS: CETIRIZINE HCL 10 MG TABLET PO (08:58)
[2024-11-07] MEDS: APIXABAN 5 MG TABLET PO ×2 (08:58→21:45)
[2024-11-07] MEDS: TAMSULOSIN HCL 0.4 MG CAPSULE PO (08:59)
[2024-11-07] MEDS: METOPROLOL SUCCINATE (XL) 50 MG TAB PO (08:59)
[2024-11-07] MEDS: ATORVASTATIN 10 MG TABLET 20 MG PO (08:59)
[2024-11-07] MEDS: SODIUM CHLORIDE 0.9 % (FLUSH) 10 ML SYRINGE 5 ML IVF ×2 (08:59→21:45)
[2024-11-07 12:04] VITALS: BP 127/96; PULSE 64; RESP 18; TEMP 37.6; O2SAT 96
--- NOTE | 2024-11-07 15:29 | PC.NURSE ---
End of Shift: Patient pleasant and cooperative. VSS, afebrile. SpO2 maintained above 90% on RA. Patient denies pain this shift. Tolerating heart healthy diet. SBA with walker and gait belt.
[2024-11-07 15:40] VITALS: BP 103/53; PULSE 64; PULSE 66; RESP 18; TEMP 36.9; O2SAT 94
--- NOTE | 2024-11-07 17:23 | PM.IMPN1 ---
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 replacing potassium. -poorly managed chronically, noncompliant with necessary chronic cares -acute on chronic recurring edema, weeping, blisters, wounds, heel pain -compression wraps bilateral lower extremities toes to thighs, changing q.6 hours with skin checks -elevation -bring in lymphedema pump from home - use b.i.d. -appreciate wound care and lymphedema consults. -discussed importance of compliance with ongoing lymphedema cares -will need TCU before returning home. Status: Acute (2) Cognitive decline: Problem details: summer, during current admission OT observed him pouring soup on a wrapped sandwich PT observes poor conditioning and inability to ambulate in a household Lymphedema recommends daily cares and therapies for severe lymphedema and inability to stay on top of the wraps, pumps and cares previously -pt is angry and refusing most reasonable conversation - He tells me I should pay for it; He says he can walk and hail a cab - He is too weak and disabled to walk and care for himself. I laid out options for his family: 1. discharge home but will need 16-18 hours of care a day - STITCHER SPECIAL MACHINE needed. Even if he chose hospice (and discussed what this means) he would still need STITCHER SPECIAL MACHINE care. 2. TCU/SNF care short-term with the possibility of need for LTC; but would not have oral chemotherapy covered unless they were private pay. Neither were accepted. Granddaughter is listed in the advance directive after the patient's and daughter who will defer to the granddaughter. Hopefully they achieve consensus for his care. bottom line - he can't take care of himself despite what he thinks he can do and will need significant assistance. - 11/07 patient is agreeable to go to custodial facility and hold chemotherapy while there. Bed available in [facility] on Saturday. 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 Global systolic RV function is normal. Moderately enlarged left atrium. [id number] mitral regurg. Mild to moderate tricuspid regurg. Normal estimated pulmonary pressures. No significant change from 05/15/2023 -Outpatient follow-up to determine optimal management of heart disease, AFib, heart failure, edema. Cardiology has told him Lasix is not the answer Status: Chronic (5) CML (chronic myelocytic leukemia): Problem details: -continue imatinib Managed by Cindy Brand NP in Oncology Clinic in [place] Status: Chronic (6) Anemia: Problem details: -chronic disease (meds/CML). Monitor stability Status: Acute (7) Diabetes mellitus: Problem details: -most recent A1c 5.8. Blood sugar well controlled during previous hospital stay. Monitor with daily glucose for now Status: Acute (8) Paroxysmal atrial fibrillation: Problem details: -On anticoagulation with apixaban -continue metoprolol -Dual chamber pacemaker, last interrogation 09/29/2024, normal function Status: Acute (9) Pulmonary edema: Problem details: -CXR shows mild pulmonary edema with small bilateral pleural effusions -IV diuresis as above, daily weight, strict I&Os 11/06 improved nicely. off oxygen. Status: Acute (10) Hypertension: Problem details: -continue home medications, monitor in setting of IV diuresis Status: Acute Time Spent With Patient Total time spent: Today I spent 60 minutes seeing the patient and his family, reviewing Expanse and EPIC notes/diagnostics/labs, discussing the care plan with our care team that includes social work, PT/OT, pharmacy, RT, custodial and documenting my impressions and plan in the medical record. Subjective Time Seen by Provider: 13:30 Date Seen: 11/07/24 Interval history: I first spoke with Luisito's family as they happen to be standing outside the room this morning. They all noted that Luisito seem to be in a better mood today and was trying really hard to do well in therapy so he could go home. They think that having a plan written on the board would help him understand that he is making progress and in what ways we are helping him make that progress. They note that he is agreeable now to go to a pen[facility]iary for rehab, but is resistant about going to [facility] because he is worried his family will be able to get there if it is snows. They 1 S now to look at [facility]. I noted that we already had placement for him at [facility], but can discuss it again with the social and human services assistant on Saturday. I noted that if no other place was available sooner, he should go to [facility]. Luisito tells me he is feeling well and is very motivated to go home. He is agreeable to stop his chemotherapy and be at [facility] for a brief rehab stay. I noted that this would give his family some time to set up STITCHER SPECIAL MACHINE care so that when he did come home he would have someone to help him with his cares other than his family, as they have been struggling to get him to be compliant. I had conversations with PT and OT today who both agreed that even though he has made some improvements in his ability to ambulate, he would do best with a rehab stay as he remains impulsive and needs supervision as well as help and compliance with lymphedema wraps. Exam Narrative: Exam Narrative: General: No acute distress. Sitting in the bedside chair with his legs up, but not higher than his heart. Devon Hugger is on. Awake, alert, oriented. No pallor. No jaundice. Oropharynx: Clear. Mucous membranes moist. Cardiovascular: Regular rate and rhythm. No murmurs, gallops, or rubs. Respiratory: Clear to auscultation bilaterally. No wheezes or crackles. Abdomen: Bowel sounds present. Soft, nondistended, nontender. Extremities: Massive lower extremity edema, wraps in place. Const: Vital Signs, click to edit/add: Vital Signs - 24 hr 11/06/24 18:59 11/06/24 19:00 11/06/24 23:00 Temperature 98.2 F Pulse Rate [Pulse Oximeter] 89 64 64 Respiratory Rate 18 18 18 Blood Pressure [Ri ght Arm] 121/59 L Pulse Oximetry 95 Oxygen Delivery Me thod Room Air 11/06/24 23:00 11/07/24 02:21 11/07/24 08:00 Temperature 98.2 F 98.2 F 98.2 F Pulse Rate [Pulse Oximeter] 64 66 70 Respiratory Rate 18 18 18 Blood Pressure [Ri ght Arm] 152/71 H 116/53 L 143/61 H Pulse Oximetry 92 95 97 Oxygen Delivery Me thod Room Air Room Air Room Air 11/07/24 08:00 11/07/24 12:04 11/07/24 15:40 Temperature 99.6 F Pulse Rate [Pulse Oximeter] 70 64 64 Respiratory Rate 18 18 18 Blood Pressure [Ri ght Arm] 127/96 H Pulse Oximetry 96 Oxygen Delivery Me thod Room Air 11/07/24 15:40 Temperature 98.4 F Pulse Rate [Pulse Oximeter] 66 Respiratory Rate 18 Blood Pressure [Ri ght Arm] 103/53 L Pulse Oximetry 94 Oxygen Delivery Me thod Room Air Labs Labs: Laboratory Results - last 24 hr 11/07/24 11/07/24 11/07/24 05:42 05:42 05:42 WBC 4.20 L Cancelled RBC 2.28 L Cancelled Hgb 7.5 L* Hct MCV MCH MCHC RDW Coeff of Guillermo Plt Count Neut % (Auto) Lymph % (Auto) [place] % (Auto) Eos % (Auto) Baso % (Auto) Neut # (Auto) Lymph # (Auto) [place] # (Auto) Eos # (Auto) Baso # (Auto) Abs Immat Gran (auto) Imm/Tot Granulo (auto) Sodium Potassium Chloride Carbon Dioxide Anion Gap BUN Creatinine Estimated Creat Clear Estimated GFR Glucose Calcium 11/07/24 11/07/24 11/07/24 05:42 05:42 05:42 WBC RBC Hgb Cancelled Hct 23.4 L Cancelled MCV 103 H Cancelled MCH 33 MCHC RDW Coeff of Guillermo Plt Count Neut % (Auto) Lymph % (Auto) [place] % (Auto) Eos % (Auto) Baso % (Auto) Neut # (Auto) Lymph # (Auto) [place] # (Auto) Eos # (Auto) Baso # (Auto) Abs Immat Gran (auto) Imm/Tot Granulo (auto) Sodium Potassium Chloride Carbon Dioxide Anion Gap BUN Creatinine Estimated Creat Clear Estimated GFR Glucose Calcium 11/07/24 11/07/24 11/07/24 05:42 05:42 05:42 WBC RBC Hgb Hct MCV MCH Cancelled MCHC 32 Cancelled RDW Coeff of Guillermo 19.9 H Plt Count 140 Cancelled Neut % (Auto) 69.9 Lymph % (Auto) 14.0 L [place] % (Auto) 10.7 Eos % (Auto) 5.0 Baso % (Auto) 0.2 Neut # (Auto) 2.90 Lymph # (Auto) 0.60 L [place] # (Auto) 0.40 Eos # (Auto) 0.20 Baso # (Auto) 0.00 Abs Immat Gran (auto) 0.00 Imm/Tot Granulo (auto) 0.2 Sodium 142 Potassium 3.5 L Chloride 106 Carbon Dioxide 34 H Anion Gap 2 L BUN 37 H Creatinine 1.1 Estimated Creat Clear 48.36 Estimated GFR 66 Glucose 115 Calcium 7.5 L
[2024-11-07 19:00] VITALS: PULSE 62; RESP 18; O2SAT 94
[2024-11-07] MEDS: LATANOPROST 0.005% OPHTH 1 DROP EYE-BOTH (21:45)
--- NOTE | 2024-11-07 22:18 | PC.NURSE ---
Shift note: Leg pumps reapplied second time in pm. Pt up to the BR with assist of 1, belt and walker, voiding, had 1 BM.
[2024-11-07 23:00] VITALS: BP 114/50; PULSE 60; PULSE 62; RESP 16; TEMP 36.6; O2SAT 94
[2024-11-08] VITALS (8 sets, daily range): BP systolic 105–157; BP diastolic 52–78; PULSE 57–67; RESP 16–18; TEMP 36.5–37.1; O2SAT 94–99
--- NOTE | 2024-11-08 05:23 | PC.NURSE ---
[id number] Pt slept on and off during night, leg wraps and lyphodema pumps on and off during night per pt discretion, tolerated well. maintains O2 sats >90% on RA, denies pain, SOB, or difficulty breathing. ambulating with walker, GB, 1A, tolerating activity fairly well.
[2024-11-08 06:10] LABS: Hematocrit 24.1 % (37.0-53.0); Mean Corpuscular HGB Conc 32 gm/dL (32-36); Mean Corpuscular Hemoglobin 33 pg (26-34); Mean Corpuscular Volume 103 fL (80-100); Platelet Count* 147 K/uL (140-440); Red Blood Count 2.34 m/uL (4.30-5.90); White Blood Count* 3.66 K/uL (4.50-11.00)
[2024-11-08 06:21] LABS: Hemoglobin* 7.7 gm/dL (13.5-17.5); Slide Review Reflex No
[2024-11-08 06:22] LABS: Chloride* 107 mmol/L (96-114); Sodium* 142 mmol/L (135-149)
[2024-11-08 06:23] LABS: Potassium* 3.5 mmol/L (3.6-5.1)
[2024-11-08 06:25] LABS: Creatinine* 1.1 mg/dL (0.5-1.5); Est. Creatinine Clearance* 48.36; Estimated Glomerular Filt Rate 66 ml/min
[2024-11-08 06:26] LABS: Anion Gap 1 mEq/L (7-15); Blood Urea Nitrogen* 33 mg/dL (7-30); Calcium* 7.3 mg/dL (8.4-10.6); Carbon Dioxide* 34 mmol/L (20-32); Glucose* 110 mg/dL (60-115)
[2024-11-08] MEDS: FUROSEMIDE 40 MG TABLET PO (07:55)
[2024-11-08] MEDS: POTASSIUM CHLORIDE 10 MEQ CAPSULE ER 20 MEQ PO ×2 (07:55→18:08)
[2024-11-08] MEDS: ACETAMINOPHEN 325 MG TABLET 650 MG PO ×2 (07:55→22:48)
[2024-11-08] MEDS: allopurinoL 300 MG TABLET PO (08:49)
[2024-11-08] MEDS: CETIRIZINE HCL 10 MG TABLET PO (08:49)
[2024-11-08] MEDS: POTASSIUM BICARB 25 MEQ EFFERVESCENT TAB PO (08:49)
[2024-11-08] MEDS: APIXABAN 5 MG TABLET PO ×2 (08:49→21:26)
[2024-11-08] MEDS: ATORVASTATIN 10 MG TABLET 20 MG PO (08:50)
[2024-11-08] MEDS: METOPROLOL SUCCINATE (XL) 50 MG TAB PO (08:50)
[2024-11-08] MEDS: TAMSULOSIN HCL 0.4 MG CAPSULE PO (09:30)
[2024-11-08] MEDS: SODIUM CHLORIDE 0.9 % (FLUSH) 10 ML SYRINGE 5 ML IVF ×2 (09:30→21:25)
[2024-11-08 09:44] LABS: PCR FLU A Negative PCR FLU A (Negative); PCR FLU B Negative PCR FLU B (Negative); PCR RSV Negative PCR RSV (Negative); SARS PCR* Negative SARS-CoV-2 (Negative)
--- NOTE | 2024-11-08 15:10 | PC.NURSE ---
End of Shift: Patient pleasant and cooperative. VSS, afebrile. Patient reports a sore throat this shift, managed with PRN medication, see MAR. 1A with walker and gait belt. Tolerating heart healthy diet. ?
--- NOTE | 2024-11-08 17:48 | PM.IMPN1 ---
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 replacing potassium. -poorly managed chronically, noncompliant with necessary chronic cares -acute on chronic recurring edema, weeping, blisters, wounds, heel pain -compression wraps bilateral lower extremities toes to thighs, changing q.6 hours with skin checks -elevation -bring in lymphedema pump from home - use b.i.d. -appreciate wound care and lymphedema consults. -discussed importance of compliance with ongoing lymphedema cares -will need TCU before returning home. Status: Acute (2) Cognitive decline: Problem details: summer, during current admission OT observed him pouring soup on a wrapped sandwich PT observes poor conditioning and inability to ambulate in a household Lymphedema recommends daily cares and therapies for severe lymphedema and inability to stay on top of the wraps, pumps and cares previously -pt is angry and refusing most reasonable conversation - He tells me I should pay for it; He says he can walk and hail a cab - He is too weak and disabled to walk and care for himself. I laid out options for his family: 1. discharge home but will need 16-18 hours of care a day - FRUIT GRADING SUPERVISOR needed. Even if he chose hospice (and discussed what this means) he would still need FRUIT GRADING SUPERVISOR care. 2. TCU/SNF care short-term with the possibility of need for LTC; but would not have oral chemotherapy covered unless they were private pay. Neither were accepted. Granddaughter is listed in the advance directive after the patient's and daughter who will defer to the granddaughter. Hopefully they achieve consensus for his care. bottom line - he can't take care of himself despite what he thinks he can do and will need significant assistance. - 11/07 patient is agreeable to go to assisted facility and hold chemotherapy while there. Bed available in [place] on Saturday. 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 Status: Acute (4) Heart failure with reduced ejection fraction: Problem details: -chronic -BNP 4150, previously 1890 -Echo 04/30/2024 shows moderately increased left ventricular size, normal wall thickness, normal global systolic function, EF 56%. Global systolic RV function is normal. Moderately enlarged left atrium. [id number] mitral regurg. Mild to moderate tricuspid regurg. Normal estimated pulmonary pressures. No significant change from 05/15/2023 -Outpatient follow-up to determine optimal management of heart disease, AFib, heart failure, edema. Cardiology has told him Lasix is not the answer Status: Chronic (5) CML (chronic myelocytic leukemia): Problem details: -continue imatinib Managed by Cindy Brand NP in Oncology Clinic in [place] Status: Chronic (6) Anemia: Problem details: -chronic disease (meds/CML). Stabilizing. Monitor. Status: Chronic (7) Diabetes mellitus: Problem details: -most recent A1c 5.8. Blood sugar well controlled during previous hospital stay. Monitor with daily glucose for now Status: Chronic (8) Paroxysmal atrial fibrillation: Problem details: -On anticoagulation with apixaban -continue metoprolol -Dual chamber pacemaker, last interrogation 09/29/2024, normal function Status: Chronic (9) Pulmonary edema: Problem details: -CXR shows mild pulmonary edema with small bilateral pleural effusions -IV diuresis as above, daily weight, strict I&Os 11/06 improved nicely. off oxygen. Status: Acute (10) Hypertension: Problem details: -continue home medications, monitor in setting of IV diuresis Status: Chronic Subjective Time Seen by Provider: 10:45 Date Seen: 11/08/24 Interval history: Luisito complains of a sore throat today. He tells me that he thinks it came from his daughter who was coughing a lot in his room yesterday. His tells me that their daughter has a sinus infection, not a virus. Luisito refused to wear the lymphedema pumps this morning. When I asked him why he refused, he said because he had a sore throat and was not feeling well. We discussed how the lymphedema pumps help with the anasarca and lymphedema and not using those will ultimately lead to poor quality of life and inability to return home from rehab and that they should be used as prescribed even if he is not feeling well. Exam Narrative: Exam Narrative: General: No acute distress. Laying in bed with Devon Hugger on. Awake, alert, oriented. No pallor. No jaundice. Oropharynx: Clear. Mucous membranes moist. Cardiovascular: Regular rate and rhythm. No murmurs, gallops, or rubs. Respiratory: Clear to auscultation bilaterally. No wheezes or crackles. Abdomen: Bowel sounds present. Soft, nondistended, nontender. Extremities: Massive lower extremity edema, wraps in place. Const: Vital Signs, click to edit/add: Vital Signs - 24 hr 11/07/24 19:00 11/07/24 23:00 11/07/24 23:00 Temperature 97.9 F Pulse Rate [Pulse Oximeter] 62 62 60 Respiratory Rate 18 16 Blood Pressure [Ri ght Arm] 114/50 L Pulse Oximetry 94 94 Oxygen Delivery Me thod Room Air Room Air 11/08/24 03:00 11/08/24 07:30 11/08/24 07:45 Temperature 98.7 F 97.7 F Pulse Rate [Pulse Oximeter] 57 L 62 62 Respiratory Rate 16 18 18 Blood Pressure [Ri ght Arm] 115/52 L 121/57 L Pulse Oximetry 94 97 Oxygen Delivery Me thod Room Air Room Air 11/08/24 11:56 11/08/24 15:00 11/08/24 15:00 Temperature 98.7 F 97.9 F Pulse Rate [Pulse Oximeter] 67 67 61 Respiratory Rate 18 18 18 Blood Pressure [Ri ght Arm] 125/66 111/59 L Pulse Oximetry 97 97 Oxygen Delivery Me thod Room Air Room Air Labs Labs: Laboratory Results - last 24 hr 11/08/24 11/08/24 05:37 Unknown WBC 3.66 L RBC 2.34 L Hgb 7.7 L* Hct 24.1 L MCV 103 H MCH 33 MCHC 32 Plt Count 147 Sodium 142 Potassium 3.5 L Chloride 107 Carbon Dioxide 34 H Anion Gap 1 L BUN 33 H Creatinine 1.1 Estimated Creat Clear 48.36 Estimated GFR 66 Glucose 110 Calcium 7.3 L SARS-CoV-2 (PCR) Negative SARS-CoV-2 Influenza Type A (PCR) Negative PCR FLU A Influenza Type B (PCR) Negative PCR FLU B RSV (PCR) Negative PCR RSV
[2024-11-08] MEDS: LATANOPROST 0.005% OPHTH 1 DROP EYE-BOTH (21:25)
--- NOTE | 2024-11-08 22:48 | PC.NURSE ---
Shift note: No additional complains, went for a walk, pt own compression devices applied for an hour in PM
[2024-11-09 03:24] VITALS: BP 127/57; PULSE 62; RESP 16; TEMP 36.6; O2SAT 97
--- NOTE | 2024-11-09 06:24 | PC.NURSE ---
End of shift note [id number]: Pt alert & oriented x 4 and able to make needs known. He is able to transfer/ambulate with assist of 1 using rolling walker and gait belt. PRN Tylenol given for c/o sore throat. Pt has been afebrile and on RA throughout the shift. Lymphedema sleeves to BLEs worn. Pt continent and incontinent of bladder. He was continent of bowel this shift and requested to sleep in recliner overnight. Daily weights noted to be fluctuating though weight this morning was obtained several times on standing scale to confirm accuracy. No CP or N/V. Call light within reach. ?
[2024-11-09 06:37] LABS: Hematocrit 25.6 % (37.0-53.0); Hemoglobin* 8.1 gm/dL (13.5-17.5); Mean Corpuscular HGB Conc 32 gm/dL (32-36); Mean Corpuscular Hemoglobin 33 pg (26-34); Mean Corpuscular Volume 105 fL (80-100); Platelet Count* 168 K/uL (140-440); Red Blood Count 2.45 m/uL (4.30-5.90); White Blood Count* 4.37 K/uL (4.50-11.00)
[2024-11-09 06:46] LABS: Slide Review Reflex No
[2024-11-09 06:54] LABS: Chloride* 107 mmol/L (96-114); Sodium* 143 mmol/L (135-149)
[2024-11-09 06:55] LABS: Potassium* 3.6 mmol/L (3.6-5.1)
[2024-11-09 06:57] LABS: Anion Gap 2 mEq/L (7-15); Blood Urea Nitrogen* 28 mg/dL (7-30); Carbon Dioxide* 34 mmol/L (20-32); Creatinine* 1.1 mg/dL (0.5-1.5); Est. Creatinine Clearance* 48.36; Estimated Glomerular Filt Rate 66 ml/min
[2024-11-09 06:58] LABS: Calcium* 7.2 mg/dL (8.4-10.6); Glucose* 117 mg/dL (60-115)
[2024-11-09 08:07] VITALS: BP 113/55; PULSE 66; RESP 16; TEMP 36.6; O2SAT 96
[2024-11-09] MEDS: METOPROLOL SUCCINATE (XL) 50 MG TAB PO (08:43)
[2024-11-09] MEDS: ATORVASTATIN 10 MG TABLET 20 MG PO (08:43)
[2024-11-09] MEDS: TAMSULOSIN HCL 0.4 MG CAPSULE PO (08:43)
[2024-11-09] MEDS: allopurinoL 300 MG TABLET PO (08:43)
[2024-11-09] MEDS: POTASSIUM CHLORIDE 10 MEQ CAPSULE ER 20 MEQ PO ×2 (08:43→17:11)
[2024-11-09] MEDS: CETIRIZINE HCL 10 MG TABLET PO (08:43)
[2024-11-09] MEDS: FUROSEMIDE 40 MG TABLET PO (08:43)
[2024-11-09] MEDS: APIXABAN 5 MG TABLET PO ×2 (08:43→20:59)
[2024-11-09] MEDS: SODIUM CHLORIDE 0.9 % (FLUSH) 10 ML SYRINGE 5 ML IVF ×2 (08:44→20:59)
[2024-11-09] MEDS: ACETAMINOPHEN 325 MG TABLET 650 MG PO (11:40)
[2024-11-09 11:46] VITALS: BP 121/53; PULSE 64; RESP 18; TEMP 36.4; O2SAT 96
--- NOTE | 2024-11-09 11:53 | PC.SOCIAL ---
Discharge planning: Met with pt and family in room. Pt plans to go to intermediate but is requesting placement at [facility] in [place] if possible. Called and secure emailed information to Frank admitting nurse at [facility] for evaluation for admit. Pt has already been accepted for admission tomorrow to [facility]. 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
[2024-11-09 15:12] VITALS: BP 102/42; PULSE 63; RESP 18; TEMP 36.6; O2SAT 95
--- NOTE | 2024-11-09 16:52 | P.IMPN_ITS ---
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 replacing potassium. -poorly managed chronically, noncompliant with necessary chronic cares -acute on chronic recurring edema, weeping, blisters, wounds, heel pain -compression wraps bilateral lower extremities toes to thighs, changing q.6 hours with skin checks -elevation -bring in lymphedema pump from home - use b.i.d. -appreciate wound care and lymphedema consults. -discussed importance of compliance with ongoing lymphedema cares -will need TCU before returning home. Planning on [facility] tomorrow. Status: Acute (2) Cognitive decline: Problem details: summer, during current admission OT observed him pouring soup on a wrapped sandwich PT observes poor conditioning and inability to ambulate in a household Lymphedema recommends daily cares and therapies for severe lymphedema and inability to stay on top of the wraps, pumps and cares previously -pt is angry and refusing most reasonable conversation - He tells me I should pay for it; He says he can walk and hail a cab - He is too weak and disabled to walk and care for himself. I laid out options for his family: 1. discharge home but will need 16-18 hours of care a day - TRACTOR TRAILER TRUCK DRIVER needed. Even if he chose hospice (and discussed what this means) he would still need TRACTOR TRAILER TRUCK DRIVER care. 2. TCU/SNF care short-term with the possibility of need for LTC; but would not have oral chemotherapy covered unless they were private pay. Neither were accepted. Granddaughter is listed in the advance directive after the patient's and daughter who will defer to the granddaughter. Hopefully they achieve consensus for his care. bottom line - he can't take care of himself despite what he thinks he can do and will need significant assistance. - 11/07 patient is agreeable to go to custodial facility and hold chemotherapy while there. Bed available in [facility] on Saturday. Status: Chronic (3) Anasarca: Problem details: -acute on chronic, recurrent generalized edema with history of lymphedema (pelvic and inguinal lymph nodes removed years earlier with penile cancer treatment) -management as above -hold home Lasix, continue IV diuresis with Lasix 40 mg b.i.d., strict I&Os, daily weights, monitor kidney functions - Cr stable, added potassium 11/04/24, 11/07 increase potassium (current K level is low at 3.5) - 11/08 strongly encouraged compliance with lymphedema pumps. Status: Acute (4) Heart failure with reduced ejection fraction: Problem details: -chronic -BNP 4150, previously 1890 -Echo 04/30/2024 shows moderately increased left ventricular size, normal wall thickness, normal global systolic function, EF 56%. Global systolic RV function is normal. Moderately enlarged left atrium. [id number] mitral regurg. M ild to moderate tricuspid regurg. Normal estimated pulmonary pressures. No significant change from 05/15/2023 -Outpatient follow-up to determine optimal management of heart disease, AFib, heart failure, edema. Cardiology has told him Lasix is not the answer Status: Chronic (5) CML (chronic myelocytic leukemia): Problem details: -continue imatinib Managed by Cindy Brand NP in [facility] in [place] Status: Chronic (6) Anemia: Problem details: -chronic disease (meds/CML). Stabilizing. Monitor. Status: Chronic (7) Diabetes mellitus: Problem details: -most recent A1c 5.8. Blood sugar well controlled during previous hospital stay. Monitor with daily glucose for now Status: Chronic (8) Paroxysmal atrial fibrillation: Problem details: -On anticoagulation with apixaban -continue metoprolol -Dual chamber pacemaker, last interrogation 09/29/2024, normal function Status: Chronic (9) Pulmonary edema: Problem details: -CXR shows mild pulmonary edema with small bilateral pleural effusions -IV diuresis as above, daily weight, strict I&Os 11/06 improved nicely. off oxygen. Status: Acute (10) Hypertension: Problem details: -continue home medications, monitor in setting of IV diuresis Status: Chronic Time Spent With Patient Total time spent: Today I spent 35 minute seeing the patient, multiple discussions with family, reviewing Expanse and EPIC notes/diagnostics/labs, discussing the care plan with our care team that includes social work, PT/OT, pharmacy, RT, custodial and documenting my impressions and plan in the medical record. Subjective Time Seen by Provider: 07:43 Date Seen: 11/09/24 Interval history: When I saw Luisito this morning, I noted that his weight had gone up. We discussed how he was noncompliant with his lymphedema pumps in the morning. Luisito was agreeable to do the lymphedema pumps this morning when I saw him and explained the importance of using them. Luisito tells me that his sore throat is better. He denies any shortness of breath or chest pain. His daughter came in the mid morning and pulled me aside to tell me that she was thinking about taking off work were quitting her job and staying home with Luisito and wondered if he would be able to just go home then rather than to [facility]. I noted that he already had a bed at [facility] for rehab and would likely do better if he could get some rehab before going home. In the afternoon the patient's and daughter wanted to see me. They noted that Luisito gets in pneumonia easily and they were concerned that because he is sleepy today he had pneumonia. He is not coughing or complaining of congestion. He has not had a fever and his white count is slightly low, stable. His lung exam is okay. I noted all of these things and that there was no indication at this time to do a chest x-ray. They were understanding and okay with this plan. Exam Narrative: Exam Narrative: General: No acute distress. Sitting up in bed eating breakfast. Awake, alert, oriented. No pallor. No jaundice. Oropharynx: Clear. Mucous membranes moist. Cardiovascular: Regular rate and rhythm. No murmurs, gallops, or rubs. Respiratory: Clear to auscultation bilaterally. No wheezes or crackles. Abdomen: Bowel sounds present. Soft, nondistended, nontender. Extremities: Massive lower extremity edema, wraps in place. Const: Vital Signs, click to edit/add: Vital Signs - 24 hr 11/08/24 19:00 11/08/24 22:59 11/08/24 23:00 Temperature 98.3 F Pulse Rate [Pulse Oximeter] 63 66 66 Respiratory Rate 18 18 18 Blood Pressure [Ri ght Arm] 105/52 L 157/78 H Pulse Oximetry 96 99 Oxygen Delivery Me thod Room Air Room Air 11/09/24 03:24 11/09/24 08:07 11/09/24 11:46 Temperature 97.8 F 97.8 F 97.6 F Pulse Rate [Pulse Oximeter] 62 66 64 Respiratory Rate 16 16 18 Blood Pressure [[facility] Arm] 127/57 L 113/55 L 121/53 L Pulse Oximetry 97 96 96 Oxygen Delivery Me thod Room Air Room Air Room Air 11/09/24 15:12 Temperature 97.8 F Pulse Rate [Pulse Oximeter] 63 Respiratory Rate 18 Blood Pressure [[facility] Arm] 102/42 L Pulse Oximetry 95 Oxygen Delivery Me thod Room Air Labs Labs: Laboratory Results - last 24 hr 11/09/24 06:07 WBC 4.37 L RBC 2.45 L Hgb 8.1 L Hct 25.6 L MCV 105 H MCH 33 MCHC 32 Plt Count 168 Sodium 143 Potassium 3.6 Chloride 107 Carbon Dioxide 34 H Anion Gap 2 L BUN 28 Creatinine 1.1 Estimated Creat Clear 48.36 Estimated GFR 66 Glucose 117 H Calcium 7.2 L
[2024-11-09] MEDS: LATANOPROST 0.005% OPHTH 1 DROP EYE-BOTH (20:59)
[2024-11-09 21:00] VITALS: BP 100/54; PULSE 63; RESP 16; TEMP 36.9; O2SAT 97
[2024-11-09 23:00] VITALS: PULSE 63; RESP 16
[2024-11-10 03:00] VITALS: BP 124/55; PULSE 62; RESP 16; TEMP 36.9; O2SAT 94
--- NOTE | 2024-11-10 06:11 | PC.NURSE ---
End of shift summary: Pt has been A&O, afebrile and VSS. He is Ax1 for ambulation/transfers. No c/o pain overnight, no PRN?s given. PIV in right hand SL and C/D/I. Pt was awake most of the night with intermittent sleep in between, frequently sitting on EOB while awake. Pt denies nausea, dizziness or CP overnight. Plan to discharge to [facility] today, 11/10 at 1200 via daughter. ?
[2024-11-10 06:35] LABS: Chloride* 109 mmol/L (96-114); Potassium* 3.5 mmol/L (3.6-5.1); Sodium* 143 mmol/L (135-149)
[2024-11-10 06:36] LABS: Hematocrit 23.2 % (37.0-53.0); Mean Corpuscular HGB Conc 32 gm/dL (32-36); Mean Corpuscular Hemoglobin 34 pg (26-34); Mean Corpuscular Volume 105 fL (80-100); Platelet Count* 169 K/uL (140-440); Red Blood Count 2.21 m/uL (4.30-5.90); White Blood Count* 4.32 K/uL (4.50-11.00)
[2024-11-10 06:38] LABS: Anion Gap 2 mEq/L (7-15); Blood Urea Nitrogen* 25 mg/dL (7-30); Carbon Dioxide* 32 mmol/L (20-32); Creatinine* 1.1 mg/dL (0.5-1.5); Est. Creatinine Clearance* 48.36; Estimated Glomerular Filt Rate 66 ml/min; Glucose* 134 mg/dL (60-115)
[2024-11-10 06:39] LABS: Calcium* 7.1 mg/dL (8.4-10.6)
[2024-11-10 06:57] LABS: Hemoglobin* 7.4 gm/dL (13.5-17.5); Slide Review Reflex No
--- NOTE | 2024-11-10 07:41 | PM.DS1 ---
DS: Providers Provider Time Seen by Provider: 07:25 Date Seen: 11/10/24 Date of admission: 11/04/24 08:52 Primary care physician: Luisito Wood MD Admitting Clinician: Lubna Cortés MD Consults: 11/03/24 20:11 Consult to Occupational Therapy [CONS] Routine Comment: Reason(s) for OT Consult:: Evaluate and Treat Any Restrictions?:: No Restrictions Consult to Physical Therapy [CONS] Routine Comment: Reason(s) for PT Consult:: Evaluate and Treat Any Restrictions?:: No Restrictions Consult to Wound Care [CONS] Routine Comment: Consulting Provider: [facility] Attending Physician on discharge: Vilma Waldron MD Date of Discharge: 11/10/24 DS: Diagnosis Discharge Diagnosis (1) Chronic acquired lymphedema: Status: Acute Problem details: -chronic, pelvic and inguinal lymph nodes removed years earlier with penile cancer treatment - acutely worse in the last month resulting in deconditioning, open sores, and acute CHF -changing IV lasix to oral 40mg qam. replacing potassium. -poorly managed chronically, noncompliant with necessary chronic cares -acute on chronic recurring edema, weeping, blisters, wounds, heel pain -compression wraps bilateral lower extremities toes to thighs, changing q.6 hours with skin checks -elevation -bring in lymphedema pump from home - use b.i.d. -appreciate wound care and lymphedema consults. -discussed importance of compliance with ongoing lymphedema cares -will need TCU before returning home. Planning on [place] tomorrow. (2) Cognitive decline: Status: Chronic Problem details: summer, during current admission OT observed him pouring soup on a wrapped sandwich PT observes poor conditioning and inability to ambulate in a household Lymphedema recommends daily cares and therapies for severe lymphedema and inability to stay on top of the wraps, pumps and cares previously -pt is angry and refusing most reasonable conversation - He tells me I should pay for it; He says he can walk and hail a cab - He is too weak and disabled to walk and care for himself. I laid out options for his family: 1. discharge home but will need 16-18 hours of care a day - RECEIVER DISPATCHER needed. Even if he chose hospice (and discussed what this means) he would still need RECEIVER DISPATCHER care. 2. TCU/SNF care short-term with the possibility of need for LTC; but would not have oral chemotherapy covered unless they were private pay. Neither were accepted. Granddaughter is listed in the advance directive after the patient's and daughter who will defer to the granddaughter. Hopefully they achieve consensus for his care. bottom line - he can't take care of himself despite what he thinks he can do and will need significant assistance. - 11/07 patient is agreeable to go to retirement facility and hold chemotherapy while there. Bed available in [place] on Saturday. (3) Anasarca: Status: Acute Problem details: -acute on chronic, recurrent generalized edema with history of lymphedema (pelvic and inguinal lymph nodes removed years earlier with penile cancer treatment) -management as above -hold home Lasix, continue IV diuresis with Lasix 40 mg b.i.d., strict I&Os, daily weights, monitor kidney functions - Cr stable, added potassium 11/04/24, 11/07 increase potassium (current K level is low at 3.5) - 11/08 strongly encouraged compliance with lymphedema pumps. (4) Heart failure with reduced ejection fraction: Status: Chronic Problem details: -acute on chronic heart failure with reduced ejection fraction -BNP 4150, previously 1890 -Echo 04/30/2024 shows moderately increased left ventricular size, normal wall thickness, normal global systolic function, EF 56%. Global systolic RV function is normal. Moderately enlarged left atrium. [id number] mitral regurg. Mild to moderate tricuspid regurg. Normal estimated pulmonary pressures. No significant change from 05/15/2023 -Outpatient follow-up to determine optimal management of heart disease, AFib, heart failure, edema. Cardiology has told him Lasix is not the answer (5) CML (chronic myelocytic leukemia): Status: Chronic Problem details: -continue imatinib Managed by Cindy Brand NP in Oncology Clinic in [place] (6) Anemia: Status: Chronic Problem details: -chronic disease (meds/CML). Stabilizing. Monitor. (7) Diabetes mellitus: Status: Chronic Problem details: -most recent A1c 5.8. Blood sugar well controlled during previous hospital stay. Monitor with daily glucose for now (8) Paroxysmal atrial fibrillation: Status: Chronic Problem details: -On anticoagulation with apixaban -continue metoprolol -Dual chamber pacemaker, last interrogation 09/29/2024, normal function (9) Pulmonary edema: Status: Acute Problem details: -CXR shows mild pulmonary edema with small bilateral pleural effusions -IV diuresis as above, daily weight, strict I&Os 11/06 improved nicely. off oxygen. (10) Hypertension: Status: Chronic Problem details: -continue home medications, monitor in setting of IV diuresis (11) Hypocalcemia: Status: Acute DS: Summary Hospital Course Hospital Course: Per H&P: Luisito Valente is a 83 year old male past medical history significant for CML on imatinib, hypertension, paroxysmal atrial fibrillation, HFrEF, squamous cell carcinoma of penis, type 2 diabetes mellitus diet controlled, hyperlipidemia, BPH, stage III CKD, lymphedema is admitted to the medical floor from the ED for further management worsening lymphedema. Patient is seen with and daughters at bedside. Reports an 8 lb weight gain over the last 24 hours. Bilateral lower extremities with weeping, reported bloody seepage from his left lower leg earlier today. Reports blisters to his legs. Has known lymphedema. Lower extremities have been more swollen. Has not been to a lymphedema clinic in 2 years. Admits he no longer uses compression stockings or medical grade wraps. He has been using a neoprene type wrap to his right leg which has not been beneficial. He has been sleeping in a recliner for the past 3 months. More recently, using a walker when moving around the house. Previously walking independently or using a cane. Has noted increased swelling into his abdomen. Denies shortness of breath at rest but has noticed increasing dyspnea with exertion. Has home health cares weekly including PT/OT. They were at the home today and were concerned with the worsening of his legs per report. Has not been seen in the wound clinic for some time but has been assessed by home health. He has a lymphedema pump which he tells me he uses 1 hour daily. Was in the ED on 09/27/2024 for concerns of draining blisters and discharged with outpatient follow-up. Wound Care was consulted and he was seen by Sowmya Hill who made recommendations on wound care which I have included in the orders below. Patient also had needs for skilled PT and OT. He was not able to effectively manage his own heart failure and lymphedema at home and recommendation was made for rehab stay. He was it 1st hesitant due to wishing to continue medication for CML, but ultimately recognize the need for rehab and desires that more strongly than ongoing treatment for CML. He has agreed to stopping imatinib in order to go to rehab. He is discharged there in stable condition today. Please diagnoses see above for further details. Time Spent with Patient Time attestation: Total time spent providing and/or coordinating discharge services: Today I spent 45 minutes discharging the patient, discussing the plan of care with the patient, his daughter, his , and his [id number], reviewing Expanse notes/diagnostics/labs, discussing the care plan with our care team that includes social work, PT/OT, pharmacy, RT, retirement and documenting my impressions and plan in the medical record. Exam Narrative: Exam Narrative: General: No acute distress. Sitting comfortably in bedside chair. Awake, alert, oriented. No pallor. No jaundice. Oropharynx: Clear. Mucous membranes moist. Cardiovascular: Regular rate and rhythm. No murmurs, gallops, or rubs. Respiratory: Clear to auscultation bilaterally. No wheezes or crackles. Abdomen: Bowel sounds present. Soft, nondistended, nontender. Extremities: Massive lower extremity edema, wraps in place. Const: Vital Signs, click to edit/add: Vital Signs - 24 hr 11/09/24 08:07 11/09/24 11:46 11/09/24 15:12 Temperature 97.8 F 97.6 F 97.8 F Pulse Rate [Pulse Oximeter] 66 64 63 Respiratory Rate 16 18 18 Blood Pressure [Le ft Arm] Blood Pressure [Ri ght Arm] 113/55 L 121/53 L 102/42 L Pulse Oximetry 96 96 95 Oxygen Delivery Me thod Room Air Room Air Room Air 11/09/24 21:00 11/09/24 23:00 11/10/24 03:00 Temperature 98.5 F 98.5 F Pulse Rate [Pulse Oximeter] 63 63 62 Respiratory Rate 16 16 16 Blood Pressure [Le ft Arm] 100/54 L Blood Pressure [Ri ght Arm] 124/55 L Pulse Oximetry 97 94 Oxygen Delivery Me thod Room Air Room Air DS: Data Data Completed and Pending Completed studies during hospitalization: Ordering Physician: Joslyn Nunez M.D. Date of Service: 11/03/24 Procedure(s): XR chest 1V portable Accession Number(s): [id number] cc: Luisito Wood M.D.; Joslyn Nunez M.D.~ For Patients: As a result of the Cures Act, medical imaging exams and procedure reports are released immediately into your electronic medical record. You may view this report before your referring provider. If you have questions, please contact your health care provider. Indication: EDEMA. HX LEUKEMIA Technique: AP view of the chest. Comparison: 07/18/2024. Findings: Low lung volumes. Left chest pacemaker with right atrial and right ventricular leads. Mildly enlarged cardiomediastinal silhouette with calcified aortic knob. Moderate interstitial prominence. Small bilateral pleural effusions. No visualized pneumothorax. Impression: Mild pulmonary edema with small bilateral pleural effusions. Dictated by Kp Hernandez MD @ 11/03/2024 5:51:27 PM (Electronically Signed) Labs on day of discharge: Labs from last 24 hours 11/10/24 05:38 WBC 4.32 L RBC 2.21 L Hgb 7.4 L* Hct 23.2 L MCV 105 H MCH 34 MCHC 32 Plt Count 169 Sodium 143 Potassium 3.5 L Chloride 109 Carbon Dioxide 32 Anion Gap 2 L BUN 25 Creatinine 1.1 Estimated Creat Clear 48.36 Estimated GFR 66 Glucose 134 H Calcium 7.1 L Discharge Plan Discharge Disposition: [facility] Date of Admission: 11/04/24 08:52 Attending Provider on Discharge: Vilma Waldron Consulting Providers: Sowmya Hill; Dulce Maria García Primary Care Provider: Luisito Wood Discharge Medications: New furosemide 40 mg Tablet 40 mg PO DAILY@0800 Qty: 30 0RF potassium chloride 10 mEq Capsule, Extended Release 20 meq PO BIDWM Qty: 60 0RF calcium carbonate-vitamin D3 [Calcium 600 + D(3)] 600 mg-5 mcg (200 unit) tablet 1 tab PO BID Qty: 10 0RF Continued atorvastatin 20 mg tablet 20 mg PO DAILY tamsulosin 0.4 mg capsule 0.4 mg PO DAILY allopurinol 300 mg tablet 300 mg PO DAILY Eliquis 5 mg tablet 5 mg PO BID metoprolol succinate 50 mg capsule,sprinkle,ER 24hr 50 mg PO DAILY Qty: 30 0RF loperamide 2 mg capsule 2 mg PO QID PRN acetaminophen [Acetaminophen Extra Strength] 500 mg tablet 1,000 mg PO Q6H PRN cetirizine [24Hour Allergy] 10 mg tablet 10 mg PO DAILY cholecalciferol (vitamin D3) 50 mcg (2,000 unit) capsule 50 mcg PO DAILY latanoprost 0.005 % drops 1 drp ophthalmic (eye) HS Patient Comments: BOTH EYES furosemide 20 mg tablet 40 mg PO DAILY nitroglycerin 0.4 mg tablet, sublingual 0.4 mg sublingual Q5M PRN Rx Instructions: Place 1 tablet under the tongue every 5 minutes if needed. Discontinued potassium chloride 20 mEq tablet,ER particles/crystals 20 meq PO DAILY imatinib 100 mg tablet 400 mg PO DAILY prednisone 20 mg tablet 20 mg PO BID Discharge Orders: Discharge Order (Routine); Ordered 11/10/24 Ordered By: Vilma Waldron Activity Level: Up with assist and Use Walker Discharge Diet: Heart Healthy (2 gm sodium, low fat) Follow Up Appointments: Luisito Wood MD [Primary Care Provider] - Forms: [facility] Info Instructions Wound Care: Wound care orders: Bilateral Lower extremity serous filled blisters: Keep covered and protected- Mepilex silicone foam border dressing. Assess areas and change 3x per week. If areas open are start to drain or weeping in large amounts of drainage add Melgisorb over areas of weeping. Open areas/blisters to toes on bilateral feet: [place] areas with betadine daily, allow to dry. Weave interdry between toes. Leave in place. Do not apply hydrocolloid/Duoderm dressing to weeping areas or blisters on toes. This does not have enough absorption and is causing maceration. Compression: Utilize lymphedema pumps 2 times per day for 60 minutes at a time. Do not apply Manuelito bandages. Utilize Comprilan short stretch wraps to lower extremities or patient's own Lymhedema Velcro wraps. Compression should be applied in the am, removed at bedtime. Admit to: SNF Discharge Potential: Fair Length of Stay: <30 days Can use facility standing orders?: Yes Code Status: DNR/DNI TEDs: N/A Rehab Potential: Fair Therapy: Physical Therapy and Occupational Therapy Therapy Orders: Evaluate and Treat Oxygen: No Urinary Catheter: No Lab Orders: CBC, BMP Saturday Orders are good >30 days: No Signature: Vilma Waldron MD
[2024-11-10 08:04] VITALS: BP 142/74; PULSE 62; PULSE 83; RESP 16; TEMP 37; O2SAT 97
[2024-11-10] MEDS: POTASSIUM CHLORIDE 10 MEQ CAPSULE ER 20 MEQ PO (08:08)
[2024-11-10] MEDS: FUROSEMIDE 40 MG TABLET PO (08:09)
[2024-11-10] MEDS: METOPROLOL SUCCINATE (XL) 50 MG TAB PO (08:09)
[2024-11-10] MEDS: allopurinoL 300 MG TABLET PO (08:09)
[2024-11-10] MEDS: TAMSULOSIN HCL 0.4 MG CAPSULE PO (08:09)
[2024-11-10] MEDS: ATORVASTATIN 10 MG TABLET 20 MG PO (08:09)
[2024-11-10] MEDS: CETIRIZINE HCL 10 MG TABLET PO (08:09)
[2024-11-10] MEDS: APIXABAN 5 MG TABLET PO (10:52)
--- NOTE | 2024-11-10 13:23 | PC.SOCIAL ---
Discharge planning: Late entry: On 11/09/24, contacted [facility] and [facility] at family request regarding private room availability for rehab care. Neither of these facilities has private rehab beds available. Famiyl and pt are in agreement with discharge to [facility] where they have a private room and Lymphedma treatment pt needs. Dtr plans to transport pt at discharge. On 11/10/24, met with pt and family again to confirm discharge plans for today. All are in agreement to plan for discharge to [facility] and htat pt's oral chemo med will be on hold during his rehab stay. Copy of the Important Message from Medicare was provided to pt and family prior to discharge. Family is pleased and pt is accepting of this discharge plan. PAS completed PAS#[id number], and all discharge information was faxed to facility prior to pt's discharge.
--- NOTE | 2024-11-10 13:28 | PC.NURSE ---
Nursing Care Hours: 1343-0074 Pt this shift calm and cooperative, alert and oriented. VSS. No c/o pain. No discharge noted through [facility] wraps. Used home lymphedema pumps for one hour. Mepilex applied to R glute d/t open area. Redness noted to upper R posterior thigh as well. IV dc'd for discharge. Assisted to in[employer]inero vehicle, left for physical rehab in stable condition.
== END 2024-11-10 12:00 | DRG 606 ==
LOC: ED 16:56 → MEDSURG 18:48
PROVIDERS: Family Medicine; Physician Assistant; Admitting Provider Family Medicine; Emergency Provider Family Medicine; PCP Family Medicine; Visit Provider Family Medicine
DX: I89.0 Lymphedema, not elsewhere classified (principal); I50.23 Acute on chronic systolic (congestive) heart failure; C92.10 Chronic myeloid leukemia, BCR/ABL-positive, not having achieved remission; I13.0 Hypertensive heart and chronic kidney disease with heart failure and stage 1 through stage 4 chronic kidney disease, or unspecified chronic kidney disease; E11.22 Type 2 diabetes mellitus with diabetic chronic kidney disease; N18.30 Chronic kidney disease, stage 3 unspecified; I48.0 Paroxysmal atrial fibrillation; Z79.01 Long term (current) use of anticoagulants; R60.1 Generalized edema; G31.84 Mild cognitive impairment of uncertain or unknown etiology; D63.8 Anemia in other chronic diseases classified elsewhere; Z91.199 Patient's noncompliance with other medical treatment and regimen due to unspecified reason; E66.9 Obesity, unspecified; Z68.39 Body mass index [BMI] 39.0-39.9, adult; R23.8 Other skin changes; S90.821A Blister (nonthermal), right foot, initial encounter; S90.822A Blister (nonthermal), left foot, initial encounter; S90.422A Blister (nonthermal), left great toe, initial encounter; S90.424A Blister (nonthermal), right lesser toe(s), initial encounter; S90.425A Blister (nonthermal), left lesser toe(s), initial encounter; N40.0 Benign prostatic hyperplasia without lower urinary tract symptoms; I08.1 Rheumatic disorders of both mitral and tricuspid valves; I25.10 Atherosclerotic heart disease of native coronary artery without angina pectoris; Z95.0 Presence of cardiac pacemaker; Z95.5 Presence of coronary angioplasty implant and graft; Z85.49 Personal history of malignant neoplasm of other male genital organs
CPT/HCPCS: 36415; 71045; 80048; 80053; 83735; 83880; 84145; 85025; 85027; 86140; 87631; 94761; 97110; 97116; 97140; 97161; 97166; 97530; 97535; 99284; 99285; A9270; G0378; J1940

== ENCOUNTER 2024-12-31 13:37 | Outpatient (CLI) | payer MEDICARE, OTHER, SELFPAY | END 2024-12-31 13:38 | disposition home or self-care (01) | LOC: AMB 01-01 10:14 | PROVIDERS: PCP Family Medicine; Visit Provider Emergency Medicine Emergency Medical Services | DX: R53.1 Weakness (principal) | CPT/HCPCS: A0425; A0429 ==